=== PATIENT | female | born 1950 | race Caucasian/White ===

== ENCOUNTER → 2017-06-26 13:33 | Outpatient (CLI) | payer MEDICARE, OTHER, SELFPAY ==
--- NOTE | 2017-06-26 14:15 | RAD_ITS ---
STUDY: X-RAY - LEFT HAND REASON FOR EXAM: Female, 66 years old. Arthritis for few years TECHNIQUE: 3 view(s) of the hand. COMPARISON: None. FINDINGS: Normal radiocarpal articulation. Normal distal radioulnar joint. Normal visualized carpal bones. Normal carpal articulations There is degenerative arthrosis of the carpometacarpal (CMC) articulation of the thumb. Normal second through fifth carpometacarpal joints. Normal metacarpi. Normal metacarpophalangeal joint of the thumb. There is degenerative arthrosis of the interphalangeal joint of the thumb with articular joint space narrowing. Normal proximal and distal phalanges of the thumb. Normal metacarpophalangeal joints of the second through fifth fingers. There is erosive osteoarthritis involving the proximal and distal interphalangeal joints of the second through fifth digits Normal phalanges of the second through fifth fingers. The soft tissue structures are unremarkable. 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 Arthrosis of the basal joint Electronically Signed: Luis Manuel Woods MD, FACR at 15:10 EST , Service support ,
--- NOTE | 2017-06-26 14:15 | RAD_ITS ---
STUDY: X-RAY - RIGHT HAND REASON FOR EXAM: Female, 66 years old. Arthritis for a few years TECHNIQUE: 4 view(s) of the hand. COMPARISON: None. FINDINGS: Normal radiocarpal articulation. Normal distal radioulnar joint. Normal visualized carpal bones. Normal carpal articulations Normal carpometacarpal articulation of the thumb. Normal second through fifth carpometacarpal joints. Normal metacarpi. Normal metacarpophalangeal joint of the thumb. There is degenerative arthrosis of the interphalangeal joint of the thumb with articular joint space narrowing. Normal proximal and distal phalanges of the thumb. Normal metacarpophalangeal joints of the second through fifth fingers. There is erosive osteoarthritis involving the proximal and distal interphalangeal joints of the second through fifth digits Normal phalanges of the second through fifth fingers. The soft tissue structures are unremarkable. RAD/Hand Min 3 Views IMPRESSION: Erosive osteoarthritis involving the proximal and distal interphalangeal joints Electronically Signed: Luis Manuel Woods MD, FACR at 15:07 EST , Service support ,
[2017-06-26 16:08] LABS: Anion Gap 6 (5-15); BUN 15 mg/dL (7-18); Calcium,Total 8.9 mg/dL (8.5-10.1); Chloride 106 mmol/L (98-107); Creatinine, Serum 1.25 mg/dL (0.55-1.02); EST Glomerular Filtration Rate 46 mL/min (>60); Est Glom Filt Rate - Afr Amer 55 mL/min (>60); Glucose 93 mg/dL (74-106); Potassium 4.1 mmol/L (3.5-5.1); Rheumatoid Factor < 10.0 IU/mL (<15); Sodium Level 140 mmol/L (136-145); T4 Free Direct 1.51 ng/dL (0.76-1.46); Thyroid Stim Hormone (TSH) 1.77 uIU/mL (0.358-3.74)
[2017-06-26 16:09] LABS: Erythrocyte Sedimentation Rate 29 mm/hr (0-30)
[2017-06-27 09:06] LABS: Vitamin D,25 Hydroxy 19.8 ng/mL (19.95-100.01)
[2017-06-28 15:03] LABS: ANTINUCLEAR ANTIBODIES DIRECT Positive (Negative)
[2017-06-29 08:09] LABS: CCP IgG Antibodies 8 units (0-19)
== END ==
PROVIDERS: Family Provider Family Medicine; PCP Family Medicine; Visit Provider Family Medicine
DX: E03.9 Hypothyroidism, unspecified (principal); M19.041 Primary osteoarthritis, right hand; M19.042 Primary osteoarthritis, left hand
CPT/HCPCS: 36415; 73130; 80048; 82306; 84439; 84443; 85652; 86038; 86200; 86431

== ENCOUNTER → 2017-08-07 14:06 | Outpatient (CLI) | payer MEDICARE, OTHER, SELFPAY ==
--- NOTE | 2017-08-07 14:12 | RAD_ITS ---
STUDY: X-RAY - PELVIS REASON FOR EXAM: Female, 66 years old. Inflammatory polyarthropathy TECHNIQUE: One view of the pelvis was obtained. COMPARISON: None. FINDINGS: There is a non-specific bowel gas pattern. Normal visualized soft tissue structures. Normal bilateral iliac wings, sacroiliac joints and visualized sacrum. Normal visualized bilateral superior and inferior pubic rami. Normal pubic symphysis. Normal ischial tuberosities. The right hip joint appears within normal limits. There are mild osteoarthritic changes of the left hip joint. The soft tissues are unremarkable. RAD/Pelvis 1 or 2 Views IMPRESSION: Mild osteoarthritic changes of the left hip joint. Electronically Signed: Diaz Faust MD at 22:09 EDT , Service support ,
[2017-08-07 16:23] LABS: Absolute Lymphocyte Count 1.93 X10^3/ul (0.83-4.51); Absolute Neutrophil Count 4.4 X10^3/uL (2.0-7.7); Basophil# 0.04 X10^3/uL; Basophil% 0.6 % (0-1); Eosinophil# 0.15 X10^3/uL; Eosinophils% 2.1 % (0-5); Hematocrit 37.3 % (37-47); Hemoglobin 12.1 g/dl (12.0-15.0); Lymphocyte # 1.93 X10^3/ul (4.0); Lymphocyte % 27.3 % (19-41); Mean Corp Hgb Conc 32.4 g/gl (32-36); Mean Corpuscular Hgb 30.9 pg (27.0-32.0); Mean Corpuscular Volume 95.4 fL (81-99); Mean Platelet Vol. 10.8 fl (6.2-12.0); Monocyte# 0.51 X10^3/uL; Monocyte% 7.2 % (0-10); Neutrophil # 4.42 X10^3/uL (2.7-7.7); Neutrophil % 62.7 % (47-70); Platelet Count 345 K/mm3 (150-450); RBC Distribution Width CV 13.2 % (11.6-14.6); RBC Distribution Width SD 44.7 fl (35.1-43.9); Red Blood Count 3.91 M/mm3 (4.2-5.4); White Blood Count 7.1 K/mm3 (4.4-11.0)
[2017-08-07 16:32] LABS: POSITIVE COUNT NO; POSITIVE DIFFERENTIAL NO; POSITIVE MORPHOLOGY NO
[2017-08-07 16:48] LABS: ALB/GLOB Ratio 0.9 RATIO (0.9-2.4); AST(SGOT) 18 U/L (15-37); Alanine Aminotransfer ALT/SGPT 19 U/L (13-56); Albumin, Serum 3.8 g/dL (3.2-5.0); Alkaline Phosphatase 104 U/L (45-117); Anion Gap 9 (5-15); BUN 15 mg/dL (7-18); BUN/Creat Ratio 11.8 RATIO (10-20); CRP < 2.90 mg/L (0.0-3.0); Calcium,Total 9.2 mg/dL (8.5-10.1); Chloride 103 mmol/L (98-107); Creatinine, Serum 1.27 mg/dL (0.55-1.02); EST Glomerular Filtration Rate 45 mL/min (>60); Est Glom Filt Rate - Afr Amer 54 mL/min (>60); Globulin 4.3 g/dL (2.2-4.2); Glucose 71 mg/dL (74-106); Protein, Total 8.1 g/dL (6.4-8.2); Sodium Level 140 mmol/L (136-145)
[2017-08-07 16:52] LABS: Erythrocyte Sedimentation Rate 22 mm/hr (0-30)
[2017-08-09 15:31] LABS: ANTINUCLEAR ANTIBODIES DIRECT Positive (Negative)
[2017-08-14 16:30] LABS: HEPATITIS B SURFACE AG Negative (Negative); HLA B27 Negative (.); Hep B Surface Antibodies Non Reactive (.); Hep C Antibodies 0.1 s/co ratio (0.0-0.9)
== END ==
PROVIDERS: Family Provider Family Medicine; PCP Family Medicine; Visit Provider Internal Medicine Rheumatology
DX: M06.4 Inflammatory polyarthropathy (principal); M15.4 Erosive (osteo)arthritis; M21.40 Flat foot [pes planus] (acquired), unspecified foot; E03.9 Hypothyroidism, unspecified; K21.9 Gastro-esophageal reflux disease without esophagitis; F32.89 Other specified depressive episodes
CPT/HCPCS: 36415; 72170; 80053; 81374; 85025; 85652; 86038; 86140; 86706; 86803; 87340

== ENCOUNTER → 2017-10-26 14:45 | Outpatient (CLI) | payer MEDICARE, OTHER, SELFPAY ==
[2017-10-26 15:38] LABS: Absolute Neutrophil Count 4.5 X10^3/uL (2.0-7.7); Basophil# 0.04 X10^3/uL; Basophil% 0.6 % (0-1); Eosinophil# 0.14 X10^3/uL; Hematocrit 38.7 % (37-47); Hemoglobin 12.6 g/dl (12.0-15.0); Lymphocyte % 25.9 % (19-41); Mean Corp Hgb Conc 32.6 g/gl (32-36); Mean Corpuscular Hgb 30.4 pg (27.0-32.0); Mean Corpuscular Volume 93.5 fL (81-99); Mean Platelet Vol. 10.7 fl (6.2-12.0); Monocyte# 0.48 X10^3/uL; Monocyte% 6.9 % (0-10); Neutrophil # 4.49 X10^3/uL (2.7-7.7); Neutrophil % 64.5 % (47-70); Platelet Count 300 K/mm3 (150-450); RBC Distribution Width SD 43.5 fl (35.1-43.9); Red Blood Count 4.14 M/mm3 (4.2-5.4)
[2017-10-26 15:47] LABS: POSITIVE COUNT NO; POSITIVE DIFFERENTIAL NO; POSITIVE MORPHOLOGY NO
[2017-10-26 15:48] LABS: Color, Urine Yellow (Yellow); Glucose, Dipstick Normal (Normal); Ketone-Dipstick Negative (Negative); Leukocyte Esterase-Dipstick 100 /ul (Negative); Nitrite-Dipstick Negative (Negative); Occult Blood-Urine 10 /ul (Negative); Protein-Dipstick Negative (Negative); Specific Gravity, Urine 1.025 (1.002-1.030); Urine Bilirubin Dipstick Negative (Negative); Urine Clarity Clear (Clear); Urine Urobilinogen Normal (Normal)
[2017-10-26 16:13] LABS: Protein:Creat Ratio 175 mg/g CRE (0-200)
[2017-10-26 16:17] LABS: ALB/GLOB Ratio 0.8 RATIO (0.9-2.4); AST(SGOT) 18 U/L (15-37); Alanine Aminotransfer ALT/SGPT 20 U/L (13-56); Albumin, Serum 3.8 g/dL (3.2-5.0); Alkaline Phosphatase 91 U/L (45-117); Anion Gap 6 (5-15); BUN 20 mg/dL (7-18); BUN/Creat Ratio 13.7 RATIO (10-20); Calcium,Total 9.3 mg/dL (8.5-10.1); Chloride 109 mmol/L (98-107); Creatinine, Serum 1.46 mg/dL (0.55-1.02); EST Glomerular Filtration Rate 38 mL/min (>60); Est Glom Filt Rate - Afr Amer 46 mL/min (>60); Globulin 4.5 g/dL (2.2-4.2); Glucose 88 mg/dL (74-106); Potassium 3.9 mmol/L (3.5-5.1); Protein, Total 8.3 g/dL (6.4-8.2); Sodium Level 140 mmol/L (136-145)
[2017-10-28 10:40] LABS: Complement C3 119 mg/dL (82-167)
[2017-10-29 20:08] LABS: Anti-Jo <0.2 AI (0.0-0.9); Anti-Scleroderma-70 AB <0.2 AI (0.0-0.9); RNP Ab 1.2 AI (0.0-0.9); SJOGREN'S Anti-SS-A test < 0.2 AI (0.0-0.9); SJOGREN'S Anti-SS-B test < 0.2 AI (0.0-0.9); Smith Ab <0.2 AI (0.0-0.9)
[2017-10-30 15:07] LABS: Anti-Centromere B Ab <0.2 AI (0.0-0.9); Anti-dsDNA Ab 1 IU/mL (0-9)
== END ==
PROVIDERS: Family Provider Family Medicine; PCP Family Medicine; Visit Provider Internal Medicine Rheumatology
DX: M06.4 Inflammatory polyarthropathy (principal); M15.4 Erosive (osteo)arthritis; M21.40 Flat foot [pes planus] (acquired), unspecified foot; R76.8 Other specified abnormal immunological findings in serum
CPT/HCPCS: 36415; 80053; 81002; 82570; 84156; 85025; 86160; 86225; 86235

== ENCOUNTER → 2018-01-24 13:46 | Outpatient (CLI) | payer MEDICARE, OTHER, SELFPAY ==
[2018-01-24 15:35] LABS: Absolute Lymphocyte Count 1.79 X10^3/ul (0.83-4.51); Absolute Neutrophil Count 4.1 X10^3/uL (2.0-7.7); Basophil# 0.03 X10^3/uL; Basophil% 0.5 % (0-1); Eosinophil# 0.11 X10^3/uL; Eosinophils% 1.7 % (0-5); Hematocrit 36.2 % (37-47); Hemoglobin 11.7 g/dl (12.0-15.0); Lymphocyte # 1.79 X10^3/ul (4.0); Lymphocyte % 27.4 % (19-41); Mean Corp Hgb Conc 32.3 g/gl (32-36); Mean Corpuscular Hgb 30.3 pg (27.0-32.0); Mean Corpuscular Volume 93.8 fL (81-99); Mean Platelet Vol. 10.6 fl (6.2-12.0); Monocyte# 0.52 X10^3/uL; Neutrophil # 4.08 X10^3/uL (2.7-7.7); Neutrophil % 62.2 % (47-70); Platelet Count 318 K/mm3 (150-450); RBC Distribution Width CV 13.5 % (11.6-14.6); RBC Distribution Width SD 44.6 fl (35.1-43.9); Red Blood Count 3.86 M/mm3 (4.2-5.4); White Blood Count 6.5 K/mm3 (4.4-11.0)
[2018-01-24 15:43] LABS: POSITIVE COUNT NO; POSITIVE DIFFERENTIAL NO; POSITIVE MORPHOLOGY NO
[2018-01-24 15:48] LABS: ALB/GLOB Ratio 0.9 RATIO (0.9-2.4); AST(SGOT) 20 U/L (15-37); Alanine Aminotransfer ALT/SGPT 22 U/L (13-56); Albumin, Serum 3.4 g/dL (3.2-5.0); Alkaline Phosphatase 85 U/L (45-117); Anion Gap 7 (5-15); BUN 14 mg/dL (7-18); BUN/Creat Ratio 10.8 RATIO (10-20); Calcium,Total 8.7 mg/dL (8.5-10.1); Chloride 110 mmol/L (98-107); EST Glomerular Filtration Rate 44 mL/min (>60); Est Glom Filt Rate - Afr Amer 53 mL/min (>60); Globulin 3.8 g/dL (2.2-4.2); Glucose 95 mg/dL (74-106); Protein, Total 7.2 g/dL (6.4-8.2); Sodium Level 145 mmol/L (136-145)
== END ==
PROVIDERS: Family Provider Family Medicine; PCP Family Medicine; Visit Provider Internal Medicine Rheumatology
DX: M06.4 Inflammatory polyarthropathy (principal); M35.1 Other overlap syndromes; R76.8 Other specified abnormal immunological findings in serum; M15.4 Erosive (osteo)arthritis; M21.40 Flat foot [pes planus] (acquired), unspecified foot; K21.9 Gastro-esophageal reflux disease without esophagitis; E03.9 Hypothyroidism, unspecified; F32.89 Other specified depressive episodes
CPT/HCPCS: 36415; 80053; 85025

== ENCOUNTER → 2018-04-16 11:01 | Outpatient (CLI) | payer MEDICARE, OTHER, SELFPAY ==
--- NOTE | 2018-04-16 11:21 | MRI_ITS ---
STUDY: MRI TEMPOROMANDIBULAR JOINTS REASON FOR EXAM: Female, 67 years old. Left-sided pain and jaw locking TECHNIQUE: Standardized fat and water weighted pulse sequences were obtained in all 3 orthogonal planes. COMPARISON: None. FINDINGS: Left TMJ: In the closed-mouth position, the left mandibular condyle is normally positioned in the mandibular fossa. Normal left mandibular condyle. Normal meniscus. Normal relationship of the meniscus to the mandibular condyle. There is no demonstrated joint effusion. In the open mouth position, there is normal forward translation of the mandibular condyle which comes to rest under the articular eminence. The meniscus maintains its normal relationship with the mandibular condyle and articular eminence. Right TMJ: In the closed-mouth position, the right mandibular condyle is normally positioned in the mandibular fossa. Sharon right mandibular condyle. Normal meniscus. Normal relationship of the meniscus to the mandibular condyle. There is no demonstrated joint effusion. In the open mouth position, there is normal forward translation of the mandibular condyle which comes to rest under the articular eminence. The meniscus maintains its normal relationship with the mandibular condyle and articular eminence. A Chiari I malformation cannot be excluded. Consider additional imaging evaluation with standard brain MRI if clinically indicated. MRI/TMJ/Bilat IMPRESSION: No TMJ pathology is detected. Normal translation and relocation of the left TMJ disc between mouth opening and closing. Possible Chiari I malformation. Consider follow-up brain MRI if clinically indicated. Electronically Signed: Ramon Mata MD at 9:25 EST Tel , Service support ,
== END ==
PROVIDERS: Family Provider Family Medicine; PCP Family Medicine
DX: M26.619 Adhesions and ankylosis of temporomandibular joint, unspecified side (principal); M26.629 Arthralgia of temporomandibular joint, unspecified side; M26.639 Articular disc disorder of temporomandibular joint, unspecified side
CPT/HCPCS: 70336

== ENCOUNTER → 2018-06-10 10:43 | Outpatient (CLI) | payer MEDICARE, OTHER, SELFPAY ==
[2018-06-10 12:07] LABS: Absolute Lymphocyte Count 1.29 X10^3/ul (0.83-4.51); Absolute Neutrophil Count 3.5 X10^3/uL (2.0-7.7); Basophil# 0.04 X10^3/uL; Basophil% 0.7 % (0-1); Eosinophil# 0.08 X10^3/uL; Eosinophils% 1.5 % (0-5); Hematocrit 38.3 % (37-47); Hemoglobin 12.4 g/dl (12.0-15.0); Lymphocyte # 1.29 X10^3/ul (4.0); Lymphocyte % 24.1 % (19-41); Mean Corp Hgb Conc 32.4 g/gl (32-36); Mean Corpuscular Hgb 30.7 pg (27.0-32.0); Mean Corpuscular Volume 94.8 fL (81-99); Mean Platelet Vol. 10.2 fl (6.2-12.0); Monocyte# 0.43 X10^3/uL; Neutrophil # 3.51 X10^3/uL (2.7-7.7); Neutrophil % 65.7 % (47-70); Platelet Count 307 K/mm3 (150-450); RBC Distribution Width CV 13.1 % (11.6-14.6); RBC Distribution Width SD 44.1 fl (35.1-43.9); Red Blood Count 4.04 M/mm3 (4.2-5.4); White Blood Count 5.4 K/mm3 (4.4-11.0)
[2018-06-10 12:08] LABS: POSITIVE COUNT NO; POSITIVE DIFFERENTIAL NO; POSITIVE MORPHOLOGY NO
[2018-06-10 12:24] LABS: ALB/GLOB Ratio 0.9 RATIO (0.9-2.4); AST(SGOT) 22 U/L (15-37); Alanine Aminotransfer ALT/SGPT 21 U/L (13-56); Albumin, Serum 3.8 g/dL (3.2-5.0); Alkaline Phosphatase 90 U/L (45-117); Anion Gap 8 (5-15); BUN 18 mg/dL (7-18); BUN/Creat Ratio 12.7 RATIO (10-20); Calcium,Total 9.1 mg/dL (8.5-10.1); Chloride 104 mmol/L (98-107); Creatinine, Serum 1.42 mg/dL (0.55-1.02); EST Glomerular Filtration Rate 39 mL/min (>60); Est Glom Filt Rate - Afr Amer 48 mL/min (>60); Globulin 4.1 g/dL (2.2-4.2); Glucose 86 mg/dL (74-106); Potassium 4.1 mmol/L (3.5-5.1); Protein, Total 7.9 g/dL (6.4-8.2); Sodium Level 139 mmol/L (136-145)
== END ==
PROVIDERS: Family Provider Family Medicine; PCP Family Medicine; Referring Provider Internal Medicine Rheumatology; Visit Provider Internal Medicine Rheumatology
DX: M06.4 Inflammatory polyarthropathy (principal); M35.1 Other overlap syndromes; R76.8 Other specified abnormal immunological findings in serum; M15.4 Erosive (osteo)arthritis; M21.40 Flat foot [pes planus] (acquired), unspecified foot; K21.9 Gastro-esophageal reflux disease without esophagitis; E03.9 Hypothyroidism, unspecified; F32.89 Other specified depressive episodes
CPT/HCPCS: 36415; 80053; 85025

== ENCOUNTER → 2018-06-17 13:54 | Outpatient (CLI) | payer MEDICARE, OTHER, SELFPAY ==
[2018-06-17 14:09] LABS: Pathologist Comment May follow
[2018-06-17 15:06] LABS: RBC /Synovial Fluid 0.023 10^6/uL (0); Synovial Fld Mononuclear WBC % 55.3 %; Synovial Fld Polynuclear WBC # 0.093 10^3/ul; Synovial Fld Polynuclear WBC % 44.7 %
[2018-06-17 15:20] LABS: AUTO B FLUID DILUENT BKGD CT WBC <0.1 RBC <0.01 (W<.1,R<.01); Appearance /Synovial Fluid Sl Cl (CLEAR); Color / Synovial Fluid Red (Pale Yellow); Source / Synovial Fluid RIGHT KNEE; Source- Body Fluid SYNOVIAL
[2018-06-17 16:19] LABS: Lymph 13 %; Monocyte /Synovial Fluid 1 %; Neutrophil 86 % (0-25)
[2018-06-17 16:20] LABS: Body Fluid QC Type(s) BF2Q
[2018-06-18 14:48] LABS: Pathologist Review Reviewed
== END ==
PROVIDERS: Family Provider Family Medicine; PCP Family Medicine; Referring Provider Internal Medicine Rheumatology; Visit Provider Internal Medicine Rheumatology
DX: M06.4 Inflammatory polyarthropathy (principal); M35.1 Other overlap syndromes; M15.4 Erosive (osteo)arthritis; M21.40 Flat foot [pes planus] (acquired), unspecified foot; K21.9 Gastro-esophageal reflux disease without esophagitis; E03.9 Hypothyroidism, unspecified; F32.89 Other specified depressive episodes
CPT/HCPCS: 87070; 87075; 87205; 89050; 89051; 89060

== ENCOUNTER 2018-07-11 10:19 | Emergency (ER) | payer MEDICARE, OTHER, SELFPAY ==
[2018-07-11 10:20] VITALS: BP 154/79; PULSE 87; RESP 18; TEMP 36.6; O2SAT 100; BMI 25.5
--- NOTE | 2018-07-11 10:53 | ED.VISSUMM ---
- ER Visit Summary Date of Service: 07/11/18 Chief Complaint: Dog bite History of Present Illness: The patient is a 67 F who presents with a dog bite to her right hand that occurred today. Patient states it was her own dog who bit her. Patient states she was trying to break up a fight between her 2 dogs. Patient describes the pain as aching and stabbing. Patient admits to some tingling in her right thumb. Patient denies any weakness. Patient is unsure of her last tetanus. Physical Examination: Vital signs are stable. Patient is afebrile. Patient is in no acute distress. Musculoskeletal exam reveals a 1 cm laceration over the dorsal aspect of the right thumb over the distal first metacarpal. There is a 0.5 cm laceration over the ulnar aspect of the right wrist. There are no foreign bodies noted. There is no active bleeding noted. Sensation was intact to light touch in the radial, median, and ulnar areas. Capillary refill is less than 2 seconds in all digits. Radial pulses are equal bilateral. The remaining physical exam is within normal limits. Emergency Department Course and Treatment: The wounds were cleaned and Steri-Strips were applied. Patient was given a tetanus booster. Patient was instructed to keep the wounds clean and dry. Patient was instructed to follow-up with her primary care physician in 7-10 days. Patient understood and was agreeable with the plan. All questions were answered. Disposition: Discharge home Impression: Dog bite right hand This note was generated with [employer] dictation software. It may contain incorrect words, spelling, and punctuation that were not noted in review of the chart prior to signing ED Disposition - Plan for ED Patient: Disposition: Home or Assisted Living Diagnosis: Dog bite of multiple sites of right hand and fingers Instructions: ED Bite Dog Referrals: Krunal Gee MD [Primary Care Provider] -
[2018-07-11] MEDS: Diphth,Pertuss(Acell),Tet Vac 0.5 ML Vial IM (11:06)
--- NOTE | 2018-07-11 11:06 | ED.DCSUM_ITS ---
- ER Visit Summary Date of Service: 07/11/18 Chief Complaint: Dog bite History of Present Illness: The patient is a 67 F who presents with a dog bite to her right hand that occurred today. Patient states it was her own dog who bit her. Patient states she was trying to break up a fight between her 2 dogs. Patient describes the pain as aching and stabbing. Patient admits to some tingling in her right thumb. Patient denies any weakness. Patient is unsure of her last tetanus. Physical Examination: Vital signs are stable. Patient is afebrile. Patient is in no acute distress. Musculoskeletal exam reveals a 1 cm laceration over the dorsal aspect of the right thumb over the distal first metacarpal. There is a 0.5 cm laceration over the ulnar aspect of the right wrist. There are no foreign bodies noted. There is no active bleeding noted. Sensation was intact to light touch in the radial, median, and ulnar areas. Capillary refill is less than 2 seconds in all digits. Radial pulses are equal bilateral. The remaining physical exam is within normal limits. Emergency Department Course and Treatment: The wounds were cleaned and Steri- Strips were applied. Patient was given a tetanus booster. Patient was instructed to keep the wounds clean and dry. Patient was instructed to follow- up with her primary care physician in 7-10 days. Patient understood and was agreeable with the plan. All questions were answered. Disposition: Discharge home Impression: Dog bite right hand This note was generated with [employer] dictation software. It may contain incorrect words, spelling, and punctuation that were not noted in review of the chart prior to signing ED Disposition - Plan for ED Patient: Disposition: Home or Assisted Living Diagnosis: Dog bite of multiple sites of right hand and fingers Instructions: ED Bite Dog Referrals: Krunal Gee MD [Primary Care Provider] -
--- NOTE | 2018-07-11 11:50 | RAD_ITS ---
STUDY: X-RAY - RIGHT HAND REASON FOR EXAM: Dog bite, laceration at the base of the thumb. TECHNIQUE: 3 view(s) of the hand. COMPARISON: Radiographs 06/26/2017. FINDINGS: Normal radiocarpal articulation. Normal distal radioulnar joint. Normal visualized carpal bones. Normal carpal articulations Normal carpometacarpal articulation of the thumb. Normal second through fifth carpometacarpal joints. Normal metacarpi. Normal metacarpophalangeal joint of the thumb. There are marginal osteophytes and joint space narrowing of the interphalangeal joint of the thumb. Normal proximal and distal phalanges of the thumb. Normal metacarpophalangeal joints of the second through fifth fingers. There are marginal osteophytes, joint space narrowing and central erosive changes of the proximal and distal interphalangeal joints. Normal phalanges of the second through fifth fingers. The soft tissue structures are unremarkable. RAD/Hand Min 3 Views IMPRESSION: Erosive osteoarthritis as on the prior study. No demonstrated fracture. Electronically Signed: Korey Smith MD at 12:51 EST Tel , Service support ,
== END 2018-07-11 12:43 | disposition home or self-care (01) ==
PROVIDERS: Emergency Provider Emergency Medicine; Family Provider Family Medicine; PCP Family Medicine
DX: S61.051A Open bite of right thumb without damage to nail, initial encounter (principal); S61.551A Open bite of right wrist, initial encounter; W54.0XXA Bitten by dog, initial encounter; Y93.9 Activity, unspecified; Y92.9 Unspecified place or not applicable; Y99.9 Unspecified external cause status; Z23 Encounter for immunization; E03.9 Hypothyroidism, unspecified; M19.90 Unspecified osteoarthritis, unspecified site; F32.9 Major depressive disorder, single episode, unspecified; K21.9 Gastro-esophageal reflux disease without esophagitis; Z72.0 Tobacco use; Z79.899 Other long term (current) drug therapy
CPT/HCPCS: 73130; 90715; 99283

== ENCOUNTER → 2018-10-14 11:47 | Outpatient (CLI) | payer MEDICARE, OTHER, SELFPAY ==
[2018-10-14 13:53] LABS: Absolute Lymphocyte Count 1.23 X10^3/ul (0.83-4.51); Absolute Neutrophil Count 4.6 X10^3/uL (2.0-7.7); Basophil# 0.02 X10^3/uL; Basophil% 0.3 % (0-1); Eosinophils% 1.5 % (0-5); Hematocrit 38.1 % (37-47); Hemoglobin 12.3 g/dl (12.0-15.0); Lymphocyte # 1.23 X10^3/ul (4.0); Mean Corp Hgb Conc 32.3 g/gl (32-36); Mean Corpuscular Hgb 30.4 pg (27.0-32.0); Mean Corpuscular Volume 94.1 fL (81-99); Mean Platelet Vol. 10.3 fl (6.2-12.0); Monocyte# 0.56 X10^3/uL; Monocyte% 8.7 % (0-10); Neutrophil # 4.55 X10^3/uL (2.7-7.7); Neutrophil % 70.3 % (47-70); Platelet Count 312 K/mm3 (150-450); RBC Distribution Width CV 13.4 % (11.6-14.6); RBC Distribution Width SD 46.4 fl (35.1-43.9); Red Blood Count 4.05 M/mm3 (4.2-5.4); White Blood Count 6.5 K/mm3 (4.4-11.0)
[2018-10-14 13:57] LABS: POSITIVE COUNT NO; POSITIVE DIFFERENTIAL NO; POSITIVE MORPHOLOGY NO
[2018-10-14 14:10] LABS: ALB/GLOB Ratio 0.9 RATIO (0.9-2.4); AST(SGOT) 25 U/L (15-37); Alanine Aminotransfer ALT/SGPT 22 U/L (13-56); Albumin, Serum 3.6 g/dL (3.2-5.0); Alkaline Phosphatase 84 U/L (45-117); Anion Gap 5 (5-15); BUN 23 mg/dL (7-18); BUN/Creat Ratio 15.6 RATIO (10-20); Calcium,Total 9.3 mg/dL (8.5-10.1); Chloride 105 mmol/L (98-107); Creatinine, Serum 1.47 mg/dL (0.55-1.02); EST Glomerular Filtration Rate 38 mL/min (>60); Est Glom Filt Rate - Afr Amer 46 mL/min (>60); Glucose 99 mg/dL (74-106); Potassium 4.8 mmol/L (3.5-5.1); Protein, Total 7.6 g/dL (6.4-8.2); Sodium Level 137 mmol/L (136-145)
== END ==
PROVIDERS: Family Provider Family Medicine; PCP Family Medicine; Referring Provider Internal Medicine Rheumatology; Visit Provider Internal Medicine Rheumatology
DX: M06.4 Inflammatory polyarthropathy (principal); M35.1 Other overlap syndromes; M15.4 Erosive (osteo)arthritis; M21.40 Flat foot [pes planus] (acquired), unspecified foot; E03.9 Hypothyroidism, unspecified; F32.89 Other specified depressive episodes; K21.9 Gastro-esophageal reflux disease without esophagitis
CPT/HCPCS: 36415; 80053; 85025

== ENCOUNTER → 2018-12-12 13:45 | Outpatient (CLI) | payer MEDICARE, OTHER, SELFPAY ==
--- NOTE | 2018-12-12 13:48 | US_ITS ---
STUDY: ULTRASOUND BREAST - RIGHT REASON FOR EXAM: Female, 68 years old. Palpable lump in the right breast. TECHNIQUE: Axial and longitudinal images of the RIGHT breast were performed with a high resolution ultrasound transducer. COMPARISON: Comparison is made with prior mammogram done earlier in the day. FINDINGS: RIGHT Breast: The palpable abnormality corresponds to a 2.7 cm x 3.4 cm x 2.2 cm hypoechoic irregular mass at the 12:00 position of the breast at 1 cm from nipple. There is evidence of posterior acoustical shadowing. A biopsy is recommended. US/Breast Limited Unilateral IMPRESSION: The palpable abnormality corresponds to a 2.7 cm x 3.4 cm x 2.2 cm irregular hypoechoic solid mass with posterior shadowing at the 12:00 position of the breast at 1 cm from nipple. A biopsy is recommended. ASSESSMENT CATEGORY: BIRADS Category 5: Highly Suggestive of Malignancy - Appropriate Action Should Be Taken. A letter regarding these results will be sent to the patient by the facility within 30 days. Electronically Signed: Bya Newell, at 8:04 EDT , Service support ,
--- NOTE | 2018-12-12 13:48 | BI_ITS ---
MAMMOGRAPHY - BILATERAL DIAGNOSTIC REASON FOR EXAM: Female, 68 years old. Palpable mass in the right breast. PERTINENT HISTORY: Non-contributory. TECHNIQUE: Digital bilateral breast daron (3D mammographic acquisition) in the CC and MLO projections. 2-D mediolateral oblique (MLO) and craniocaudad (CC) views of both breasts were obtained. CAD: Full Field Digital Mammography with Computer Added Detection was performed. COMPARISON: Comparison is made with prior study dated May 10, 2016 and August 03, 2014. FINDINGS: Breast Composition: There are scattered areas of fibroglandular density. There now is evidence of a 3.4 cm x 2.4 cm irregular mass in the upper superior retroareolar region of the right breast. This corresponds to the mammographic abnormality. A biopsy is recommended for further evaluation. No other significant abnormalities are identified. BI/DIAG MAMM W/CAD, BILAT IMPRESSION: There is a new 3.4 cm x 2.4 cm irregular mass corresponding to the palpable abnormality in the right breast as described. A biopsy is recommended. ASSESSMENT CATEGORY: BIRADS Category 5: Highly Suggestive of Malignancy - Appropriate Action Should Be Taken. A letter regarding these results will be sent to the patient by the facility within 30 days. Approximately 10% of breast cancers are not detected by mammography. A normal mammogram should not delay biopsy of a clinically suspicious abnormality. Electronically Signed: Bay Newell, at 8:06 EDT , Service support ,
== END ==
PROVIDERS: Family Provider Family Medicine; PCP Family Medicine; Referring Provider Family Medicine; Visit Provider Family Medicine
DX: N63.10 Unspecified lump in the right breast, unspecified quadrant (principal); R92.8 Other abnormal and inconclusive findings on diagnostic imaging of breast
CPT/HCPCS: 76642; 77062; 77066; G0279

== ENCOUNTER → 2018-12-16 10:26 | Outpatient (CLI) | payer MEDICARE, OTHER, SELFPAY ==
--- NOTE | 2018-12-16 | BRBX_PTH ---
PATIENT: ANABEL LOCKE LOC: [facility] U#:[id number] AGE/SX: 74/F ROOM: RE12/16/[address]: Dr. Jaquan Siddiqui MD : 1950 BED: DIS: SPEC #: [id number] RECD: 12/16/18 12:12 STATUS: HALEY REENA #: [id number] GASTON: 12/16/18 00:[address]: Jaquan Siddiqui DEPT: SURGICAL PATHOLOGY RECD BY: Juan Antonio Mckeon ENTERED: 12/16/18 12:12 SP TYPE: BREAST BX OTHR DR: Dr. Krunal Gee MD Tissues: Right breast, NOS Procedures: Surgery Specimen Level IV HEADER OPERATION: Ultrasound-guided needle core biopsy, right breast PRE-OP DIAGNOSIS: Abnormal mammogram, right TISSUE SUBMITTED: Right breast tissue biopsy ISCHEMIC TIME: 10 seconds FIXATION TIME: 10 hours MICROSCOPIC DIAGNOSIS Right breast, ultrasound-guided core biopsy: Invasive ductal carcinoma, nuclear grade 3 (1.5 cm in greatest length). See comment. ALEXY:vinayak 12/17/18 COMMENT Immunohistochemistry ([id number]) supports the above diagnosis. ER/ME/Aow9nkb studies are being performed on sections of tumor and the results from this study will be reported separately ([id number]). Case has been reviewed in consultation with Dr. Saunders who concurs with the above diagnosis. IDC:AM MICROSCOPIC DESCRIPTION Slides are reviewed. GROSS DESCRIPTION Received in fixative is one container labeled with the patient's name and designated right breast. The specimen consists of multiple elongated fragments of yancey-yellow fibroadipose tissue that in aggregate measure 1.5 x 1 x 0.1 cm. The entire specimen is submitted in one cassette. / ALEXY:vinayak 12/16/18 TC:0 CPT: 42899
--- NOTE | 2018-12-16 | IMM_PTH ---
PATIENT: ANABEL LOCKE LOC: [facility] U#:[id number] AGE/SX: 74/F ROOM: RE12/16/[address]: Dr. Jaquan Siddiqui MD : 1950 BED: DIS: SPEC #: [id number] RECD: 12/17/18 11:19 STATUS: HALEY REQ #: [id number] GASTON: 12/16/18 00:[address]: Jaquan Siddiqui DEPT: IMMUNOHISTOCHEMISTRY RECD BY: Jodie Torres ENTERED: 12/17/18 11:20 SP TYPE: IMMUNO OTHR DR: Dr. Krunal Gee MD Tissues: Right breast, NOS Procedures: CALPONIN-1 (add) CK5-6 (add) CK8 (add) E-CAD (add) HER2 MISTY (add) KI-67 (add) P53 (add) WV (add) IN SITU HYBRIDIZATION P40 (add) ER (initial) PHYSICIAN & INSTITUTION [address] [address] SPECIMEN INFORMATION: Tissue Source: Right breast Clinical Info: Abnormal mammogram, right breast Specimen Number: [id number] CPT code: 19139, 66092 x6, 64754 x3 METHODOLOGY: Deparaffinized sections of prefer/formalin-fixed tissue or PAP/DQ stained slides are incubated with monoclonal/polyclonal antibodies/oligonucleotide probes. Localization is made via biotin free immunoperoxidase method. Appropriate controls are performed and reacted as expected. Results on target cell population are indicated in the following table: RESULTS: ANTIBODY / CLONE RESULT E-Cad (ECH-6) positive CK8 (16oeluJ86) positive CK5-6 (D5 & 1684) negative Ki-67 (30-9) positive, moderate P53 (DO-7) positive P40 (BC28) negative Calponin-1 (TG492S) negative MORPHOMETRIC ANALYSIS ER (clone 6F11) 88%, moderate intensity WV (clone 16/1E2) 68%, moderate intensity Her-2Neu (clone CB11) 2+ The prognostic test for HER2 is performed on formalin-fixed paraffin embedded tissue. A 3+ (positive) staining pattern is defined as intense, homogeneous, complete, circumferential membranous staining in >10% of contiguous tumor cells. A similar weak (2+) staining pattern is interpreted as equivocal. ANNIKA follow-up testing is recommended for all equivocal cases. Positivity/negativity for ER/WV is reported if > or < 1% of the tumor cells are immuno- reactive, respectively. The ASCO/CAP criteria is used for scoring. Reference: Journal of Clinical Oncology, 2013; 31:8984-9725 & 2010; 16:0183-9352. Duration of fixation: 10 Hrs; Sample Adequate: Yes. These assays have not been validated on decalcified tissues. Results should be interpreted with caution given the likelihood of false negativity on decalcified specimens. These tests were developed and their performance characteristics determined by [facility]. They may not have been cleared or approved by the U.S. Food and Drug Administration. The FDA has determined that such clearance or approval is not necessary. INTERPRETATION: Right breast, ultrasound-guided needle core biopsy: Invasive ductal carcinoma, nuclear grade 3. Positive for estrogen receptors (favorable prognostic indicator). Positive for progesterone receptors (favorable prognostic indicator). Equivocal for overexpression of BXU7uve. SJ:vinayak 12/18/18 ADDENDUM ADDENDUM ADDENDUM ADDENDUM ADDENDUM ADDENDUM ADDENDUM ADDENDUM ADDENDUM ADDENDUM ADDENDUM ADDENDUM ADDENDUM ADDENDUM ADDENDUM ADDENDUM ADDENDUM ADDENDUM ADDENDUM ADDENDUM ADDENDUM 12/19/2018 10:05 ADDENDUM 12/19/2018 10:05 ADDENDUM 12/19/2018 10:05 ADDENDUM 12/19/2018 10:05 ADDENDUM 12/19/2018 10:05 IN SITU HYBRIDIZATION (ANNIKA) FOR HER2 Interpretation: Not Amplified / Negative HER2 : CEP-17 Ratio: 1.2 Average HER2 Signal: 4.1 Average CEP-17 Signal: 3.45 Number of Tumor Cells Scanned: 50 Interpretative Information: The INFORM HER2 Dual ANNIKA DNA Probe Cocktail assay is performed on formalin-fixed paraffin embedded tissue and determines HER2 gene status by detecting HER2 copies via silver in situ hybridization (SISH) and Chromosome 17 copies via chromogenic red in situ hybridization on tumor cells. A minimum of 20 cells representing > 10% of contiguous and homogeneous invasive tumor cells were analyzed. HER2 gene status is classified as Non-amplified (HER2/Chr17 ratio < 2.0) or Amplified (HER2/Chr17 ratio greater than or equal to 2.0). If the resulting HER2/Chr17 ratio falls within 1.8 - 2.2 (Borderline), retesting by FISH is recommended. Reference: Jenny AC, Jeane BRYAN, Michelle DG, et al: Recommendations for Human Epidermal Growth Factor Receptor 2 Testing in Breast Cancer: [place] [employer] / [employer] [place] [employer] Clinical Practice Guideline Update. J Clin Oncol 31:5110-7367, 2013.
[2018-12-16 09:03] VITALS: BMI 25.5
== END ==
PROVIDERS: Family Provider Family Medicine; PCP Family Medicine; Referring Provider Surgery; Visit Provider Surgery
DX: R92.8 Other abnormal and inconclusive findings on diagnostic imaging of breast (principal)
CPT/HCPCS: 88305; 88341; 88342; 88368

== ENCOUNTER → 2018-12-20 08:53 | Outpatient (CLI) | payer MEDICARE, OTHER, SELFPAY ==
[2018-12-16 09:03] VITALS: BMI 25.5
--- NOTE | 2018-12-20 08:55 | US_ITS ---
STUDY: ULTRASOUND BREAST - RIGHT REASON FOR EXAM: Female, 68 years old. Right axillary screening. TECHNIQUE: Axial and longitudinal images of the RIGHT breast were performed with a high resolution ultrasound transducer. COMPARISON: Comparison is made with prior ultrasound of the right breast dated December 12, 2018. FINDINGS: RIGHT Breast: The right axillary region was examined by ultrasound. No sonographic abnormality is seen. US/Breast Limited Unilateral IMPRESSION: No sonographic abnormality of the right axilla is seen. ASSESSMENT CATEGORY: BIRADS Category 1: Negative. A letter regarding these results will be sent to the patient by the facility within 30 days. Electronically Signed: Bay Newell, at 10:27 EDT , Service support ,
--- NOTE | 2018-12-20 09:03 | BI_ITS ---
MAMMOGRAPHY - UNILATERAL DIAGNOSTIC: RIGHT BREAST REASON FOR EXAM: Female, 68 years old. Clip placement. PERTINENT HISTORY: Personal history of breast cancer. TECHNIQUE: Digital unilateral breast daron (3D mammographic acquisition) in the CC and MLO projections. 2-D mediolateral oblique (MLO) and craniocaudad (CC) views of both breasts were obtained. CAD: Full Field Digital Mammography with Computer Added Detection was performed. COMPARISON: Comparison is made with prior examination dated December 12, 2018. FINDINGS: Breast Composition: There are scattered areas of fibroglandular density. Stable appearance of the 3.4 cm x 2.4 cm mass in these upper superior retroareolar region of the right breast. A tissue clip marker from prior ultrasound is seen along its anterior aspect No other significant abnormalities are identified. BI/DIAG MAMM W/CAD, UNILAT IMPRESSION: Tissue clip marker is seen at the site of the biopsy. ASSESSMENT CATEGORY: BIRADS Category 4: Suspicious - Biopsy Should Be Considered. A letter regarding these results will be sent to the patient by the facility within 30 days. Approximately 10% of breast cancers are not detected by mammography. A normal mammogram should not delay biopsy of a clinically suspicious abnormality. Electronically Signed: Bay Newell, at 10:33 EDT , Service support ,
== END ==
PROVIDERS: Family Provider Family Medicine; PCP Family Medicine; Referring Provider Surgery; Visit Provider Surgery
DX: C50.911 Malignant neoplasm of unspecified site of right female breast (principal)
CPT/HCPCS: 76642; 77065

== ENCOUNTER 2018-12-30 11:26 | Day surgery (SDC) | payer MEDICARE, OTHER, SELFPAY ==
[2018-12-23 09:27] VITALS: BMI 25.5
--- NOTE | 2018-12-23 09:47 | HP_ITS ---
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 Is patient in pain?: No Allergies No Known Allergies Allergy (Verified 12/23/18 09:27) Medications Esomeprazole Mag Trihydrate [Nexium] 40 mg PO DAILY 03/11/13 [History Confirmed 12/23/18] buPROPion XL [Wellbutrin Xl] 300 mg PO DAILY 03/11/13 [History Confirmed 12/23/18] hydroxychloroquine 200 mg tablet 200 mg PO DAILY 12/16/18 [History Confirmed 12/23/18] levothyroxine 75 mcg tablet 88 mcg PO DAILY tab 12/16/18 [History Confirmed 12/23/18] tramadol 50 mg tablet 50 mg PO DAILY 12/16/18 [History Confirmed 12/23/18] PFS Medical History Depression (Acute) GERD (gastroesophageal reflux disease) (Acute) Hypothyroidism (Acute) Obesity (Acute) Osteoarthritis (Acute) Surgical History S/P appendectomy (Acute) s/p bilateral knee surgery (Acute) Family History Mother Breast cancer Social History (Updated 12/23/18 @ 09:47 by Jaquan Siddiqui MD) Smoking Status: Never smoker alcohol intake: current alcohol intake frequency: 0-2 drinks per day HPI HPI HPI: ANABEL LOCKE, is a 68 F who presents to the office today for HPI HPI Surgical H&P: Yes HPI: ANABEL LOCKE, is a 68 F who presents to the office today for port consult. Patient was diagnosed with right breast cancer on core biopsy. ROS General General: Yes weight change and fatigue HEENT HEENT: No difficulty swallowing, eye injury or eye surgery Endo Endocrine: Yes thyroid disease; no diabetes mellitus Skin Skin: No rash or changing moles Musc Musculoskeletal: Yes arthritis and rheumatoid arthritis Cardio Cardiovascular: No murmur, pacemaker, heart disease, atrial fibrillation, high blood pressure, heart attack, heart stent, palpitations, shortness of breat with exertion or chest pain Psych Psychiatric: Yes depression; no anxiety Resp Respiratory: No shortness of breath, No sleep apnea, No cough, No COPD, No asthma, No emphysema, No wheezing Gastro Gastrointestinal: No abdominal pain, No nausea or vomiting, No diarrhea, No constipation, No blood in stool, Yes acid reflux, No hemorrhoids, No ulcers, No gallbladder problem, No black,tarry stools Jose Hematologic: No blood thinners Neuro Neurologic: Yes system reviewed and no additional complaints, except as docu Exam Const General: cooperative Orientation: alert, oriented x3 Chest Chest palpation & inspection: mass (Right breast) Resp Effort & Inspection: normal respiratory effort Auscultation: clear to auscultation bilaterally Cardio Rate: regular rate Rhythm: regular rhythm Heart Sounds: no murmurs GI Inspection: non-distended Palpation: soft, nontender Assessment & Plan Problems 1. Malignant neoplasm of central portion of right breast in female, estrogen receptor positive C50.111; Z17.0 Plan Patient has a large breast cancer in the right central portion of the breast. After going over options for surgery the patient would like to pursue breast conservative therapy after neoadjuvant chemotherapy to shrink the mass. I obtain an ultrasound of the axilla which showed no suspicious lymph nodes. I also obtained a repeat mammogram which showed the clip adjacent to the mass. Patient is seeing oncology this week to discuss neoadjuvant chemotherapy. I will place port in the left chest next week. I discussed port placement the patient in detail including the risks of bleeding, infection, pneumothorax, DVT. Patient understands all the risks and is willing to proceed. Jaquan Siddiqui MD Pager: [facility] [address] [place] [address], [address] [place] [address] Office: Coding Level of Care Code Off vis,est,level 3 Diagnoses Malignant neoplasm of central portion of right breast in female, estrogen receptor positive C50.111; Z17.0 ??Breast location: central portion of breast ??Estrogen receptor status: positive ??Patient sex: female 12/23/18 [id number] <Electronically signed by Jaquan owens MD> Date _ Jaquan Siddiqui MD I have re-examined the patient. There are no clinical changes since date of exam.
[2018-12-26 09:07] VITALS: BMI 25.9
[2018-12-30] VITALS (7 sets, daily range): BP systolic 150–166; BP diastolic 77–94; PULSE 71–74; RESP 16; TEMP 36.2–36.5; O2SAT 96–99; BMI 26.1
[2018-12-30] MEDS: Cefazolin 2 GM in 0.9% Normal Saline 100 ML IV (12:46)
[2018-12-30] MEDS: Bupiv/Epi 0.5% Mpf 30 ML Vial (13:20)
--- NOTE | 2018-12-30 13:46 | RAD_ITS ---
STUDY: X-RAY CHEST REASON FOR EXAM: Female, 68 years old. Left Mediport insertion TECHNIQUE: Single AP portable view of the chest. COMPARISON: None. FINDINGS: New left Mediport in place. Distal tip of the catheter along the SVC. No evidence of mediastinal shift or pneumothorax. The lungs are clear and expanded. There is no demonstrated pleural abnormality. Normal size heart. Normal mediastinum and kevin. Normal visualized pulmonary arteries. Normal visualized aortic arch and descending thoracic aorta. There are diffuse degenerative changes of the visualized thoracic spine. Normal visualized ribs, clavicles, and shoulders. There is no demonstrated abnormality of the visualized soft tissue structures of the upper abdomen. RAD/CXR for Line Placement IMPRESSION: Good position of the left MediPort ready for use. No evidence of mediastinal shift or pneumothorax. Electronically Signed: Mitchell Black MD at 14:49 EDT Tel [phone], Service support ,
--- NOTE | 2018-12-30 13:49 | CT_ITS ---
STUDY: CT CHEST WITH T WITHOUT CONTRAST REASON FOR EXAM: Female, 68 years old. Right breast cancer, with MediPort in place RADIATION DOSAGE (If Supplied By Facility): CTDIvol = ( 12.46 ) mGy, DLP = ( 628.74 ) mGycm TECHNIQUE: Transaxial imaging was performed pre-and post contrast administration of 100ml IV Isovue 300. Individualized dose optimization techniques were used for this CT. COMPARISON: None. FINDINGS: Right breast mass measuring up to 3.1 x 2.4 cm in cross-section. Asymmetric thickening of the skin along the right breast. The bilateral lungs are within normal. There is no demonstrated pleural abnormality. No evidence of focal nodule or consolidation is identified. No evidence of pleural effusion. Normal heart and pericardium. Normal mediastinum. Normal hilar regions. Normal enhanced and unenhanced pulmonary arteries. Normal aorta arch and descending thoracic aorta. There are multi-level degenerative changes of the thoracic spine. There is no demonstrated abnormality of the visualized upper abdomen. CT/Chest W/WO Contrast IMPRESSION: Right breast mass measuring up to 3.1 x 2.4 cm in cross-section. Asymmetric thickening of the skin along the right breast. Left infusion port in place. No evidence of metastatic process to the lung parenchyma or presence of mediastinal or hilar adenopathy. Electronically Signed: Mitchell Black MD at 15:03 EDT Tel [phone], Service support ,
--- NOTE | 2018-12-30 14:29 | DCINST_ITS ---
Discharge Diet: No Restrictions - Pain medication may cause nausea. You should typically eat light foods as you take your pain medication. Discharge Activity: Return to Normal Activity, May Shower - with your bandage in place in 1-2 days after surgery. DO NOT SHOWER WHEN YOUR PORT IS ACCESSED. Call your doctor if your incision/area has: Continuous Slow Oozing, Sudden Increased Bleeding, Increased Pain/ Swelling, Increased Redness Call your doctor if you observe: Fever of 101 or Higher Remove Dressing in (days):: 3 - When you remove the bandage, leave the steri- strips intact until they fall off. Allergies/Adverse Reactions: Allergies No Known Allergies Allergy (Verified 12/30/18 12:12) Medications to take at Discharge Esomeprazole Mag Trihydrate [Nexium] 40 mg PO DAILY 03/11/13 buPROPion XL [Wellbutrin Xl] 300 mg PO DAILY 03/11/13 hydroxychloroquine 200 mg tablet 200 mg PO BID 12/16/18 levothyroxine 75 mcg tablet 88 mcg PO DAILY tab 12/16/18 tramadol 50 mg tablet 50 mg PO BID 12/16/18 Anastrozole [Arimidex] 1 mg PO DAILY 90 Days #90 tab NS 12/26/18 Primary Care Physician: Krunal Gee MD [Primary Care Provider] - Test Results: Test results from this visit will be discussed in further detail at your follow- up appointment, if applicable. Please Follow Up With: Jaquan Siddiqui MD When: Please call to schedule 1-2 week follow up appointment. [phone]
--- NOTE | 2018-12-30 14:30 | OP.PCM_ITS ---
Problem List (1) Encounter for insertion of venous access port Status: Acute (2) Primary cancer of right female breast Status: Acute Report of Operation Date of Procedure: 12/30/18 Pre-Operative Diagnosis: Right breast cancer need for vascular access Post-Operative Diagnosis: Same Surgery/Procedure Performed:: Fluoroscopy and ultrasound-guided chest port placement utilizing left IJ Description of Procedure: After obtaining informed consent patient was brought back to the operating room MAC anesthesia was induced and the left chest and neck were prepped in normal sterile fashion. Ultrasound was used to evaluate both IJs and the left IJ was selected. Next, using a needle, the left IJ was accessed and a guidewire was passed on into the superior vena cava under fluoroscopy guidance. The guide was unable to be placed due to the tortuosity of the SVC. A 4 Barbadian sheath was placed over this guidewire and it was removed. A Glidewire was placed into the left IJ and under direct visualization down into the SVC and into the right atrium. Next the sheath was removed and the peel-away sheath was placed over this and into position. It appeared to follow the guidewire without resistance. Next the guidewire was removed and the catheter was placed. I was unable to draw or flush the port. Ivup-ijg-laan to check placement of the port. It appeared to possibly extravasate. The catheter was pulled back until the catheter was in the left subclavian vein and there was good contrast clearance and flushing and drawing. It was readvanced to the superior vena cava and tested once more and it seemed to work well. 1% lidocaine with epinephrine was injected in the proposed port site. An incision was made with scalpel. Electrocautery was used to make a pocket under the skin and subcutaneous tissue. Hemostasis was obtained. Next, the catheter was tunneled down to the chest site. Next, the catheter was trimmed and attached to the port with the locking device. Interrupted 2-0 Vicryl sutures were used to anchor the port to the chest wall and then the port was placed inside the pocket. The pocket was then flushed with saline and the port irrigated with saline. There was good blood return and the port flushed easily. Next, heparin was injected into the port. The skin was closed with subcutaneous interrupted 3-0 Vicryl sutures. A single 3-0 Vicryl sutures placed under the skin at the neck incision site. Steri- Strips were placed as well as op sites. Patient tolerated procedure well, was taken to PACU in stable condition. Chest x-ray will be obtained. Grafts/Implants Used: 8 Barbadian PowerPort - Complications Possible extravasation of contrast. Patient will be sent for CT of the chest following the procedure to rule this out. - Admit VTE Documentation VTE Mechan Device Prophylaxis: SCD's
== END 2018-12-30 15:22 | disposition home or self-care (01) ==
LOC: SDC 11:27 → AC 11:32
PROVIDERS: Family Provider Family Medicine; PCP Family Medicine; Referring Provider Surgery; Visit Provider Surgery
PROC: (CPT 36561; principal; 2018-12-30 14:20)
DX: Z45.2 Encounter for adjustment and management of vascular access device (principal); C50.111 Malignant neoplasm of central portion of right female breast; Z17.0 Estrogen receptor positive status [ER+]; E03.9 Hypothyroidism, unspecified; M06.9 Rheumatoid arthritis, unspecified; K21.9 Gastro-esophageal reflux disease without esophagitis; F32.9 Major depressive disorder, single episode, unspecified; E66.9 Obesity, unspecified; Z79.899 Other long term (current) drug therapy
CPT/HCPCS: 36561; 76937; 71045; 71270; 77001; J7120; Q9967; C1769; C1788

== ENCOUNTER → 2019-01-09 13:07 | Outpatient (CLI) | payer MEDICARE, OTHER, SELFPAY ==
[2018-12-26 09:07] VITALS: BMI 25.9
[2019-01-01 09:03] VITALS: BMI 26.1
[2019-01-07 08:31] VITALS: BMI 26.4
--- NOTE | 2019-01-09 13:13 | BD_ITS ---
STUDY: DUAL ENERGY X-RAY ABSORPTIOMETRY / DXA REASON FOR EXAM: Female, 68 years old. The patient is postmenopausal. Loss of height. TECHNIQUE: Bone Mineral Density (BMD) measurements of lumbar spine and bilateral hips were obtained. COMPARISON: None. FINDINGS: Lumbar Spine (L1-L4): g/cm2 (1.378) / T-score (1.5) / Z-score (3.1) Findings are suggestive of normal bone density with a low fracture risk. Left Femur Total: g/cm2 (0.916) / T-score (-0.7) / Z-score (0.6) Left Femoral Neck: g/cm2 (0.885) / T-score (-1.1) / Z-score (0.5) Right Femur Total: g/cm2 (0.867) / T-score (-1.1) / Z-score (0.2) Right Femoral Neck: g/cm2 (0.877) / T-score (-1.2) / Z-score (0.4) BD/Dexa Bone Density Study IMPRESSION: The patient is considered osteopenic as outlined below according to World Rei Organization (WHO) criteria with a low fracture risk. Reference Information: The T-score is the number of standard deviations above or below the standard which is normal for young adults at their peak bone mineral density. The World Health Organization (WHO) interprets the T-scores as follows: Above -1 Normal bone density Between -1 and -2.5 Osteopenia Equal to / or below -2.5 Osteoporosis As a practical clinical guideline, osteopenia may be graded as follows: Mild -1 through -1.5 Moderate -1.6 through -2.0 Severe -2.1 through -2.4 The Z-score is the number of standard deviations above or below age-matched controls. A Z-score of less than -1.5 would be considered abnormal. References: 1. NIH Osteoporosis and Related Bone Diseases http://www.osteo.org 2. International Society for Clinical Densitometry http://www.iscd.org 3. National Osteoporosis Foundation http://www.nof.org Electronically Signed: Bay Newell, at 15:55 EDT , Service support ,
== END ==
PROVIDERS: Family Provider Family Medicine; PCP Family Medicine; Referring Provider Internal Medicine Hematology & Oncology; Visit Provider Internal Medicine Hematology & Oncology
DX: Z78.0 Asymptomatic menopausal state (principal); M85.80 Other specified disorders of bone density and structure, unspecified site; C50.911 Malignant neoplasm of unspecified site of right female breast
CPT/HCPCS: 77080

== ENCOUNTER → 2019-04-01 12:44 | Outpatient (CLI) | payer MEDICARE, OTHER, SELFPAY ==
[2019-03-11 10:00] VITALS: BMI 26.4
--- NOTE | 2019-04-01 12:48 | MRI_ITS ---
STUDY: BILATERAL BREAST MR WITHOUT AND WITH CONTRAST REASON FOR EXAM: Female, 68 years old. Right breast cancer status post chemotherapy. Biopsy December 16, 2018. TECHNIQUE: Multi-sequence multi-echo imaging of both breasts was performed with a dedicated breast coil. T1-weighted and T2-weighted images were performed before the administration of contrast. T1-weighted images were also performed after the administration of IV Dotarem 15 without complications. COMPARISON: Bilateral mammograms dated December 12, 2018, unilateral right mammogram dated December 20, 2018 and right breast ultrasound dated December 12 and December 20, 2018. FINDINGS: RIGHT BREAST: The breast tissue is fatty with minimal background enhancement. In the central portion of the breast at the 12:00 position there is an irregular enhancing mass measuring 17 mm x 11 mm x 23 mm. This mass corresponds to the mass seen on the mammogram and on the right breast ultrasound. There is minimal lucency in the central portion of this mass which may represent central necrosis (axial series 43662 image 150). LEFT BREAST: The breast tissue is fatty with minimal background enhancement. There are no abnormal enhancing masses or areas of non-mass enhancement in the left breast. There are no enlarged or abnormal lymph nodes. There is no abnormality in the visualized regions of the chest or liver. MRI/Breast Bilateral W/O and W IMPRESSION: Irregular enhancing right breast mass at 12:00 position measuring 17 mm x 11 mm x 23 mm with minimal central lucency which may represent central necrosis. No adenopathy. CATEGORY: BIRADS Category 6: Known Biopsy-Proven Malignancy - Appropriate Action Should Be Taken. A letter regarding these results will be sent to the patient by the facility within 30 days. Electronically Signed: Papa Russell MD at 17:39 EST , Service support ,
== END ==
PROVIDERS: Family Provider Family Medicine; PCP Family Medicine; Referring Provider Internal Medicine Hematology & Oncology; Visit Provider Internal Medicine Hematology & Oncology
DX: C50.911 Malignant neoplasm of unspecified site of right female breast (principal); E03.9 Hypothyroidism, unspecified; E55.9 Vitamin D deficiency, unspecified
CPT/HCPCS: 36591; 77049; 80048; 82306; 84439; 84443; A9575; J7030; A4216; C8908

== ENCOUNTER → 2019-04-14 15:48 | Outpatient (CLI) | payer MEDICARE, OTHER, SELFPAY ==
[2019-04-01 14:46] VITALS: BMI 26.5
[2019-04-14 16:23] LABS: Pathologist Comment May follow
[2019-04-14 17:51] LABS: RBC /Synovial Fluid 0.023 10^6/uL (0); Synovial Fld Mononuclear WBC % 85.3 %; Synovial Fld Polynuclear WBC # 0.046 10^3/uL; Synovial Fld Polynuclear WBC % 14.7 %
[2019-04-14 19:12] LABS: AUTO B FLUID DILUENT BKGD CT WBC <0.1 RBC <0.01 (W<.1,R<.01)
[2019-04-14 19:13] LABS: Appearance /Synovial Fluid Sl hazy (CLEAR); Color / Synovial Fluid Yellow (Pale Yellow); Source- Body Fluid SYNOVIAL
[2019-04-14 19:14] LABS: Lymph 24 %; Monocyte /Synovial Fluid 19 %; Neutrophil 40 % (0-25); Other Cell /Synovial Fluid 17 %
[2019-04-14 19:24] LABS: CRYSTALS, BODY FLUID See PATH REV
[2019-04-15 11:54] LABS: Pathologist Review Reviewed
== END ==
PROVIDERS: Family Provider Family Medicine; PCP Family Medicine; Referring Provider Internal Medicine Rheumatology; Visit Provider Internal Medicine Rheumatology
DX: M06.4 Inflammatory polyarthropathy (principal); M35.1 Other overlap syndromes; M15.4 Erosive (osteo)arthritis; M21.40 Flat foot [pes planus] (acquired), unspecified foot; K21.9 Gastro-esophageal reflux disease without esophagitis; E03.9 Hypothyroidism, unspecified; F32.89 Other specified depressive episodes
CPT/HCPCS: 87070; 87075; 87205; 89050; 89051; 89060

== ENCOUNTER 2019-04-21 14:23 | Inpatient (IN) | payer MEDICARE, OTHER, SELFPAY ==
--- NOTE | 2019-03-19 10:04 | HP_ITS ---
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 Is patient in pain?: No Allergies No Known Allergies Allergy (Verified 03/19/19 08:59) Medications Esomeprazole Mag Trihydrate [Nexium] 40 mg PO DAILY 03/11/13 [History Confirmed 03/19/19] buPROPion XL [Wellbutrin Xl] 300 mg PO DAILY 03/11/13 [History Confirmed 03/19/19] hydroxychloroquine 200 mg tablet 200 mg PO BID 12/16/18 [History Confirmed 03/19/19] levothyroxine 75 mcg tablet 88 mcg PO DAILY tab 12/16/18 [History Confirmed 03/19/19] tramadol 50 mg tablet 50 mg PO BID 12/16/18 [History Confirmed 03/19/19] Anastrozole [Arimidex] 1 mg PO DAILY 90 Days #90 tab NS 12/26/18 [Rx Confirmed 03/19/19] Dexamethasone [Decadron] 8 mg PO BID 21 Days #12 tab 01/01/19 [Rx Confirmed 03/19/19] Lidocaine/Prilocaine [Lidocaine-Prilocaine Cream] 1 applicatio TP DAILY PRN PRN 30 Days #1 tube 01/01/19 [Rx Confirmed 03/19/19] Ondansetron [Ondansetron Odt] 8 mg PO Q8H PRN PRN 10 Days #30 tab.rapdis 01/01/19 [Rx Confirmed 03/19/19] Prochlorperazine Maleate 10 mg PO Q6H PRN PRN 10 Days #30 tab 01/01/19 [Rx Confirmed 03/19/19] PFSH Medical History Depression (Acute) GERD (gastroesophageal reflux disease) (Acute) Hypothyroidism (Acute) Obesity (Acute) Osteoarthritis (Acute) Surgical History S/P appendectomy (Acute) s/p bilateral knee surgery (Acute) Family History Mother Breast cancer Social History (Updated 03/19/19 @ 10:04 by Jaquan Siddiqui MD) Smoking Status: Light Smoker (<10/day) alcohol intake: current alcohol intake frequency: 0-2 drinks per day HPI HPI HPI: ANABEL LOCKE, is a 68 F who presents to the office today for HPI HPI Surgical H&P: Yes HPI: ANABEL LOCKE, is a 68 F who presents to the office today for follow-up after neoadjuvant therapy. Patient is here to discuss surgical options for right breast cancer. ROS General General: Yes weight change and fatigue HEENT HEENT: No difficulty swallowing, eye injury or eye surgery Endo Endocrine: Yes thyroid disease; no diabetes mellitus Skin Skin: No rash or changing moles Breast Breast: Yes right breast lump Musc Musculoskeletal: Yes arthritis and rheumatoid arthritis Cardio Cardiovascular: No murmur, pacemaker, heart disease, atrial fibrillation, high blood pressure, heart attack, heart stent, palpitations, shortness of breat with exertion or chest pain Psych Psychiatric: Yes depression; no anxiety Resp Respiratory: No shortness of breath, No sleep apnea, No cough, No COPD, No asthma, No emphysema, No wheezing Gastro Gastrointestinal: No abdominal pain, No nausea or vomiting, No diarrhea, No constipation, No blood in stool, Yes acid reflux, No hemorrhoids, No ulcers, No gallbladder problem, No black,tarry stools Jose Hematologic: No blood thinners Neuro Neurologic: Yes system reviewed and no additional complaints, except as docu Exam Const General: cooperative Orientation: alert, oriented x3 HENMT Head: normal to inspection Ears: hearing grossly normal bilaterally Eyes General: appearance normal, both eyes and all related structures Visual Baer: normal visual baer by confrontation Neck Neck: normal visual inspection Chest Chest palpation & inspection: normal inspection of the chest Breast Palpation: Yes abnormal palpation of the breast (Right breast mass) Resp Effort & Inspection: normal respiratory effort Auscultation: clear to auscultation bilaterally Cardio Rate: regular rate Rhythm: regular rhythm Heart Sounds: no murmurs GI Inspection: non-distended Palpation: soft, nontender Musc Cervical Spine: normal cervical lordosis, cervical ROM normal Skin General: no rashes or lesions noted Neuro General: alert, oriented x3 Cranial Nerves: CN's II-XI intact bilaterally Cognition: normal cognition Extrem General: normal to inspection, full ROM Psych Appearance: grossly normal Affect: anxious affect Assessment & Plan Problems 1. Malignant neoplasm of central portion of right breast in female, estrogen receptor positive C50.111; Z17.0 Plan The patient has a right breast cancer which was fairly large upon presentation. She underwent port placement and neoadjuvant chemotherapy. She is now ready for surgical treatment. She did have genetic therapy which did show 2 positive genes. It is due to the genetic testing that she would like to pursue bilateral mastectomy. I discussed bilateral mastectomy with her. I discussed the risks including but not limited to bleeding, infection, flap necrosis, seromas hematomas, infection. I also discussed axillary biopsy. I discussed that due to the neoadjuvant therapy if she had any positive nodes on axillary biopsy she would require axillary dissection. I discussed the risks of axillary dissection such as bleeding, infection, nerve injury, lymphedema. I would like to refer the patient to Dr. Dillon for discussion of reconstruction therapy. The patient would like to discuss the differences between implants or tissue reconstruction decide if she would like reconstruction or not. Once she makes this decision she would call our office and I will schedule her for bilateral mastectomy with axillary biopsy. Jaquan Siddiqui MD Pager: [facility] [address] [place] [address], [address] [place] [address] Office: Orders Referrals: Plastic surgery C50.911 Coding Level of Care Code Off vis,est,level 4 Diagnoses Malignant neoplasm of central portion of right breast in female, estrogen receptor positive C50.111; Z17.0 ??Breast location: central portion of breast ??Estrogen receptor status: positive ??Patient sex: female 03/19/19 1004 <Electronically signed by Jaquan owens MD> Date _ Jaquan Siddiqui MD I have re-examined the patient. There are no clinical changes since date of exam.
[2019-04-01 14:46] VITALS: BMI 26.5
[2019-04-21] VITALS (10 sets, daily range): BP systolic 93–152; BP diastolic 54–115; PULSE 64–79; RESP 14–18; TEMP 36.4–37; O2SAT 96–100; BMI 26.7
--- NOTE | 2019-04-21 | IMM_PTH ---
PATIENT: ANABEL LOCKE LOC: MS3 U#:[id number] AGE/SX: 68/F ROOM: MS307 RE04/22/[address]: Dr. Isma Dillon MD : 1950 BED: 1 DIS: 04/23/2019 SPEC #: [id number] RECD: 04/25/19 12:14 STATUS: HALEY REQ #: [id number] GASTON: 04/21/19 00:[address]: Isma Dillon DEPT: IMMUNOHISTOCHEMISTRY RECD BY: Jodie Torres ENTERED: 04/25/19 12:15 SP TYPE: IMMUNO OTHR DR: MD Dr. Krunal Casillas MD Tissues: A - Axillary lymph node, NOS Procedures: CK7 (add) Pankeratin (initial) Pankeratin (add) PHYSICIAN & INSTITUTION [place] [address] SPECIMEN INFORMATION: Tissue Source: A - Right axillary sentinel lymph nodes, biopsy Clinical Info: Malignant neoplasm of central portion of right breast, ER positive Specimen Number: [id number] A1 & A2 CPT code: 14171, 43282 x3 METHODOLOGY: Deparaffinized sections of prefer/formalin-fixed tissue or PAP/DQ stained slides are incubated with monoclonal/polyclonal antibodies/oligonucleotide probes. Localization is made via biotin free immunoperoxidase method. Appropriate controls are performed and reacted as expected. Results on target cell population are indicated in the following table: RESULTS: ANTIBODY / CLONE RESULT Block A1 AE1-3 (AE1/AE3/PCK26) negative CK7 (OV-TL12/30) negative Block A2 AE1-3 (AE1/AE3/PCK26) negative CK7 (OV-TL12/30) negative These tests were developed and their performance characteristics determined by [facility]. They may not have been cleared or approved by the U.S. Food and Drug Administration. The FDA has determined that such clearance or approval is not necessary. The above immunohistochemical/dualISH markers are ordered and reviewed by the Pathologist. INTERPRETATION: A. Right axillary sentinel lymph nodes, biopsy: Two out of two lymph nodes, negative for metastatic carcinoma. SJ:vinayak 04/28/19
--- NOTE | 2019-04-21 01:03 | HP.PCM_ITS ---
History and Physical Date of Admission: 04/21/19 HISTORY OF PRESENT ILLNESS 68 year old woman presents with diagnosis of right breast cancer after a breast biopsy on 12/16/18. Pathology showed invasive ductal carcinoma, nuclear grade 3. Estrogen receptors were positive. Progesterone receptors were positive. HER/2Neu was equivocal for overexpression. Her initial mammogram and ultrasound from 12/12/18 were suspicious for carcinoma which prompted the biopsy. A port was placed on 12/30/18. She then underwent neoadjuvant chemotherapy which was completed on 03/11/19. She had a Breast MRI on 04/01/19 which showed in the right breast, the breast tissue is fatty with minimal background enhancement. In the central portion of the breast at the 12:00 position there is an irregular enhancing mass measuring 17 mm x 11 mm x 23 mm. This mass corresponds to the mass seen on the mammogram and on the right breast ultrasound. There is minimal lucency in the central portion of this mass which may represent central necrosis. In the left breast, the breast tissue is fatty with minimal background enhancement. There are no abnormal enhancing masses or areas of non- mass enhancement in the left breast. There are no enlarged or abnormal lymph nodes. There is no abnormality in the visualized regions of the chest or liver. She also underwent gene testing and was positive for two markers. She is concerned about developing carcinoma in the left breast and has cancer phobia. A bilateral mastectomy is being planned and she presents today for evaluation of her breast reconstruction options. PAST MEDICAL HISTORY Increased tearing Osteopenia Encounter for insertion of venous access port Primary cancer of right female breast Depression GERD (gastroesophageal reflux disease) Hypothyroidism Obesity Osteoarthritis PAST SURGICAL HISTORY appendectomy bilateral knee surgery ALLERGIES No Known Allergies MEDICATIONS Esomeprazole Mag Trihydrate [Nexium] buPROPion XL [Wellbutrin Xl] hydroxychloroquine levothyroxine tramadol Anastrozole [Arimidex] Dexamethasone [Decadron] Lidocaine/Prilocaine [Lidocaine-Prilocaine Cream] Ondansetron [Ondansetron Odt] Prochlorperazine Maleate diazepam FAMILY HISTORY Mother - Breast cancer Brother - Cancer Father - Cancer SOCIAL HISTORY Smoking Status: Light Smoker (<10/day) alcohol intake: current alcohol intake frequency: 0-2 drinks per day substance use type: does not use REVIEW OF SYSTEMS General - Denies fever and weight loss. Has fatigue. Eyes - Denies cataracts and glaucoma. ENT - Denies nasal congestion and sore throat. Endocrine - Denies excessive thirst and urination. Has recent diagnosis of right breast cancer. Had neoadjuvant chemotherapy. Skin - Denies suspicious lesions and skin cancer. Musculoskeletal - Has joint pain, joint stiffness, weakness of muscles and joints. Denies back pain, and arthritis. Neuro - Denies headaches. Cardiovascular - Denies chest pain, fatigue, and shortness of breath with exert ion. Psych - Denies anxiety. Has depression. Respiratory - Denies chronic cough and shortness of breath. Gastrointestinal - Denies nausea, vomiting, diarrhea, and constipation. Hematologic - Denies abnormal bruising and bleeding. Genitourinary - Denies hematuria and urinary frequency. Has some incontinence. PHYSICAL EXAMINATION General - Alert and Oriented. Her bra size is 38 DD. HEENT - PERRL. EOMI. Throat is clear. Neck - Supple and nontender. No cervical adenopathy. Breasts - There is a palpable mass right upper breast superior to the areola and measures 3 cm. No skin retraction or skin dimpling. Mass is not adherent to the underlying chest wall. No breast masses palpable in left breast. No axillary adenopathy. She has Stage II breast ptosis as the nipple is located beneath the inframammary fold. Lungs - Clear to auscultation. Heart - Regular rate and rhythm. Abdomen - Soft and nondistended. Has some redundant skin and subcutaneous tissu e from the umbilicus to the pubic area. She has a RLQ appendectomy scar. Extremities - FROM. No axillary adenopathy. Radial pulses are palpable. Neuro - CN II-XII grossly intact. Psych - Normal mood and affect. ASSESSMENT 1. Right breast cancer. 2. Cancer phobia left breast. 3. Positive test for genetic breast cancer susceptibility marker. 4. Planned acquired absence bilateral breasts. 5. Planned disproportion reconstructed breasts. 6. Estrogen receptor positive status. 7. Family history of breast cancer. 8. Neoadjuvant chemotherapy. 9. Smoker. PLAN Discussed the various breast reconstruction options with the patient. They range from expanders/implants to using autogenous tissue to a combination of the two. Placement of expanders/implants generally have a quicker recovery but may need maintenance therapy in the future with the need for revision reconstruction because of capsular contracture deformity and implant leakage. Using autogenous tissue is more complex initially with a longer operation and longer recovery period. Sometimes early additional surgery is needed because of wound healing issues or fat necrosis issues. Once healing has occurred, generally there is no need for maintenance therapy in the future. Patient is interested in proceeding with expanders/implants. Discussed the option of placement of implants in the prepectoral position followed by complete coverage with acellular dermal matrix graft. Because of the need for neoadjuvant chemotherapy, if she wants this option I would wait until the final pathology is available before proceeding in a delayed immediate fashion with the placement of the implants. This would necessitate two anesthetics. Because if the pathology dictates that radiation therapy is necessary then implant distortion would result which would necessitate removal in the future and placement of autogenous tissue for delayed reconstruction. The safer option is to place expanders which can be done at the time of the mastectomies. So only one general anesthetic would be needed. If the final pathology dictates that radiation therapy is needed then the expanders can remain. Would expand as much as possible before adjuvant therapy is done. No expansion would be done while getting radiation therapy. After radiation therapy is completed, the expanders would be removed and autogenous tissue would be needed for delayed reconstruction. The benefit is the breast tissue would be expanded and not adherent to the chest wall which makes delayed reconstruction a little easier. However, I would check with the Radiation Oncologist to make sure the presence of the expanders do not compromise the radiation. If so, the expanders would need to be removed then. Patient has decided on proceeding with placement of submuscular tissue expanders at this time. To save anesthesia time, the bilateral mastectomies can be done at the same time. I would perform the prophylactic mastectomy on the left. Separate teams and separate instruments would be used to prevent cross contamination from the cancer side to the non cancer side. After the axillary node biopsy is completed, would then proceed with the placement of the expanders and placement of acellular dermal matrix grafts. Because of the presence of breast ptosis, I recommend a skin sparing mastectomy with a mastopexy type incision. This would be an initial vertical incision. After healing has occurred and at the time of the removal of the expanders and replacement cohesive gel implants, can complete the mastopexy Tzone incision with a horizontal incision for exposure for the implants. So at the completion of her breast reconstruction, it would look like she had placement of implants with a mastopexy scar without the telltale sign of a mastectomy with a traditional horizontal scar in the midportion of the breast. After formation of the breast mounds, can then proceed in the future with nipple reconstruction. She had a Breast MRI on 04/01/19 which showed in the right breast, the breast tissue is fatty with minimal background enhancement. In the central portion of the breast at the 12:00 position there is an irregular enhancing mass measuring 17 mm x 11 mm x 23 mm. This mass corresponds to the mass seen on the mammogram and on the right breast ultrasound. There is minimal lucency in the central portion of this mass which may represent central necrosis. In the left breast, the breast tissue is fatty with minimal background enhancement. There are no abnormal enhancing masses or areas of non-mass enhancement in the left breast. There are no enlarged or abnormal lymph nodes. There is no abnormality in the visualized regions of the chest or liver. Her neoadjuvant chemotherapy was completed on 03/11/19. Would like to wait about 6 weeks before proceeding with further surgery to allow her immune system to strengthen. Postoperatively if she needs radiation therapy, would wait 6 months after the radiation is done before proceeding with any additional reconstruction surgery. Surgery will be done under general anesthesia with a surgical observation overnight stay in the hospital. She will have drains in for several days and be maintained on antibiotics until the drains are removed. Since she may need Valium after surgery because of irritation of the pectoralis muscle leading to spasm, I will write a script for Valium preop that she may start taking prior to surgery depending on her preop level of anxiety. Will coordinate the surgery date with Dr. Siddiqui. Patient was informed of the risks and complications of the procedure including alternatives to surgery. These were discussed with the patient personally. Patient voices understanding and wishes to proceed. Some of the risks and complications were included in a form from the [employer]. Encouraged patient to stop smoking as it may have deleterious effects on wound healing.
--- NOTE | 2019-04-21 07:44 | EKG12_ITS ---
Test Reason : PRE OP Blood Pressure : / mmHG Vent. Rate : 078 BPM Atrial Rate : 078 BPM P-R Int : 162 ms QRS Dur : 086 ms QT Int : 414 ms P-R-T Axes : 048 -04 024 degrees QTc Int : 471 ms Normal sinus rhythm Normal ECG When compared with ECG of 11-MAR-2013 11:39, Incomplete right bundle branch block is no longer Present QT has lengthened Confirmed by BRIAN DONOHUE, PAULA ([id number]), editor sound HIREN MAXWELL ([id number]) on 04/23/2019 12:02:21 PM Referred By: Isma Dillon Confirmed By:PAULA TORRES MD
--- NOTE | 2019-04-21 08:00 | NM_ITS ---
PROCEDURE: NUCLEAR MEDICINE Injection [place] Node - RIGHT breast(s). REASON FOR EXAM: Female, 68 years old. Right breast cancer. TECHNIQUE: [place] node localization using radionuclide methods of the RIGHT breast(s) was performed following subcutaneous administration of 1.1 mCi of of sulfur colloid Tc-99m. FINDINGS: 1.1 mCi of technetium labeled sulfur colloid was injected subcutaneously in 4 equal aliquots in the periareolar region. NM/Lymph Node Injection Only IMPRESSION: Subcutaneous injection of 1.1 mCi F-18 labeled sulfur colloid for sentinel node imaging. Electronically Signed: [place] Newell, at 12:46 EST , Service support ,
[2019-04-21] MEDS: Acetaminophen 500 MG Tablet 1000 MG PO ×2 (08:20→18:24)
[2019-04-21 08:21] LABS: Bedside Glucose 89 mg/dL (70-110)
[2019-04-21] MEDS: Gabapentin 600 MG Tablet PO (08:23)
[2019-04-21] MEDS: Scopolamine 1mg/72hr Patch 1 PATCH TRANSDERM. (08:23)
[2019-04-21] MEDS: Magnesium Sulfate 4gm/100mL 4 GM/100 ML IV.SOLN. IV (08:39)
[2019-04-21] MEDS: Lactated Ringers 1,000 ML 40 ML IV (08:41)
[2019-04-21] MEDS: Scopolamine 1mg/72hr Patch 1 PATCH TD (08:56)
[2019-04-21] MEDS: Lactated Ringers 1,000 ML 60 ML IV ×2 (10:00→12:00)
--- NOTE | 2019-04-21 10:00 | LYMN_PTH ---
PATIENT: ANABEL LOCKE LOC: MS3 U#:[id number] AGE/SX: 68/F ROOM: [facility] [place]04/22/[address]: Dr. Isma Dillon MD : [id number] BED: 1 DIS: 04/23/2019 SPEC #: [id number] RECD: 04/21/19 11:15 STATUS: HALEY RETello #: [id number] GASTON: 04/21/19 10:[address]: Isma Dillon DEPT: SURGICAL PATHOLOGY RECD BY: Bianca Dumont ENTERED: 04/21/19 11:36 SP TYPE: LYMPH NODE OTHR DR: Dr. Krunal Gee MD Tissues: A - LYMPH NODE BIOPSY B - Right breast, NOS C - Left breast, NOS Procedures: Frozen Section (charge) Frozen Section Add'l ([facility]) Surgery Specimen Level V HEADER OPERATION: Mastectomy, sentinel and axillary lymph node biopsy, prophylactic left breast mastectomy PRE-OP DIAGNOSIS: Malignant neoplasm of central portion of right breast, ER positive C50.111, Z17.0 TISSUE SUBMITTED: A. [place] lymph node, right breast, B. Right breast, C. Left breast FROZEN SECTION DIAGNOSIS A. Right axillary sentinel lymph nodes, biopsy: Two out of two lymph nodes negative for carcinoma. AM:raegan 04/21/19 MICROSCOPIC DIAGNOSIS A. Right axillary sentinel lymph nodes, biopsy: Two out of two lymph nodes, negative for metastatic carcinoma. See comment. B. Right breast, mastectomy: Invasive ductal carcinoma. See cancer summary below. C. Left breast, mastectomy: Benign breast tissue with dense fibrosis and focal duct ectasia. Hyalinized fibroadenoma (0.5 cm in greatest dimension). Nipple, no pathologic diagnosis. SJ:vinayak 04/25/19 INVASIVE BREAST CANCER SUMMARY: (Including specimens A & B) Procedure: Total mastectomy (including nipple and skin) Specimen laterality: Right Tumor site: Central portion of the breast Tumor Size: 2 x 1.5 x 1.5 cm Invasive Tumor: Histologic type: Invasive ductal carcinoma, not otherwise specified Histologic grade ([place] grade): Glandular/tubular differentiation score: 3 Nuclear pleomorphism score: 3 Mitotic count score: 1 Overall grade: 2 (score of 7) Tumor focality: Single focus of invasive carcinoma. Ductal Carcinoma In Situ: Not identified Lobular Carcinoma In Situ: Not identified Tumor extension: Skin: Skin is present and uninvolved. Nipple: Ductal carcinoma in situ does not involve the nipple epidermis. Skeletal muscle: No skeletal muscle is present. Margins: Uninvolved by invasive carcinoma. The tumor is 2 cm away from the closest (posterior) margin of excision. Regional Lymph Nodes: Number of sentinel lymph nodes examined: 2 Total number of lymph nodes examined: 2 Number of lymph nodes with macrometastases, micrometastases and isolated tumor cells: 0 Treatment effect in the breast: Partial response to presurgical therapy in the invasive carcinoma. Treatment effect in the lymph nodes: No lymph node metastasis and no prominent scarring in the lymph nodes. Lymphvascular invasion: Not identified Dermal lymphvascular invasion: Not identified Distant metastasis: Not applicable Additional Pathologic Findings: Fibrocystic changes. Ancillary Studies: Previously performed on tumor ([id number] / [id number]) ER: positive (88%, moderate intensity) CT: positive (68%, moderate intensity) Her-2Neu: Equivocal (2+) Her-2Neu by ANNIKA: Not amplified / negative (HER2:CEP-17 ratio 1.2) Microcalcifications: Present in invasive carcinoma and non-neoplastic tissue. Clinical History: Please make reference to previous specimen ([id number]) right breast, ultrasound-guided core biopsy with diagnosis of invasive ductal carcinoma. Abnormal mammogram, right and prior presurgical (neoadjuvant) therapy for this diagnosis of invasive carcinoma. Radiologic findings: Abnormal mammogram. Pathologic Stage: pT1c(y) pN0(sn) Mx The above summary is in compliance with [employer] (CAP) Cancer Protocols Checklist and [place] [employer] Committee on Cancer (AJCC), Staging Manual, 8th Ed. COMMENT A. The lymph nodes are negative for metastatic carcinoma on multiple H & E levels and immunohisto-chemical stains for cytokeratins ([id number]). Case has been reviewed in consultation with Dr. Morel who concurs with the above diagnosis. IDC:SJ MICROSCOPIC DESCRIPTION Slides are reviewed. GROSS DESCRIPTION A. Received fresh for frozen section consultation labeled with the patient's name is a specimen designated right axillary sentinel lymph noses. The specimen consists of an irregular fragment of yancey-yellow fibrofatty tissue measuring 3 x 2 x 1.5 cm. Dissection reveals two nodules ranging in size from 0.5 to 2 cm in greatest dimension. The nodules are submitted for frozen section consultation as follows: block 1 - one nodule, block 2 - one bisected nodule. B. Received in fixative is one container labeled with the patient's name and designated right breast. The specimen consists of an oriented mastectomy specimen measuring 22 x 16 x 5 cm and weighs 616 gm. The anteriorly located skin with nipple and areola is grossly unremarkable. The skin fragment measures 9 x 4 cm. The specimen is differentially inked as follows: superior - blue, inferior - green, posterior - black. Serial sections reveal a firm, pink-yancey, spiculated mass measuring 2 x 1.5 x 1.5 cm. This mass is located 2 cm from its closest (posterior) margin of excision. The remainder of the breast parenchyma is yancey-yellow with occasional white fibrous appearing streaks. No other mass lesions are identified. Industrial Hygiene Manager sections are submitted in 12 cassettes as follows: 1 - nipple and perpendicular posterior margin, 2 - perpendicular superior inferior margin, 3 - perpendicular medial margin, 4 - perpendicular lateral margin, 5 through 8 - tumor, 9-12 - apprenticeship training representative sections of uninvolved breast parenchyma adjacent to and away from tumor. Note - sections are submitted after additional fixation. C. Received in fixative is one container labeled with the patient's name and designated left breast. The specimen consists of a mastectomy measuring 19 x 17 x 5 cm and weighing 602 gm. The skin ellipse containing a nipple and areola is grossly unremarkable and measures 8 cm. The specimen is differentially inked as follows: superior - blue, inferior - green, posterior - black. Sections reveal yellow adipose cut surfaces mixed with fibrous areas and no mass lesion is identified. Industrial Hygiene Manager sections are submitted in 10 cassettes as follows: 1 - nipple and perpendicular posterior margin, 2 - perpendicular superior and inferior margins, 3 - perpendicular medial margin, 4 - perpendicular lateral margins, 5 through 10 - apprenticeship training representative sections of breast parenchyma. Note - sections are submitted after additional fixation. / AM:edita 04/21/19 TC:0 CPT: 10195 x3, 32879, 69047
[2019-04-21] MEDS: Cefazolin 2 GM in 0.9% Normal Saline 100 ML IV (10:14)
[2019-04-21] MEDS: Lactated Ringers 1,000 ML 100 ML IV (10:16)
[2019-04-21] MEDS: Isosulfan Blue 1% 5 ML Vial OPERA.SITE (10:30)
--- NOTE | 2019-04-21 12:46 | OP.PCM_ITS ---
Problem List (1) Primary cancer of right female breast Status: Acute Report of Operation Date of Procedure: 04/21/19 Pre-Operative Diagnosis: Right breast cancer Post-Operative Diagnosis: Same Surgery/Procedure Performed:: Right simple mastectomy. Right axillary sentinel lymph node biopsy Specimen's removed: Right axillary lymph node. Right breast Description of Procedure: Patient was brought back to the operating room and general anesthesia was induced. 5 cc of isosulfan blue were injected under the right nipple and massaged. Next the chest was prepped and draped in usual sterile fashion. A curvilinear incision was made in the right axilla and deepened to the axillary tissue. 2 lymph nodes were identified and removed and sent for pathology. The axilla was then packed and the right mastectomy was began. The incision was marked by Dr. Dillon. The incision was made in the right breast and deepened to the breast tissue using electrocautery. Flaps were made on all sides. Next the breast was taken off the pectoral muscle including the fascia. The breast was marked and sent for pathology. Hemostasis was obtained. Wet laps were placed into the breast cavity. Next after the pathology came back negative from the lymph nodes the deep axillary tissue was closed with interrupted 3-0 Vicryl sutures. A running 4-0 Monocryl suture and glue were then applied. For the remainder the case Dr. Dillon placed the tissue housekeeping/laundry supervisor on the right after placing a tissue housekeeping/laundry supervisor on the left and performing the contralateral prophylactic mastectomy. Please see his note for any further details. - Admit VTE Documentation VTE Mechan Device Prophylaxis: SCD's
--- NOTE | 2019-04-21 14:17 | OP.PCM_ITS ---
Report of Operation Date of Procedure: 04/21/19 Pre-Operative Diagnosis: 1. Right breast cancer. 2. Cancer phobia left breast. 3. Positive test for genetic breast cancer susceptibility marker. 4. Planned acquired absence bilateral breasts. 5. Planned disproportion reconstructed breasts. 6. Estrogen receptor positive status. 7. Family history of breast cancer. 8. Neoadjuvant chemotherapy. 9. Smoker. Post-Operative Diagnosis: Same. Surgery/Procedure Performed:: 1. Prophylactic mastectomy left breast. 2. First stage immediate bilateral breast reconstruction with placement of submuscular saline tissue expanders (650 ml for each side) and placement of Alloderm Select acellular dermal matrix grafts (132 cm2 for each side). Description of Surgical Findings:: 68 year old woman presents with diagnosis of right breast cancer after a breast biopsy on 12/16/18. Pathology showed invasive ductal carcinoma, nuclear grade 3. Estrogen receptors were positive. Progesterone receptors were positive. HER/2Neu was equivocal for overexpression. Her initial mammogram and ultrasound from 12/12/18 were suspicious for carcinoma which prompted the biopsy. A port was placed on 12/30/18. She then underwent neoadjuvant chemotherapy which was completed on 03/11/19. She is scheduled for a Breast MRI on 04/01/19. She also underwent gene testing and was positive for two markers. She is concerned about developing carcinoma in the left breast and has cancer phobia. A bilateral mastectomy is being planned and she opted for breast reconstruction with placement of submuscular saline tissue expanders. Patient was informed of the risks and complications of the procedure including alternatives to surgery. These were discussed with the patient personally. Patient voices understanding and wishes to proceed. Some of the risks and complications were included in a form from the [employer]. Encouraged patient to stop smoking as it may have deleterious effects on wound healing. IV Fluids - 2000 ml. Urine Output - 150 ml. I used Strathcona Artoura Ultra High Profile, Smooth, Breast Tissue Oracle Applications Analyst, Suture Tabs, Integral Injection Dome, (650 ml on the right). Reference Number - [id number]. Lot Number - [id number]. Serial Number - [id number]. Expiration - October 27, 2022. I used [employer]oura Ultra High Profile, Smooth, Breast Tissue Oracle Applications Analyst, Suture Tabs, Integral Injection Dome, (650 ml on the left). Reference Number - [id number]. Lot Number - [id number]. Serial Number - [id number]. Expiration - October 27, 2022. I used Alloderm Select Acellular Dermal Matrix Graft, Contour Medium Perforated, Thick, (2.4 mm, 132 cm2, on the right). Reference Number - [id number]. Lot Number - [id number]. Expiration - October,. I used Alloderm Select Acellular Dermal Matrix Graft, Contour Medium Perforated, Thick, (2.4 mm, 132 cm2, on the left). Reference Number - [id number]. Lot Number - [id number]. Expiration - October,. I used Trae absorbable hemostat, (I used 4 vials, 2 in each breast). Reference Number - [id number]. Lot Number - [id number]. Expiration - March 10, 2023, (2 vials on the right). Reference Number - [id number]. Lot Number - [id number]. Expiration - January 09, 2024, (2 vials on the left). linux system engineer: Shania Ortiz. Type of Anesthesia:: General Specimen's removed: Left breast tissue to Pathology. Drains: Jarret x4 (2 in each breast). Estimated Blood Loss (mL): 150 ml. Description of Procedure: Patient was seen in the preop area and was placed in the sitting position. Preop markings were made. I marked the sternal midline down towards the umbilicus. The inframammary folds were marked bilaterally. I jacy oval markings around the nipple areolar complex vertically toward the inframammary fold. She was taken to the OR, placed in supine position and placed under general anesthesia. Her breasts were prepped and draped in the usual fashion. Ioban was also used for draping. SCD's were placed for DVT prophylaxis. Perioperative antibiotics were given intravenously. A Michaels catheter was placed. Dr. Siddiqui worked on the right breast. Separate teams were used and separate instruments were used to avoid contaminating the noncancerous left side with possible cancer cells. I then proceeded with the prophylactic mastectomy on the left side. The vertical markings were infiltrated with Xylocaine and epinephrine. Incisions were made and I dissected the breast tissue off the breast skin flaps at the level of Poornima's fascia down to the chest wall muscular fascia. The breast tissue was then dissected off the chest wall muscular fascia. Dissection was carried superiorly to the clavicle and medially to the sternum and laterally to the anterior axillary line and inferiorly to the inframammary fold. The tissue was sent to Pathology for analysis to rule out carcinoma. Hemostasis was obtained with electrocautery. The wound was irrigated with Irrisept 0.05% Chlorhexidine and then followed with saline irrigation. I then proceeded with placement of the saline tissue insurance adjuster on the left while Dr. Siddiqui was working on the right breast. I was able to start the reconstruction on the left since the sentinel lymph node biopsy was already done on the right which was negative. Incision was made at the level of the inferior aspect of the pectoralis muscle. A submuscular pocket was created. Some of the inferior and medial muscular fibers were excised to allow a larger submuscular pocket and to allow ease in insetting the acellular dermal matrix graft over the inferior aspect of the insurance adjuster. The wound was irrigated with saline. Hemostasis was obtained with electrocautery. Two size 15 Jarret drains were placed through separate stab incisions laterally and secured to the skin with 3-0 Nylon interrupted sutures. One drain was used for the breast pocket and the other was for the mastectomy area and axillary area. Based on the size of the submuscular pocket, I determined a Strathcona Artoura tissue insurance adjuster, Ultra High Profile, 650 ml would be used. I removed the air from the insurance adjuster, then instilled 30 ml of saline and tested to see if there were any leaks in the insurance adjuster. When it was noted there were no leaks, the saline was removed. The insurance adjuster was placed in sterile Betadine and then placed in the submuscular position. The insurance adjuster was secured to the chest wall with 3- 0 Vicryl interrupted sutures through the suture tabs. I then covered the inferior aspect of the insurance adjuster with Alloderm acellular dermal matrix graft and secured the graft to the muscle with 3-0 Vicryl interrupted sutures and from the graft to the chest wall with 3-0 Vicryl interrupted sutures. I then sprayed Trae absorbable hemostat into the left breast wound pocket to minimize seroma formation postoperatively. The vertical breast incision was approximated in multiple layers with 3-0 Monocryl interrupted sutures for the deep subcutaneous tissue. 3-0 Monocryl interrupted sutures were then used for the dermis and subcutaneous tissue. The skin was approximated with 3-0 V-lock unidirectional barbed running subcuticular suture followed by Histoacryl skin tissue adhesive. Once the left side was closed, and Dr. Siddiqui had completed his right mastectomy, I then proceeded with the right breast reconstruction. Incision was made at the level of the inferior aspect of the pectoralis muscle. A submuscular pocket was created. Some of the inferior and medial muscular fibers were excised to allow a larger submuscular pocket and to allow ease in insetting the acellular dermal matrix graft over the inferior aspect of the insurance adjuster. The wound was irrigated with Irrisept 0.05% Chlorhexidine solution and then followed with saline irrigation. Hemostasis was obtained with electrocautery. Two size 15 Jarret drains were placed through separate stab incisions laterally and secured to the skin with 3-0 Nylon interrupted sutures. One drain was used for the breast pocket and the other was for the mastectomy area and axillary area. Based on the size of the submuscular pocket, I determined a Strathcona Artoura tissue insurance adjuster, Ultra High Profile, 650 ml would be used. I removed the air from the insurance adjuster, then instilled 30 ml of saline and tested to see if there were any leaks in the insurance adjuster. When it was noted there were no leaks, the saline was removed. The insurance adjuster was placed in sterile Betadine and then placed in the submuscular position. The insurance adjuster was secured to the chest wall with 3- 0 Vicryl interrupted sutures through the suture tabs. I then covered the inferior aspect of the insurance adjuster with Alloderm acellular dermal matrix graft and secured the graft to the muscle with 3-0 Vicryl interrupted sutures and from the graft to the chest wall with 3-0 Vicryl interrupted sutures. I then sprayed Trae absorbable hemostat into the left breast wound pocket to minimize seroma formation postoperatively. The vertical breast incision was approximated in multiple layers with 3-0 Monocryl interrupted sutures for the deep subcutaneous tissue. 3-0 Monocryl interrupted sutures were then used for the dermis and subcutaneous tissue. The skin was approximated with 3-0 V-lock unidirectional barbed running subcuticular suture followed by Histoacryl skin tissue adhesive. No vascular compromised was noted on both breast area skin flaps. There was no evidence of hematoma. Kerlix gauze was used for dressing followed by a compression EMA wrap. Patient tolerated the procedure well and was sent to PACU in satisfactory condition. She will be sent upstairs for postop care. She will be discharged when tolerated po analgesia and when she is more steady on her feet with ambulation. I anticipate 2-3 days. She will have her drains in for up to 14 days. She will be maintained on antibiotics until the drains are removed. She will keep her head elevated during the initial postop period and be on a lifting restriction. Grafts/Implants Used: Strathcona Artoura tissue expanders x2, Alloderm tissue matrix graft x2. - Complications None. - Admit VTE Documentation VTE Present on Admission: No VTE Mechan Device Prophylaxis: SCD's VTE Pharm Prophylaxis ordered?: Yes Code Visit Surgery Charges CPT - 48673 ICD-10 - C50.911, F40.298, Z15.01, Z90.13, N65.1, Z17.0, Z80.3, Z51.11, F17.200 33845 C50.911, F40.298, Z15.01, Z90.13, N65.1, Z17.0, Z80.3, Z51.11, F17.200 [id number] C50.911, F40.298, Z15.01, Z90.13, N65.1, Z17.0, Z80.3, Z51.11, F17.200 [id number] C50.911, F40.298, Z15.01, Z90.13, N65.1, Z17.0, Z80.3, Z51.11, F17.200
[2019-04-21] MEDS: Cefazolin 1 GM/50 ML BAG IV ×2 (15:23→21:38)
[2019-04-21] MEDS: Gabapentin 100 MG Capsule 200 MG PO (17:35)
[2019-04-21] MEDS: Calcium Carb/Vitamin D 1 TABLET Tablet PO (17:36)
[2019-04-21] MEDS: Hydroxychloroquine 200 MG Tablet PO (17:37)
[2019-04-21] MEDS: oxyCODONE 5 MG Tablet PO (18:20)
[2019-04-21] MEDS: Ensure Surgery 237 ML LIQUID PO (18:26)
--- NOTE | 2019-04-21 18:43 | PCM.PN.HOSP ---
Subjective: Consult for post-op medical management: 68y/o female with PMHx of right invasive ductal carcinoma, ER/VA positive, diagnosed on 12/16/18, status post neoadjuvant chemotherapy, recent genetic testing who comes in for right breast simple mastectomy with axillary sentinel lymph node biopsy. She also has history of rheumatoid arthritis, hypothyroidism and GERD. Patient subsequently underwent prophylactic left breast mastectomy with first stage immediate bilateral breast reconstruction with placement of submuscular saline tissue expanders and placement of grafts. Estimated blood loss was 150 mls We are consulted for postop medical management. Patient was seen and examined in the immediate post-op period. Her pain is controlled with the current pain regimen. Denied any dizziness or palpitations. EKG done today showed normal sinus rhythm Vitals/I&O's: Vital Signs Temp Pulse Resp BP Pulse Ox 98.3 F 68 16 110/64 99 04/21/19 18:08 04/21/19 18:08 04/21/19 18:08 04/21/19 18:08 04/21/19 18:08 Oxygen Flow Rate (L/min) 6 Oxygen Delivery Method Room Air Weight: 77.5 kg Body Mass Index (BMI) 26.7 Intake and Output for Last 24 Hours 04/19/19 04/20/19 04/21/19 23:59 23:59 23:59 Intake Total 2260 / 2260 Output Total 289 / 289 Balance 1970 / 1970 General: Alert, Oriented x3, Cooperative, No apparent distress HEENT: Atraumatic, PERRLA, EOMI, Normocephalic, - - alopecia from chemotherapy Oral: Moist Mucosa Neck: Supple Lungs: Clear to auscultation, Normal air movement, - - left sided medport, bilateral dressing and EMA-wraps around the midchest Cardiovascular: Regular rate, Regular Rhythm, Normal S1, Normal S2, Murmur - 3/6 holosystolic murmur Abdomen: Bowel Sounds Present, Soft, Non Tender, Non-Distended, No Hepato-splenomegaly Extremities: No edema, Capillary Refill Less than 3 Seconds Skin: No rashes, No breakdown Musculoskeletal: No Tenderness to Palpation of Joints or Extremities Lymphatic: No Cervical, Supraclavicular, or Inguinal Adenopathy Neurological: Cranial nerves II-XII grossly intact, Neuro grossly intact Psych/Mental Status: Normal Affect, Appropriate Laboratory Results 04/21/19 08:17: POC Glucose 89 Current Medications Acetaminophen (Tylenol) 1,000 mg PO Q6 [facility] Last Admin: 04/21/19 18:24 Dose: 1,000 mg Documented by: Anastrozole (Arimidex) 1 mg PO DAILY [facility] Bupropion HCl (Wellbutrin Xl) 300 mg PO DAILY [facility] Calcium/Vitamin D (Os-Jesús 500mg + D) [facility] Last Admin: 04/21/19 17:36 Dose: 1 tablet Documented by: Diazepam (Valium) 5 mg PO 4X/DAY PRN PRN Reason: spasm Docusate Sodium (Colace) 100 mg PO BID [facility] Enoxaparin Sodium (Lovenox) 40 mg SC DAILY [facility] Enteral Nutritional Formula (Ensure Surgery) 237 ml PO TIDCM [facility] Last Admin: 04/21/19 18:26 Dose: 237 ml Documented by: Gabapentin (Neurontin) 200 mg PO TIDCM [facility] Last Admin: 04/21/19 17:35 Dose: 200 mg Documented by: Heparin Sodium (Beef Lung) () 50 units IV UD PRN PRN Reason: Port-a-Cath (VAD)Heparin Flush Hydromorphone HCl (Dilaudid Inj) 0.5 - 1 mg IV Q3H PRN PRN PRN Reason: Pain Score 6-10/10 Hydromorphone HCl (Dilaudid Inj) 0.5 - 1 mg IV Q3H PRN PRN PRN Reason: Pain Score 6-10/10 Hydroxychloroquine Sulfate (Plaquenil) 200 mg PO BIDCM [facility] Last Admin: 04/21/19 17:37 Dose: 200 mg Documented by: Lactated Ringer's () 1,000 mls @ 40 mls/hr IV .Q25H [facility] Last Admin: 04/21/19 10:16 Dose: 100 mls/hr Documented by: Lactated Ringer's () 1,000 mls @ 60 mls/hr IV .[id number] [facility] Last Admin: 04/21/19 12:00 Dose: 60 mls/hr Documented by: Lactated Ringer's () 1,000 mls @ 60 mls/hr IV .[id number] [facility] Last Infusion: 04/21/19 12:17 Dose: Infused Documented by: Cefazolin Sodium () 1 gm in 50 mls @ 100 mls/hr IV Q8 [facility] Last Infusion: 04/21/19 16:23 Dose: Infused Documented by: Levothyroxine Sodium (Synthroid) 100 mcg PO DAILY@0600 [facility] Magnesium Oxide (Mag-Ox 400) 400 mg PO BID PRN PRN PRN Reason: Constipation Ondansetron HCl (Zofran Odt) 4 mg PO Q6H PRN PRN PRN Reason: NAUSEA Oxycodone HCl (Oxyir) 5 - 10 mg PO Q4H PRN PRN PRN Reason: Pain Score 4-10/10 Last Admin: 04/21/19 18:20 Dose: 10 mg Documented by: Pantoprazole Sodium (Protonix) 40 mg PO DAILY [facility] Scopolamine HBr (Transderm-Scop) 1 patch TD Q3D [facility] Stop: 04/22/19 14:57 Last Admin: 04/21/19 08:56 Dose: 1 patch Documented by: Sodium Chloride () 10 - 40 ml IV UD PRN PRN Reason: Port-a-Cath (VAD) Flush Sodium Chloride (0.9% Nacl (Sterile) Posiflush) 10 - 40 ml IV UD PRN PRN Reason: Port access or dressing change Tramadol HCl (Ultram) 50 mg PO BID [facility] STROKE Vital Signs/Narrative: Vital Signs Temp Pulse Resp BP Pulse Ox 04/21/19 18:08 98.3 F 68 16 110/64 99 04/21/19 17:00 96 04/21/19 16:12 97.5 F L 69 16 119/62 100 04/21/19 15:28 98.0 F 69 16 117/99 H 100 04/21/19 15:15 68 16 93/60 100 04/21/19 15:00 97.5 F L 66 14 112/57 L 100 04/21/19 14:45 64 14 150/115 H 100 Medical Necessity - Tobacco Use Smoking Status: Light Smoker (<10/day) Assessment/Plan All Active Problems (Last Reviewed 04/06/19 @ 12:08 by Isma Dillon MD) Disproportion of reconstructed breast (Acute) Acquired absence of bilateral breasts and nipples (Acute) Increased tearing (Acute) Encounter for education (Acute) Encounter for insertion of venous access port (Acute) Primary cancer of right female breast (Acute) 1. POD #1 s/p bilateral breast mastectomy for right invasive ductal carcinoma, ER/VA positive, diagnosed on 12/16/18, status post neoadjuvant chemotherapy, recent genetic testing who comes in for right breast simple mastectomy with axillary sentinel lymph node biopsy, reconstructive breast surgery Continue with current pain control, further wound management per general and plastic surgery 2. Rheumatoid arthritis, continue on Plaquenil 3. Hypothyroidism, continue on Synthroid 4. Depression, continue on Wellbutrin 5. DVT PPx- Lovenox Sc Code Visit Inpatient E&M: 97346 Subs Hosp L2
[2019-04-21] MEDS: traMADol 50 MG Tablet PO (21:43)
[2019-04-21] MEDS: Docusate Sodium 100 MG Capsule PO (21:44)
[2019-04-22] MEDS: oxyCODONE 5 MG Tablet PO ×2 (00:21→14:03)
[2019-04-22] MEDS: Acetaminophen 500 MG Tablet 1000 MG PO ×4 (00:22→19:04)
[2019-04-22 03:00] VITALS: BP 106/51; PULSE 71; RESP 16; TEMP 36.7; O2SAT 99
[2019-04-22 05:37] LABS: Hematocrit 25.4 % (37-47); Hemoglobin 7.9 g/dL (12.0-15.0); Mean Corp Hgb Conc 31.1 g/dL (32-36); Mean Corpuscular Hgb 32.9 pg (27.0-32.0); Mean Corpuscular Volume 105.8 fL (81-99); Platelet Count 243 K/mm3 (150-450); RBC Distribution Width CV 14.3 % (11.6-14.6); RBC Distribution Width SD 55.8 fl (35.1-43.9); White Blood Count 13.5 K/mm3 (4.4-11.0)
[2019-04-22 05:50] LABS: Anion Gap 2 (5-15); BUN 24 mg/dL (7-18); Calcium,Total 8.1 mg/dL (8.5-10.1); Chloride 107 mmol/L (98-107); Creatinine, Serum 1.41 mg/dL (0.55-1.02); EST Glomerular Filtration Rate 40 mL/min (>60); Est Glom Filt Rate - Afr Amer 48 mL/min (>60); Estimated Creatinine Clearance 37.65 ml/min; Glucose 110 mg/dL (74-106); Potassium 4.4 mmol/L (3.5-5.1); Prealbumin 28.2 mg/dL (20.0-40.0); Sodium Level 137 mmol/L (136-145)
[2019-04-22] MEDS: Cefazolin 1 GM/50 ML BAG IV ×3 (05:56→22:24)
[2019-04-22] MEDS: Levothyroxine 100 MCG Tablet PO (05:56)
[2019-04-22] MEDS: 0.9% Saline Lock 10 ML Syringe IV ×4 (05:56→22:22)
--- NOTE | 2019-04-22 07:25 | PN.SURG_ITS ---
Subjective: Patient reports she is doing well this morning. Her pain is well controlled. She is not having any issues. She does feel some pulling on the right side drain. - Physical Exam Vitals/I&O's: Vital Signs Temp Pulse Resp BP Pulse Ox 98.1 F 71 16 106/51 L 99 04/22/19 03:00 04/22/19 03:00 04/22/19 03:00 04/22/19 03:00 04/22/19 03:00 Oxygen Flow Rate (L/min) 6 Oxygen Delivery Method Room Air Weight: 170 lb 13.732 oz Body Mass Index (BMI) 26.7 Intake and Output for Last 24 Hours 04/20/19 04/21/19 04/22/19 23:59 23:59 23:59 Intake Total 3888.00 / 4388.00 1150 / 1150 Output Total 289 / 744 1140 / 1140 Balance 3599.00 / 3644.00 General: Alert, Oriented x3 Lungs: Normal air movement Cardiovascular: Regular rate, Regular Rhythm Abdomen: Soft, Non Tender, Non-Distended Laboratory Results 04/21/19 08:17: POC Glucose 89 04/22/19 05:18: WBC 13.5 H, RBC 2.40 L, Hgb 7.9 L, Hct 25.4 L, MCV 105.8 H, MCH 32.9 H, MCHC 31.1 L, RDW Std Deviation 55.8 H, RDW Coeff of Oumou 14.3, Plt Count 243, MPV 10.0 04/22/19 05:18: Sodium 137, Potassium 4.4, Chloride 107, Carbon Dioxide 28.0, Anion Gap 2 L, BUN 24 H, Creatinine 1.41 H, Estim Creat Clear Calc 37.65, Est GFR (MDRD) Af Amer 48 L, Est GFR (MDRD) Non-Af 40 L, BUN/Creatinine Ratio 17.0, Glucose 110 H, Calcium 8.1 L, Prealbumin 28.2 Current Medications Acetaminophen (Tylenol) 1,000 mg PO Q6 [facility] Last Admin: 04/22/19 05:56 Dose: 1,000 mg Documented by: Anastrozole (Arimidex) 1 mg PO DAILY [facility] Bupropion HCl (Wellbutrin Xl) 300 mg PO DAILY [facility] Calcium/Vitamin D (Os-Jesús 500mg + D) [facility] Last Admin: 04/21/19 17:36 Dose: 1 tablet Documented by: Diazepam (Valium) 5 mg PO 4X/DAY PRN PRN Reason: spasm Docusate Sodium (Colace) 100 mg PO BID [facility] Last Admin: 04/21/19 21:44 Dose: 100 mg Documented by: Enoxaparin Sodium (Lovenox) 40 mg SC DAILY [facility] Enteral Nutritional Formula (Ensure Surgery) 237 ml PO TIDCM [facility] Last Admin: 04/21/19 18:26 Dose: 237 ml Documented by: Gabapentin (Neurontin) 200 mg PO TIDCM [facility] Last Admin: 04/21/19 17:35 Dose: 200 mg Documented by: Heparin Sodium (Beef Lung) () 50 units IV UD PRN PRN Reason: Port-a-Cath (VAD)Heparin Flush Hydromorphone HCl (Dilaudid Inj) 0.5 - 1 mg IV Q3H PRN PRN PRN Reason: Pain Score 6-10/10 Hydromorphone HCl (Dilaudid Inj) 0.5 - 1 mg IV Q3H PRN PRN PRN Reason: Pain Score 6-10/10 Hydroxychloroquine [facility] ([facility]il) [facility] Last Admin: 04/21/19 17:37 Dose: 200 mg Documented by: Lactated Ringer's () 1,000 mls @ 60 mls/hr IV .[id number] [facility] Last Infusion: 04/21/19 22:21 Dose: Infused Documented by: Cefazolin Sodium () 1 gm in 50 mls @ 100 mls/hr IV Q8 [facility] Last Infusion: 04/22/19 06:26 Dose: Infused Documented by: Levothyroxine Sodium (Synthroid) 100 mcg PO DAILY@0600 [facility] Last Admin: 04/22/19 05:56 Dose: 100 mcg Documented by: Magnesium Oxide (Mag-Ox 400) 400 mg PO BID PRN PRN PRN Reason: Constipation Ondansetron HCl (Zofran Odt) 4 mg PO Q6H PRN PRN PRN Reason: NAUSEA Oxycodone HCl (Oxyir) 5 - 10 mg PO Q4H PRN PRN PRN Reason: Pain Score 4-10/10 Last Admin: 04/22/19 00:21 Dose: 10 mg Documented by: Pantoprazole Sodium (Protonix) 40 mg PO DAILY [facility] Scopolamine HBr (Transderm-Scop) 1 patch TD Q3D [facility] Stop: 04/22/19 14:57 Last Admin: 04/21/19 08:56 Dose: 1 patch Documented by: Sodium Chloride () 10 - 40 ml IV UD PRN PRN Reason: Port-a-Cath (VAD) Flush Last Admin: 04/22/19 05:56 Dose: 10 ml Documented by: Sodium Chloride (0.9% Nacl (Sterile) Posiflush) 10 - 40 ml IV UD PRN PRN Reason: Port access or dressing change Tramadol HCl (Ultram) 50 mg PO BID [facility] Last Admin: 04/21/19 21:43 Dose: 50 mg Documented by: Medical Necessity - Tobacco Use Smoking Status: Light Smoker (<10/day) Assessment/Plan All Active Problems (Last Reviewed 04/06/19 @ 12:08 by Isma Dillon MD) Disproportion of reconstructed breast (Acute) Acquired absence of bilateral breasts and nipples (Acute) Increased tearing (Acute) Encounter for education (Acute) Encounter for insertion of venous access port (Acute) Primary cancer of right female breast (Acute) 68-year-old female status post bilateral mastectomy and right axillary biopsy 1. Patient reports that she is doing well. Likely discharge today. I will call her later this week with pathology results. She will follow-up with me in 2 weeks. Jaquan Siddiqui MD Pager: [facility] [address] [place] [address], [address] [place] [address] Office:
[2019-04-22 09:00] VITALS: BP 116/43; PULSE 84; RESP 16; TEMP 36.9; O2SAT 98
[2019-04-22] MEDS: buPROPion (XL) 300 MG TABLET.XL PO (10:26)
[2019-04-22] MEDS: traMADol 50 MG Tablet PO ×2 (10:26→22:20)
[2019-04-22] MEDS: Docusate Sodium 100 MG Capsule PO ×2 (10:26→22:20)
[2019-04-22] MEDS: Gabapentin 100 MG Capsule 200 MG PO ×3 (10:26→17:35)
[2019-04-22] MEDS: Calcium Carb/Vitamin D 1 TABLET Tablet PO ×2 (10:26→17:34)
[2019-04-22] MEDS: Anastrozole 1 MG Tablet PO (10:27)
[2019-04-22] MEDS: Hydroxychloroquine 200 MG Tablet PO ×2 (10:27→17:34)
[2019-04-22] MEDS: Pantoprazole Sodium 40 MG Tablet PO (10:27)
[2019-04-22] MEDS: Enoxaparin 40 MG/0.4 ML Syringe SC (10:27)
[2019-04-22 11:00] VITALS: O2SAT 98
--- NOTE | 2019-04-22 12:06 | CASEMGMT ---
Social Work Note SW reviewed notes pt was diagnosed with right breast cancer in December 2018. SW completed Palliative care tool, pt scored 2. SW met with pt and introduced self and role at [facility]. Pt is alert and orientated x3, appears in good spirit. Pt confirms that she was diagnosed with Breast Cancer in December 2018 and has decided to fight the cancer. Pt states that she has good support at home and also states she attends cancer support groups at [facility]. SW offered support to pt. Pt denied additional needs or concerns at this time. Josselyn Clancy MACHINE OVERHAULER, OR DIRECTOR
--- NOTE | 2019-04-22 12:10 | PN_ITS ---
Subjective: Chief complaint: Follow-up after consultation for postoperative medical management status post surgery. Patient seen and examined. No acute events overnight. She complained of chest discomfort and soreness because of surgery. Denies any other complaints. Her vital signs are stable. - Physical Exam Vitals/I&O's: Vital Signs Temp Pulse Resp BP Pulse Ox 98.4 F 84 16 116/43 L 98 04/22/19 09:00 04/22/19 09:00 04/22/19 09:00 04/22/19 09:00 04/22/19 09:00 Oxygen Flow Rate (L/min) 6 Oxygen Delivery Method Room Air Weight: 170 lb 13.732 oz Body Mass Index (BMI) 26.7 Intake and Output for Last 24 Hours 04/20/19 04/21/19 04/22/19 23:59 23:59 23:59 Intake Total 3888.00 / 4388.00 1150 / 1150 Output Total 289 / 744 1260 / 1260 Balance 3599.00 / 3644.00 -110 / -110 General: Alert, Oriented x3, Cooperative, No apparent distress HEENT: Atraumatic, PERRLA, EOMI, Normocephalic Oral: Moist Mucosa, No Gingival or Mucosal Lesions/ Ulcerations Neck: Supple, No JVD, Negative Carotid Bruits, Trachea Midline, Thyroid Normal Size and Texture Lungs: Clear to auscultation, Normal air movement, No rhonchi, No wheeze, No rales Cardiovascular: Regular rate, Regular Rhythm, Normal S1, Normal S2, Murmur Abdomen: Bowel Sounds Present, Soft, Non Tender, Non-Distended, No Hepato-sple nomegaly Extremities: No clubbing, No cyanosis, No edema Skin: No rashes, No breakdown Neurological: Cranial nerves II-XII grossly intact, Neuro grossly intact Psych/Mental Status: Normal Affect, Appropriate, Alert and oriented to time, place, person, mood and affect Laboratory Results 04/22/19 05:18: WBC 13.5 H, RBC 2.40 L, Hgb 7.9 L, Hct 25.4 L, MCV 105.8 H, MCH 32.9 H, MCHC 31.1 L, RDW Std Deviation 55.8 H, RDW Coeff of Oumou 14.3, Plt Count 243, MPV 10.0 04/22/19 05:18: Sodium 137, Potassium 4.4, Chloride 107, Carbon Dioxide 28.0, Anion Gap 2 L, BUN 24 H, Creatinine 1.41 H, Estim Creat Clear Calc 37.65, Est GFR (MDRD) Af Amer 48 L, Est GFR (MDRD) Non-Af 40 L, BUN/Creatinine Ratio 17.0, Glucose 110 H, Calcium 8.1 L, Prealbumin 28.2 Current Medications Acetaminophen (Tylenol) 1,000 mg PO Q6 [facility] Last Admin: 04/22/19 05:56 Dose: 1,000 mg Documented by: Anastrozole (Arimidex) 1 mg PO DAILY [facility] Last Admin: 04/22/19 10:27 Dose: 1 mg Documented by: Bupropion HCl (Wellbutrin Xl) 300 mg PO DAILY [facility] Last Admin: 04/22/19 10:26 Dose: 300 mg Documented by: Calcium/Vitamin D (Os-Jesús 500mg + D) [facility] Last Admin: 04/22/19 10:26 Dose: 1 tablet Documented by: Diazepam (Valium) 5 mg PO 4X/DAY PRN PRN Reason: spasm Docusate Sodium (Colace) 100 mg PO BID [facility] Last Admin: 04/22/19 10:26 Dose: 100 mg Documented by: Enoxaparin Sodium (Lovenox) 40 mg SC DAILY [facility] Last Admin: 04/22/19 10:27 Dose: 40 mg Documented by: Enteral Nutritional Formula (Ensure Surgery) 237 ml PO TIDCM [facility] Last Admin: 04/22/19 10:33 Dose: Not Given Documented by: Gabapentin (Neurontin) 200 mg PO TIDCM [facility] Last Admin: 04/22/19 10:26 Dose: 200 mg Documented by: Heparin Sodium (Beef Lung) () 50 units IV UD PRN PRN Reason: Port-a-Cath (VAD)Heparin Flush Hydromorphone HCl (Dilaudid Inj) 0.5 - 1 mg IV Q3H PRN PRN PRN Reason: Pain Score 6-10/10 Hydromorphone HCl (Dilaudid Inj) 0.5 - 1 mg IV Q3H PRN PRN PRN Reason: Pain Score 6-10/10 Hydroxychloroquine Sulfate ([facility]aquenil) [facility] Last Admin: 04/22/19 10:27 Dose: 200 mg Documented by: Lactated Ringer's () 1,000 mls @ 60 mls/hr IV .[id number] [facility] Last Admin: 04/22/19 10:09 Dose: Not Given Documented by: Cefazolin Sodium () 1 gm in 50 mls @ 100 mls/hr IV Q8 [facility] Last Infusion: 04/22/19 06:26 Dose: Infused Documented by: Levothyroxine Sodium (Synthroid) 100 mcg PO DAILY@0600 [facility] Last Admin: 04/22/19 05:56 Dose: 100 mcg Documented by: Magnesium Oxide (Mag-Ox 400) 400 mg PO BID PRN PRN PRN Reason: Constipation Ondansetron HCl (Zofran Odt) 4 mg PO Q6H PRN PRN PRN Reason: NAUSEA Oxycodone HCl (Oxyir) 5 - 10 mg PO Q4H PRN PRN PRN Reason: Pain Score 4-10/10 Last Admin: 04/22/19 00:21 Dose: 10 mg Documented by: Pantoprazole Sodium (Protonix) 40 mg PO DAILY [facility] Last Admin: 04/22/19 10:27 Dose: 40 mg Documented by: Scopolamine HBr (Transderm-Scop) 1 patch TD Q3D [facility] Stop: 04/22/19 14:57 Last Admin: 04/21/19 08:56 Dose: 1 patch Documented by: Sodium Chloride () 10 - 40 ml IV UD PRN PRN Reason: Port-a-Cath (VAD) Flush Last Admin: 04/22/19 05:56 Dose: 10 ml Documented by: Sodium Chloride (0.9% Nacl (Sterile) Posiflush) 10 - 40 ml IV UD PRN PRN Reason: Port access or dressing change Tramadol HCl (Ultram) 50 mg PO BID [facility] Last Admin: 04/22/19 10:26 Dose: 50 mg Documented by: Medical Necessity - Tobacco Use Smoking Status: Light Smoker (<10/day) Assessment/Plan All Active Problems (Last Reviewed 04/06/19 @ 12:08 by Isma Dillon MD) Acquired absence of bilateral breasts and nipples (Acute) Disproportion of reconstructed breast (Acute) Primary cancer of right female breast (Acute) This is a 68 years old female patient underwent bilateral mastectomy and right axillary lymph node biopsy as well as first stage immediate bilateral breast reconstruction and I am seeing this patient in consultation for postoperative medical management. #1 status post bilateral mastectomy/right axillary lymph node biopsy/first stage immediate bilateral breast reconstruction: This was done for right breast invasive ductal carcinoma, status post prophylactic left mastectomy, postoperative day 1. Patient is on IV cefazolin for perioperative prophylaxis, on IV Dilaudid and OxyIR PRN for pain. Pain is manageable. Routine blood work from today revealed mild leukocytosis, hemoglobin of 7.9 g/dL. BUN was 24 and creatinine is 1.41. Plastic and general surgery on the case. Recommend to repeat CBC and BMP tomorrow morning. #2 postoperative anemia: Baseline hemoglobin around 10 to 12 g/dL, it came down to 7.9 g/dL today, likely because of blood loss during surgery. At this time, no indication for blood transfusion. Plan to repeat CBC tomorrow morning. #3 stage III chronic kidney disease: Baseline creatinine has been around 1.2 to 1.4 mg/dL, today's creatinine is 1.41, stable at baseline. #4 right breast invasive ductal carcinoma/ER/SC positive: Status post chemotherapy and surgery that was done yesterday. #5 rheumatoid arthritis: Stable, continue Plaquenil and tramadol. #6 hypothyroidism: Continue levothyroxine. #7 depression: Continue Wellbutrin. #8 DVT prophylaxis: Subcu heparin. This note was generated with [employer] dictation software. It may contain incorrect words, spelling, and punctuation that were not noted in checking the note before signing. Code Visit Inpatient E&M: 92411 Subs Hosp L2
--- NOTE | 2019-04-22 13:49 | PCM.PN.SRG ---
Subjective: Postop #1 Has incisional pain. Is a little unsteady on her feet with ambulation. - Physical Exam Vitals/I&O's: Vital Signs Temp Pulse Resp BP Pulse Ox 98.4 F 84 16 116/43 L 98 04/22/19 09:00 04/22/19 09:00 04/22/19 09:00 04/22/19 09:00 04/22/19 09:00 Oxygen Flow Rate (L/min) 6 Oxygen Delivery Method Room Air Weight: 170 lb 13.732 oz Body Mass Index (BMI) 26.7 Intake and Output for Last 24 Hours 04/20/19 04/21/19 04/22/19 23:59 23:59 23:59 Intake Total 3888.00 / 4388.00 1150 / 1150 Output Total 289 / 744 1260 / 1260 Balance 3599.00 / 3644.00 -110 / -110 Drainage 89 ml yesterday, 385 ml today. General: Alert, Oriented x3 HEENT: PERRLA, EOMI Oral: Moist Mucosa Neck: Supple Abdomen: Soft, Non-Distended Skin: Incision - bilateral mastectomy incisions are dry and intact. No clinical evidence of hematoma. No vascular compromise noted on the breast skin flaps. Neurological: Cranial nerves II-XII grossly intact Psych/Mental Status: Normal Affect, Appropriate Laboratory Results 04/22/19 05:18: WBC 13.5 H, RBC 2.40 L, Hgb 7.9 L, Hct 25.4 L, MCV 105.8 H, MCH 32.9 H, MCHC 31.1 L, RDW Std Deviation 55.8 H, RDW Coeff of Oumou 14.3, Plt Count 243, MPV 10.0 04/22/19 05:18: Sodium 137, Potassium 4.4, Chloride 107, Carbon Dioxide 28.0, Anion Gap 2 L, BUN 24 H, Creatinine 1.41 H, Estim Creat Clear Calc 37.65, Est GFR (MDRD) Af Amer 48 L, Est GFR (MDRD) Non-Af 40 L, BUN/Creatinine Ratio 17.0, Glucose 110 H, Calcium 8.1 L, Prealbumin 28.2 Current Medications Acetaminophen (Tylenol) 1,000 mg PO Q6 [facility] Last Admin: 04/22/19 05:56 Dose: 1,000 mg Documented by: Anastrozole (Arimidex) 1 mg PO DAILY [facility] Last Admin: 04/22/19 10:27 Dose: 1 mg Documented by: Bupropion HCl (Wellbutrin Xl) 300 mg PO DAILY [facility] Last Admin: 04/22/19 10:26 Dose: 300 mg Documented by: Calcium/Vitamin D (Os-Jesús 500mg + D) 1 tablet PO BIDCM [facility] Last Admin: 04/22/19 10:26 Dose: 1 tablet Documented by: Diazepam (Valium) 5 mg PO 4X/DAY PRN PRN Reason: spasm Docusate Sodium (Colace) 100 mg PO BID [facility] Last Admin: 04/22/19 10:26 Dose: 100 mg Documented by: Enoxaparin Sodium (Lovenox) 40 mg SC DAILY [facility] Last Admin: 04/22/19 10:27 Dose: 40 mg Documented by: Enteral Nutritional Formula (Ensure Surgery) 237 ml PO TIDCM [facility] Last Admin: 04/22/19 10:33 Dose: Not Given Documented by: Gabapentin (Neurontin) 200 mg PO TIDCM [facility] Last Admin: 04/22/19 10:26 Dose: 200 mg Documented by: Heparin Sodium (Beef Lung) () 50 units IV UD PRN PRN Reason: Port-a-Cath (VAD)Heparin Flush Hydromorphone HCl (Dilaudid Inj) 0.5 - 1 mg IV Q3H PRN PRN PRN Reason: Pain Score 6-10/10 Hydromorphone HCl (Dilaudid Inj) 0.5 - 1 mg IV Q3H PRN PRN PRN Reason: Pain Score 6-10/10 [facility]xych[facility]oquine [facility]ate ([facility]il) [address] [facility] Last Admin: 04/22/19 10:27 Dose: 200 mg Documented by: Cefazolin Sodium () 1 gm in 50 mls @ 100 mls/hr IV Q8 [facility] Last Infusion: 04/22/19 06:26 Dose: Infused Documented by: Levothyroxine Sodium (Synthroid) 100 mcg PO DAILY@0600 [facility] Last Admin: 04/22/19 05:56 Dose: 100 mcg Documented by: Magnesium Oxide (Mag-Ox 400) 400 mg PO BID PRN PRN PRN Reason: Constipation Ondansetron HCl (Zofran Odt) 4 mg PO Q6H PRN PRN PRN Reason: NAUSEA Oxycodone HCl (Oxyir) 5 - 10 mg PO Q4H PRN PRN PRN Reason: Pain Score 4-10/10 Last Admin: 04/22/19 00:21 Dose: 10 mg Documented by: Pantoprazole Sodium (Protonix) 40 mg PO DAILY [facility] Last Admin: 04/22/19 10:27 Dose: 40 mg Documented by: Scopolamine HBr (Transderm-Scop) 1 patch TD Q3D [facility] Stop: 04/22/19 14:57 Last Admin: 04/21/19 08:56 Dose: 1 patch Documented by: Sodium Chloride () 10 - 40 ml IV UD PRN PRN Reason: Port-a-Cath (VAD) Flush Last Admin: 04/22/19 05:56 Dose: 10 ml Documented by: Sodium Chloride (0.9% Nacl (Sterile) Posiflush) 10 - 40 ml IV UD PRN PRN Reason: Port access or dressing change Tramadol HCl (Ultram) 50 mg PO BID [facility] Last Admin: 04/22/19 10:26 Dose: 50 mg Documented by: Medical Necessity - Tobacco Use Smoking Status: Light Smoker (<10/day) Assessment/Plan All Active Problems (Last Reviewed 04/06/19 @ 12:08 by Isma Dillon MD) Acquired absence of bilateral breasts and nipples (Acute) Disproportion of reconstructed breast (Acute) Primary cancer of right female breast (Acute) 1. Right breast cancer. 2. Cancer phobia left breast. 3. Positive test for genetic breast cancer susceptibility marker. 4. Planned acquired absence bilateral breasts. 5. Planned disproportion reconstructed breasts. 6. Estrogen receptor positive status. 7. Family history of breast cancer. 8. Neoadjuvant chemotherapy. 9. Smoker. 10. s/p prophylactic mastectomy left breast and first stage immediate bilateral breast reconstruction with placement of submuscular saline tissue expanders (650 ml for each side) and placement of Alloderm Select acellular dermal matrix grafts (132 cm2 for each side) by Dr. Dillon and right simple mastectomy and right axillary sentinel lymph node biopsy by Dr. Siddiqui. 11. Anemia of chronic disease, acute on chronic. Incisions are dry and intact. No clinical evidence of hematoma. Complains of incisional pain. Needed occasional IV analgesia. She is a little unsteady on her feet with ambulation. Will keep one more day. Encourage ambulation with assist. Can discharge when she is more steady on her feet with ambulation. Will wean to po analgesia in anticipation for discharge. Hgb was 7.9. Preop it was 9.1. She has anemia of chronic disease, acute on chronic. She had operative blood loss of 150 ml. She also had IV dilution as her I's/O's are positive 3500 ml. Started her on Iron supplementation. Will recheck tomorrow. If it continues to drift downward, will give PRBC which will improve oxygenation of the tissues and improve healing Prealbumin was 28.2. Encourage nutritional supplementation with protein to help the healing process. Will remove the drains in the office. Continue zain wrap for chest wall compression. Continue head elevation and lifting restriction.
[2019-04-22 13:55] VITALS: BP 120/58; PULSE 77; RESP 16; TEMP 36.7; O2SAT 100
[2019-04-22] MEDS: Ensure Surgery 237 ML LIQUID PO (13:57)
[2019-04-22] MEDS: Iron Polysaccharide Complex 150 MG CAPSULE PO (15:29)
[2019-04-22 22:10] VITALS: BP 130/54; PULSE 75; RESP 16; TEMP 36.8; O2SAT 99
[2019-04-22] MEDS: Mag Hydrox/Al Hydrox/Simeth 30 ML UDC PO (22:36)
[2019-04-23] MEDS: Acetaminophen 500 MG Tablet 1000 MG PO ×3 (00:32→15:04)
[2019-04-23] MEDS: oxyCODONE 5 MG Tablet PO ×2 (00:34→13:19)
[2019-04-23 03:40] VITALS: BP 125/57; PULSE 79; RESP 16; TEMP 36.6; O2SAT 97
[2019-04-23] MEDS: diazePAM 5 MG Tablet PO (03:45)
[2019-04-23] MEDS: 0.9% Saline Lock 10 ML Syringe IV ×2 (06:15→13:35)
[2019-04-23 06:25] LABS: Absolute Neutrophil Count 7.6 X10^3/uL (2.0-7.7); Basophil# 0.01 X10^3/uL; Basophil% 0.1 % (0-1); Eosinophil# 0.19 X10^3/uL; Eosinophils% 1.9 % (0-5); Hematocrit 25.6 % (37-47); Hemoglobin 8.1 g/dL (12.0-15.0); Lymphocyte % 10.2 % (19-41); Mean Corp Hgb Conc 31.6 g/dL (32-36); Mean Corpuscular Hgb 33.3 pg (27.0-32.0); Mean Corpuscular Volume 105.3 fL (81-99); Mean Platelet Vol. 9.7 fl (6.2-12.0); Monocyte# 0.99 X10^3/uL; Monocyte% 10.1 % (0-10); NRBC Flagged by Analyzer 0 % (0-5); Neutrophil # 7.59 X10^3/uL (2.7-7.7); Neutrophil % 77.1 % (47-70); Platelet Count 232 K/mm3 (150-450); RBC Distribution Width CV 14.3 % (11.6-14.6); RBC Distribution Width SD 55.2 fl (35.1-43.9); Red Blood Count 2.43 M/mm3 (4.2-5.4); White Blood Count 9.8 K/mm3 (4.4-11.0)
[2019-04-23 06:43] LABS: Anion Gap 3 (5-15); BUN 19 mg/dL (7-18); BUN/Creat Ratio 16.2 RATIO (10-20); Calcium,Total 8.1 mg/dL (8.5-10.1); Chloride 107 mmol/L (98-107); Creatinine, Serum 1.17 mg/dL (0.55-1.02); EST Glomerular Filtration Rate 49 mL/min (>60); Est Glom Filt Rate - Afr Amer 59 mL/min (>60); Estimated Creatinine Clearance 45.37 ml/min; Glucose 101 mg/dL (74-106); Potassium 4.4 mmol/L (3.5-5.1); Sodium Level 141 mmol/L (136-145)
[2019-04-23] MEDS: Levothyroxine 100 MCG Tablet PO (06:48)
[2019-04-23] MEDS: Cefazolin 1 GM/50 ML BAG IV (06:50)
[2019-04-23 07:29] VITALS: BP 135/56; PULSE 70; RESP 16; TEMP 36.8; O2SAT 98
[2019-04-23 07:35] VITALS: O2SAT 97
--- NOTE | 2019-04-23 09:00 | PCM.PROGNOTE ---
Subjective: Chief complaint: Follow-up after consultation for postoperative medical management. Patient seen and examined. No acute events overnight. Pain at the surgical site on both breasts is manageable, but is only soreness. Denied any new complaints. Her vital signs are stable. - Physical Exam Vitals/I&O's: Vital Signs Temp Pulse Resp BP Pulse Ox 98.3 F 70 16 135/56 H 97 04/23/19 07:29 04/23/19 07:29 04/23/19 07:29 04/23/19 07:29 04/23/19 07:35 Oxygen Flow Rate (L/min) 6 Oxygen Delivery Method Room Air Weight: 170 lb 13.732 oz Body Mass Index (BMI) 26.7 Intake and Output for Last 24 Hours 04/21/19 04/22/19 04/23/19 23:59 23:59 23:59 Intake Total 3888.00 / 4388.00 2750 / 3050 470 / 470 Output Total 289 / 744 3305 / 3630 455 / 455 Balance 3599.00 / 3644.00 -555 / -580 General: Alert, Oriented x3, Cooperative, No apparent distress HEENT: Atraumatic, PERRLA, EOMI, Normocephalic Oral: Moist Mucosa, No Gingival or Mucosal Lesions/ Ulcerations Neck: Supple, No JVD, Negative Carotid Bruits, Trachea Midline, Thyroid Normal Size and Texture Lungs: Clear to auscultation, Normal air movement, No rhonchi, No wheeze, No rales Cardiovascular: Regular rate, Regular Rhythm, Normal S1, Normal S2, PMI Normal Abdomen: Bowel Sounds Present, Soft, Non Tender, Non-Distended, No Hepato-splenomegaly Extremities: No clubbing, No cyanosis, No edema Skin: No rashes, No breakdown Lymphatic: No Cervical, Supraclavicular, or Inguinal Adenopathy Neurological: Cranial nerves II-XII grossly intact, Neuro grossly intact Psych/Mental Status: Normal Affect, Appropriate, Alert and oriented to time, place, person, mood and affect Laboratory Results 04/23/19 06:10: WBC 9.8, RBC 2.43 L, Hgb 8.1 L, Hct 25.6 L, MCV 105.3 H, MCH 33.3 H, MCHC 31.6 L, RDW Std Deviation 55.2 H, RDW Coeff of Oumou 14.3, Plt Count 232, MPV 9.7, Immature Gran % (Auto) 0.600, Neut % (Auto) 77.1 H, Lymph % (Auto) 10.2 L, Towner % (Auto) 10.1 H, Eos % (Auto) 1.9, Baso % (Auto) 0.1, Absolute Neuts (auto) 7.6, Absolute Lymphs (auto) 1.00, Nucleated RBC % 0 04/23/19 06:10: Sodium 141, Potassium 4.4, Chloride 107, Carbon Dioxide 31.0, Anion Gap 3 L, BUN 19 H, Creatinine 1.17 H, Estim Creat Clear Calc 45.37, Est GFR (MDRD) Af Amer 59 L, Est GFR (MDRD) Non-Af 49 L, BUN/Creatinine Ratio 16.2, Glucose 101, Calcium 8.1 L Current Medications Acetaminophen (Tylenol) 1,000 mg PO Q6 [facility] Last Admin: 04/23/19 06:48 Dose: 1,000 mg Documented by: Al Hydroxide/Mg Hydroxide (Mylanta Ii) 30 ml PO Q6H PRN PRN PRN Reason: INDIGESTION Last Admin: 04/22/19 22:36 Dose: 30 ml Documented by: Anastrozole (Arimidex) 1 mg PO DAILY [facility] Last Admin: 04/22/19 10:27 Dose: 1 mg Documented by: Bupropion HCl (Wellbutrin Xl) 300 mg PO DAILY [facility] Last Admin: 04/22/19 10:26 Dose: 300 mg Documented by: Calcium/Vitamin D (Os-Jesús 500mg + D) [facility] Last Admin: 04/22/19 17:34 Dose: 1 tablet Documented by: Diazepam (Valium) 5 mg PO 4X/DAY PRN PRN Reason: spasm Last Admin: 04/23/19 03:45 Dose: 5 mg Documented by: Docusate Sodium (Colace) 100 mg PO BID [facility] Last Admin: 04/22/19 22:20 Dose: 100 mg Documented by: Enoxaparin Sodium (Lovenox) 40 mg SC DAILY [facility] Last Admin: 04/22/19 10:27 Dose: 40 mg Documented by: Enteral Nutritional Formula (Ensure Surgery) 237 ml PO TIDCM [facility] Last Admin: 04/22/19 17:40 Dose: Not Given Documented by: Gabapentin (Neurontin) 200 mg PO TIDCM [facility] Last Admin: 04/22/19 17:35 Dose: 200 mg Documented by: Heparin Sodium (Beef Lung) () 50 units IV UD PRN PRN Reason: Port-a-Cath (VAD)Heparin Flush Hydromorphone HCl (Dilaudid Inj) 0.5 - 1 mg IV Q3H PRN PRN PRN Reason: Pain Score 6-10/10 Hydromorphone HCl (Dilaudid Inj) 0.5 - 1 mg IV Q3H PRN PRN PRN Reason: Pain Score 6-10/10 Hydroxychloroquine S[facility]ate ([facility]il) [facility] Last Admin: 04/22/19 17:34 Dose: 200 mg Documented by: Cefazolin Sodium () 1 gm in 50 mls @ 100 mls/hr IV Q8 [facility] Last Infusion: 04/23/19 07:20 Dose: Infused Documented by: Levothyroxine Sodium (Synthroid) 100 mcg PO DAILY@0600 [facility] Last Admin: 04/23/19 06:48 Dose: 100 mcg Documented by: Magnesium Oxide (Mag-Ox 400) 400 mg PO BID PRN PRN PRN Reason: Constipation Ondansetron HCl (Zofran Odt) 4 mg PO Q6H PRN PRN PRN Reason: NAUSEA Oxycodone HCl (Oxyir) 5 - 10 mg PO Q4H PRN PRN PRN Reason: Pain Score 4-10/10 Last Admin: 04/23/19 00:34 Dose: 10 mg Documented by: Pantoprazole Sodium (Protonix) 40 mg PO DAILY [facility] Last Admin: 04/22/19 10:27 Dose: 40 mg Documented by: Polysaccharide Iron Complex (Ferrex 150) [facility] Last Admin: 04/22/19 15:29 Dose: 150 mg Documented by: Sodium Chloride () 10 - 40 ml IV UD PRN PRN Reason: Port-a-Cath (VAD) Flush Last Admin: 04/23/19 06:15 Dose: 30 ml Documented by: Sodium Chloride (0.9% Nacl (Sterile) Posiflush) 10 - 40 ml IV UD PRN PRN Reason: Port access or dressing change Tramadol HCl (Ultram) 50 mg PO BID [facility] Last Admin: 04/22/19 22:20 Dose: 50 mg Documented by: Medical Necessity - Tobacco Use Smoking Status: Light Smoker (<10/day) Assessment/Plan All Active Problems (Last Reviewed 04/06/19 @ 12:08 by Isma Dillon MD) Acquired absence of bilateral breasts and nipples (Acute) Disproportion of reconstructed breast (Acute) Primary cancer of right female breast (Acute) This is a 68 years old female patient underwent bilateral mastectomy and right axillary lymph node biopsy as well as first stage immediate bilateral breast reconstruction and I am seeing this patient in consultation for postoperative medical management. #1 status post bilateral mastectomy/right axillary lymph node biopsy/first stage immediate bilateral breast reconstruction: This was done for right breast invasive ductal carcinoma, status post prophylactic left mastectomy, postoperative day 2. Patient is on IV cefazolin for perioperative prophylaxis, on IV Dilaudid and OxyIR PRN for pain. Pain is manageable. Repeat routine blood work from today revealed hemoglobin of 8.1 g/dL, leukocytosis resolved and serum creatinine is down to 1.17. From medical standpoint, patient can be discharged, no changes to her home medications. #2 postoperative anemia: Baseline hemoglobin around 10 to 12 g/dL, it came down to 7.9 g/dL and today's hemoglobin is 8.1 g/dL. It is probably due to blood loss during surgery. At this time, no indication for blood transfusion. #3 stage III chronic kidney disease: Baseline creatinine has been around 1.2 to 1.4 mg/dL, today's creatinine is 1.17, improved. #4 right breast invasive ductal carcinoma/ER/IN positive: Status post chemotherapy and surgery that was done yesterday. #5 rheumatoid arthritis: Stable, continue Plaquenil and tramadol. #6 hypothyroidism: Continue levothyroxine. #7 depression: Continue Wellbutrin. #8 DVT prophylaxis: Subcu heparin. This note was generated with [employer] dictation software. It may contain incorrect words, spelling, and punctuation that were not noted in checking the note before signing. Code Visit Inpatient E&M: 32351 Subs Hosp L2
[2019-04-23] MEDS: Enoxaparin 40 MG/0.4 ML Syringe SC (09:47)
[2019-04-23] MEDS: buPROPion (XL) 300 MG TABLET.XL PO (09:47)
[2019-04-23] MEDS: Hydroxychloroquine 200 MG Tablet PO (09:48)
[2019-04-23] MEDS: Anastrozole 1 MG Tablet PO (09:48)
[2019-04-23] MEDS: Iron Polysaccharide Complex 150 MG CAPSULE PO (09:49)
[2019-04-23] MEDS: Gabapentin 100 MG Capsule 200 MG PO ×2 (09:49→13:21)
[2019-04-23] MEDS: Calcium Carb/Vitamin D 1 TABLET Tablet PO (09:49)
[2019-04-23] MEDS: Docusate Sodium 100 MG Capsule PO (09:50)
[2019-04-23] MEDS: Pantoprazole Sodium 40 MG Tablet PO (09:50)
[2019-04-23] MEDS: traMADol 50 MG Tablet PO (09:52)
[2019-04-23] MEDS: Ensure Surgery 237 ML LIQUID PO ×2 (09:52→13:23)
--- NOTE | 2019-04-23 10:20 | CASEMGMT ---
RN CM Assessment Introduced role of RN CM to patient.? Patient is alert, oriented and able?to participate in RN CM Assessment. ?Care providers, pharmacy, and demographics verified. Presentation: Dz with Breast CA after breast biopsy 12/16/18, neoadjuvant chemo completed 03/11/19, planned bilt mastectomy with reconstruction. Admit Dx: Rt breast CA w/breast reconstruction Re-Admit: No Barriers/Issues: None PCP: Krunal Gee Specialists: Onc- Dr Feldman, Surg- Dr Siddiqui, Plastic- Dr Dillon Preferred [facility]acy: [facility] Insurance: [employer], [employer] SR Supp Rx Benefit:?Yes ?LNOK: Jone Alvarado LW/HPOA: Yes both, states given to staff this admission to place copy on file. Hpoa- Jone Alvarado Living Arrangements:? Lives with her in a H, 1 step to enter through the garage ADL?s: Independent with ambulation and ADLs Transportation: Both patient and drive, denies any transportation issues. DME: None HHC: None SNF: None Goal: Home and does not think will have any needs. Denies any issues, concerns or questions with DC planning at this time. Aware CM remains available for any emerging needs. DC PLAN: Home with no anticipated needs identified at this time. MORENITA Pulido
[2019-04-23 13:18] VITALS: BP 122/58; PULSE 87; RESP 18; TEMP 36.8; O2SAT 99
--- NOTE | 2019-04-23 13:20 | PCM.PN.SRG ---
Subjective: Postop #2 Patient is resting comfortably. She is ambulating with more steadiness on her feet. - Physical Exam Vitals/I&O's: Vital Signs Temp Pulse Resp BP Pulse Ox 98.3 F 87 18 122/58 H 99 04/23/19 13:18 04/23/19 13:18 04/23/19 13:18 04/23/19 13:18 04/23/19 13:18 Oxygen Flow Rate (L/min) 6 Oxygen Delivery Method Room Air Weight: 170 lb 13.732 oz Body Mass Index (BMI) 26.7 Intake and Output for Last 24 Hours 04/21/19 04/22/19 04/23/19 23:59 23:59 23:59 Intake Total 3888.00 / 4388.00 2750 / 3050 470 / 470 Output Total 289 / 744 3305 / 3630 455 / 455 Balance 3599.00 / 3644.00 -555 / -580 15 / 15 Drainage 630 ml yesterday, 130 ml today. General: Alert, Oriented x3 HEENT: PERRLA, EOMI Oral: Moist Mucosa Neck: Supple Abdomen: Soft, Non-Distended Skin: Incision - bilateral mastectomy incisions are dry and intact. No clinical evidence of hematoma. Neurological: Cranial nerves II-XII grossly intact Psych/Mental Status: Normal Affect, Appropriate Laboratory Results 04/23/19 06:10: WBC 9.8, RBC 2.43 L, Hgb 8.1 L, Hct 25.6 L, MCV 105.3 H, MCH 33.3 H, MCHC 31.6 L, RDW Std Deviation 55.2 H, RDW Coeff of Oumou 14.3, Plt Count 232, MPV 9.7, Immature Gran % (Auto) 0.600, Neut % (Auto) 77.1 H, Lymph % (Auto) 10.2 L, Karnes % (Auto) 10.1 H, Eos % (Auto) 1.9, Baso % (Auto) 0.1, Absolute Neuts (auto) 7.6, Absolute Lymphs (auto) 1.00, Nucleated RBC % 0 04/23/19 06:10: Sodium 141, Potassium 4.4, Chloride 107, Carbon Dioxide 31.0, Anion Gap 3 L, BUN 19 H, Creatinine 1.17 H, Estim Creat Clear Calc 45.37, Est GFR (MDRD) Af Amer 59 L, Est GFR (MDRD) Non-Af 49 L, BUN/Creatinine Ratio 16.2, Glucose 101, Calcium 8.1 L Current Medications Acetaminophen (Tylenol) 1,000 mg PO Q6 [facility] Last Admin: 04/23/19 06:48 Dose: 1,000 mg Documented by: Al Hydroxide/Mg Hydroxide (Mylanta Ii) 30 ml PO Q6H PRN PRN PRN Reason: INDIGESTION Last Admin: 04/22/19 22:36 Dose: 30 ml Documented by: Anastrozole (Arimidex) 1 mg PO DAILY [facility] Last Admin: 04/23/19 09:48 Dose: 1 mg Documented by: Bupropion HCl (Wellbutrin Xl) 300 mg PO DAILY [facility] Last Admin: 04/23/19 09:47 Dose: 300 mg Documented by: Calcium/Vitamin D (Os-Jesús 500mg + D) [facility] Last Admin: 04/23/19 09:49 Dose: 1 tablet Documented by: Diazepam (Valium) 5 mg PO 4X/DAY PRN PRN Reason: spasm Last Admin: 04/23/19 03:45 Dose: 5 mg Documented by: Docusate Sodium (Colace) 100 mg PO BID [facility] Last Admin: 04/23/19 09:50 Dose: 100 mg Documented by: Enoxaparin Sodium (Lovenox) 40 mg SC DAILY [facility] Last Admin: 04/23/19 09:47 Dose: 40 mg Documented by: Enteral Nutritional Formula (Ensure Surgery) 237 ml PO TIDCM [facility] Last Admin: 04/23/19 09:52 Dose: 237 ml Documented by: Gabapentin (Neurontin) 200 mg PO TIDCM [facility] Last Admin: 04/23/19 09:49 Dose: 200 mg Documented by: Heparin Sodium (Beef Lung) () 50 units IV UD PRN PRN Reason: Port-a-Cath (VAD)Heparin Flush Hydromorphone HCl (Dilaudid Inj) 0.5 - 1 mg IV Q3H PRN PRN PRN Reason: Pain Score 6-10/10 Hydromorphone HCl (Dilaudid Inj) 0.5 - 1 mg IV Q3H PRN PRN PRN Reason: Pain Score 6-10/10 Hydroxychloroquine Sulf[facility] ([facility]aqu[facility]il) [facility] Last Admin: 04/23/19 09:48 Dose: 200 mg Documented by: Cefazolin Sodium () 1 gm in 50 mls @ 100 mls/hr IV Q8 [facility] Last Infusion: 04/23/19 07:20 Dose: Infused Documented by: Levothyroxine Sodium (Synthroid) 100 mcg PO DAILY@0600 [facility] Last Admin: 04/23/19 06:48 Dose: 100 mcg Documented by: Magnesium Oxide (Mag-Ox 400) 400 mg PO BID PRN PRN PRN Reason: Constipation Ondansetron HCl (Zofran Odt) 4 mg PO Q6H PRN PRN PRN Reason: NAUSEA Oxycodone HCl (Oxyir) 5 - 10 mg PO Q4H PRN PRN PRN Reason: Pain Score 4-10/10 Last Admin: 04/23/19 13:19 Dose: 10 mg Documented by: Pantoprazole Sodium (Protonix) 40 mg PO DAILY [facility] Last Admin: 04/23/19 09:50 Dose: 40 mg Documented by: Polysaccharide Iron Complex (Ferrex 150) [facility] Last Admin: 04/23/19 09:49 Dose: 150 mg Documented by: Sodium Chloride () 10 - 40 ml IV UD PRN PRN Reason: Port-a-Cath (VAD) Flush Last Admin: 04/23/19 06:15 Dose: 30 ml Documented by: Sodium Chloride (0.9% Nacl (Sterile) Posiflush) 10 - 40 ml IV UD PRN PRN Reason: Port access or dressing change Tramadol HCl (Ultram) 50 mg PO BID [facility] Last Admin: 04/23/19 09:52 Dose: 50 mg Documented by: Medical Necessity - Tobacco Use Smoking Status: Light Smoker (<10/day) Assessment/Plan All Active Problems (Last Reviewed 04/06/19 @ 12:08 by Isma Dillon MD) Acquired absence of bilateral breasts and nipples (Acute) Disproportion of reconstructed breast (Acute) Primary cancer of right female breast (Acute) 1. Right breast cancer. 2. Cancer phobia left breast. 3. Positive test for genetic breast cancer susceptibility marker. 4. Planned acquired absence bilateral breasts. 5. Planned disproportion reconstructed breasts. 6. Estrogen receptor positive status. 7. Family history of breast cancer. 8. Neoadjuvant chemotherapy. 9. Smoker. 10. s/p prophylactic mastectomy left breast and first stage immediate bilateral breast reconstruction with placement of submuscular saline tissue expanders (650 ml for each side) and placement of Alloderm Select acellular dermal matrix grafts (132 cm2 for each side) by Dr. Dillon and right simple mastectomy and right axillary sentinel lymph node biopsy by Dr. Siddiqui. 11. Anemia of chronic disease, acute on chronic, stable. Incisions are dry and intact. No clinical evidence of hematoma. Complains of incisional pain. Tolerating po analgesia. She is more steady on her feet with ambulation. Hgb is steady at 8.1 up from 7.9. Preop it was 9.1. She has anemia of chronic disease, acute on chronic. She had operative blood loss of 150 ml. She also had IV dilution as her I's/O's are positive 3000 ml. Started her on Iron supplementation. Prealbumin was 28.2. Encourage nutritional supplementation with protein to help the healing process. Will remove the drains in the office. Continue zain wrap for chest wall compression. Continue head elevation and lifting restriction. Discharge home today. Followup office one week. Wrote script for Cefadroxil until the drains are removed. Wrote scripts for Percocet for pain (40 tabs) and for Valium for spasm (30 tabs). Wrote script for Iron supplement (30 tabs) and 3 refills. Encouraged patient to stop smoking as it may have deleterious effects on wound healing.
--- NOTE | 2019-04-23 13:41 | DCINST_ITS ---
You will use the following diet at home:: No restrictions, Other - encourage nutritional supplementation with protein to help the healing process. Discharge Activity: May not drive while taking narcotic pain medications., May Not Shower - until the drains are removed., - - keep head elevated. no heavy lifting. May shower in (days): 14 - after the drains are removed. May resume sexual activity in: 10-14 days Weight Bearing Status: Weight bearing as tolerated Lifting Restrictions: 20 lbs. Keep extremity elevated above heart level: - - elevate head. Call your doctor if your incision/area has: Continuous Slow Oozing, Sudden Increased Bleeding, Increased Pain/ Swelling, Increased Redness, Foul Smelling Discharge, Swelling at the incision site Call your doctor if you observe: Fever of 101 or Higher, Coldness, Increased Pain, Shortness of breath, Chest pain, Calf discomfort, Uncontrolled pain Suture Line Care: - - dry dressings every other day as needed Change Dressing in (Days):: 2 - dry dressings every other day as needed. Cleanse incision/area with: - - may get incision wet in the shower after the drains are removed. Drain: Suction - levon drain x4 to bulb suction. empty and record output daily. Allergies/Adverse Reactions: Allergies No Known Allergies Allergy (Verified 04/21/19 07:55) Medications to take at Discharge Esomeprazole Mag Trihydrate [Nexium] 40 mg PO DAILY 03/11/13 buPROPion XL [Wellbutrin Xl] 300 mg PO DAILY 03/11/13 hydroxychloroquine 200 mg tablet 200 mg PO BID 12/16/18 levothyroxine 75 mcg tablet 100 mcg PO DAILY tab 12/16/18 tramadol 50 mg tablet 50 mg PO BID 12/16/18 Anastrozole [Arimidex] 1 mg PO DAILY 90 Days #90 tab NS 12/26/18 Lidocaine/Prilocaine [Lidocaine-Prilocaine Cream] 1 applicatio TP DAILY PRN PRN 30 Days #1 tube 01/01/19 Calcium Carbonate/Vitamin D3 [Calcium 600 + Vit D Tablet] 1 ea PO BID 04/14/19 Cholecalciferol (Vitamin D3) [Vitamin D3] 5,000 unit PO DAILY 04/14/19 Cefadroxil [Duricef] 500 mg PO BID #30 cap 12/11/19 Diazepam [Valium] 5 mg PO 4X/DAY PRN #30 tab 04/23/19 Iron Polysaccharide Complex [Ferrex 150] 150 mg PO DAILYCM #30 cap 04/23/19 Lactobacillus Acidophilus/Fos [Acidophilus Probiotic Tablet] 1 ea PO BID #30 tab 04/23/19 Oxycodone HCl/Acetaminophen [Percocet 5/325] 1 tablet PO Q4H PRN PRN 7 Days #40 tablet 04/23/19 The following prescriptions were given: Lactobacillus Acidophilus/Fos [Acidophilus Probiotic Tablet] 1 ea PO BID #30 tab Transmission Status: Pending to [id number] Cefadroxil [Duricef] 500 mg PO BID #30 cap Transmission Status: Pending to [facility][id number] Iron Polysaccharide Complex [Ferrex 150] 150 mg PO DAILYCM #30 cap Transmission Status: Pending to [id number] Oxycodone HCl/Acetaminophen [Percocet 5/325] 1 tablet PO Q4H PRN PRN 7 Days #40 tablet PRN Reason: Pain Transmission Status: Received by [id number] Diazepam [Valium] 5 mg PO 4X/DAY PRN #30 tab PRN Reason: spasm Transmission Status: Received by [id number] Primary Care Physician: Krunal Gee MD [Primary Care Provider] - Test Results: Test results from this visit will be discussed in further detail at your follow- up appointment, if applicable. Please Follow Up With: Isma Dillon MD - will try and coordinate both appts on the same day. When: one week. call [phone] for appt. Please Follow Up With: Jaquan Siddiqui MD When: one week. call [phone] for appt. Proposed Discharge Date: 04/23/19
== END 2019-04-23 15:10 | disposition home or self-care (01) | DRG 580 ==
LOC: SDC 14:47
PROVIDERS: Hospitalist; Surgery; Admitting Provider Surgery; Family Provider Family Medicine; PCP Family Medicine; Referring Provider Surgery; Visit Provider Surgery
PROC: (CPT 19303; principal; 2019-04-21 09:45)
PROC: (CPT 19307; 2019-04-21 09:45)
DX: C50.111 Malignant neoplasm of central portion of right female breast (principal); D62 Acute posthemorrhagic anemia; Z17.0 Estrogen receptor positive status [ER+]; Z40.01 Encounter for prophylactic removal of breast; Z80.3 Family history of malignant neoplasm of breast; Z15.01 Genetic susceptibility to malignant neoplasm of breast; M06.9 Rheumatoid arthritis, unspecified; E03.9 Hypothyroidism, unspecified; K21.9 Gastro-esophageal reflux disease without esophagitis; Z92.21 Personal history of antineoplastic chemotherapy; F32.9 Major depressive disorder, single episode, unspecified; N18.3 Chronic kidney disease, stage 3 (moderate); F17.210 Nicotine dependence, cigarettes, uncomplicated; D63.0 Anemia in neoplastic disease
CPT/HCPCS: 38792; 80048; 82962; 84134; 85025; 85027; 88305; 88307; 88309; 88331; 88332; 88341; 88342; 93005; 94762; 99251; A9541; J7120; A4216; G0463; J2405; Q9968

== ENCOUNTER → 2019-05-21 16:27 | Outpatient (CLI) | payer MEDICARE, OTHER, SELFPAY ==
[2019-05-21 15:09] VITALS: BMI 26.7
== END ==
PROVIDERS: Family Provider Family Medicine; PCP Family Medicine; Referring Provider Nurse Practitioner Family; Visit Provider Nurse Practitioner Family
DX: N65.1 Disproportion of reconstructed breast (principal); C50.911 Malignant neoplasm of unspecified site of right female breast; Z17.0 Estrogen receptor positive status [ER+]; Z90.13 Acquired absence of bilateral breasts and nipples; Z15.01 Genetic susceptibility to malignant neoplasm of breast
CPT/HCPCS: 87070; 87075; 87205

== ENCOUNTER 2019-06-13 11:53 | Day surgery (SDC) | payer MEDICARE, OTHER, SELFPAY ==
[2019-06-04 13:30] VITALS: BMI 26.0
--- NOTE | 2019-06-12 23:46 | HP.PCM_ITS ---
History and Physical Date of Admission: 06/13/19 History and Physical Date of Admission: 04/21/19 HISTORY OF PRESENT ILLNESS 68 year old woman presents with diagnosis of right breast cancer after a breast biopsy on 12/16/18. Pathology showed invasive ductal carcinoma, nuclear grade 3. Estrogen receptors were positive. Progesterone receptors were positive. HER/2Neu was equivocal for overexpression. Her initial mammogram and ultrasound from 12/12/18 were suspicious for carcinoma which prompted the biopsy. A port was placed on 12/30/18. She then underwent neoadjuvant chemotherapy which was completed on 03/11/19. She had a Breast MRI on 04/01/19 which showed in the right breast, the breast tissue is fatty with minimal background enhancement. In the central portion of the breast at the 12:00 position there is an irregular enhancing mass measuring 17 mm x 11 mm x 23 mm. This mass corresponds to the mass seen on the mammogram and on the right breast ultrasound. There is minimal lucency in the central portion of this mass which may represent central necros is. In the left breast, the breast tissue is fatty with minimal background enhancement. There are no abnormal enhancing masses or areas of non-mass enhancement in the left breast. There are no enlarged or abnormal lymph nodes. There is no abnormality in the visualized regions of the chest or liver. She also underwent gene testing and was positive for two markers. She is concerned about developing carcinoma in the left breast and has cancer phobia. She went to surgery on 04/21/19 where she underwent right simple mastectomy and right axillary sentinel lymph node biopsy by Dr. Siddiqui and prophylactic mastectomy left breast and first stage immediate bilateral breast reconstruction with placement of submuscular saline tissue expanders (650 ml for each side) and placement of Alloderm Select acellular dermal matrix grafts (132 cm2 for each side) by Dr. Dillon. Pathology on the right breast showed invasive ductal carcinoma with negative lymph nodes. Pathology on the left breast showed benign breast tissue with dense fibrosis and focal ductal ectasia and a hyalinized fibroadenoma. Estrogen receptors were positive. Progesterone receptors were positive. Her2/MISTY was negative for overexpression. There is no need for radiation therapy or IV chemotherapy at this time. She is getting adjuvant hormonal therapy with Arimidex. Postoperatively she developed some nonhealing and some scabbing on the left breast mastectomy incision. Wound culture was negative. She was started on Silver dressing changes. Healing was slow and there was no gross exposure of the restaurant cook. It was recommended to the patient to return to the OR for revision of her left breast reconstruction with excisional debridement nonhealing wound and complex secondary wound closure. Patient understands that the restaurant cook may be removed if I think the wound closure would be under too much tension or if infection is noted in the breast pocket. PAST MEDICAL HISTORY Increased tearing Osteopenia Encounter for insertion of venous access port Primary cancer of right female breast Depression GERD (gastroesophageal reflux disease) Hypothyroidism Obesity Osteoarthritis Nonhealing surgical wound left breast reconstruction Acquired absence bilateral breasts Disproportion reconstructed breasts Cancer phobia left breast PAST SURGICAL HISTORY appendectomy bilateral knee surgery right simple mastectomy and right axillary sentinel lymph node biopsy by Dr. Siddiqui - 04/21/19 prophylactic mastectomy left breast and first stage immediate bilateral breast reconstruction with placement of submuscular saline tissue expanders (650 ml for each side) and placement of Alloderm Select acellular dermal matrix grafts (132 cm2 for each side) by Dr. Dillon - 04/21/19 ALLERGIES No Known Allergies MEDICATIONS Esomeprazole Mag Trihydrate [Nexium] buPROPion XL [Wellbutrin Xl] hydroxychloroquine levothyroxine tramadol Anastrozole [Arimidex] Dexamethasone [Decadron] Lidocaine/Prilocaine [Lidocaine-Prilocaine Cream] Ondansetron [Ondansetron Odt] Prochlorperazine Maleate diazepam FAMILY HISTORY Mother - Breast cancer Brother - Cancer Father - Cancer SOCIAL HISTORY Smoking Status: Light Smoker (<10/day) alcohol intake: current alcohol intake frequency: 0-2 drinks per day substance use type: does not use REVIEW OF SYSTEMS General - Denies fever and weight loss. Has fatigue. Eyes - Denies cataracts and glaucoma. ENT - Denies nasal congestion and sore throat. Endocrine - Denies excessive thirst and urination. Has recent diagnosis of right breast cancer. Had neoadjuvant chemotherapy. Skin - Denies skin cancer. Has nonhealing surgical wound left breast reconstruction. Musculoskeletal - Has joint pain, joint stiffness, weakness of muscles and joints. Denies back pain, and arthritis. Neuro - Denies headaches. Cardiovascular - Denies chest pain, fatigue, and shortness of breath with exertion. Psych - Denies anxiety. Has depression. Respiratory - Denies chronic cough and shortness of breath. Gastrointestinal - Denies nausea, vomiting, diarrhea, and constipation. Hematologic - Denies abnormal bruising and bleeding. Genitourinary - Denies hematuria and urinary frequency. Has some incontinence. PHYSICAL EXAMINATION General - Alert and Oriented. Her bra size is 38 DD. HEENT - PERRL. EOMI. Throat is clear. Neck - Supple and nontender. No cervical adenopathy. Breasts - Right breast mastectomy incision is healed. Left breast mastectomy incision shows a nonhealing wound that measures 5 x 1 cm. Scabbing present. Nontender. No gross exposure of the tissue restaurant cook. No drainage seen. No fluctuance. No redness seen. Lungs - Clear to auscultation. Heart - Regular rate and rhythm. Abdomen - Soft and nondistended. Has some redundant skin and subcutaneous tissue from the umbilicus to the pubic area. She has a RLQ appendectomy scar. Extremities - FROM. No axillary adenopathy. Radial pulses are palpable. Neuro - CN II-XII grossly intact. Psych - Normal mood and affect. ASSESSMENT 1. Right breast cancer. 2. Cancer phobia left breast. 3. Positive test for genetic breast cancer susceptibility marker. 4. Acquired absence bilateral breasts. 5. Disproportion reconstructed breasts. 6. Estrogen receptor positive status. 7. Family history of breast cancer. 8. Neoadjuvant chemotherapy. 9. Smoker. 10. Nonhealing surgical wound left breast reconstruction. PLAN Discussed with the patient that it will be difficult and will take a long time (several months) for this wound to heal with Silver dressing changes and antibiotics if future wound cultures are positive. The initial wound culture was negative. The reason is the presence of the foreign body restaurant cook. My recommendation is to proceed with revision left breast reconstruction with excisional debridement nonhealing wound and complex secondary wound closure. I will salvage the restaurant cook if the wound closure is not under too much tension and there is no evidence of infection in the breast pocket. The restaurant cook would be replaced along with acellular dermal matrix graft. Otherwise, if there is too much tension on the wound closure or if infection is seen in the breast pocket, then the restaurant cook would be removed followed by wound closure. After healing has occurred, can then replace the tissue restaurant cook at that time (approximate time frame would be 2-3 months). Patient is aware of that possibility and wishes to proceed. Surgery would be done under general anesthetic with a surgical observation overnight stay in the hospital. Drains will be placed for several days and she will be maintained on antibiotics until the drains are removed. Tissue that is removed will be sent to Pathology for analysis to rule out carcinoma and to Microbiology for culture. A positive culture will necessitate antibiotic therapy. Patient was informed of the risks and complications of the procedure including alternatives to surgery. These were discussed with the patient personally. Patient voices understanding and wishes to proceed. Some of the risks and complications were included in a form from the [employer]. Encouraged patient to stop smoking as it may have deleterious effects on wound healing.
[2019-06-13] VITALS (10 sets, daily range): BP systolic 121–151; BP diastolic 62–73; PULSE 63–75; RESP 15–18; TEMP 36.2–36.9; O2SAT 95–100; BMI 27.3
[2019-06-13] MEDS: Scopolamine 1mg/72hr Patch 1 PATCH TRANSDERM. (12:00)
[2019-06-13] MEDS: Acetaminophen 500 MG Tablet 1000 MG PO ×2 (12:00→19:14)
[2019-06-13 12:36] LABS: Bedside Glucose 64 mg/dL (70-110)
[2019-06-13] MEDS: Gabapentin 600 MG Tablet PO (12:47)
[2019-06-13] MEDS: Lactated Ringers 1,000 ML 40 ML IV (12:50)
[2019-06-13] MEDS: Magnesium Sulfate 4gm/100mL 4 GM/100 ML IV.SOLN. IV (13:01)
[2019-06-13] MEDS: Cefazolin 2 GM in 0.9% Normal Saline 100 ML IV (13:32)
--- NOTE | 2019-06-13 13:35 | BRBX_PTH ---
PATIENT: ANABEL LOCKE LOC: [facility] U#:[id number] AGE/SX: 68/F ROOM: RE06/13/[address]: Dr. Isma Dillon MD : [id number] BED: DIS: 06/13/2019 SPEC #: [id number] RECD: 06/13/19 17:08 STATUS: HALEY REENA #: [id number] GASTON: 06/13/19 13:[address]: Isma Dillon DEPT: SURGICAL PATHOLOGY RECD BY: Abraham Mancuso ENTERED: 06/16/19 11:05 SP TYPE: BREAST BX OTHR DR: Dr. Krunal Gee MD Tissues: A - Left breast, NOS B - Breast, NOS Procedures: Surgery Specimen Level I Surgery Specimen Level III HEADER OPERATION: Revision breast reconstruction with excisional debridement PRE-OP DIAGNOSIS: Right breast cancer, cancer phobia left breast TISSUE SUBMITTED: A - Left breast tissue, B - Explanted social insurance analyst - gross only MICROSCOPIC DIAGNOSIS A. Left breast tissue: Fragments of fibroadipose and fibroconnective tissue with fat necrosis, chronic inflammation and foreign body giant cell reaction. A piece of skin with underlying tissue with ulceration and associated acute and chronic inflammation. B. Left breast social insurance analyst: A deflated breast social insurance analyst (gross only). SJ:rg 06/17/19 COMMENT Please make reference to previous specimen ([id number]) right breast, mastectomy with diagnosis of invasive ductal carcinoma and left breast, mastectomy with diagnosis of benign breast tissue with dense fibrosis and focal duct ectasia and hyalinized fibroadenoma. MICROSCOPIC DESCRIPTION Slides are reviewed. GROSS DESCRIPTION A - Received in fixative is one container labeled with the patient's name and designated left breast tissue. The specimen consists of multiple irregular and indurated fragments of yancey skin and soft tissue ranging in size from 2.5 to 8 cm and in aggregate measuring 12.5 x 10 x 2 cm. Serial sections do not reveal mass lesions. Retail Shift Leader sections are submitted in four cassettes. B - Received is one container labeled with the patient's name and designated left breast social insurance analyst. The specimen consists of a deflated breast social insurance analyst with a diameter of 13.5 cm and the following inscription MENTOR, [id number], [id number] cc. No tears or breaks are identified in the device. No soft tissue is attached. / AM:vinayak 06/16/19 TC:3 CPT: 23700, 68578
[2019-06-13] MEDS: Mupirocin Ointment 22gm Tube 1 APPLIC (15:04)
--- NOTE | 2019-06-13 15:07 | OP.PCM_ITS ---
Report of Operation Date of Procedure: 06/13/19 Pre-Operative Diagnosis: 1. Right breast cancer. 2. Cancer phobia left breast. 3. Positive test for genetic breast cancer susceptibility marker. 4. Acquired absence bilateral breasts. 5. Disproportion reconstructed breasts. 6. Estrogen receptor positive status. 7. Family history of breast cancer. 8. Neoadjuvant chemotherapy. 9. Smoker. 10. Nonhealing surgical wound left breast reconstruction. Post-Operative Diagnosis: 1. Right breast cancer. 2. Cancer phobia left breast. 3. Positive test for genetic breast cancer susceptibility marker. 4. Acquired absence bilateral breasts. 5. Disproportion reconstructed breasts. 6. Estrogen receptor positive status. 7. Family history of breast cancer. 8. Neoadjuvant chemotherapy. 9. Smoker. 10. Nonhealing surgical wound left breast reconstruction. 11. Exposed saline tissue tableau developer left breast reconstruction. Surgery/Procedure Performed:: Revision left breast reconstruction with excisional debridement nonhealing wound with removal of Alloderm acellular dermal matrix graft and removal exposed saline tissue tableau developer and complex secondary wound closure. Description of Surgical Findings:: 68 year old woman presents with diagnosis of right breast cancer after a breast biopsy on 12/16/18. Pathology showed invasive ductal carcinoma, nuclear grade 3. Estrogen receptors were positive. Progesterone receptors were positive. HER/2Neu was equivocal for overexpression. Her initial mammogram and ultrasound from 12/12/18 were suspicious for carcinoma which prompted the biopsy. A port was placed on 12/30/18. She then underwent neoadjuvant chemotherapy which was completed on 03/11/19. She had a Breast MRI on 04/01/19 which showed in the right breast, the breast tissue is fatty with minimal background enhancement. In the central portion of the breast at the 12:00 position there is an irregular enhancing mass measuring 17 mm x 11 mm x 23 mm. This mass corresponds to the mass seen on the mammogram and on the right breast ultrasound. There is minimal lucency in the central portion of this mass which may represent central necrosis. In the left breast, the breast tissue is fatty with minimal ba ckground enhancement. There are no abnormal enhancing masses or areas of non- mass enhancement in the left breast. There are no enlarged or abnormal lymph nodes. There is no abnormality in the visualized regions of the chest or liver. She also underwent gene testing and was positive for two markers. She is concerned about developing carcinoma in the left breast and has cancer phob ia. She went to surgery on 04/21/19 where she underwent right simple mastectomy and right axillary sentinel lymph node biopsy by Dr. Siddiqui and prophylactic mastectomy left breast and first stage immediate bilateral breast reconstruction with placement of submuscular saline tissue expanders (650 ml for each side) and placement of Alloderm Select acellular dermal matrix grafts (132 cm2 for each side) by Dr. Dillon. Pathology on the right breast showed invasive ductal carcinoma with negative lymph nodes. Pathology on the left breast showed benign breast tissue with dense fibrosis and focal ductal ectasia and a hyalinized fibroadenoma. Estrogen receptors were positive. Progesterone receptors were positive. Her2/MISTY was negative for overexpression. There is no need for radiation therapy or IV chemotherapy at this time. She is getting adjuvant hormonal therapy with Arimidex. Postoperatively she developed some nonhealing and some scabbing on the left breast mastectomy incision. Wound culture was negative. She was started on Silver dressing changes. Healing was slow and there was no gross exposure of the tableau developer. It was recommended to the patient to return to the OR for revision of her left breast reconstruction with excisional debridement nonhealing wound and complex secondary wound closure. Patient understands that the tableau developer may be removed if I think the wound closure would be under too much tension or if infection is noted in the breast pocket. Patient was informed of the risks and complications of the procedure including alternatives to surgery. These were discussed with the patient personally. Patient voices understanding and wishes to proceed. Some of the risks and complications were included in a form from the [employer]. Encouraged patient to stop smoking as it may have deleterious effects on wound healing. I used Trae absorbable hemostat, (I used 2 vials). Reference Number - [id number]. Lot Number - [id number]. Expiration - January 09, 2024. bulk folder: Rowdy Rosario. Type of Anesthesia:: General Specimen's removed: Left breast tissue and capsule to Pathology and Microbiology. Drains: Jarret. Estimated Blood Loss (mL): 150 ml. Fluids Replaced: 650 ml (IV Fluids 400 ml, Urine Output 250 ml). Description of Procedure: Patient was taken to OR in supine position and was placed under general anesthesia. The left breast was prepped and draped in the usual fashion. SCD's were placed for DVT prophylaxis. Perioperative antibiotics were given intravenously. Using xylocaine with epinephrine, the left breast wound was infiltrated. After waiting 5 minutes for the anesthetic to take effect, I excised the nonhealing wound including the previous mastectomy incision down into the subcutaneous tissue. I probed the wound and there was communication from the nonhealing wound down to the tissue tableau developer. The biologic graft was sharply excised and the saline tissue tableau developer was removed. Some exudate was present around the tableau developer that was concerning for an infection. A curette was used to further debride the breast wound. Minimal residual seroma was seen. Tissue that was excised and debrided was sent to Pathology for analysis to rule out carcinoma and to Microbiology for culture. The wound was irrigated with Irrisept 0.05% Chlorhexidine solution. After waiting a minute, the breast wound was further irrigated with saline. Hemostasis was obtained with electrocautery. I placed a size 15 Jarret drain through a separate stab incision laterally and secured to the skin using 3-0 Nylon suture. I then sprayed Trae absorbable hemostat into the breast wound to minimize seroma formation postoperatively. I used 2 vials. The skin flaps were slightly inflamed and I felt there would be too much tension on the incision if I replaced the saline tissue tableau developer. Patient has a history of smoking even though she hasn't smoked since the diagnosis of cancer, there is some residual chronic constriction of the skin perforators which increases risk of wound healing problems. She is also on Plaquenil medication for her arthritis which can decrease the immune system which can affect wound healing as well especially if there is some tension. Therefore I will replace the saline tissue tableau developer in a delayed fashion through a separate incision. I will complete the mastopexy type incision with a horizontal incision inferiorly at a later date which is a safer alternative than to try and replace the saline tissue tableau developer at this time. I then closed the breast wound in a complex secondary wound fashion using 3-0 Monocryl suture for the deep dermis and subcutaneous tissue. The skin was approximated with 3-0 Prolene vertical mattress interrupted sutures. Antibiotic ointment was applied to the suture line followed by Kerlix gauze and a compression zain wrap. Patient tolerated the procedure well and was sent to PACU in satisfactory condition. Patient will be sent home on antibiotics and pain medication. Will continue antibiotics with Cefadroxil until the drain is removed. A positive culture may necessitate antibiotic modification. Will remove drain in 10-14 days. I anticipate replacing the saline tissue tableau developer in a delayed fashion in approximately 2-3 months. Grafts/Implants Used: None. - Complications None. - Admit VTE Documentation VTE Present on Admission: No VTE Mechan Device Prophylaxis: SCD's VTE Pharm Prophylaxis ordered?: Yes Code Visit Surgery Charges CPT - 81462 ICD-10 - C50.911, F40.298, Z90.13, N65.1, T81.89xA, T85.49xA, Z15.01, Z17.0, Z51.11, Z80.3, F17.200 57013 C50.911, T81.89xA, T85.49xA, F40.298, Z90.13, N65.1 Z15.01, Z17.0, Z51.11, Z80.3, F17.200
--- NOTE | 2019-06-13 16:49 | DCINST_ITS ---
You will use the following diet at home:: No restrictions, Other - encourage nutritional supplementation with protein to help the healing process. Discharge Activity: May not drive while taking narcotic pain medications., May Not Shower - until the drain is removed., - - keep head elevated. continue zain wrap chest wall compression. no heavy lifting. May shower in (days): 14 - when the drain is removed. May resume sexual activity in: 10-14 days Weight Bearing Status: Weight bearing as tolerated Lifting Restrictions: 20 lbs. Keep extremity elevated above heart level: - - elevate head. Call your doctor if your incision/area has: Continuous Slow Oozing, Sudden Increased Bleeding, Increased Pain/ Swelling, Increased Redness, Foul Smelling Discharge, Swelling at the incision site Call your doctor if you observe: Fever of 101 or Higher, Coldness, Increased Pain, Shortness of breath, Chest pain, Calf discomfort, Uncontrolled pain Suture Line Care: - - after the operative dressing is removed, apply antibiotic ointment to suture line daily. Change Dressing in (Days):: 2 - dry dressings daily. Cleanse incision/area with: - - may get incision wet in the shower after the drain is removed. Drain: Suction - levon drain to bulb suction. empty and record output daily. Allergies/Adverse Reactions: Allergies No Known Allergies Allergy (Verified 06/11/19 09:06) Medications to take at Discharge Esomeprazole Mag Trihydrate [Nexium] 40 mg PO DAILY 03/11/13 buPROPion XL [Wellbutrin Xl] 300 mg PO DAILY 03/11/13 hydroxychloroquine 200 mg tablet 200 mg PO BID 12/16/18 levothyroxine 75 mcg tablet 100 mcg PO DAILY tab 12/16/18 tramadol 50 mg tablet 50 mg PO DAILY 12/16/18 Anastrozole [Arimidex] 1 mg PO DAILY 90 Days #90 tab NS 12/26/18 Lidocaine/Prilocaine [Lidocaine-Prilocaine Cream] 1 applicatio TP DAILY PRN PRN 30 Days #1 tube 01/01/19 Calcium Carbonate/Vitamin D3 [Calcium 600 + Vit D Tablet] 1 ea PO BID 04/14/19 Cholecalciferol (Vitamin D3) [Vitamin D3] 5,000 unit PO DAILY 04/14/19 Iron Polysaccharide Complex [Ferrex 150] 150 mg PO DAILYCM #30 cap 04/23/19 Cefadroxil [Duricef] 500 mg PO BID #30 cap 06/13/19 Diazepam [Valium] 5 mg PO 4X/DAY PRN #30 tab 06/13/19 Docusate Sodium [Colace] 100 mg PO BID #60 cap 06/13/19 Lactobacillus Acidophilus/Fos [Acidophilus Probiotic Tablet] 1 ea PO BID #30 tab 06/13/19 Ondansetron [Zofran Odt] 4 mg PO Q6H PRN PRN #30 tab 06/13/19 Oxycodone HCl/Acetaminophen [Endocet 5-325 Tablet] 1 ea PO .Q4 HOURS PRN PRN 7 Days #40 tab 06/13/19 Scopolamine Patch 1mg/72hr [Transderm-Scop] 1 patch TD Q3D patch 06/13/19 The following prescriptions were given: Lactobacillus Acidophilus/Fos [Acidophilus Probiotic Tablet] 1 ea PO BID #30 tab Transmission Status: Received by [facility] Docusate Sodium [Colace] 100 mg PO BID #60 cap Transmission Status: Received by [facility] Cefadroxil [Duricef] 500 mg PO BID #30 cap Transmission Status: Received by [facility] Oxycodone HCl/Acetaminophen [Endocet 5-325 Tablet] 1 ea PO .Q4 HOURS PRN PRN 7 Days #40 tab PRN Reason: Pain Score 4-5/10 Transmission Status: Received by [facility] Diazepam [Valium] 5 mg PO 4X/DAY PRN #30 tab PRN Reason: spasm Transmission Status: Received by [facility] Ondansetron [Zofran Odt] 4 mg PO Q6H PRN PRN #30 tab PRN Reason: Nausea Transmission Status: Received by [facility] Primary Care Physician: Krunal Gee MD [Primary Care Provider] - Test Results: Test results from this visit will be discussed in further detail at your follow- up appointment, if applicable. Please Follow Up With: Isma Dillon MD When: one week. call [phone] for appt. Proposed Discharge Date: 06/13/19 - tentative. May go home tomorrow.
[2019-06-13] MEDS: Gabapentin 100 MG Capsule 200 MG PO (19:14)
[2019-06-13] MEDS: Enoxaparin 40 MG/0.4 ML Syringe SC (19:14)
[2019-06-13] MEDS: Ensure Surgery 237 ML LIQUID PO (19:14)
[2019-06-13] MEDS: Hydroxychloroquine 200 MG Tablet PO (19:14)
[2019-06-13] MEDS: Calcium Carb/Vitamin D 1 TABLET Tablet PO (19:14)
[2019-06-13] MEDS: 0.9% Saline Lock 10 ML Syringe IV (19:15)
[2019-06-13] MEDS: oxyCODONE 5 MG Tablet PO (19:24)
[2019-06-13 20:16] LABS: Bedside Glucose 132 mg/dL (70-110)
== END 2019-06-13 19:40 | disposition home or self-care (01) ==
LOC: SDC 11:54 → MS3 14:53
PROVIDERS: PCP Family Medicine; Referring Provider Surgery; Visit Provider Surgery
PROC: (CPT 19357; principal; 2019-06-13 13:20)
DX: T85.49XA Other mechanical complication of breast prosthesis and implant, initial encounter (principal); T81.89XA Other complications of procedures, not elsewhere classified, initial encounter; N65.1 Disproportion of reconstructed breast; C50.111 Malignant neoplasm of central portion of right female breast; Z17.0 Estrogen receptor positive status [ER+]; F40.298 Other specified phobia; F32.9 Major depressive disorder, single episode, unspecified; K21.9 Gastro-esophageal reflux disease without esophagitis; E03.9 Hypothyroidism, unspecified; E66.9 Obesity, unspecified; M19.90 Unspecified osteoarthritis, unspecified site; M85.80 Other specified disorders of bone density and structure, unspecified site; F17.200 Nicotine dependence, unspecified, uncomplicated; Z68.27 Body mass index [BMI] 27.0-27.9, adult; Z90.13 Acquired absence of bilateral breasts and nipples; Z15.01 Genetic susceptibility to malignant neoplasm of breast; Z80.3 Family history of malignant neoplasm of breast; Z79.899 Other long term (current) drug therapy
CPT/HCPCS: 00402; 13160; 19380; 82962; 87015; 87070; 87075; 87077; 87102; 87116; 87186; 87205; 87206; 88300; 88304; 88305; 99251; J7120; A4216; G0463; J2405; Q9968

== ENCOUNTER → 2019-06-17 14:31 | Outpatient (CLI) | payer MEDICARE, OTHER, SELFPAY ==
[2019-06-17 14:19] VITALS: BMI 27.3
[2019-06-17 15:20] LABS: Hematocrit 17.6 % (37-47); Mean Corp Hgb Conc 31.8 g/dL (32-36); Mean Corpuscular Hgb 31.5 pg (27.0-32.0); Mean Corpuscular Volume 98.9 fL (81-99); Mean Platelet Vol. 10.5 fl (6.2-12.0); POSITIVE COUNT YES; Platelet Count 233 K/mm3 (150-450); RBC Distribution Width CV 12.6 % (11.6-14.6); RBC Distribution Width SD 45.1 fl (35.1-43.9); Red Blood Count 1.78 M/mm3 (4.2-5.4); White Blood Count 5.5 K/mm3 (4.4-11.0)
[2019-06-17 15:36] LABS: Hemoglobin 5.6 g/dL (12.0-15.0); Scan Indicated on CBC? Y/N YES- FLAGS NOTED
[2019-06-17 15:46] LABS: AST(SGOT) 20 U/L (15-37); Alanine Aminotransfer ALT/SGPT 18 U/L (13-56); Albumin, Serum 3.3 g/dL (3.2-5.0); Alkaline Phosphatase 59 U/L (45-117); Anion Gap 7 (5-15); BUN 33 mg/dL (7-18); BUN/Creat Ratio 18.9 RATIO (10-20); Calcium,Total 9.5 mg/dL (8.5-10.1); Chloride 104 mmol/L (98-107); Creatinine, Serum 1.75 mg/dL (0.55-1.02); EST Glomerular Filtration Rate 31 mL/min (>60); Est Glom Filt Rate - Afr Amer 37 mL/min (>60); Globulin 3.4 g/dL (2.2-4.2); Glucose 104 mg/dL (74-106); Protein, Total 6.7 g/dL (6.4-8.2); Sodium Level 138 mmol/L (136-145)
[2019-06-17 15:55] LABS: Differential Comment SCANNED
[2019-06-18 13:18] LABS: Pathologist Review Reviewed
== END ==
PROVIDERS: PCP Family Medicine; Referring Provider Nurse Practitioner Family; Visit Provider Nurse Practitioner Family
DX: T81.89XA Other complications of procedures, not elsewhere classified, initial encounter (principal); C50.911 Malignant neoplasm of unspecified site of right female breast; D64.9 Anemia, unspecified; R41.0 Disorientation, unspecified
CPT/HCPCS: 36415; 80053; 85027

== ENCOUNTER 2019-06-17 16:24 | Inpatient (IN) | payer MEDICARE, OTHER, SELFPAY ==
[2019-06-17 14:19] VITALS: BMI 27.3
[2019-06-17 16:30] VITALS: BP 131/49; PULSE 87; RESP 18; TEMP 36.9; O2SAT 99
--- NOTE | 2019-06-17 16:34 | PCM.HP.BLA ---
History and Physical Date of Admission: 06/17/19 History and Physical Date of Admission: 06/13/19 HISTORY OF PRESENT ILLNESS 68 year old woman presents with diagnosis of right breast cancer after a breast biopsy on 12/16/18. Pathology showed invasive ductal carcinoma, nuclear grade 3. Estrogen receptors were positive. Progesterone receptors were positive. HER/2Neu was equivocal for overexpression. Her initial mammogram and ultrasound from 12/12/18 were suspicious for carcinoma which prompted the biopsy. A port was placed on 12/30/18. She then underwent neoadjuvant chemotherapy which was completed on 03/11/19. She had a Breast MRI on 04/01/19 which showed in the right breast, the breast tissue is fatty with minimal background enhancement. In the central portion of the breast at the 12:00 position there is an irregular enhancing mass measuring 17 mm x 11 mm x 23 mm. This mass corresponds to the mass seen on the mammogram and on the right breast ultrasound. There is minimal lucency in the central portion of this mass which may represent central necrosis. In the left breast, the breast tissue is fatty with minimal background enhancement. There are no abnormal enhancing masses or areas of non-mass enhancement in the left breast. There are no enlarged or abnormal lymph nodes. There is no abnormality in the visualized regions of the chest or liver. She also underwent gene testing and was positive for two markers. She is concerned about developing carcinoma in the left breast and has cancer phobia. She went to surgery on 04/21/19 where she underwent right simple mastectomy and right axillary sentinel lymph node biopsy by Dr. Siddiqui and prophylactic mastectomy left breast and first stage immediate bilateral breast reconstruction with placement of submuscular saline tissue expanders (650 ml for each side) and placement of Alloderm Select acellular dermal matrix grafts (132 cm2 for each side) by Dr. Dillon. Pathology on the right breast showed invasive ductal carcinoma with negative lymph nodes. Pathology on the left breast showed benign breast tissue with dense fibrosis and focal ductal ectasia and a hyalinized fibroadenoma. Estrogen receptors were positive. Progesterone receptors were positive. Her2/MISTY was negative for overexpression. There is no need for radiation therapy or IV chemotherapy at this time. She is getting adjuvant hormonal therapy with Arimidex. Postoperatively she developed some nonhealing and some scabbing on the left breast mastectomy incision. Wound culture was negative. She was started on Silver dressing changes. Healing was slow and there was no gross exposure of the family and consumer education teacher. It was recommended to the patient to return to the OR for revision of her left breast reconstruction with excisional debridement nonhealing wound and complex secondary wound closure. Patient understands that the family and consumer education teacher may be removed if I think the wound closure would be under too much tension or if infection is noted in the breast pocket. PAST MEDICAL HISTORY Increased tearing Osteopenia Encounter for insertion of venous access port Primary cancer of right female breast Depression GERD (gastroesophageal reflux disease) Hypothyroidism Obesity Osteoarthritis Nonhealing surgical wound left breast reconstruction Acquired absence bilateral breasts Disproportion reconstructed breasts Cancer phobia left breast PAST SURGICAL HISTORY appendectomy bilateral knee surgery right simple mastectomy and right axillary sentinel lymph node biopsy by Dr. Siddiqui - 04/21/19 prophylactic mastectomy left breast and first stage immediate bilateral breast reconstruction with placement of submuscular saline tissue expanders (650 ml for each side) and placement of Alloderm Select acellular dermal matrix grafts (132 cm2 for each side) by Dr. Dillon - 04/21/19 ALLERGIES No Known Allergies MEDICATIONS Esomeprazole Mag Trihydrate [Nexium] buPROPion XL [Wellbutrin Xl] hydroxychloroquine levothyroxine tramadol Anastrozole [Arimidex] Dexamethasone [Decadron] Lidocaine/Prilocaine [Lidocaine-Prilocaine Cream] Ondansetron [Ondansetron Odt] Prochlorperazine Maleate diazepam FAMILY HISTORY Mother - Breast cancer Brother - Cancer Father - Cancer SOCIAL HISTORY Smoking Status: Light Smoker (<10/day) alcohol intake: current alcohol intake frequency: 0-2 drinks per day substance use type: does not use REVIEW OF SYSTEMS General - Denies fever and weight loss. Has fatigue. Eyes - Denies cataracts and glaucoma. ENT - Denies nasal congestion and sore throat. Endocrine - Denies excessive thirst and urination. Has recent diagnosis of right breast cancer. Had neoadjuvant chemotherapy. Skin - Denies skin cancer. Has nonhealing surgical wound left breast reconstruction. Musculoskeletal - Has joint pain, joint stiffness, weakness of muscles and joints. Denies back pain, and arthritis. Neuro - Denies headaches. Cardiovascular - Denies chest pain, fatigue, and shortness of breath with exertion. Psych - Denies anxiety. Has depression. Respiratory - Denies chronic cough and shortness of breath. Gastrointestinal - Denies nausea, vomiting, diarrhea, and constipation. Hematologic - Denies abnormal bruising and bleeding. Genitourinary - Denies hematuria and urinary frequency. Has some incontinence. PHYSICAL EXAMINATION General - Alert and Oriented. Her bra size is 38 DD. HEENT - PERRL. EOMI. Throat is clear. Neck - Supple and nontender. No cervical adenopathy. Breasts - Right breast mastectomy incision is healed. Left breast mastectomy incision shows a nonhealing wound that measures 5 x 1 cm. Scabbing present. Nontender. No gross exposure of the tissue family and consumer education teacher. No drainage seen. No fluctuance. No redness seen. Lungs - Clear to auscultation. Heart - Regular rate and rhythm. Abdomen - Soft and nondistended. Has some redundant skin and subcutaneous tissue from the umbilicus to the pubic area. She has a RLQ appendectomy scar. Extremities - FROM. No axillary adenopathy. Radial pulses are palpable. Neuro - CN II-XII grossly intact. Psych - Normal mood and affect. ASSESSMENT 1. Right breast cancer. 2. Cancer phobia left breast. 3. Positive test for genetic breast cancer susceptibility marker. 4. Acquired absence bilateral breasts. 5. Disproportion reconstructed breasts. 6. Estrogen receptor positive status. 7. Family history of breast cancer. 8. Neoadjuvant chemotherapy. 9. Smoker. 10. Nonhealing surgical wound left breast reconstruction. PLAN Discussed with the patient that it will be difficult and will take a long time (several months) for this wound to heal with Silver dressing changes and antibiotics if future wound cultures are positive. The initial wound culture was negative. The reason is the presence of the foreign body family and consumer education teacher. My recommendation is to proceed with revision left breast reconstruction with excisional debridement nonhealing wound and complex secondary wound closure. I will salvage the family and consumer education teacher if the wound closure is not under too much tension and there is no evidence of infection in the breast pocket. The family and consumer education teacher would be replaced along with acellular dermal matrix graft. Otherwise, if there is too much tension on the wound closure or if infection is seen in the breast pocket, then the family and consumer education teacher would be removed followed by wound closure. After healing has occurred, can then replace the tissue family and consumer education teacher at that time (approximate time frame would be 2-3 months). Patient is aware of that possibility and wishes to proceed. Surgery would be done under general anesthetic with a surgical observation overnight stay in the hospital. Drains will be placed for several days and she will be maintained on antibiotics until the drains are removed. Tissue that is removed will be sent to Pathology for analysis to rule out carcinoma and to Microbiology for culture. A positive culture will necessitate antibiotic therapy. Patient was informed of the risks and complications of the procedure including alternatives to surgery. These were discussed with the patient personally. Patient voices understanding and wishes to proceed. Some of the risks and complications were included in a form from the [employer]. Encouraged patient to stop smoking as it may have deleterious effects on wound healing.
[2019-06-17 16:43] VITALS: BMI 27.5
[2019-06-17 17:05] VITALS: BMI 27.5
[2019-06-17] MEDS: Lactated Ringers 1,000 ML 60 ML IV (18:34)
[2019-06-17] MEDS: Gabapentin 300 MG Capsule PO (18:38)
[2019-06-17] MEDS: Hydroxychloroquine 200 MG Tablet PO (18:38)
[2019-06-17] MEDS: Calcium Carb/Vitamin D 1 TABLET Tablet PO (18:38)
[2019-06-17] MEDS: oxyCODONE 5 MG Tablet 10 MG PO (20:27)
[2019-06-17 20:30] VITALS: BP 111/53; PULSE 89; RESP 18; TEMP 37.1; O2SAT 97
[2019-06-17 21:43] VITALS: BP 115/48; PULSE 63; RESP 18; TEMP 37.3; O2SAT 97
[2019-06-17] MEDS: Doxycycline 100 MG CAPSULE PO (21:48)
[2019-06-17] MEDS: Docusate Sodium 100 MG Capsule PO (21:48)
[2019-06-17 21:58] VITALS: BP 108/49; PULSE 85; RESP 18; TEMP 37.1; O2SAT 97
[2019-06-17 22:57] VITALS: BP 114/56; PULSE 83; RESP 16; TEMP 36.7; O2SAT 96
[2019-06-17 23:55] VITALS: BP 120/55; PULSE 80; RESP 16; TEMP 36.8; O2SAT 97
[2019-06-18] VITALS (14 sets, daily range): BP systolic 110–152; BP diastolic 54–91; PULSE 70–86; RESP 16–18; TEMP 36.4–37.1; O2SAT 96–99
[2019-06-18] MEDS: 0.9% Saline Lock 10 ML Syringe IV ×2 (05:10→17:44)
[2019-06-18] MEDS: Levothyroxine 100 MCG Tablet PO (05:10)
[2019-06-18 05:23] LABS: Hemoglobin 6.6 g/dL (12.0-15.0); Mean Corpuscular Hgb 30.8 pg (27.0-32.0); Mean Corpuscular Volume 93.5 fL (81-99); Mean Platelet Vol. 10.1 fl (6.2-12.0); Platelet Count 194 K/mm3 (150-450); RBC Distribution Width CV 14.3 % (11.6-14.6); RBC Distribution Width SD 47.9 fl (35.1-43.9); Red Blood Count 2.14 M/mm3 (4.2-5.4); White Blood Count 4.5 K/mm3 (4.4-11.0)
[2019-06-18 05:35] LABS: Scan Indicated on CBC? Y/N NO
[2019-06-18 05:42] LABS: ALB/GLOB Ratio 0.9 RATIO (0.9-2.4); AST(SGOT) 16 U/L (15-37); Alanine Aminotransfer ALT/SGPT 14 U/L (13-56); Albumin, Serum 2.8 g/dL (3.2-5.0); Alkaline Phosphatase 47 U/L (45-117); Anion Gap 2 (5-15); BUN 27 mg/dL (7-18); BUN/Creat Ratio 18.8 RATIO (10-20); Calcium,Total 9.2 mg/dL (8.5-10.1); Chloride 105 mmol/L (98-107); Creatinine, Serum 1.44 mg/dL (0.55-1.02); EST Glomerular Filtration Rate 39 mL/min (>60); Est Glom Filt Rate - Afr Amer 47 mL/min (>60); Estimated Creatinine Clearance 35.49 ml/min; Glucose 91 mg/dL (74-106); Potassium 3.8 mmol/L (3.5-5.1); Prealbumin 20.6 mg/dL (20.0-40.0); Protein, Total 5.8 g/dL (6.4-8.2); Sodium Level 138 mmol/L (136-145)
[2019-06-18] MEDS: buPROPion (XL) 300 MG TABLET.XL PO (08:53)
[2019-06-18] MEDS: Pantoprazole Sodium 40 MG Tablet PO (08:53)
[2019-06-18] MEDS: Calcium Carb/Vitamin D 1 TABLET Tablet PO ×2 (08:53→16:18)
[2019-06-18] MEDS: Iron Polysaccharide Complex 150 MG CAPSULE PO (08:53)
[2019-06-18] MEDS: Hydroxychloroquine 200 MG Tablet PO ×2 (08:53→16:18)
[2019-06-18] MEDS: Gabapentin 300 MG Capsule PO ×2 (08:53→16:17)
[2019-06-18] MEDS: Menthol/Lanolin/Calamine/Znox 113 GM Tube 1 APPLIC TOPICAL ×2 (08:54→21:28)
[2019-06-18] MEDS: Docusate Sodium 100 MG Capsule PO ×2 (08:54→21:28)
[2019-06-18] MEDS: Doxycycline 100 MG CAPSULE PO ×2 (08:55→21:28)
[2019-06-18] MEDS: Anastrozole 1 MG Tablet PO (08:55)
[2019-06-18] MEDS: traMADol 50 MG Tablet PO (09:09)
--- NOTE | 2019-06-18 12:51 | CASEMGMT ---
LW/POA forms both scanned into summary tab of [facility], Jone Alvarado is listed as pt's healthcare POA. MERRILL Kim
--- NOTE | 2019-06-18 13:13 | PCM.PN.SRG ---
Objective: Postop #5 Patient is resting comfortably. Has more energy and feels less tired. - Physical Exam Vitals/I&O's: Vital Signs Temp Pulse Resp BP Pulse Ox 98.1 F 83 18 128/68 H 98 06/18/19 12:54 06/18/19 12:54 06/18/19 12:54 06/18/19 12:54 06/18/19 12:54 Oxygen Delivery Method Room Air Weight: 170 lb 7.982 oz Body Mass Index (BMI) 27.5 Intake and Output for Last 24 Hours 06/16/19 06/17/19 06/18/19 23:59 23:59 23:59 Intake Total 186 / 186 2402 / 2402 Output Total Balance 176 / 176 2382 / 2382 Drainage 10 ml yesterday. General: Alert, Oriented x3 HEENT: PERRLA, EOMI Oral: Moist Mucosa Neck: Supple Abdomen: Soft, Non Tender Skin: Incision - left mastectomy incision dry and intact. Mild swelling present. Nontender. Skin is soft with no clinical evidence of active blood loss at this time. Bruising chest wall much improved and resolving. Still has residual bruising on the lower abdomen and flank that is soft and slowly resolving. Neurological: Cranial nerves II-XII grossly intact Psych/Mental Status: Normal Affect, Appropriate Laboratory Results 06/17/19 17:30: Blood Type O POSITIVE, Antibody Screen NEGATIVE, Crossmatch See Detail 06/17/19 17:30: Crossmatch See Detail 06/18/19 05:10: WBC 4.5, RBC 2.14 L, Hgb 6.6 L, Hct 20.0 L, MCV 93.5 D, MCH 30.8, MCHC 33.0, RDW Std Deviation 47.9 H, RDW Coeff of Oumou 14.3, Plt Count 194, MPV 10.1 06/18/19 05:10: Sodium 138, Potassium 3.8, Chloride 105, Carbon Dioxide 31.0, Anion Gap 2 L, BUN 27 H, Creatinine 1.44 H, Estim Creat Clear Calc 35.49, Est GFR (MDRD) Af Amer 47 L, Est GFR (MDRD) Non-Af 39 L, BUN/Creatinine Ratio 18.8, Glucose 91, Calcium 9.2, Total Bilirubin 0.80, AST 16, ALT 14, Alkaline Phosphatase 47, Total Protein 5.8 L, Albumin 2.8 L, Globulin 3.0, Albumin/Globulin Ratio 0.9, Prealbumin 20.6 Current Medications Anastrozole (Arimidex) 1 mg PO DAILY [facility] Last Admin: 06/18/19 08:55 Dose: 1 mg Documented by: Bupropion HCl (Wellbutrin Xl) 300 mg PO DAILY [facility] Last Admin: 06/18/19 08:53 Dose: 300 mg Documented by: Calamine/Phenol (Calmoseptine Ointment) 1 applic TOPICAL BID [facility]; Protocol Last Admin: 06/18/19 08:54 Dose: 1 applic Documented by: Calcium/Vitamin D (Os-Jesús 500mg + D) [facility] Last Admin: 06/18/19 08:53 Dose: 1 tablet Documented by: Diazepam (Valium) 5 mg PO 4X/DAY PRN PRN Reason: spasm Docusate Sodium (Colace) 100 mg PO BID [facility] Last Admin: 06/18/19 08:54 Dose: 100 mg Documented by: Doxycycline Monohydrate (Doxycycline) 100 mg PO BID [facility] Last Admin: 06/18/19 08:55 Dose: 100 mg Documented by: Gabap[facility]in) [facility] Last Admin: 06/18/19 08:53 Dose: 300 mg Documented by: Heparin Sodium (Beef Lung) () 50 units IV UD PRN PRN Reason: Port-a-Cath (VAD)Heparin Flush Heparin Sodium (Beef Lung) () 50 units IV UD PRN PRN Reason: Port-a-Cath (VAD)Heparin Flush Hydroxychloroquine Sulfate ([facility]enil) [facility] Last Admin: 06/18/19 08:53 Dose: 200 mg Documented by: Lactobacillus Acidophilus (Acidophilus) 1 tablet PO BID [facility] Last Admin: 06/18/19 08:53 Dose: 1 tablet Documented by: Levothyroxine Sodium (Synthroid) 100 mcg PO DAILY@0600 [facility] Last Admin: 06/18/19 05:10 Dose: 100 mcg Documented by: Nutritional Formula (Inder - [place] Flavor) [facility] Last Admin: 06/18/19 08:53 Dose: 1 packet Documented by: Nutritional Formula (Lactose Free) (Ensure Clear) 120 ml PO 4X/DAY [facility] Ondansetron HCl (Zofran Odt) 4 mg PO Q6H PRN PRN PRN Reason: NAUSEA Oxycodone HCl (Oxyir) 10 mg PO Q4H PRN PRN PRN Reason: Pain Score 6-10/10 Last Admin: 06/17/19 20:27 Dose: 10 mg Documented by: Pantoprazole Sodium (Protonix) 40 mg PO DAILY [facility] Last Admin: 06/18/19 08:53 Dose: 40 mg Documented by: Polysaccharide Iron Complex (Ferrex 150) [facility] Last Admin: 06/18/19 08:53 Dose: 150 mg Documented by: Scopolamine HBr (Transderm-Scop) 1 patch TD Q3D [facility] Last Admin: 06/17/19 20:24 Dose: Not Given Documented by: Sodium Chloride () 10 - 40 ml IV UD PRN PRN Reason: Port-a-Cath (VAD) Flush Last Admin: 06/18/19 05:10 Dose: 30 ml Documented by: Sodium Chloride (0.9% Nacl (Sterile) Posiflush) 10 - 40 ml IV UD PRN PRN Reason: Port access or dressing change Sodium Chloride () 10 - 40 ml IV UD PRN PRN Reason: Multilumen/[place] Flush Sodium Chloride (0.9% Nacl (Sterile) Posiflush) 10 - 40 ml IV UD PRN PRN Reason: Port access or dressing change Sodium Chloride () 10 - 40 ml IV UD PRN PRN Reason: Port-a-Cath (VAD) Flush Sodium Chloride (0.9% Nacl (Sterile) Posiflush) 10 - 40 ml IV UD PRN PRN Reason: Port access or dressing change Tramadol HCl (Ultram) 50 mg PO DAILY [facility] Last Admin: 06/18/19 09:09 Dose: 50 mg Documented by: Medical Necessity - Tobacco Use Smoking Status: Former smoker Tobacco Use: Cigarettes Assessment/Plan All Active Problems (Last Reviewed 06/19/19 @ 23:19 by Isma Dillon MD) Acute blood loss anemia (Acute) Nonhealing surgical wound (Acute) Exposed breast implant (Acute) Anemia (Acute) Disproportion of reconstructed breast (Acute) Chemotherapy management, encounter for (Resolved) Primary cancer of right female breast (Acute) 1. Right breast cancer. 2. Cancer phobia left breast. 3. Positive test for genetic breast cancer susceptibility marker. 4. Acquired absence bilateral breasts. 5. Disproportion reconstructed breasts. 6. Estrogen receptor positive status. 7. Family history of breast cancer. 8. Neoadjuvant chemotherapy. 9. Smoker. 10. Nonhealing surgical wound left breast reconstruction. 11. s/p revision left breast reconstruction with excisional debridement nonhealing wound with removal of Alloderm acellular dermal matrix graft and removal exposed saline tissue bow tacker and complex secondary wound closure. 12. Acute postop blood loss anemia, better after PRBC. Patient feels less tired. After PRBC her Hgb increased to 6.6. Will transfuse 2 more units today. Her left mastectomy incision is dry and intact. Mild swelling present. No clinical evidence of expanding hematoma. 10 ml output from the drain. The chest wall bruising is resolving. I anticipate Hgb over 9 after her repeat transfusion today. If it is high 7's to low 8's, she will need operative incision and drainage of any residual blood. Would place another drain and continue the chest wall compression. Her Hgb after her breast cancer surgery in April was 8.1. In mid May it was 10.4, as she was possibly dehydrated. My guess is it drifted downward prior to her revision surgery last Sunday probably toward the 8.1 range indicative of anemia of chronic disease. Clinically it looks like she may have lost a unit of blood slowly over 5 days postop. There may have been half a unit in the drains over that span and there was a half of unit intraoperatively. Anticipate improvement in her Hgb along with a stable chest wall incision with discharge home tomorrow. She would followup on Sunday then and check another Hgb. As long as it remains stable and no increased bulging occurs in the chest wall area, will continue to observe with chest wall compression. Otherwise, would need operative intervention to drain the mastectomy wound with probable closure and placement of another drain. If the incision can not be closed secondary to swelling and tension, would then pack the wound temporarily before proceeding with complex secondary wound closure. Patient voices understanding and wishes to proceed as she understands that additional surgery may be necessary. Upon admission, her Creatinine was 1.75. With hydration it improved to 1.44 today. Her level after her mastectomy surgery in April was 1.41 and her level in mid May was 1.41. Continue Doxycycline for the MRSE. Prealbumin was 20.6. Encourage nutritional supplementation with protein to help the healing process.
[2019-06-18] MEDS: oxyCODONE 5 MG Tablet 10 MG PO (14:16)
[2019-06-18 20:25] LABS: Hemoglobin 9.5 g/dL (12.0-15.0)
[2019-06-18] MEDS: Ensure Clear 120 ML Liquid PO (21:27)
[2019-06-19 03:12] VITALS: BP 145/75; PULSE 71; RESP 16; TEMP 36.5; O2SAT 98
[2019-06-19] MEDS: Levothyroxine 100 MCG Tablet PO (06:00)
[2019-06-19 06:02] LABS: Hematocrit 28.7 % (37-47); Hemoglobin 9.3 g/dL (12.0-15.0); Mean Corp Hgb Conc 32.4 g/dL (32-36); Mean Corpuscular Hgb 30.5 pg (27.0-32.0); Mean Corpuscular Volume 94.1 fL (81-99); Mean Platelet Vol. 9.7 fl (6.2-12.0); Platelet Count 233 K/mm3 (150-450); RBC Distribution Width CV 14.8 % (11.6-14.6); RBC Distribution Width SD 49.8 fl (35.1-43.9); Red Blood Count 3.05 M/mm3 (4.2-5.4); White Blood Count 5.9 K/mm3 (4.4-11.0)
[2019-06-19] MEDS: 0.9% Saline Lock 10 ML Syringe IV ×2 (06:02→10:26)
[2019-06-19 08:59] VITALS: BP 120/74; PULSE 76; RESP 18; TEMP 36.7; O2SAT 98
--- NOTE | 2019-06-19 09:09 | PN.SURG_ITS ---
Subjective: Postop #6 Patient is resting comfortably. States she is less tired and more steady on her feet. - Physical Exam Vitals/I&O's: Vital Signs Temp Pulse Resp BP Pulse Ox 98.1 F 76 18 120/74 98 06/19/19 08:59 06/19/19 08:59 06/19/19 08:59 06/19/19 08:59 06/19/19 08:59 Oxygen Delivery Method Room Air Weight: 170 lb 7.982 oz Body Mass Index (BMI) 27.5 Intake and Output for Last 24 Hours 06/17/19 06/18/19 06/19/19 23:59 23:59 23:59 Intake Total 186 / 186 4787 / 4787 300 / 300 Output Total 65 / 65 15 / 15 Balance 176 / 176 4722 / 4722 285 / 285 Drainage 65 ml yesterday, 15 ml today. General: Alert, Oriented x3 HEENT: PERRLA, EOMI Oral: Moist Mucosa Neck: Supple Abdomen: Soft, Non-Distended Skin: Incision - left mastectomy incision dry and intact. Mild swelling present. Nontender. Skin is soft with no clinical evidence of activef blood loss at this time. Bruising chest wall continues to resolve. The residual bruising on the lower abdomen and flank is soft and continues to slowly resolve. Neurological: Cranial nerves II-XII grossly intact Psych/Mental Status: Normal Affect, Appropriate Laboratory Results 06/17/19 17:30: Crossmatch See Detail 06/18/19 20:05: Hgb 9.5 L 06/19/19 05:47: WBC 5.9, RBC 3.05 L, Hgb 9.3 L, Hct 28.7 L, MCV 94.1, MCH 30.5, MCHC 32.4, RDW Std Deviation 49.8 H, RDW Coeff of Oumou 14.8 H, Plt Count 233, MPV 9.7 Current Medications Anastrozole (Arimidex) 1 mg PO DAILY [facility] Last Admin: 06/18/19 08:55 Dose: 1 mg Documented by: Bupropion HCl (Wellbutrin Xl) 300 mg PO DAILY [facility] Last Admin: 06/18/19 08:53 Dose: 300 mg Documented by: Calamine/Phenol (Calmoseptine Ointment) 1 applic TOPICAL BID [facility]; Protocol Last Admin: 06/18/19 21:28 Dose: 1 applic Documented by: Calcium/Vitamin D (Os-Jesús 500mg + D) [facility] Last Admin: 06/18/19 16:18 Dose: 1 tablet Documented by: Diazepam (Valium) 5 mg PO 4X/DAY PRN PRN Reason: spasm Docusate Sodium (Colace) 100 mg PO BID [facility] Last Admin: 06/18/19 21:28 Dose: 100 mg Documented by: Doxycycline Monohydrate (Doxycycline) 100 mg PO BID [facility] Last Admin: 06/18/19 21:28 Dose: 100 mg Documented by: Gab[facility] ([facility]ontin) [facility] Last Admin: 06/18/19 16:17 Dose: 300 mg Documented by: Heparin Sodium (Beef Lung) () 50 units IV UD PRN PRN Reason: Port-a-Cath (VAD)Heparin Flush Heparin Sodium (Beef Lung) () 50 units IV UD PRN PRN Reason: Port-a-Cath (VAD)Heparin Flush Hydroxychloroquine S[facility]ate ([facility]aqu[facility]il) [facility] Last Admin: 06/18/19 16:18 Dose: 200 mg Documented by: Lactobacillus Acidophilus (Acidophilus) 1 tablet PO BID [facility] Last Admin: 06/18/19 21:28 Dose: 1 tablet Documented by: Levothyroxine Sodium (Synthroid) 100 mcg PO DAILY@0600 [facility] Last Admin: 06/19/19 06:00 Dose: 100 mcg Documented by: Nutritional Formula (Inder - [place] Flavor) [facility] Last Admin: 06/18/19 16:17 Dose: 1 packet Documented by: Nutritional Formula (Lactose Free) (Ensure Clear) 120 ml PO 4X/DAY [facility] Last Admin: 06/18/19 21:27 Dose: 120 ml Documented by: Ondansetron HCl (Zofran Odt) 4 mg PO Q6H PRN PRN PRN Reason: NAUSEA Oxycodone HCl (Oxyir) 10 mg PO Q4H PRN PRN PRN Reason: Pain Score 6-10/10 Last Admin: 06/18/19 14:16 Dose: 5 mg Documented by: Pantoprazole Sodium (Protonix) 40 mg PO DAILY [facility] Last Admin: 06/18/19 08:53 Dose: 40 mg Documented by: Polysaccharide Iron Complex (Ferrex 150) [facility] Last Admin: 06/18/19 08:53 Dose: 150 mg Documented by: Scopolamine HBr (Transderm-Scop) 1 patch TD Q3D [facility] Last Admin: 06/17/19 20:24 Dose: Not Given Documented by: Sodium Chloride () 10 - 40 ml IV UD PRN PRN Reason: Port-a-Cath (VAD) Flush Last Admin: 06/19/19 06:02 Dose: 30 ml Documented by: Sodium Chloride (0.9% Nacl (Sterile) Posiflush) 10 - 40 ml IV UD PRN PRN Reason: Port access or dressing change Sodium Chloride () 10 - 40 ml IV UD PRN PRN Reason: Multilumen/[place] Flush Sodium Chloride (0.9% Nacl (Sterile) Posiflush) 10 - 40 ml IV UD PRN PRN Reason: Port access or dressing change Sodium Chloride () 10 - 40 ml IV UD PRN PRN Reason: Port-a-Cath (VAD) Flush Sodium Chloride (0.9% Nacl (Sterile) Posiflush) 10 - 40 ml IV UD PRN PRN Reason: Port access or dressing change Tramadol HCl (Ultram) 50 mg PO DAILY [facility] Last Admin: 06/18/19 09:09 Dose: 50 mg Documented by: Medical Necessity - Tobacco Use Smoking Status: Former smoker Tobacco Use: Cigarettes Assessment/Plan All Active Problems (Last Reviewed 06/19/19 @ 23:19 by Isma Dillon MD) Acute blood loss anemia (Resolved) Nonhealing surgical wound (Resolved) Exposed breast implant (Resolved) Anemia (Resolved) Disproportion of reconstructed breast (Acute) Chemotherapy management, encounter for (Resolved) Primary cancer of right female breast (Acute) 1. Right breast cancer. 2. Cancer phobia left breast. 3. Positive test for genetic breast cancer susceptibility marker. 4. Acquired absence bilateral breasts. 5. Disproportion reconstructed breasts. 6. Estrogen receptor positive status. 7. Family history of breast cancer. 8. Neoadjuvant chemotherapy. 9. Smoker, she has not smoked since her breast cancer diagnosis. 10. Nonhealing surgical wound left breast reconstruction. 11. s/p revision left breast reconstruction with excisional debridement nonhealing wound with removal of Alloderm acellular dermal matrix graft and removal exposed saline tissue medical insurance biller and complex secondary wound closure. 12. Acute postop blood loss anemia, resolved after PRBC. Patient feels less tired. After PRBC her Hgb increased to 9.3. She is stable and ready for discharge. Her left mastectomy incision is dry and intact. Mild swelling present. No clinical evidence of expanding hematoma. 65 ml output from the drain yesterday and 15 ml today. The chest wall bruising continues to resolve. Her Hgb after her breast cancer surgery in April was 8.1. In mid May it was 10.4, as she was possibly dehydrated. My guess is it drifted downward prior to her revision surgery last Sunday probably toward the 8.1 range indicative of anemia of chronic disease. Clinically it looks like she may have lost a unit of blood slowly over 5 days postop. There may have been half a unit in the drains over that span and there was a half of unit intraoperatively. Upon admission, her Creatinine was 1.75. With hydration it improved to 1.44 today. Her level after her mastectomy surgery in April was 1.41 and her level in may was 1.41. Prealbumin was 20.6. Encourage nutritional supplementation with protein to help the healing process. Discharge home today. Continue chest wall zain wrap compression. She will followup office on 06/23/19. Will check another Hgb. As long as it remains stable and no increased bulging occurs in the chest wall area, will continue to observe with chest wall compression. Otherwise, would need operative intervention to drain the mastectomy wound with probable closure and placement of another drain. If the incision can not be closed secondary to swelling and tension, would then pack the wound temporarily with a VAC before proceeding with complex secondary wound closure. Patient voices understanding and wishes to proceed as she understands that additional surgery may be necessary in the future. Continue Doxycycline for the JUANPABLO.
--- NOTE | 2019-06-19 09:28 | PCM.DC ---
You will use the following diet at home:: No restrictions Discharge Activity: May not drive while taking narcotic pain medications., May Not Shower - until the drain is removed., - - keep head elevated. no heavy lifting. continue chest wall zain wrap compression. May shower in (days): 10 - when the drain is removed. May resume sexual activity in: No Restrictions Weight Bearing Status: Weight bearing as tolerated Lifting Restrictions: 20 lbs. Keep extremity elevated above heart level: - - elevate head. Call your doctor if your incision/area has: Continuous Slow Oozing, Sudden Increased Bleeding, Increased Pain/ Swelling, Increased Redness, Foul Smelling Discharge, Swelling at the incision site Call your doctor if you observe: Fever of 101 or Higher, Coldness, Increased Pain, Shortness of breath, Chest pain, Calf discomfort, Uncontrolled pain Suture Line Care: - - dry dressings daily. Change Dressing in (Days):: 1 - dry dressings daily. Cleanse incision/area with: - - may get incision wet in the shower after the drain is removed. Drain: Suction - levon drain to bulb suction. empty and record output daily. Additional Instructions: Patient has Doxycycline at home for the MRSE culture and will continue them. Allergies/Adverse Reactions: Allergies No Known Allergies Allergy (Verified 06/17/19 14:18) Medications to take at Discharge Esomeprazole Mag Trihydrate [Nexium] 40 mg PO DAILY 03/11/13 buPROPion XL [Wellbutrin Xl] 300 mg PO DAILY 03/11/13 hydroxychloroquine 200 mg tablet 200 mg PO BID 12/16/18 tramadol 50 mg tablet 50 mg PO DAILY 12/16/18 Anastrozole [Arimidex] 1 mg PO DAILY 90 Days #90 tab NS 12/26/18 Lidocaine/Prilocaine [Lidocaine-Prilocaine Cream] 1 applicatio TP DAILY PRN PRN 30 Days #1 tube 01/01/19 Calcium Carbonate/Vitamin D3 [Calcium 600 + Vit D Tablet] 1 ea PO BID 04/14/19 Cholecalciferol (Vitamin D3) [Vitamin D3] 5,000 unit PO DAILY 04/14/19 Iron Polysaccharide Complex [Ferrex 150] 150 mg PO DAILYCM #30 cap 04/23/19 Diazepam [Valium] 5 mg PO 4X/DAY PRN #30 tab 06/13/19 Lactobacillus Acidophilus/Fos [Acidophilus Probiotic Tablet] 1 ea PO BID #30 tab 06/13/19 Ondansetron [Zofran Odt] 4 mg PO Q6H PRN PRN #30 tab 06/13/19 doxycycline hyclate 100 mg capsule 100 mg PO BID #42 cap 06/16/19 Docusate Sodium [Colace] 100 mg PO DAILY 06/17/19 Levothyroxine Sodium 100 mg PO DAILY 06/17/19 gabapentin 300 mg capsule 300 mg PO BID 30 Days #60 cap 06/17/19 Docusate Sodium [Colace] 100 mg PO BID cap 06/19/19 Levothyroxine [Synthroid] 100 mcg PO DAILY@0600 tab 06/19/19 Menthol/Lanolin/Calamine/Znox [Calmoseptine Ointment] 1 applic TOPICAL BID tube 06/19/19 Scopolamine Patch 1mg/72hr [Transderm-Scop] 1 patch TD Q3D patch 06/19/19 Orders to be completed after discharge: CBC-Complete Blood Cnt No Diff Time Frame: 4 Days, Facility: [facility], Location: [facility] Primary Care Physician: Krunal Gee MD [Primary Care Provider] - Test Results: Test results from this visit will be discussed in further detail at your follow-up appointment, if applicable. Please Follow Up With: Isma Dillon MD When: sunday06/23/19. call [phone] for appt. Proposed Discharge Date: 06/19/19
[2019-06-19] MEDS: traMADol 50 MG Tablet PO (09:42)
[2019-06-19] MEDS: Docusate Sodium 100 MG Capsule PO (09:42)
[2019-06-19] MEDS: Anastrozole 1 MG Tablet PO (09:42)
[2019-06-19] MEDS: Hydroxychloroquine 200 MG Tablet PO (09:42)
[2019-06-19] MEDS: Pantoprazole Sodium 40 MG Tablet PO (09:43)
[2019-06-19] MEDS: Iron Polysaccharide Complex 150 MG CAPSULE PO (09:43)
[2019-06-19] MEDS: Calcium Carb/Vitamin D 1 TABLET Tablet PO (09:43)
[2019-06-19] MEDS: buPROPion (XL) 300 MG TABLET.XL PO (09:43)
[2019-06-19] MEDS: Doxycycline 100 MG CAPSULE PO (09:43)
[2019-06-19] MEDS: Gabapentin 300 MG Capsule PO (09:43)
--- NOTE | 2019-06-19 10:37 | PCM.DC.SUM ---
Discharge Date and Diagnosis Date of Admission: 06/17/19 Date of Discharge: 06/19/19 - Primary Discharge Diagnosis Right breast cancer Acute postop blood loss anemia - Secondary Discharge Diagnosis Cancer phobia left breast. Positive test for genetic breast cancer susceptibility marker. Acquired absence bilateral breasts. Disproportion reconstructed breasts. Estrogen receptor positive status. Family history of breast cancer. Neoadjuvant chemotherapy. Smoker, she has not smoked since her breast cancer diagnosis. Nonhealing surgical wound left breast reconstruction. Osteopenia Hospital Course and Treatment Imaging Results: None. CONSULTATIONS None. Operations: None Procedures: Blood transfusion - 4 units PRBC. Summary of Care Provided: Patient had surgery 06/13/19 where she underwent revision left breast reconstruction with excisional debridement nonhealing wound with removal of Alloderm acellular dermal matrix graft and removal exposed saline tissue touring production manager and complex secondary wound closure. She tolerated the procedure well. Operative blood loss was 150 ml. She was initially set up for a surgical observation overnight stay. However she felt fine after surgery and wanted to go home so she was discharged. When she arrived home, she stated she was lightheaded and fell and almost hit her head. Her family member caught her while she was falling. She also stated she had episodes of nausea and vomiting when she was at home as well. She came to the office today for a postop visit. She felt tired. She did say that prior to her surgery, she had been taking Ibuprofen daily. Her BP was 133/78. Her pulse was 93. On exam, her left breast incision was dry and intact. There was bruising around the left breast with some extension onto the abdominal wall. The skin was soft with no palpable firmness to suggest a clinical expanding hematoma. Drainage has been 50-100 ml per day. Because she felt tired and because of the bruising, labs were drawn. Her Hgb was 5.6. She was then admitted to the hospital for PRBC for her acute postop blood loss anemia. Her operative culture was positive for MRSE. She will continue her Doxycycline. She received 2 units PRBC the first day. The next morning, 06/18/19, her Hgb increased to 6.6. So 2 additional units PRBC was given. During her hospital stay, her BP was stable and her Pulse was stable. Her left mastectomy incision was dry and intact. Mild swelling was present. There was no clinical evidence of expanding hematoma. The chest wall bruising started to improve and resolve during her hospital stay. The next morning, 06/19/19, her Hgb increased to 9.3. She felt less tired and was steady on her feet with ambulation and was stable for discharge. Her Hgb after her breast cancer surgery in April was 8.1. In mid May it was 10.4, as she was possibly dehydrated. My guess is it drifted downward prior to her revision surgery last Sunday probably toward the 8.1 range indicative of anemia of chronic disease. Clinically it looks like she may have lost a unit of blood slowly over 5 days postop. There may have been half a unit in the drains over that span and there was a half of unit intraoperatively. Upon admission, her Creatinine was 1.75. With hydration it improved to 1.44. Her level after her mastectomy surgery in April was 1.41 and her level in may was 1.41. Prealbumin was 20.6. Encourage nutritional supplementation with protein to help the healing process. On 06/19/19, she was discharged home in stable condition. Continue chest wall zain wrap compression. She will followup office on 06/23/19. Will check another Hgb. As long as it remains stable and no increased bulging occurs in the chest wall area, will continue to observe with chest wall compression. Otherwise, would need operative intervention to drain the mastectomy wound with probable closure and placement of another drain. If the incision can not be closed secondary to swelling and tension, would then pack the wound temporarily with a VAC before proceeding with complex secondary wound closure. Patient voices understanding and wishes to proceed as she understands that additional surgery may be necessary in the future. Continue Doxycycline for the JUANPABLO. Condition upon discharge was stable. - Physical Exam Vitals/I&O's: Vital Signs Temp Pulse Resp BP Pulse Ox 98.1 F 76 18 120/74 98 06/19/19 08:59 06/19/19 08:59 06/19/19 08:59 06/19/19 08:59 06/19/19 08:59 Oxygen Delivery Method Room Air Weight: 170 lb 7.982 oz Body Mass Index (BMI) 27.5 Intake and Output for Last 24 Hours 06/17/19 06/18/19 06/19/19 23:59 23:59 23:59 Intake Total 186 / 186 4787 / 4787 300 / 300 Output Total 65 / 65 15 / 15 Balance 176 / 176 4722 / 4722 285 / 285 Laboratory Results 06/17/19 17:30: Crossmatch See Detail 06/18/19 20:05: Hgb 9.5 L 06/19/19 05:47: WBC 5.9, RBC 3.05 L, Hgb 9.3 L, Hct 28.7 L, MCV 94.1, MCH 30.5, MCHC 32.4, RDW Std Deviation 49.8 H, RDW Coeff of Oumou 14.8 H, Plt Count 233, MPV 9.7 Current Medications Anastrozole (Arimidex) 1 mg PO DAILY [facility] Last Admin: 06/19/19 09:42 Dose: 1 mg Documented by: Bupropion HCl (Wellbutrin Xl) 300 mg PO DAILY [facility] Last Admin: 06/19/19 09:43 Dose: 300 mg Documented by: Calamine/Phenol (Calmoseptine Ointment) 1 applic TOPICAL BID [facility]; Protocol Last Admin: 06/19/19 09:43 Dose: Not Given Documented by: Calcium/Vitamin D (Os-Jesús 500mg + D) [facility] Last Admin: 06/19/19 09:43 Dose: 1 tablet Documented by: Diazepam (Valium) 5 mg PO 4X/DAY PRN PRN Reason: spasm Docusate Sodium (Colace) 100 mg PO BID [facility] Last Admin: 06/19/19 09:42 Dose: 100 mg Documented by: Doxycycline Monohydrate (Doxycycline) 100 mg PO BID [facility] Last Admin: 06/19/19 09:43 Dose: 100 mg Documented by: Gabapentin ([facility]ontin) [facility] Last Admin: 06/19/19 09:43 Dose: 300 mg Documented by: Heparin Sodium (Beef Lung) () 50 units IV UD PRN PRN Reason: Port-a-Cath (VAD)Heparin Flush Last Admin: 06/19/19 10:26 Dose: 50 units Documented by: Heparin Sodium (Beef Lung) () 50 units IV UD PRN PRN Reason: Port-a-Cath (VAD)Heparin Flush Hydroxychloroquine Sulfate (Plaquenil) [facility] Last Admin: 06/19/19 09:42 Dose: 200 mg Documented by: Lactobacillus Acidophilus (Acidophilus) 1 tablet PO BID [facility] Last Admin: 06/19/19 09:42 Dose: 1 tablet Documented by: Levothyroxine Sodium (Synthroid) 100 mcg PO DAILY@0600 [facility] Last Admin: 06/19/19 06:00 Dose: 100 mcg Documented by: Nutritional Formula (Inder - [place] Flavor) [facility] Last Admin: 06/19/19 09:42 Dose: 1 packet Documented by: Nutritional Formula (Lactose Free) (Ensure Clear) 120 ml PO 4X/DAY [facility] Last Admin: 06/19/19 09:43 Dose: Not Given Documented by: Ondansetron HCl (Zofran Odt) 4 mg PO Q6H PRN PRN PRN Reason: NAUSEA Oxycodone HCl (Oxyir) 10 mg PO Q4H PRN PRN PRN Reason: Pain Score 6-10/10 Last Admin: 06/18/19 14:16 Dose: 5 mg Documented by: Pantoprazole Sodium (Protonix) 40 mg PO DAILY [facility] Last Admin: 06/19/19 09:43 Dose: 40 mg Documented by: Polysaccharide Iron Complex (Ferrex 150) [facility] Last Admin: 06/19/19 09:43 Dose: 150 mg Documented by: Scopolamine HBr (Transderm-Scop) 1 patch TD Q3D [facility] Last Admin: 06/17/19 20:24 Dose: Not Given Documented by: Sodium Chloride () 10 - 40 ml IV UD PRN PRN Reason: Port-a-Cath (VAD) Flush Last Admin: 06/19/19 10:26 Dose: 10 ml Documented by: Sodium Chloride (0.9% Nacl (Sterile) Posiflush) 10 - 40 ml IV UD PRN PRN Reason: Port access or dressing change Sodium Chloride () 10 - 40 ml IV UD PRN PRN Reason: Multilumen/Monroy Flush Sodium Chloride (0.9% Nacl (Sterile) Posiflush) 10 - 40 ml IV UD PRN PRN Reason: Port access or dressing change Sodium Chloride () 10 - 40 ml IV UD PRN PRN Reason: Port-a-Cath (VAD) Flush Sodium Chloride (0.9% Nacl (Sterile) Posiflush) 10 - 40 ml IV UD PRN PRN Reason: Port access or dressing change Tramadol HCl (Ultram) 50 mg PO DAILY [facility] Last Admin: 06/19/19 09:42 Dose: 50 mg Documented by: Discharge Diet: No Restrictions Discharge Activity: May not drive while taking narcotic pain medications., May Not Shower - until the drain is removed., - - keep head elevated. no heavy lifting. continue chest wall zain wrap compression. May shower in (days): 10 - when the drain is removed. May resume sexual activity in: No Restrictions Weight Bearing Status: Weight bearing as tolerated Lifting Restrict to (lbs):: 20 Keep extremity elevated above heart level: - - elevate head. Call your doctor if your incision/area has: Continuous Slow Oozing, Sudden Increased Bleeding, Increased Pain/ Swelling, Increased Redness, Foul Smelling Discharge, Swelling at the incision site Call your doctor if you observe: Fever of 101 or Higher, Coldness, Increased Pain, Shortness of breath, Chest pain, Calf discomfort, Uncontrolled pain Suture Line Care: - - dry dressings daily. Change Dressing in (Days):: 1 - dry dressings daily. Cleanse incision/area with: - - may get incision wet in the shower after the drain is removed. Drain: Suction - levon drain to bulb suction. empty and record output daily. Home Medications: Medications to take at Discharge Esomeprazole Mag Trihydrate [Nexium] 40 mg PO DAILY 03/11/13 buPROPion XL [Wellbutrin Xl] 300 mg PO DAILY 03/11/13 hydroxychloroquine 200 mg tablet 200 mg PO BID 12/16/18 tramadol 50 mg tablet 50 mg PO DAILY 12/16/18 Anastrozole [Arimidex] 1 mg PO DAILY 90 Days #90 tab NS 12/26/18 Lidocaine/Prilocaine [Lidocaine-Prilocaine Cream] 1 applicatio TP DAILY PRN PRN 30 Days #1 tube 01/01/19 Calcium Carbonate/Vitamin D3 [Calcium 600 + Vit D Tablet] 1 ea PO BID 04/14/19 Cholecalciferol (Vitamin D3) [Vitamin D3] 5,000 unit PO DAILY 04/14/19 Iron Polysaccharide Complex [Ferrex 150] 150 mg PO DAILYCM #30 cap 04/23/19 Diazepam [Valium] 5 mg PO 4X/DAY PRN #30 tab 06/13/19 Lactobacillus Acidophilus/Fos [Acidophilus Probiotic Tablet] 1 ea PO BID #30 tab 06/13/19 Ondansetron [Zofran Odt] 4 mg PO Q6H PRN PRN #30 tab 06/13/19 doxycycline hyclate 100 mg capsule 100 mg PO BID #42 cap 06/16/19 Docusate Sodium [Colace] 100 mg PO DAILY 06/17/19 Levothyroxine Sodium 100 mg PO DAILY 06/17/19 gabapentin 300 mg capsule 300 mg PO BID 30 Days #60 cap 06/17/19 Docusate Sodium [Colace] 100 mg PO BID cap 06/19/19 Levothyroxine [Synthroid] 100 mcg PO DAILY@0600 tab 06/19/19 Menthol/Lanolin/Calamine/Znox [Calmoseptine Ointment] 1 applic TOPICAL BID tube 06/19/19 Scopolamine Patch 1mg/72hr [Transderm-Scop] 1 patch TD Q3D patch 06/19/19 Other Amb Orders: CBC-Complete Blood Cnt No Diff Time Frame: 4 Days, Facility: [facility], Location: [facility] Primary Care Physician: Krunal Gee MD [Primary Care Provider] - Please Follow Up With: Isma Dillon MD When: sunday06/23/19. call [phone] for appt. Disposition: Home Minutes spent on discharge:: 30 Patient Condition:: Stable Medical Necessity - Tobacco Use Smoking Status: Former smoker Tobacco Use: Cigarettes Meaningful Use Info Meaningful Use Diagnoses (Choose all that apply): None applicable
[2019-06-19 12:02] VITALS: BP 139/68; PULSE 77; RESP 18; TEMP 36.7; O2SAT 98
[2019-06-19 12:03] VITALS: BP 139/68; PULSE 77; RESP 18; TEMP 36.7; O2SAT 100
== END 2019-06-19 12:28 | disposition home or self-care (01) | DRG 812 ==
PROVIDERS: Admitting Provider Surgery; PCP Family Medicine; Referring Provider Surgery; Visit Provider Surgery
DX: D62 Acute posthemorrhagic anemia (principal); C50.911 Malignant neoplasm of unspecified site of right female breast; Z17.0 Estrogen receptor positive status [ER+]; N65.1 Disproportion of reconstructed breast; E03.9 Hypothyroidism, unspecified; M85.80 Other specified disorders of bone density and structure, unspecified site; T81.89XA Other complications of procedures, not elsewhere classified, initial encounter; K21.9 Gastro-esophageal reflux disease without esophagitis; F45.29 Other hypochondriacal disorders; F32.9 Major depressive disorder, single episode, unspecified; E66.9 Obesity, unspecified; Z68.27 Body mass index [BMI] 27.0-27.9, adult; Z90.13 Acquired absence of bilateral breasts and nipples; Z85.3 Personal history of malignant neoplasm of breast; Z80.3 Family history of malignant neoplasm of breast; Z87.891 Personal history of nicotine dependence
CPT/HCPCS: 36415; 80053; 84134; 85018; 85027; 86644; 86850; 86900; 86901; 86920; 86922; 97802; J7040; J7120; P9016; A4216

== ENCOUNTER → 2019-06-23 08:33 | Outpatient (CLI) | payer MEDICARE, OTHER, SELFPAY ==
[2019-06-17 16:43] VITALS: BMI 27.5
[2019-06-23 09:15] LABS: Hematocrit 33.1 % (37-47); Hemoglobin 10.4 g/dL (12.0-15.0); Mean Corp Hgb Conc 31.4 g/dL (32-36); Mean Corpuscular Hgb 30.3 pg (27.0-32.0); Mean Corpuscular Volume 96.5 fL (81-99); Mean Platelet Vol. 9.2 fl (6.2-12.0); Platelet Count 349 K/mm3 (150-450); RBC Distribution Width CV 15.1 % (11.6-14.6); RBC Distribution Width SD 51.8 fl (35.1-43.9); Red Blood Count 3.43 M/mm3 (4.2-5.4); White Blood Count 5.9 K/mm3 (4.4-11.0)
== END ==
PROVIDERS: PCP Family Medicine; Referring Provider Surgery; Visit Provider Surgery
DX: D62 Acute posthemorrhagic anemia (principal)
CPT/HCPCS: 36415; 85027

== ENCOUNTER → 2019-07-01 13:57 | Outpatient (CLI) | payer MEDICARE, OTHER, SELFPAY ==
[2019-06-23 10:06] VITALS: BMI 27.5
[2019-07-01 15:11] LABS: Hematocrit 34.1 % (37-47); Hemoglobin 10.8 g/dL (12.0-15.0); Mean Corp Hgb Conc 31.7 g/dL (32-36); Mean Corpuscular Hgb 30.5 pg (27.0-32.0); Mean Corpuscular Volume 96.3 fL (81-99); Mean Platelet Vol. 9.8 fl (6.2-12.0); Platelet Count 318 K/mm3 (150-450); RBC Distribution Width CV 13.9 % (11.6-14.6); RBC Distribution Width SD 49.1 fl (35.1-43.9); Red Blood Count 3.54 M/mm3 (4.2-5.4); White Blood Count 5.3 K/mm3 (4.4-11.0)
== END ==
PROVIDERS: PCP Family Medicine; Referring Provider Nurse Practitioner Family; Visit Provider Nurse Practitioner Family
DX: T81.89XA Other complications of procedures, not elsewhere classified, initial encounter (principal); D62 Acute posthemorrhagic anemia
CPT/HCPCS: 36415; 85027

== ENCOUNTER → 2019-07-14 | Outpatient (CLI) | payer MEDICARE, OTHER, SELFPAY ==
[2019-07-14 08:15] VITALS: BMI 27.5
== END | disposition home or self-care (01) ==
LOC: LABSPEC 13:21
PROVIDERS: PCP Family Medicine; Referring Provider Surgery; Visit Provider Surgery
DX: T81.89XA Other complications of procedures, not elsewhere classified, initial encounter (principal); C50.911 Malignant neoplasm of unspecified site of right female breast; F17.200 Nicotine dependence, unspecified, uncomplicated
CPT/HCPCS: 87070; 87075; 87077; 87186; 87205

== ENCOUNTER 2019-07-16 16:35 | Inpatient (IN) | payer MEDICARE, OTHER, SELFPAY ==
[2019-07-14 08:15] VITALS: BMI 27.5
[2019-07-16] VITALS (13 sets, daily range): BP systolic 118–138; BP diastolic 64–83; PULSE 73–90; RESP 16–20; TEMP 36.2–37.2; O2SAT 98–100; BMI 27.4
--- NOTE | 2019-07-16 10:14 | HP.PCM_ITS ---
History and Physical Date of Admission: 07/16/19 HISTORY OF PRESENT ILLNESS 68 year old woman presents with diagnosis of right breast cancer after a breast biopsy on 12/16/18. Pathology showed invasive ductal carcinoma, nuclear grade 3. Estrogen receptors were positive. Progesterone receptors were positive. HER/2Neu was equivocal for overexpression. Her initial mammogram and ultrasound from 12/12/18 were suspicious for carcinoma which prompted the biopsy. A port was placed on 12/30/18. She then underwent neoadjuvant chemotherapy which was completed on 03/11/19. She had a Breast MRI on 04/01/19 which showed in the right breast, the breast tissue is fatty with minimal background enhancement. In the central portion of the breast at the 12:00 position there is an irregular enhancing mass measuring 17 mm x 11 mm x 23 mm. This mass corresponds to the mass seen on the mammogram and on the right breast ultrasound. There is minimal lucency in the central portion of this mass which may represent central necrosis. In the left breast, the breast tissue is fatty with minimal background enhancement. There are no abnormal enhancing masses or areas of non- mass enhancement in the left breast. There are no enlarged or abnormal lymph nodes. There is no abnormality in the visualized regions of the chest or liver. She also underwent gene testing and was positive for two markers. She is concerned about developing carcinoma in the left breast and has cancer phobia. She went to surgery on 04/21/19 where she underwent right simple mastectomy and right axillary sentinel lymph node biopsy by Dr. Siddiqui and prophylactic mastectomy left breast and first stage immediate bilateral breast reconstruction with placement of submuscular saline tissue expanders (650 ml for each side) and placement of Alloderm Select acellular dermal matrix grafts (132 cm2 for each side) by Dr. Dillon. Pathology on the right breast showed invasive ductal carcinoma with negative lymph nodes. Pathology on the left breast showed benign breast tissue with dense fibrosis and focal ductal ectasia and a hyalinized fibroadenoma. Estrogen receptors were positive. Progesterone receptors were positive. Her2/MISTY was negative for overexpression. There is no need for radiation therapy or IV chemotherapy at this time. She is getting adjuvant hormonal therapy with Arimidex. Postoperatively she developed some nonhealing and some scabbing on the left breast mastectomy incision. Wound culture was negative. She was started on Silver dressing changes. Healing was slow and there was no gross exposure of the shear grinder operator. She was taken back to surgery on 06/13/19 where she underwent revision left breast reconstruction with excisional debridement nonhealing wound with removal of Alloderm acellular dermal matrix graft and removal exposed saline tissue shear grinder operator and complex secon sherrill wound closure. A week after surgery she had bruising on her left chest wall and flank. She had some acute blood loss anemia that necessitated PRBC. Her Hgb stabilized at 10.8. Chest wall compression was continued. The bruising on her skin resolved and the residual hematoma slowly resolved as well through drainage from the drain tube. She was maintained on Doxycycline during this time. The initial goal was to wait 6 weeks to allow healing of the incision and allow inflammation to subside before proceeding with irrigating out any residual blood and placing another saline tissue shear grinder operator at the same time which was tentatively going to be scheduled for next week. However a few days ago, she developed a small opening on the inferior aspect of the incision with small amount of drainage. It was cultured on 07/14/19 and is negative thus far. Levaquin was added to her antibiotics. So the surgery was moved up to this week. PAST MEDICAL HISTORY Increased tearing Osteopenia Encounter for insertion of venous access port Primary cancer of right female breast Depression GERD (gastroesophageal reflux disease) Hypothyroidism Obesity Osteoarthritis Nonhealing surgical wound left breast reconstruction Acquired absence bilateral breasts Disproportion reconstructed breasts Cancer phobia left breast Acute blood loss anemia Postop hematoma left breast reconstruction PAST SURGICAL HISTORY appendectomy bilateral knee surgery right simple mastectomy and right axillary sentinel lymph node biopsy by Dr. Siddiqui - 04/21/19 prophylactic mastectomy left breast and first stage immediate bilateral breast reconstruction with placement of submuscular saline tissue expanders (650 ml for each side) and placement of Alloderm Select acellular dermal matrix grafts (132 cm2 for each side) by Dr. Dillon - 04/21/19 Revision left breast reconstruction with excisional debridement nonhealing wound with removal of Alloderm acellular dermal matrix graft and removal exposed saline tissue shear grinder operator and complex secondary wound closure - 06/13/19 ALLERGIES No Known Allergies MEDICATIONS Esomeprazole Mag Trihydrate [Nexium] buPROPion XL [Wellbutrin Xl] hydroxychloroquine levothyroxine tramadol Anastrozole [Arimidex] Dexamethasone [Decadron] Lidocaine/Prilocaine [Lidocaine-Prilocaine Cream] Ondansetron [Ondansetron Odt] Prochlorperazine Maleate Neurontin Levaquin Doxycycline FAMILY HISTORY Mother - Breast cancer Brother - Cancer Father - Cancer SOCIAL HISTORY Smoking Status: Light Smoker (<10/day) alcohol intake: current alcohol intake frequency: 0-2 drinks per day substance use type: does not use REVIEW OF SYSTEMS General - Denies fever and weight loss. Has fatigue. Eyes - Denies cataracts and glaucoma. ENT - Denies nasal congestion and sore throat. Endocrine - Denies excessive thirst and urination. Has recent diagnosis of right breast cancer. Had neoadjuvant chemotherapy. Skin - Denies skin cancer. Has nonhealing surgical wound left breast reconstruction with postop hematoma. Musculoskeletal - Has joint pain, joint stiffness, weakness of muscles and joints. Denies back pain, and arthritis. Neuro - Denies headaches. Cardiovascular - Denies chest pain, fatigue, and shortness of breath with exertion. Psych - Denies anxiety. Has depression. Respiratory - Denies chronic cough and shortness of breath. Gastrointestinal - Denies nausea, vomiting, diarrhea, and constipation. Hematologic - Denies abnormal bruising and bleeding. Genitourinary - Denies hematuria and urinary frequency. Has some incontinence. PHYSICAL EXAMINATION General - Alert and Oriented. Her bra size is 38 DD. HEENT - PERRL. EOMI. Throat is clear. Neck - Supple and nontender. No cervical adenopathy. Breasts - Right breast mastectomy incision is healed. Left breast mastectomy incision shows a nonhealing wound at inferior aspect that measures 2 x 0.7 cm. Scabbing present. Nontender. A small amount resolving hematoma present. No active bleeding seen. No odor. No fluctuance. No redness seen. Lungs - Clear to auscultation. Heart - Regular rate and rhythm. Abdomen - Soft and nondistended. Has some redundant skin and subcutaneous tissue from the umbilicus to the pubic area. She has a RLQ appendectomy scar. Extremities - FROM. No axillary adenopathy. Radial pulses are palpable. Neuro - CN II-XII grossly intact. Psych - Normal mood and affect. ASSESSMENT 1. Right breast cancer. 2. Cancer phobia left breast. 3. Positive test for genetic breast cancer susceptibility marker. 4. Acquired absence bilateral breasts. 5. Disproportion reconstructed breasts. 6. Estrogen receptor positive status. 7. Family history of breast cancer. 8. Neoadjuvant chemotherapy. 9. Smoker, quit after her breast cancer diagnosis. 10. Postop hematoma left breast reconstruction with nonhealing surgical wound. PLAN Continue to wear EMA wrap for chest wall compression. She states the Neurontin has been helpful. Her Hgb has stabilized. It was 10.8 on 07/01/19 and 10.4 on 06/23/19. Now that the wound has opened up, will proceed with surgical revision this week. The inflammation in the skin has improved, and it appears likely that the wound can be closed after removing any residual resolving hematoma. Will place additional drains. Ideally, the goal is to combine both drainage of any residual hematoma and placement of a saline tissue shear grinder operator at the same time. Patient is interested in that scenario. However she understands that when I get in there, if there is obvious infection then I would hold off placing the saline tissue shear grinder operator at the same time. Also I would hold off on placing the shear grinder operator if I have trouble closing the wound due to residual swelling in the skin even though clinically at this point, I should be able to close the skin. Patient voices understanding. With surgery being planned later this week, will keep the drain in as long as it is draining. Will continue the Doxycycline as long as the drain is in place. With the recent opening of a small portion of the incision inferiorly, Levaquin was added. The wound was cultured on 07/14/19 and is negative thus far. Continue Silver dressing changes daily until the surgery later this week. Surgery will be done under general anesthesia with a surgical observation overnight stay in the hospital. Drains will be placed for several days and she will be maintained on antibiotics until the drains are removed. Tissue that is removed will be sent to Pathology for analysis to rule out carcinoma and to Microbiology for culture. A positive culture will necessitate antibiotic therapy. Patient was informed of the risks and complications of the procedure including alternatives to surgery. These were discussed with the patient personally. Patient voices understanding and wishes to proceed. Some of the risks and complications were included in a form from the [employer]. Encouraged patient to stop smoking as it may have deleterious effects on wound healing. She has stopped smoking since her breast cancer diagnosis.
[2019-07-16 11:25] LABS: Bedside Glucose 107 mg/dL (70-110)
[2019-07-16] MEDS: Lactated Ringers 1,000 ML 40 ML IV ×2 (11:40→14:15)
[2019-07-16] MEDS: Gabapentin 600 MG Tablet PO (11:43)
[2019-07-16] MEDS: Acetaminophen 500 MG Tablet 1000 MG PO ×3 (11:43→23:52)
[2019-07-16] MEDS: Scopolamine 1mg/72hr Patch 1 PATCH TRANSDERM. (11:44)
[2019-07-16 11:47] LABS: Magnesium 1.4 mg/dL (1.6-2.6)
[2019-07-16] MEDS: Magnesium Sulfate 4gm/100mL 4 GM/100 ML IV.SOLN. IV (12:03)
[2019-07-16 12:33] LABS: International Normalized Ratio 1.1; Prothrombin Time (Protime)PT. 14.4 SECONDS (11.7-14.9)
[2019-07-16 12:34] LABS: Partial Thromboplast Time 32.9 Seconds (24.1-36.2)
--- NOTE | 2019-07-16 13:00 | BRBX_PTH ---
PATIENT: ANABEL LOCKE LOC: MS3 U#:[id number] AGE/SX: 68/F ROOM: RI311 RE07/17/[address]: Dr. Isma Dillon MD : 1950 BED: 1 DIS: 07/18/2019 SPEC #: [id number] RECD: 07/16/19 17:13 STATUS: HALEY REQ #: [id number] GASTON: 07/16/19 13:[address]: Isma Dillon DEPT: SURGICAL PATHOLOGY RECD BY: Abraham Mancuso ENTERED: 07/17/19 08:49 SP TYPE: BREAST BX OTHR DR: Dr. Krunal Gee MD Tissues: Left breast, NOS Procedures: Special Stain Group I Surgery Specimen Level III AFB Stain (control) GMS Stain (control) HEADER OPERATION: ERAS, revision left breast reconstruction wound with drainage PRE-OP DIAGNOSIS: Postop hematoma left breast reconstruction with nonhealing surgical wound TISSUE SUBMITTED: Soft tissue left breast MICROSCOPIC DIAGNOSIS Soft tissue left breast: Fragments of fibroadipose and fibroconnective tissue with acute and chronic inflammation, granulation tissue reaction, fat necrosis, foreign body giant cell reaction and abscess formation. Special stains for acid fast bacilli and fungi are negative for organisms; matched controls are appropriate. ALEXY:[email or web address] 07/18/19 MICROSCOPIC DESCRIPTION Slides are reviewed. GROSS DESCRIPTION Received in fixative is one container labeled with the patient's name and designated soft tissue left breast. The specimen consists of multiple pieces of skin and fibroadipose tissue that in aggregate measure 14 x 9 x 3 cm. The skin surface do not show any lesion. A few fragments of blood clots are also noted. Sections do not reveal any mass lesion. Resin Maker sections are submitted in five cassettes. Cassette 1 also contains the skin with underlying tissue. / ALEXY:[email or web address] 07/17/19 TC:2 CPT: 07073, 38980 x2
--- NOTE | 2019-07-16 16:26 | PCM.OPRPT ---
Report of Operation Date of Procedure: 07/16/19 Pre-Operative Diagnosis: 1. Right breast cancer. 2. Cancer phobia left breast. 3. Positive test for genetic breast cancer susceptibility marker. 4. Acquired absence bilateral breasts. 5. Disproportion reconstructed breasts. 6. Estrogen receptor positive status. 7. Family history of breast cancer. 8. Neoadjuvant chemotherapy. 9. Smoker, quit after her breast cancer diagnosis. 10. Postop hematoma left breast reconstruction with nonhealing surgical wound. Post-Operative Diagnosis: Same. Surgery/Procedure Performed:: 1. Revision left breast reconstruction with drainage and evacuation and excisional debridement residual hematoma. 2. Delayed left breast reconstruction with placement of saline tissue audit clerks supervisor (535 ml) and placement Alloderm Select Restore acellular dermal matrix graft (327 cm2). 3. Excisional debridement nonhealing wound left breast reconstruction and complex secondary wound closure with lateral breast advancement skin flap (20 cm2). Description of Surgical Findings:: 68 year old woman presents with diagnosis of right breast cancer after a breast biopsy on 12/16/18. Pathology showed invasive ductal carcinoma, nuclear grade 3. Estrogen receptors were positive. Progesterone receptors were positive. HER/2Neu was equivocal for overexpression. Her initial mammogram and ultrasound from 12/12/18 were suspicious for carcinoma which prompted the biopsy. A port was placed on 12/30/18. She then underwent neoadjuvant chemotherapy which was completed on 03/11/19. She had a Breast MRI on 04/01/19 which showed in the right breast, the breast tissue is fatty with minimal background enhancement. In the central portion of the breast at the 12:00 position there is an irregular enhancing mass measuring 17 mm x 11 mm x 23 mm. This mass corresponds to the mass seen on the mammogram and on the right breast ultrasound. There is minimal lucency in the central portion of this mass which may represent central necrosis. In the left breast, the breast tissue is fatty with minimal background enhancement. There are no abnormal enhancing masses or areas of non-mass enhancement in the left breast. There are no enlarged or abnormal lymph nodes. There is no abnormality in the visualized regions of the chest or liver. She also underwent gene testing and was positive for two markers. She is concerned about developing carcinoma in the left breast and has cancer phobia. She went to surgery on 04/21/19 where she underwent right simple mastectomy and right axillary sentinel lymph node biopsy by Dr. Siddiqui and prophylactic mastectomy left breast and first stage immediate bilateral breast reconstruction with placement of submuscular saline tissue expanders (650 ml for each side) and placement of Alloderm Select acellular dermal matrix grafts (132 cm2 for each side) by Dr. Dlilon. Pathology on the right breast showed invasive ductal carcinoma with negative lymph nodes. Pathology on the left breast showed benign breast tissue with dense fibrosis and focal ductal ectasia and a hyalinized fibroadenoma. Estrogen receptors were positive. Progesterone receptors were positive. Her2/MISTY was negative for overexpression. There is no need for radiation therapy or IV chemotherapy at this time. She is getting adjuvant hormonal therapy with Arimidex. Postoperatively she developed some nonhealing and some scabbing on the left breast mastectomy incision. Wound culture was negative. She was started on Silver dressing changes. Healing was slow and there was no gross exposure of the audit clerks supervisor. She was taken back to surgery on 06/13/19 where she underwent revision left breast reconstruction with excisional debridement nonhealing wound with removal of Alloderm acellular dermal matrix graft and removal exposed saline tissue audit clerks supervisor and complex secondary wound closure. A week after surgery she had bruising on her left chest wall and flank. She had some acute blood loss anemia that necessitated PRBC. Her Hgb stabilized at 10.8. Chest wall compression was continued. The bruising on her skin resolved and the residual hematoma slowly resolved as well through drainage from the drain tube. She was maintained on Doxycycline during this time. The initial goal was to wait 6 weeks to allow healing of the incision and allow inflammation to subside before proceeding with irrigating out any residual blood and placing another saline tissue audit clerks supervisor at the same time which was tentatively going to be scheduled for next week. However a few days ago, she developed a small opening on the inferior aspect of the incision with small amount of drainage. It was cultured on 07/14/19 and is negative thus far. Levaquin was added to her antibiotics. So the surgery was moved up to this week. Patient was informed of the risks and complications of the procedure including alternatives to surgery. These were discussed with the patient personally. Patient voices understanding and wishes to proceed. Some of the risks and complications were included in a form from the [place] [employer]. IV Fluids - 1850 ml. Urine Output - 150 ml. I used [employer]ford Sermoa Ultra High Profile, Smooth Breast Tissue Tobacco Roller, Suture Tabs, Integral Injection Dome, (535 ml) Reference Number - [id number]. Lot Number - [id number]. Serial Number - [id number]. Expiration - June 24, 2023. I used Alloderm Select Restore Acellular Dermal Matrix Graft, Contour Perforated Large, X-Thick, (327 cm2). Reference Number - [id number]. Lot Number - [id number]. Expiration - February,. I used AmnioFill Placental Connective Tissue Powder, 500 mg. Catalog Number - [id number]. Lot Number - [id number]. Expiration - May 14, 2024. I used Trae absorbable hemostat., (I used two vials). Reference Number - [id number]. Lot Number - [id number]. Expiration - April 10, 2023. Reference Number - [id number]. Lot Number - [id number]. Expiration - January 09, 2024. junior systems engineer: Joellen Chaves. Type of Anesthesia:: General Specimen's removed: Left breast tissue and residual hematoma to Pathology and Microbiology. Drains: Jarret. Estimated Blood Loss (mL): 50 ml. Fluids Replaced: 2000 ml (IV Fluids 1850 ml, Urine Output 150 ml). Description of Procedure: Patient was taken to OR in supine position and was placed under general anesthesia. The left breast was prepped and draped in the usual fashion. SCD's were placed for DVT prophylaxis. Perioperative antibiotics were given intravenously. A curiel catheter was placed. Using xylocaine with epinephrine, the left breast wound was infiltrated. After waiting 5 minutes for the anesthetic to take effect, I excised the nonhealing wound including the previous mastectomy incision. A small amount of residual hematoma was seen and was evacuated. A curette was used to further debride the breast wound. There was capsular formation from the residual hematoma which was excised. There was residual inflammation in the skin flaps making wound closure a little difficult. I dissected the breast pocket in all directions thus making the skin flaps a little easier to advance toward each other. Still I wanted less tension. So I made a horizontal incision laterally with an elliptical excision down into the subcutaneous tissue. I was able then to further elevate the lateral breast skin flap. It was easily advance into the breast wound with minimal tension. The size of the wound defect and the size of the flap needed to close the defect was 20 cm2. I placed a size 15 Jarret drain through a separate stab incision laterally and secured to the skin with 3-0 Nylon suture. Tissue that was excised and debrided was sent to Pathology for analysis to rule out carcinoma and to Microbiology for culture. The wound was irrigated with Irrisept 0.05% Chlorhexidine solution. After waiting a minute, the breast wound was further irrigated with saline. Hemostasis was obtained with electrocautery. I then sprayed Trae absorbable hemostat into the breast wound to minimize seroma formation postoperatively. I used 2 vials. Good bleeding was noted at the skin flap edges. With the creation of the lateral breast skin flap and the breast wound not looking clinically grossly infected as there was no pus seen, I felt we could place a saline tissue audit clerks supervisor. The preliminary culture from a couple of days ago was negative at the time of the surgery. Will maintain on antibiotics postoperatively for 6 weeks especially if the operative culture is positive. Depending on the culture result, IV antibiotics may be needed as well. Even though I felt confident in placing a saline tissue audit clerks supervisor at this time, I went with a smaller size to minimize too much tension on the skin closure. There is a 650 ml audit clerks supervisor on the right. I will place a 535 ml audit clerks supervisor on the left, both Ultra High Profile expanders. Patient has a history of smoking even though she hasn't smoked since the diagnosis of cancer, there is some residual chronic constriction of the skin perforators which increases risk of wound healing problems. She is also on Plaquenil medication for her arthritis which can decrease the immune system which can affect wound healing as well especially if there is some tension. After deciding on the Stratford TrialBeeoura tissue audit clerks supervisor, Ultra High Profile, 535 ml, I placed it in Betadine. I removed the air from the audit clerks supervisor, then instilled 30 ml of saline and tested to see if there were any leaks in the audit clerks supervisor. When it was noted there were no leaks, the saline was removed. I then placed a piece of Alloderm Select Restore acellular dermal matrix graft to cover the entire audit clerks supervisor for extra protection since the breast skin flaps are thin. I secured the graft with 3-0 Vicryl suture superiorly and laterally and medially. The inferior edge of the audit clerks supervisor was free initially because the suture tabs are there. The audit clerks supervisor was placed into the breast wound and secured to the chest wall with 3-0 Vicryl interrupted sutures through the suture tabs. I placed sutures in all 5 suture tabs. I then covered the inferior aspect of the audit clerks supervisor with the Alloderm by securing it to the chest wall with 3-0 Vicryl interrupted sutures. The vertical breast incision was approximated with 3-0 Monocryl interrupted sutures for the dermis and subcutaneous tissue. The skin was approximated with 4-0 Prolene vertical mattress interrupted sutures and simple interrupted sutures. This was followed by Histoacry skin tissue adhesive. During the wound closure, I sprayed AmnioFill placental connective tissue powder in the area of the breast wound that had broken down previously. This was done to help stimulate and improve the healing process. I was able to advance the lateral breast skin flap into the breast wound for closure with minimal tension. No vascular compromise was noted on the breast skin flaps at the end of the procedure. There was no clinical evidence of hematoma. Kerlix gauze was used for dressing followed by a compression EMA wrap. The size of the wound defect and the size of the flap needed to close the defect was 20 cm2. Patient tolerated the procedure well and was sent to PACU in satisfactory condition. She will be sent upstairs for postop care. She will be discharged when tolerated po analgesia and when she is more steady on her feet with ambulation. I anticipate 1-2 days. She will have her drain in for up to 14 days. She will be maintained on antibiotics at least until the drain is removed. She will keep her head elevated during the initial postop period and be on a lifting restriction. Based on the operative cultures, long-term antibiotics may be needed including the possibility of IV antibiotics. Grafts/Implants Used: Stratford Artoura tissue audit clerks supervisor, Alloderm Regenerative graft, AmnioFill. - Complications None. - Admit VTE Documentation VTE Present on Admission: No VTE Mechan Device Prophylaxis: SCD's VTE Pharm Prophylaxis ordered?: Yes Surgery Charges CPT - 86343 ICD-10 - C50.911, F40.298, Z90.13, N65.1, T81.89xA, L76.32, Z17.0, Z15.01, Z80.3, Z87.891 [id number] C50.911, F40.298, Z90.13, N65.1, T81.89xA, L76.32, Z17.0, Z15.01, Z80.3, Z87.891 [id number] C50.911, T81.89xA, F40.298, Z90.13, N65.1, L76.32, Z17.0, Z15.01, Z80.3, Z87.891 [id number] C50.911, F40.298, Z90.13, N65.1, T81.89xA, L76.32, Z17.0, Z15.01, Z80.3, Z87.891
[2019-07-16] MEDS: Lactated Ringers 1,000 ML 60 ML IV (18:04)
[2019-07-16] MEDS: Ensure Surgery 237 ML LIQUID PO (19:59)
[2019-07-16 20:15] LABS: Anion Gap 4 (5-15); BUN 18 mg/dL (7-18); BUN/Creat Ratio 15.1 RATIO (10-20); Chloride 110 mmol/L (98-107); Creatinine, Serum 1.19 mg/dL (0.55-1.02); EST Glomerular Filtration Rate 48 mL/min (>60); Est Glom Filt Rate - Afr Amer 58 mL/min (>60); Estimated Creatinine Clearance 42.95 ml/min; Glucose 107 mg/dL (74-106); Potassium 3.6 mmol/L (3.5-5.1); Sodium Level 143 mmol/L (136-145)
--- NOTE | 2019-07-16 20:31 | PCM.RX.CS ---
Consult Pharmacy has been consulted to manage selected antiobiotic: Vancomycin Type of Consult: New start Suspected Infection: Skin/Soft tissue Prior Doses of Antibiotics Received/Current Regimen: VANCOMYCIN 1000MG IV PREOP X1 07/16/19 @1143 Labs: Sodium 143 mmol/L (136-145) 07/16/19 11:15 Potassium 3.6 mmol/L (3.5-5.1) 07/16/19 11:15 Chloride 110 mmol/L (98-107) H 07/16/19 11:15 Carbon Dioxide 29.0 mmol/L (21.0-32.0) 07/16/19 11:15 Anion Gap 4 (5-15) L 07/16/19 11:15 BUN 18 mg/dL (7-18) 07/16/19 11:15 Creatinine 1.19 mg/dL (0.55-1.02) H 07/16/19 11:15 Est GFR (MDRD) Af Amer 58 mL/min (>60) L 07/16/19 11:15 Est GFR (MDRD) Non-Af 48 mL/min (>60) L 07/16/19 11:15 BUN/Creatinine Ratio 15.1 RATIO (10-20) 07/16/19 11:15 Glucose 107 mg/dL (74-106) H 07/16/19 11:15 Weight used for dosin.3 kg Estimated Creatinine Clearance: 43 Goal Trough: 10-15 mcg/mL Pharmacy Plan for Drug Dosing: PLAN/RECOMMENDATIONS 1. Vancomycin 1000mg IV Q24hr to start 07/17/19 @1200 2. Trough prior to 3rd total dose per policy 07/18/19 @1130 3. Pharmacy Service will continue to monitor and adjust dosing as required.
[2019-07-16] MEDS: Gabapentin 300 MG Capsule PO (22:30)
[2019-07-16] MEDS: Hydroxychloroquine 200 MG Tablet PO (22:30)
[2019-07-16] MEDS: oxyCODONE 5 MG Tablet PO (22:33)
[2019-07-17 04:16] VITALS: BP 106/63; PULSE 80; RESP 16; TEMP 36.6; O2SAT 99
[2019-07-17] MEDS: oxyCODONE 5 MG Tablet PO ×2 (04:41→22:05)
[2019-07-17] MEDS: Levothyroxine 100 MCG Tablet PO (04:44)
[2019-07-17] MEDS: Acetaminophen 500 MG Tablet 1000 MG PO ×3 (04:44→23:42)
[2019-07-17] MEDS: 0.9% Saline Lock 10 ML Syringe IV ×2 (06:39→14:52)
[2019-07-17 07:06] LABS: Hemoglobin 9.1 g/dL (12.0-15.0); Mean Corp Hgb Conc 31.4 g/dL (32-36); Mean Corpuscular Hgb 30.4 pg (27.0-32.0); Mean Platelet Vol. 9.3 fl (6.2-12.0); Platelet Count 237 K/mm3 (150-450); RBC Distribution Width CV 13.8 % (11.6-14.6); RBC Distribution Width SD 48.9 fl (35.1-43.9); Red Blood Count 2.99 M/mm3 (4.2-5.4); White Blood Count 8.7 K/mm3 (4.4-11.0)
[2019-07-17 07:17] LABS: Erythrocyte Sedimentation Rate 15 mm/hr (0-30)
[2019-07-17 07:36] LABS: ALB/GLOB Ratio 0.8 RATIO (0.9-2.4); AST(SGOT) 16 U/L (15-37); Alanine Aminotransfer ALT/SGPT 11 U/L (13-56); Albumin, Serum 2.8 g/dL (3.2-5.0); Alkaline Phosphatase 70 U/L (45-117); Anion Gap 4 (5-15); BUN 19 mg/dL (7-18); BUN/Creat Ratio 16.2 RATIO (10-20); CRP 5.68 mg/L (0.0-3.0); Calcium,Total 8.4 mg/dL (8.5-10.1); Chloride 107 mmol/L (98-107); Creatinine, Serum 1.17 mg/dL (0.55-1.02); EST Glomerular Filtration Rate 49 mL/min (>60); Est Glom Filt Rate - Afr Amer 59 mL/min (>60); Estimated Creatinine Clearance 43.68 ml/min; Globulin 3.4 g/dL (2.2-4.2); Glucose 138 mg/dL (74-106); Potassium 3.9 mmol/L (3.5-5.1); Prealbumin 18.9 mg/dL (20.0-40.0); Protein, Total 6.2 g/dL (6.4-8.2); Sodium Level 140 mmol/L (136-145)
[2019-07-17 07:40] VITALS: O2SAT 99
[2019-07-17 07:45] LABS: T4 Free Direct 0.79 ng/dL (0.76-1.46); Thyroid Stim Hormone (TSH) 2.72 uIU/mL (0.358-3.74)
[2019-07-17 08:22] LABS: Absolute Lymphocyte Count 1.24 X10^3/uL (0.83-4.51); Basophil# 0.03 X10^3/uL; Basophil% 0.3 % (0-1); Eosinophil# 0.04 X10^3/uL; Eosinophils% 0.4 % (0-5); Lymphocyte # 1.24 X10^3/ul (4.0); Lymphocyte % 13.9 % (19-41); Monocyte# 0.54 X10^3/uL; Monocyte% 6.1 % (0-10); NRBC Flagged by Analyzer 0 % (0-5); Neutrophil # 7.02 X10^3/uL (2.7-7.7)
[2019-07-17 08:24] LABS: Vitamin D,25 Hydroxy 55.9 ng/mL
[2019-07-17] MEDS: Calcium Carb/Vitamin D 1 TABLET Tablet PO ×2 (08:50→17:47)
[2019-07-17] MEDS: Iron Polysaccharide Complex 150 MG CAPSULE PO (08:50)
[2019-07-17] MEDS: Docusate Sodium 100 MG Capsule PO (09:05)
[2019-07-17] MEDS: Enoxaparin 40 MG/0.4 ML Syringe SC (09:05)
[2019-07-17] MEDS: Gabapentin 300 MG Capsule PO ×2 (09:06→22:05)
[2019-07-17] MEDS: Pantoprazole Sodium 40 MG Tablet PO (09:06)
[2019-07-17] MEDS: Hydroxychloroquine 200 MG Tablet PO ×2 (09:06→22:05)
[2019-07-17] MEDS: levoFLOXacin 500 MG Tablet PO (09:07)
[2019-07-17] MEDS: buPROPion (XL) 300 MG TABLET.XL PO (09:08)
[2019-07-17] MEDS: Ensure Surgery 237 ML LIQUID PO ×2 (09:11→13:11)
[2019-07-17 10:00] VITALS: BP 134/64; PULSE 77; RESP 16; TEMP 36.7; O2SAT 99
--- NOTE | 2019-07-17 12:00 | PN.SURG_ITS ---
Subjective: Postop #1 She complains of incisional pain. - Physical Exam Vitals/I&O's: Vital Signs Temp Pulse Resp BP Pulse Ox 98.0 F 77 16 134/64 H 99 07/17/19 10:00 07/17/19 10:00 07/17/19 10:00 07/17/19 10:00 07/17/19 10:00 Oxygen Flow Rate (L/min) 2 Oxygen Delivery Method Room Air Weight: 172 lb 9.951 oz Body Mass Index (BMI) 27.4 Intake and Output for Last 24 Hours 07/15/19 07/16/19 07/17/19 23:59 23:59 23:59 Intake Total 2375 / 3149 1678 / 1678 Output Total 275 / 1195 1240 / 1240 Balance 2099 / 1953 438 / 438 Drainage 235 ml. General: Alert, Oriented x3 HEENT: PERRLA, EOMI Oral: Moist Mucosa Neck: Supple Abdomen: Soft, Non-Distended Skin: Incision - left mastectomy incision is dry and intact. No vascular compromise noted on the breast skin flap. No clinical evidence of hematoma. Mild tenderness to palpation. Neurological: Cranial nerves II-XII grossly intact Psych/Mental Status: Normal Affect, Appropriate Microbiology Past 72 Hours 07/16/19 15:05 Other - Other Gram Stain - Final Laboratory Results 07/16/19 11:15: PT 14.4, INR 1.1, APTT 32.9 07/16/19 11:15: Sodium 143, Potassium 3.6, Chloride 110 H, Carbon Dioxide 29.0, Anion Gap 4 L, BUN 18, Creatinine 1.19 H, Estim Creat Clear Calc 42.95, Est GFR (MDRD) Af Amer 58 L, Est GFR (MDRD) Non-Af 48 L, BUN/Creatinine Ratio 15.1, Glucose 107 H, Calcium 9.0 07/17/19 07:00: WBC 8.7, RBC 2.99 L, Hgb 9.1 L, Hct 29.0 L, MCV 97.0, MCH 30.4, MCHC 31.4 L, RDW Std Deviation 48.9 H, RDW Coeff of Oumou 13.8, Plt Count 237, MPV 9.3, Immature Gran % (Auto) 0.300, Neut % (Auto) 79.0 H, Lymph % (Auto) 13.9 L, [place] % (Auto) 6.1, Eos % (Auto) 0.4, Baso % (Auto) 0.3, Absolute Neuts (auto) 7.0, Absolute Lymphs (auto) 1.24, Nucleated RBC % 0, ESR 15 07/17/19 07:00: Sodium 140, Potassium 3.9, Chloride 107, Carbon Dioxide 29.0, An ion Gap 4 L, BUN 19 H, Creatinine 1.17 H, Estim Creat Clear Calc 43.68, Est GFR (MDRD) Af Amer 59 L, Est GFR (MDRD) Non-Af 49 L, BUN/Creatinine Ratio 16.2, Glucose 138 H, Calcium 8.4 L, Total Bilirubin 0.20, AST 16, ALT 11 L, Alkaline Phosphatase 70, C-React Prot Ext Range 5.68 H, Total Protein 6.2 L, Albumin 2.8 L, Globulin 3.4, Albumin/Globulin Ratio 0.8 L, Prealbumin 18.9 L 07/17/19 07:00: TSH 2.72, Free T4 0.79 07/17/19 07:00: Vitamin D 25-Hydroxy 55.9 07/17/19 07:00: WBC Cancelled, Corrected WBC Cancelled, RBC Cancelled, Hgb Cancelled, Hct Cancelled, MCV Cancelled, MCH Cancelled, MCHC Cancelled, RDW Std Deviation Cancelled, RDW Coeff of Oumou Cancelled, Plt Count Cancelled, MPV Cancelled, Immature Gran % (Auto) Cancelled, Neut % (Auto) Cancelled, Lymph % (Auto) Cancelled, [place] % (Auto) Cancelled, Eos % (Auto) Cancelled, Baso % (Auto) Cancelled, Absolute Neuts (auto) Cancelled, Absolute Lymphs (auto) Cancelled, Total Counted Cancelled, Neutrophils % (Manual) Cancelled, Band Neutrophils % Cancelled, Lymphocytes % (Manual) Cancelled, Monocytes % (Manual) Cancelled, Eosinophils % (Manual) Cancelled, Basophils % (Manual) Cancelled, Metamyelocytes % Cancelled, Myelocytes % Cancelled, Promyelocytes % Cancelled, Blast Cells % Cancelled, Plasma Cell % (Manual) Cancelled, Other Cells % Cancelled, Nucleated RBC % Cancelled, Nucleated RBCs/100 WBC Cancelled, Differential Comment Cancelled, Diff Path Review Cancelled, Hypersegmented Neuts Cancelled, Atypical Lymphocytes Cancelled, Reactive Lymphocytes Cancelled, Smudge Cells Cancelled, Toxic Granulation Cancelled, Toxic Vacuolation Cancelled, Dohle Bodies Cancelled, Jayla Rods Cancelled, Platelet Estimate Cancelled, Plt Morphology Comment Cancelled, RBC Morphology Cancelled, Polychromasia Cancelled, Hypochromasia Cancelled, Poikilocytosis Cancelled, Basophilic Stippling Cancelled, Anisocytosis Cancelled, Microcytosis Cancelled, Macrocytosis Cancelled, Spherocytes Cancelled, Sickle Cells Cancelled, Target Cells Cancelled, Tear Drop Cells Cancelled, Ovalocytes Cancelled, Stomatocytes Cancelled, Mendez-[place] Bodies Cancelled, Luan Cells Cancelled, Bite Cells Cancelled, Crenated Cell Cancelled, Acanthocytes (Spur) Cancelled, Rouleaux Cancelled, Schistocytes Cancelled Current Medications Acetaminophen (Tylenol) 1,000 mg PO Q6 [facility] Last Admin: 07/17/19 04:44 Dose: 1,000 mg Documented by: Anastrozole (Arimidex) 1 mg PO DAILY [facility] Bupropion HCl (Wellbutrin Xl) 300 mg PO DAILY [facility] Last Admin: 07/17/19 09:08 Dose: 300 mg Documented by: Calcium/Vitamin D (Os-Jesús 500mg + D) [facility] Admin: 07/17/19 08:50 Dose: 1 tablet Documented by: Cholecalciferol (Vitamin D (25mcg)) 5,000 unit PO DAILY [facility] Last Admin: 07/17/19 09:07 Dose: 5,000 unit Documented by: Docusate Sodium (Colace) 100 mg PO DAILY [facility] Last Admin: 07/17/19 09:05 Dose: 100 mg Documented by: Enoxaparin Sodium (Lovenox) 40 mg SC DAILY [facility] Last Admin: 07/17/19 09:05 Dose: 40 mg Documented by: Enteral Nutritional Formula (Ensure Surgery) 237 ml PO TIDCM [facility] Last Admin: 07/17/19 09:11 Dose: 237 ml Documented by: Gabapentin (Neurontin) 300 mg PO BID [facility] Last Admin: 07/17/19 09:06 Dose: 300 mg Documented by: Heparin Sodium (Beef Lung) () 50 units IV UD PRN PRN Reason: PICC Line Heparin Flush Heparin Sodium (Beef Lung) () 50 units IV UD PRN PRN Reason: Port-a-Cath (VAD)Heparin Flush Hydromorphone HCl (Dilaudid Inj) 0.5 - 1 mg IV Q3H PRN PRN PRN Reason: Pain Score 6-10/10 Hydroxychloroquine Sulfate (Plaquenil) 200 mg PO BID [facility] Last Admin: 07/17/19 09:06 Dose: 200 mg Documented by: Lactated Ringer's () 1,000 mls @ 40 mls/hr IV .Q25H [facility] Last Infusion: 07/16/19 18:04 Dose: Infused Documented by: Vancomycin IV Pharmacy to Dose (1 ea/ Sodium Chloride) 500 mls @ 250 mls/hr IV PRN PRN; Protocol PRN Reason: Rx to Dose Vancomycin HCl (Vancomycin) 1,000 mg in 200 mls @ 200 mls/hr IV Q24H [facility] Insulin Human Lispro (Humalog Kwikpen (Bkc)) 1 - 6 unit SC Q4H PRN PRN; Protocol PRN Reason: BG>/= 180, SEE PROTOCOL Lactobacillus Acidophilus (Acidophilus) 1 tablet PO BID [facility] Last Admin: 07/17/19 09:05 Dose: 1 tablet Documented by: Levofloxacin (Levaquin Tablet) 500 mg PO DAILY [facility] Last Admin: 07/17/19 09:07 Dose: 500 mg Documented by: Levothyroxine Sodium (Synthroid) 100 mcg PO DAILY@0600 [facility] Last Admin: 07/17/19 04:44 Dose: 100 mcg Documented by: Magnesium Oxide (Mag-Ox 400) 400 mg PO BID PRN PRN PRN Reason: Constipation Ondansetron HCl (Zofran Odt) 4 mg PO Q6H PRN PRN PRN Reason: NAUSEA Oxycodone HCl (Oxyir) 5 - 10 mg PO Q4H PRN PRN PRN Reason: Pain Score 4-10/10 Last Admin: 07/17/19 04:41 Dose: 5 mg Documented by: Pantoprazole Sodium (Protonix) 40 mg PO DAILY [facility] Last Admin: 07/17/19 09:06 Dose: 40 mg Documented by: Polysaccharide Iron Complex (Ferrex 150) [facility] Last Admin: 07/17/19 08:50 Dose: 150 mg Documented by: Scopolamine HBr (Transderm-Scop) 1 patch TD Q3D [facility] Stop: 07/17/19 18:44 Last Admin: 07/16/19 19:49 Dose: Not Given Documented by: Sodium Chloride () 10 - 40 ml IV UD PRN PRN Reason: Port-a-Cath (VAD) Flush Last Admin: 07/17/19 06:39 Dose: 40 ml Documented by: Sodium Chloride (0.9% Nacl (Sterile) Posiflush) 10 - 40 ml IV UD PRN PRN Reason: Port access or dressing change Medical Necessity - Tobacco Use Smoking Status: Former smoker Assessment/Plan All Active Problems (Last Reviewed 07/15/19 @ 20:[address] Isma Dillon MD) Methicillin resistant Staphylococcus epidermidis infection (Acute) Acute blood loss anemia (Resolved) Nonhealing surgical wound (Resolved) Exposed breast implant (Resolved) Anemia (Resolved) Disproportion of reconstructed breast (Acute) Chemotherapy management, encounter for (Resolved) Primary cancer of right female breast (Acute) 1. Right breast cancer. 2. Cancer phobia left breast. 3. Positive test for genetic breast cancer susceptibility marker. 4. Acquired absence bilateral breasts. 5. Disproportion reconstructed breasts. 6. Estrogen receptor positive status. 7. Family history of breast cancer. 8. Neoadjuvant chemotherapy. 9. Smoker, quit after her breast cancer diagnosis. 10. Postop hematoma left breast reconstruction with nonhealing surgical wound. 11. s/p revision left breast reconstruction with drainage and evacuation and excisional debridement residual hematoma. 2. Delayed left breast reconstruction with placement of saline tissue dough molder hand (535 ml) and placement Alloderm Select Restore acellular dermal matrix graft (327 cm2). 3. Excisional debridement nonhealing wound left breast reconstruction and complex secondary wound closure with lateral breast advancement skin flap (20 cm2). Patient has incisional pain. Incision is dry and intact. No clinical evidence of hematoma. No vascular compromise noted on the breast skin flap. Continue Vancomycin. Operative cultures are pending thus far. However, the preop culture shows MRSE which she had before, but it is resistant to tetracycline and intermediate to doxycycline. Because of the presence of the saline tissue dough molder hand, I will proceed with IV antibiotics to treat this resistant MRSE despite being on antibiotics for the past month since her last surgery in 06/02. Anticipate 6 weeks of treatment. So will arrange Home Health and the [facility]. She does not need a PICC line as she already has a port that she can access for the antibiotics. Hgb is stable at 9.1. She has Iron supplementation. Prealbumin was 18.9. Encourage nutritional supplementation with protein to help the healing process. Anticipate discharge tomorrow. Continue zain wrap chest wall compression and a lifting restriction.
[2019-07-17] MEDS: Anastrozole 1 MG Tablet PO (13:24)
--- NOTE | 2019-07-17 14:33 | CASEMGMT ---
CLARA ZACARIAS updated that patient will need IV ATB at discharge. CLARA ZACARIAS in to discuss discharge planning and provided list of HHC and Infusion companies. [facility] and [facility]. CLARA ZACARIAS called patient's pharmacy for prescription coverage Medicare part D BIN: [id number] ID: [id number] Group: [id number] CLARA ZACARIAS sent referrals to [facility] and [facility]. CLARA ZACARIAS will continue to follow this patient and plan for a safe discharge.
[2019-07-17] MEDS: Vancomycin IV 1,000 MG/200 ML BAG 200 MG IV (14:48)
[2019-07-17 16:00] VITALS: BP 136/50; PULSE 89; RESP 16; TEMP 36.9; O2SAT 97
[2019-07-17 19:49] VITALS: BP 141/44; PULSE 89; RESP 18; TEMP 36.9; O2SAT 99
[2019-07-17] MEDS: Lactated Ringers 1,000 ML 40 ML IV (22:05)
[2019-07-18 01:56] VITALS: BP 137/67; PULSE 84; RESP 16; TEMP 36.7; O2SAT 97
[2019-07-18] MEDS: Acetaminophen 500 MG Tablet 1000 MG PO ×2 (05:21→11:58)
[2019-07-18] MEDS: Levothyroxine 100 MCG Tablet PO (05:21)
[2019-07-18 05:49] LABS: Hemoglobin 9.1 g/dL (12.0-15.0); Mean Corp Hgb Conc 31.4 g/dL (32-36); Mean Corpuscular Hgb 30.6 pg (27.0-32.0); Mean Corpuscular Volume 97.6 fL (81-99); Mean Platelet Vol. 9.3 fl (6.2-12.0); Platelet Count 244 K/mm3 (150-450); RBC Distribution Width SD 49.6 fl (35.1-43.9); Red Blood Count 2.97 M/mm3 (4.2-5.4); White Blood Count 7.2 K/mm3 (4.4-11.0)
[2019-07-18 06:19] LABS: Anion Gap 3 (5-15); BUN 21 mg/dL (7-18); BUN/Creat Ratio 17.8 RATIO (10-20); Calcium,Total 8.7 mg/dL (8.5-10.1); Chloride 108 mmol/L (98-107); Creatinine, Serum 1.18 mg/dL (0.55-1.02); EST Glomerular Filtration Rate 48 mL/min (>60); Est Glom Filt Rate - Afr Amer 59 mL/min (>60); Estimated Creatinine Clearance 43.31 ml/min; Glucose 92 mg/dL (74-106); Sodium Level 142 mmol/L (136-145)
[2019-07-18 07:42] VITALS: O2SAT 96
[2019-07-18] MEDS: Calcium Carb/Vitamin D 1 TABLET Tablet PO (08:26)
[2019-07-18] MEDS: Iron Polysaccharide Complex 150 MG CAPSULE PO (08:26)
[2019-07-18] MEDS: Ensure Surgery 237 ML LIQUID PO ×2 (08:26→11:58)
[2019-07-18 08:31] VITALS: BP 146/79; PULSE 84; RESP 18; TEMP 36.7; O2SAT 96
[2019-07-18] MEDS: Hydroxychloroquine 200 MG Tablet PO (09:45)
[2019-07-18] MEDS: Anastrozole 1 MG Tablet PO (09:45)
[2019-07-18] MEDS: Pantoprazole Sodium 40 MG Tablet PO (09:45)
[2019-07-18] MEDS: buPROPion (XL) 300 MG TABLET.XL PO (09:45)
[2019-07-18] MEDS: levoFLOXacin 500 MG Tablet PO (09:45)
[2019-07-18] MEDS: Enoxaparin 40 MG/0.4 ML Syringe SC (09:45)
[2019-07-18] MEDS: Gabapentin 300 MG Capsule PO (09:45)
[2019-07-18] MEDS: Docusate Sodium 100 MG Capsule PO (09:45)
[2019-07-18 09:50] VITALS: PULSE 80
--- NOTE | 2019-07-18 11:16 | CASEMGMT ---
CLARA ZACARIAS received message from [facility] on cost of ATB. $299 per week, CLARA ZACARIAS updated patient regarding cost. Patient agreeable and CLARA ZACARIAS updated Cherise at [facility] and [facility] regarding discharge plan with potential start of care for 07/19/19 1200. CLARA ZACARIAS will continue to follow this patient and plan for a safe discharge.
[2019-07-18] MEDS: Vancomycin IV 1,000 MG/200 ML BAG 200 MG IV (11:58)
--- NOTE | 2019-07-18 13:05 | PCM.DC.BS ---
Discharge Activity: May not drive while taking narcotic pain medications., May Not Shower - -until the drain is removed. Keep head elevated. No heavy lifting. Continue chest wall zain wrap compression. May shower in (days): 10 - After drain is removed May resume sexual activity in: No Restrictions Weight Bearing Status: Weight bearing as tolerated Lifting Restrictions: 20 lbs Keep extremity elevated above heart level: - - elevate head Call your doctor if your incision/area has: Continuous Slow Oozing, Sudden Increased Bleeding, Increased Pain/ Swelling, Increased Redness, Foul Smelling Discharge, Swelling at the incision site Call your doctor if you observe: Fever of 101 or Higher, Coldness, Increased Pain, Shortness of breath, Chest pain, Calf discomfort, Uncontrolled pain Suture Line Care: - - dry dressings daily Change Dressing in (Days):: 1 - dry dressing daily Cleanse incision/area with: - - May get incision wet in the shower after the drain is removed. Drain: Suction - levon drain to bulb suction. Empty and record output daily. Allergies/Adverse Reactions: Allergies No Known Allergies Allergy (Verified 07/16/19 11:26) Medications to take at Discharge Esomeprazole Mag Trihydrate [Nexium] 40 mg PO DAILY 03/11/13 buPROPion XL [Wellbutrin Xl] 300 mg PO DAILY 03/11/13 hydroxychloroquine 200 mg tablet 200 mg PO BID 12/16/18 tramadol 50 mg tablet 50 mg PO DAILY PRN 12/16/18 Anastrozole [Arimidex] 1 mg PO DAILY 90 Days #90 tab NS 12/26/18 Lidocaine/Prilocaine [Lidocaine-Prilocaine Cream] 1 applicatio TP DAILY PRN PRN 30 Days #1 tube 01/01/19 Calcium Carbonate/Vitamin D3 [Calcium 600 + Vit D Tablet] 1 ea PO BID 04/14/19 Cholecalciferol (Vitamin D3) [Vitamin D3] 5,000 unit PO DAILY 04/14/19 Iron Polysaccharide Complex [Ferrex 150] 150 mg PO DAILYCM #30 cap 04/23/19 Lactobacillus Acidophilus/Fos [Acidophilus Probiotic Tablet] 1 ea PO BID #30 tab 06/13/19 Ondansetron [Zofran Odt] 4 mg PO Q6H PRN PRN #30 tab 06/13/19 Docusate Sodium [Colace] 100 mg PO DAILY 02/04/20 Levothyroxine Sodium 100 mcg PO DAILY 06/17/19 Doxycycline Hyclate 100 mg PO BID 07/15/19 Gabapentin [Neurontin] 300 mg PO BID 07/15/19 Menthol/Lanolin/Calamine/Znox [Calmoseptine Ointment] 1 applic TOPICAL BID PRN 07/15/19 levoFLOXacin tablet [Levaquin tablet] 500 mg PO DAILY 07/15/19 Vancomycin IV [Vancomycin] 1,000 mg IV Q24H 42 Days #42 bag 07/17/19 The following prescriptions were given: Vancomycin IV [Vancomycin] 1,000 mg IV Q24H 42 Days #42 bag Prescription Printed Primary Care Physician: Krunal Gee MD [Primary Care Provider] - Please Follow Up With: Dr. Dillon When: Next week
--- NOTE | 2019-07-18 13:47 | CASEMGMT ---
Patient discharging today and confirmed IV ATB with [facility]. Planned start of care for tomorrow at 1200. CLARA ZACARIAS updated [facility] with planned discharge today.
[2019-07-18] MEDS: 0.9% Saline Lock 10 ML Syringe IV (14:09)
[2019-07-18 14:12] VITALS: BP 154/76; PULSE 89; RESP 18; TEMP 37; O2SAT 97
--- NOTE | 2019-07-18 18:27 | PCM.PN.SRG ---
Subjective: Postop #2 Patient is resting comfortably. - Physical Exam Vitals/I&O's: Vital Signs Temp Pulse Resp BP Pulse Ox 98.6 F 89 18 154/76 H 97 07/18/19 14:12 07/18/19 14:12 07/18/19 14:12 07/18/19 14:12 07/18/19 14:12 Oxygen Flow Rate (L/min) 2 Oxygen Delivery Method Room Air Weight: 172 lb 9.951 oz Body Mass Index (BMI) 27.4 Intake and Output for Last 24 Hours 07/16/19 07/17/19 07/18/19 23:59 23:59 23:59 Intake Total 2375 / 3149 1878 / 1878 804.00 / 804.00 Output Total 275 / 1195 1285 / 1285 130 / 130 Balance 2099 / 1953 593 / 593 674.00 / 674.00 Drainage 235 ml yesterday, 130 ml today. General: Alert, Oriented x3 HEENT: PERRLA, EOMI Oral: Moist Mucosa Neck: Supple Abdomen: Soft, Non-Distended Skin: Incision - left mastectomy incision is dry and intact. No vascular compromise noted on the breast skin flap. No clinical evidence of hematoma. Mild tenderness to palpation. Neurological: Cranial nerves II-XII grossly intact Psych/Mental Status: Normal Affect, Appropriate Microbiology Past 72 Hours 07/16/19 15:05 Other - Other Gram Stain - Final 07/16/19 15:05 Other - Other Wound Culture - Preliminary Gram positive organism 07/14/19 - Wound culture - MRSE. Laboratory Results 07/18/19 05:40: WBC 7.2, RBC 2.97 L, Hgb 9.1 L, Hct 29.0 L, MCV 97.6, MCH 30.6, MCHC 31.4 L, RDW Std Deviation 49.6 H, RDW Coeff of Oumou 14.0, Plt Count 244, MPV 9.3 07/18/19 05:40: Sodium 142, Potassium 4.0, Chloride 108 H, Carbon Dioxide 31.0, Anion Gap 3 L, BUN 21 H, Creatinine 1.18 H, Estim Creat Clear Calc 43.31, Est GFR (MDRD) Af Amer 59 L, Est GFR (MDRD) Non-Af 48 L, BUN/Creatinine Ratio 17.8, Glucose 92, Calcium 8.7 Medical Necessity - Tobacco Use Smoking Status: Former smoker Assessment/Plan All Active Problems (Last Reviewed 07/15/19 @ 20:[address] Isma Dillon MD) Methicillin resistant Staphylococcus epidermidis infection (Acute) Acute blood loss anemia (Resolved) Nonhealing surgical wound (Resolved) Exposed breast implant (Resolved) Anemia (Resolved) Disproportion of reconstructed breast (Acute) Chemotherapy management, encounter for (Resolved) Primary cancer of right female breast (Acute) 1. Right breast cancer. 2. Cancer phobia left breast. 3. Positive test for genetic breast cancer susceptibility marker. 4. Acquired absence bilateral breasts. 5. Disproportion reconstructed breasts. 6. Estrogen receptor positive status. 7. Family history of breast cancer. 8. Neoadjuvant chemotherapy. 9. Smoker, quit after her breast cancer diagnosis. 10. Postop hematoma left breast reconstruction with nonhealing surgical wound. 11. s/p revision left breast reconstruction with drainage and evacuation and excisional debridement residual hematoma. 2. Delayed left breast reconstruction with placement of saline tissue automobile service advisor (535 ml) and placement Alloderm Select Restore acellular dermal matrix graft (327 cm2). 3. Excisional debridement nonhealing wound left breast reconstruction and complex secondary wound closure with lateral breast advancement skin flap (20 cm2). Patient has incisional pain. Incision is dry and intact. No clinical evidence of hematoma. No vascular compromise noted on the breast skin flap. She is tolerating po analgesia. Continue Vancomycin. Operative culture shows Gram positive organism. However, the preop culture shows MRSE which she had before, but it is resistant to tetracycline and intermediate to doxycycline. Because of the presence of the saline tissue automobile service advisor, I will proceed with IV antibiotics to treat this resistant MRSE despite being on antibiotics for the past month since her last surgery in 06/02. Anticipate 6 weeks of treatment. [facility] been [facility] for the IV antibiotics. She does not need a PICC line as she already has a port that she can access for the antibiotics. Will check CBC, CMP, ESR, CRP, and Vancomycin Trough qMonday. Hgb is stable at 9.1. She has Iron supplementation. Prealbumin was 18.9. Encourage nutritional supplementation with protein to help the healing process. Continue zain wrap chest wall compression and a lifting restriction. Discharge home today. Followup office one week. Wrote script for Percocet for pain (40 tabs). She states she has some Valium at home.
== END 2019-07-18 14:35 | disposition home or self-care (01) | DRG 908 ==
LOC: SDC 17:29 → MS3 18:53
PROVIDERS: Anesthesiology; Admitting Provider Surgery; PCP Family Medicine; Referring Provider Surgery; Visit Provider Surgery
PROC: (CPT 19357; principal; 2019-07-16 12:45)
DX: L76.32 Postprocedural hematoma of skin and subcutaneous tissue following other procedure (principal); T85.79XA Infection and inflammatory reaction due to other internal prosthetic devices, implants and grafts, initial encounter; Z16.24 Resistance to multiple antibiotics; T81.89XA Other complications of procedures, not elsewhere classified, initial encounter; N65.1 Disproportion of reconstructed breast; C50.911 Malignant neoplasm of unspecified site of right female breast; F45.29 Other hypochondriacal disorders; B95.7 Other staphylococcus as the cause of diseases classified elsewhere; E03.9 Hypothyroidism, unspecified; F32.9 Major depressive disorder, single episode, unspecified; K21.9 Gastro-esophageal reflux disease without esophagitis; M19.90 Unspecified osteoarthritis, unspecified site; E78.00 Pure hypercholesterolemia, unspecified; F41.9 Anxiety disorder, unspecified; R23.3 Spontaneous ecchymoses; Z17.0 Estrogen receptor positive status [ER+]; Z15.01 Genetic susceptibility to malignant neoplasm of breast; Z90.13 Acquired absence of bilateral breasts and nipples; Z80.3 Family history of malignant neoplasm of breast; Z79.899 Other long term (current) drug therapy; Z87.891 Personal history of nicotine dependence
CPT/HCPCS: 36415; 80048; 80053; 82306; 82962; 83735; 84134; 84439; 84443; 85025; 85027; 85610; 85652; 85730; 86140; 87070; 87075; 87077; 87102; 87186; 87205; 87206; 88304; 88305; 88312; 99251; J7050; J7120; A4216; G0463; J2405; Q9968

== ENCOUNTER 2019-08-11 12:30 | Outpatient (RCR) | payer MEDICARE, OTHER, SELFPAY ==
[2019-07-16 18:28] VITALS: BMI 27.4
[2019-07-19 13:38] LABS: Vancomycin, Trough Level 10.4 ug/mL (5.0-15.0)
[2019-07-28 14:00] LABS: Erythrocyte Sedimentation Rate 20 mm/hr (0-30); Hematocrit 30.8 % (37-47); Hemoglobin 9.9 g/dL (12.0-15.0); Mean Corp Hgb Conc 32.1 g/dL (32-36); Mean Corpuscular Hgb 30.7 pg (27.0-32.0); Mean Corpuscular Volume 95.7 fL (81-99); Mean Platelet Vol. 9.9 fl (6.2-12.0); Platelet Count 330 K/mm3 (150-450); RBC Distribution Width CV 13.9 % (11.6-14.6); RBC Distribution Width SD 48.1 fl (35.1-43.9); Red Blood Count 3.22 M/mm3 (4.2-5.4); White Blood Count 6.4 K/mm3 (4.4-11.0)
[2019-07-28 14:02] LABS: Vancomycin, Trough Level 11.9 ug/mL (5.0-15.0)
[2019-07-28 16:37] LABS: ALB/GLOB Ratio 0.9 RATIO (0.9-2.4); AST(SGOT) 19 U/L (15-37); Alanine Aminotransfer ALT/SGPT 15 U/L (13-56); Albumin, Serum 3.3 g/dL (3.2-5.0); Alkaline Phosphatase 69 U/L (45-117); Anion Gap 8 (5-15); BUN 23 mg/dL (7-18); BUN/Creat Ratio 17.6 RATIO (10-20); CRP < 2.90 mg/L (0.0-3.0); Calcium,Total 9.5 mg/dL (8.5-10.1); Chloride 102 mmol/L (98-107); Creatinine, Serum 1.31 mg/dL (0.55-1.02); EST Glomerular Filtration Rate 43 mL/min (>60); Est Glom Filt Rate - Afr Amer 52 mL/min (>60); Globulin 3.5 g/dL (2.2-4.2); Glucose 71 mg/dL (74-106); Potassium 4.3 mmol/L (3.5-5.1); Protein, Total 6.8 g/dL (6.4-8.2); Sodium Level 137 mmol/L (136-145)
[2019-08-04 14:33] LABS: Hematocrit 30.2 % (37-47); Hemoglobin 9.7 g/dL (12.0-15.0); Mean Corp Hgb Conc 32.1 g/dL (32-36); Mean Corpuscular Hgb 30.5 pg (27.0-32.0); Platelet Count 267 K/mm3 (150-450); RBC Distribution Width CV 14.2 % (11.6-14.6); RBC Distribution Width SD 49.8 fl (35.1-43.9); Red Blood Count 3.18 M/mm3 (4.2-5.4); White Blood Count 11.1 K/mm3 (4.4-11.0)
[2019-08-04 15:00] LABS: Vancomycin, Trough Level 13.4 ug/mL (5.0-15.0)
[2019-08-04 15:03] LABS: ALB/GLOB Ratio 0.9 RATIO (0.9-2.4); AST(SGOT) 18 U/L (15-37); Alanine Aminotransfer ALT/SGPT 13 U/L (13-56); Albumin, Serum 3.3 g/dL (3.2-5.0); Alkaline Phosphatase 76 U/L (45-117); Anion Gap 7 (5-15); BUN 17 mg/dL (7-18); BUN/Creat Ratio 13.9 RATIO (10-20); Chloride 104 mmol/L (98-107); Creatinine, Serum 1.22 mg/dL (0.55-1.02); EST Glomerular Filtration Rate 47 mL/min (>60); Est Glom Filt Rate - Afr Amer 56 mL/min (>60); Globulin 3.6 g/dL (2.2-4.2); Glucose 73 mg/dL (74-106); Potassium 4.2 mmol/L (3.5-5.1); Protein, Total 6.9 g/dL (6.4-8.2); Sodium Level 139 mmol/L (136-145)
[2019-08-04 15:22] LABS: Erythrocyte Sedimentation Rate 23 mm/hr (0-30)
[2019-08-11 13:33] LABS: Hematocrit 29.3 % (37-47); Hemoglobin 9.4 g/dL (12.0-15.0); Mean Corp Hgb Conc 32.1 g/dL (32-36); Mean Corpuscular Hgb 30.6 pg (27.0-32.0); Mean Corpuscular Volume 95.4 fL (81-99); Mean Platelet Vol. 9.9 fl (6.2-12.0); Platelet Count 261 K/mm3 (150-450); RBC Distribution Width CV 14.6 % (11.6-14.6); RBC Distribution Width SD 50.7 fl (35.1-43.9); Red Blood Count 3.07 M/mm3 (4.2-5.4); White Blood Count 5.6 K/mm3 (4.4-11.0)
[2019-08-11 13:36] LABS: Vancomycin, Trough Level 13.4 ug/mL (5.0-15.0)
[2019-08-11 13:38] LABS: ALB/GLOB Ratio 0.9 RATIO (0.9-2.4); AST(SGOT) 17 U/L (15-37); Alanine Aminotransfer ALT/SGPT 15 U/L (13-56); Albumin, Serum 3.2 g/dL (3.2-5.0); Alkaline Phosphatase 72 U/L (45-117); Anion Gap 2 (5-15); BUN 20 mg/dL (7-18); BUN/Creat Ratio 16.3 RATIO (10-20); Calcium,Total 9.2 mg/dL (8.5-10.1); Chloride 107 mmol/L (98-107); Creatinine, Serum 1.23 mg/dL (0.55-1.02); EST Glomerular Filtration Rate 46 mL/min (>60); Est Glom Filt Rate - Afr Amer 56 mL/min (>60); Globulin 3.6 g/dL (2.2-4.2); Glucose 94 mg/dL (74-106); Potassium 4.5 mmol/L (3.5-5.1); Protein, Total 6.8 g/dL (6.4-8.2); Sodium Level 140 mmol/L (136-145)
[2019-08-11 13:41] LABS: Erythrocyte Sedimentation Rate 21 mm/hr (0-30)
== END 2019-08-11 18:00 | disposition home or self-care (01) ==
LOC: HHLAB 12:30
PROVIDERS: PCP Family Medicine; Referring Provider Surgery; Visit Provider Surgery
DX: C50.911 Malignant neoplasm of unspecified site of right female breast (principal); A49.8 Other bacterial infections of unspecified site; N65.1 Disproportion of reconstructed breast; Z90.13 Acquired absence of bilateral breasts and nipples
CPT/HCPCS: 80053; 80202; 85027; 85652; 86140

== ENCOUNTER 2019-08-26 12:45 | Outpatient (RCR) | payer MEDICARE, OTHER, SELFPAY ==
[2019-08-08 13:26] VITALS: BMI 27.4
[2019-08-18 13:52] LABS: Hematocrit 29.7 % (37-47); Hemoglobin 9.4 g/dL (12.0-15.0); Mean Corp Hgb Conc 31.6 g/dL (32-36); Mean Corpuscular Volume 94.9 fL (81-99); Mean Platelet Vol. 9.6 fl (6.2-12.0); Platelet Count 276 K/mm3 (150-450); RBC Distribution Width CV 14.2 % (11.6-14.6); RBC Distribution Width SD 49.1 fl (35.1-43.9); Red Blood Count 3.13 M/mm3 (4.2-5.4); White Blood Count 5.4 K/mm3 (4.4-11.0)
[2019-08-18 14:19] LABS: Vancomycin, Trough Level 12.5 ug/mL (5.0-15.0)
[2019-08-18 14:20] LABS: ALB/GLOB Ratio 0.9 RATIO (0.9-2.4); AST(SGOT) 16 U/L (15-37); Alanine Aminotransfer ALT/SGPT 14 U/L (13-56); Albumin, Serum 3.3 g/dL (3.2-5.0); Alkaline Phosphatase 71 U/L (45-117); Anion Gap 6 (5-15); BUN 18 mg/dL (7-18); BUN/Creat Ratio 12.9 RATIO (10-20); Chloride 106 mmol/L (98-107); EST Glomerular Filtration Rate 40 mL/min (>60); Est Glom Filt Rate - Afr Amer 48 mL/min (>60); Globulin 3.8 g/dL (2.2-4.2); Glucose 91 mg/dL (74-106); Potassium 4.1 mmol/L (3.5-5.1); Protein, Total 7.1 g/dL (6.4-8.2); Sodium Level 140 mmol/L (136-145)
[2019-08-18 17:27] LABS: Erythrocyte Sedimentation Rate 33 mm/hr (0-30)
[2019-08-26 13:22] LABS: Hemoglobin 10.2 g/dL (12.0-15.0); Mean Corp Hgb Conc 31.9 g/dL (32-36); Mean Corpuscular Hgb 30.6 pg (27.0-32.0); Mean Corpuscular Volume 96.1 fL (81-99); Mean Platelet Vol. 9.6 fl (6.2-12.0); Platelet Count 341 K/mm3 (150-450); RBC Distribution Width CV 14.6 % (11.6-14.6); RBC Distribution Width SD 51.2 fl (35.1-43.9); Red Blood Count 3.33 M/mm3 (4.2-5.4); White Blood Count 5.8 K/mm3 (4.4-11.0)
[2019-08-26 13:35] LABS: Erythrocyte Sedimentation Rate 30 mm/hr (0-30)
[2019-08-26 13:42] LABS: Vancomycin, Random Level 14.7 ug/mL (0.0-15.0)
[2019-08-26 13:43] LABS: ALB/GLOB Ratio 0.9 RATIO (0.9-2.4); AST(SGOT) 23 U/L (15-37); Alanine Aminotransfer ALT/SGPT 21 U/L (13-56); Albumin, Serum 3.6 g/dL (3.2-5.0); Alkaline Phosphatase 77 U/L (45-117); Anion Gap 3 (5-15); BUN 22 mg/dL (7-18); BUN/Creat Ratio 16.9 RATIO (10-20); CRP < 2.90 mg/L (0.0-3.0); Calcium,Total 9.6 mg/dL (8.5-10.1); Chloride 104 mmol/L (98-107); EST Glomerular Filtration Rate 43 mL/min (>60); Est Glom Filt Rate - Afr Amer 52 mL/min (>60); Globulin 3.9 g/dL (2.2-4.2); Glucose 87 mg/dL (74-106); Potassium 4.5 mmol/L (3.5-5.1); Protein, Total 7.5 g/dL (6.4-8.2); Sodium Level 138 mmol/L (136-145)
== END 2019-09-11 18:00 | disposition home or self-care (01) ==
LOC: HHLAB 12:45
PROVIDERS: PCP Family Medicine; Referring Provider Surgery; Visit Provider Surgery
DX: T81.49XA Infection following a procedure, other surgical site, initial encounter (principal); Z45.2 Encounter for adjustment and management of vascular access device; C50.911 Malignant neoplasm of unspecified site of right female breast; A49.8 Other bacterial infections of unspecified site; N65.1 Disproportion of reconstructed breast; Z90.13 Acquired absence of bilateral breasts and nipples
CPT/HCPCS: 80053; 80202; 85027; 85652; 86140

== ENCOUNTER → 2019-10-09 10:18 | Outpatient (CLI) | payer MEDICARE, OTHER, SELFPAY ==
[2019-10-08 14:26] VITALS: BMI 26.9
[2019-10-09 12:41] LABS: Absolute Lymphocyte Count 1.07 X10^3/uL (0.83-4.51); Absolute Neutrophil Count 2.8 X10^3/uL (2.0-7.7); Basophil# 0.04 X10^3/uL; Basophil% 0.9 % (0-1); Eosinophils% 2.2 % (0-5); Hematocrit 35.6 % (37-47); Hemoglobin 11.2 g/dL (12.0-15.0); Lymphocyte # 1.07 X10^3/ul (4.0); Lymphocyte % 23.8 % (19-41); Mean Corp Hgb Conc 31.5 g/dL (32-36); Mean Corpuscular Hgb 31.3 pg (27.0-32.0); Mean Corpuscular Volume 99.4 fL (81-99); Monocyte# 0.47 X10^3/uL; Monocyte% 10.5 % (0-10); NRBC Flagged by Analyzer 0 % (0-5); Neutrophil # 2.79 X10^3/uL (2.7-7.7); Neutrophil % 62.2 % (47-70); Platelet Count 309 K/mm3 (150-450); RBC Distribution Width CV 14.1 % (11.6-14.6); RBC Distribution Width SD 52.5 fl (35.1-43.9); Red Blood Count 3.58 M/mm3 (4.2-5.4); White Blood Count 4.5 K/mm3 (4.4-11.0)
[2019-10-09 12:50] LABS: AST(SGOT) 23 U/L (15-37); Alanine Aminotransfer ALT/SGPT 19 U/L (13-56); Albumin, Serum 3.9 g/dL (3.2-5.0); Alkaline Phosphatase 81 U/L (45-117); Anion Gap 6 (5-15); BUN 28 mg/dL (7-18); BUN/Creat Ratio 19.2 RATIO (10-20); Chloride 102 mmol/L (98-107); Creatinine, Serum 1.46 mg/dL (0.55-1.02); EST Glomerular Filtration Rate 38 mL/min (>60); Est Glom Filt Rate - Afr Amer 46 mL/min (>60); Globulin 4.1 g/dL (2.2-4.2); Glucose 91 mg/dL (74-106); Potassium 4.3 mmol/L (3.5-5.1); Sodium Level 137 mmol/L (136-145)
== END ==
PROVIDERS: PCP Family Medicine; Referring Provider Internal Medicine Rheumatology; Visit Provider Internal Medicine Rheumatology
DX: M06.4 Inflammatory polyarthropathy (principal); M35.1 Other overlap syndromes; M15.4 Erosive (osteo)arthritis; M21.40 Flat foot [pes planus] (acquired), unspecified foot; K21.9 Gastro-esophageal reflux disease without esophagitis; E03.9 Hypothyroidism, unspecified; F32.89 Other specified depressive episodes
CPT/HCPCS: 36415; 80053; 85025

== ENCOUNTER → 2019-11-03 11:39 | Outpatient (CLI) | payer MEDICARE, OTHER, SELFPAY ==
[2019-10-16 15:46] VITALS: BMI 26.9
[2019-10-30 15:07] VITALS: BMI 26.9
--- NOTE | 2019-11-03 11:55 | CT_ITS ---
STUDY: RIGHT LOWER EXTREMITY CT SCAN REASON FOR EXAM: Female, 69 years old. RT KNEE, CHACORTA PROTOCOL, valgus deformity RADIATION DOSAGE (If Supplied By Facility): CTDIvol = ( 18.76 ) mGy, DLP = ( 1460.99 ) mGycm. Individualized dose optimization techniques were used for this CT.? TECHNIQUE: Axial multidetector CT scan of the right lower extremity. Coronal and sagittal reformatted images. COMPARISON: X-rays dated 2013 of multiple joints. FINDINGS: Right hip: Moderate right hip osteoarthritis. No acute fracture. No dislocation. No bone destruction. Mild pubic symphysis arthrosis. Mild sacroiliac joint arthrosis. Right knee: Severe medial compartment joint space narrowing. Severe lateral compartment joint space narrowing. Severe patellofemoral joint space narrowing. Multiple osteophytes. Vacuum phenomenon. Moderate volume joint effusion. Small popliteal cyst. Mild soft tissue swelling. No acute fracture. No dislocation. No bone destruction. Right ankle: Mild tibiotalar joint arthrosis. Mild subtalar joint arthrosis. Achilles tendon enthesophyte. Plantar spur. Normal calcaneocuboid articulation. Normal talonavicular articulation. Normal navicular cuneiform articulations. Moderate second tarsometatarsal joint arthrosis. No acute fracture. No dislocation. No bone destruction. Hindfoot valgus. CT/Extremity Lower without Contra IMPRESSION: Severe right knee tricompartmental osteoarthritis Right knee joint effusion, popliteal cyst and swelling Additional degenerative changes, as above Electronically Signed: Ian Salazar DO at 14:08 EDT Tel , Service support ,
== END ==
PROVIDERS: PCP Family Medicine; Referring Provider Specialist; Visit Provider Specialist
DX: M21.061 Valgus deformity, not elsewhere classified, right knee (principal)
CPT/HCPCS: 73700

== ENCOUNTER 2019-11-19 09:25 | Observation (INO) | payer MEDICARE, OTHER, SELFPAY ==
[2019-10-16 15:46] VITALS: BMI 26.9
--- NOTE | 2019-11-03 11:43 | EKG12_ITS ---
Test Reason : PRE-OP Blood Pressure : / mmHG Vent. Rate : 074 BPM Atrial Rate : 074 BPM P-R Int : 176 ms QRS Dur : 102 ms QT Int : 418 ms P-R-T Axes : 060 017 037 degrees QTc Int : 463 ms Normal sinus rhythm Normal ECG Confirmed by BRIAN DONOHUE, PAULA ([id number]), editor in chief newspaper MAEGAN LÓPEZ ([id number]) on 11/04/2019 10:58:39 AM Referred By: Flako Linares Confirmed By:PAULA TORRES MD
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
[2019-11-03 13:38] LABS: Absolute Lymphocyte Count 1.09 X10^3/uL (0.83-4.51); Absolute Neutrophil Count 3.4 X10^3/uL (2.0-7.7); Basophil# 0.04 X10^3/uL; Basophil% 0.8 % (0-1); Eosinophil# 0.28 X10^3/uL; Eosinophils% 5.3 % (0-5); Hemoglobin 10.5 g/dL (12.0-15.0); Lymphocyte # 1.09 X10^3/ul (4.0); Lymphocyte % 20.5 % (19-41); Mean Corp Hgb Conc 31.8 g/dL (32-36); Mean Corpuscular Hgb 32.1 pg (27.0-32.0); Mean Corpuscular Volume 100.9 fL (81-99); Mean Platelet Vol. 10.1 fl (6.2-12.0); Monocyte# 0.45 X10^3/uL; Monocyte% 8.5 % (0-10); NRBC Flagged by Analyzer 0 % (0-5); Neutrophil # 3.44 X10^3/uL (2.7-7.7); Neutrophil % 64.5 % (47-70); Platelet Count 241 K/mm3 (150-450); RBC Distribution Width CV 13.8 % (11.6-14.6); RBC Distribution Width SD 51.3 fl (35.1-43.9); Red Blood Count 3.27 M/mm3 (4.2-5.4); White Blood Count 5.3 K/mm3 (4.4-11.0)
[2019-11-03 13:54] LABS: Anion Gap 7 (5-15); BUN 24 mg/dL (7-18); BUN/Creat Ratio 18.8 RATIO (10-20); Calcium,Total 8.9 mg/dL (8.5-10.1); Chloride 107 mmol/L (98-107); Creatinine, Serum 1.28 mg/dL (0.55-1.02); EST Glomerular Filtration Rate 44 mL/min (>60); Est Glom Filt Rate - Afr Amer 53 mL/min (>60); Glucose 95 mg/dL (74-106); Potassium 3.9 mmol/L (3.5-5.1); Sodium Level 140 mmol/L (136-145)
[2019-11-18 11:06] VITALS: BMI 28.6
[2019-11-19] VITALS (12 sets, daily range): BP systolic 113–158; BP diastolic 61–87; PULSE 76–90; RESP 12–20; TEMP 36.3–37.2; O2SAT 96–100; BMI 29.5; BMI 29.3
[2019-11-19] MEDS: Scopolamine 1mg/72hr Patch 1 PATCH TRANSDERM. (07:00)
--- NOTE | 2019-11-19 07:42 | RAD_ITS ---
STUDY: X-RAY - RIGHT KNEE REASON FOR EXAM: Female, 69 years old. Post op, right total knee replacement. TECHNIQUE: AP and lateral view(s) of the knee. COMPARISON: None. FINDINGS: Normal visualized distal femur. Normal visualized proximal tibia and fibula. Normal proximal tibiofibular articulation. The patient is status post right total knee replacement. There is good alignment. Postoperative soft tissue changes. RAD/Knee 1 or 2 Views IMPRESSION: Status post right total knee replacement. There is good alignment. Postoperative soft tissue changes. Electronically Signed: [place] Newell, at 14:05 EDT , Service support ,
[2019-11-19] MEDS: Lactated Ringers 1,000 ML 999 ML IV (09:45)
[2019-11-19] MEDS: Lactated Ringers 1,000 ML 125 ML IV (09:46)
[2019-11-19] MEDS: Gabapentin 600 MG Tablet PO (09:46)
[2019-11-19] MEDS: Acetaminophen 500 MG Tablet 1000 MG PO ×3 (09:47→21:46)
[2019-11-19] MEDS: Celecoxib 200 MG Capsule 400 MG PO (09:47)
[2019-11-19 11:06] LABS: Bedside Glucose 74 mg/dL (70-110)
[2019-11-19] MEDS: Cefazolin 2 GM in 0.9% Normal Saline 100 ML IV (11:20)
[2019-11-19] MEDS: dexAMETHasone 10 MG/ML Vial IV (11:28)
--- NOTE | 2019-11-19 12:23 | OP.PCM_ITS ---
Report of Operation Date of Procedure: 11/19/19 Pre-Operative Diagnosis: Right knee primary osteoarthritis Post-Operative Diagnosis: Right knee primary osteoarthritis Surgery/Procedure Performed:: Right knee minimally invasive robotic assisted total knee replacement Description of Surgical Findings:: Stable knee with good patella tracking server systems administrator: Joellen Chaves Type of Anesthesia:: Spinal Anesthesiologist: El Figueroa Special Medications: 2 g Ancef, 1 g TXA at incision, 1 g TXA closure, 10 mg Decadron, joint cocktail (5 mg Duramorph, 30 mL of 0.5% Ropivicaine, 1000 units of epinephrine, 30 mg of Toradol) Specimen's removed: Bony cuts Estimated Blood Loss (mL): 75 Fluids Replaced: 1200 mL crystalloid Description of Procedure: Implants used: 1. [place]sa size 3 triathlon cruciate retaining distal femoral press-fit component 2. [place] size 4 press-fit tritanium tibial baseplate 3. [place]sa X3 10 mm CS polyethylene 4. [place] X3 29 mm asymmetric patella Brief history operative indications: 69-year-old f with history of right knee osteoarthritis with radiographic findings with loss of joint space, osteophyte formation and subchondral sclerosis. Failed conservative measures as mentioned in the H&P. Discussion of total knee arthroplasty as well as risk and benefits were discussed the patient including but not limited to blood loss, DVTs, PEs, neurovascular damage, general risk of anesthesia including loss of life, and stiffness or instability were discussed with patient. Patient demonstrated understanding and was able to sign informed consent. Procedure: On the date of procedure patient's right lower extremity was marked in the preoperative area. The patient was then taken back to the operating room where the patient was placed on the table in the supine position. All bony prominences were identified a well-padded. Anesthesia assumed control of the C-spine and airway and remained controlled throughout the remainder of the procedure. A tourniquet was placed on the right upper thigh and the leg was prepped in a sterile fashion. The surgeon then scrubbed at this time .Upon reentering the room right lower extremity was draped in a standard orthopedic fashion. A timeout was then called and everyone agreed upon the side, the site, the procedure to be performed, patient's identity and antibiotics given. Esmarch bandage was used to exsanguinate the extremity and the tourniquet was placed up to 250 mmHg with the knee in flexion. A midline skin incision was made and sharp dissection was taken down through skin subcutaneous tissue and fat. The standard medial parapatellar incision was made and the patella was subluxed laterally. An Appropriate deep MCL release was done and the fat pad was resected. Our attention was then directed to the patella. The patella was everted and a flat resection was made. The knee was then flexed up in 2 femoral pins were placed inside the incision and 2 tibial pins were placed outside the incision in the medial tibia bicortically. Once this was completed the 2 checkpoints in the femur and tibia were placed. Knee was then flexed up and the bony landmarks were registered. Once this was completed knee was taken through range of motion and manually stressed allowing us to a plan for an appropriate tibial cut. The robotic arm was brought into the field sterilely and checkpoint and saw were registered. Based on the patient's deformity the tibial cut was made in 1 degree varus. At this time the tensioner was then placed in the joint and ligament tension was checked at 90 degrees and full extension. Based on the patient's ligamentous tension appropriate adjustments were made to the operative plan and ligament releases were done. Once we were happy with our operative plan with balanced flexion and extension gaps our attention was directed to the femur. The robot was brought into the field sterilely and registered. Posterior condylar cuts, anterior chamfer cuts and anterior cuts were appropriately made for a size 3 femur. When these were completed the saws were switched out in the distal femoral and posterior chamfer cuts were made. Protecting the soft tissue throughout this time. A size 4 tibial base plate was selected. the knee was flexed to 90 degrees and the soft tissues and posterior osteophytes were removed from the joint. 40 cc of the periarticular injection was injected into the posterior medial corner of the joint. The appropriate trials were then placed on the femur and tibia. A trial polyethylene was trialed to ensure proper balancing and stability of the knee. The appropriate tibial internal rotation was then marked with a bovie. Our attention was then directed to the patella. The lug holes were drilled and the patella trial was placed. Patellar tracking was checked and deemed appropriate. Once we were happy lug holes were drilled for the femur and trial components were removed. the tibia was subluxed and pinned into place and the keel was punched and drilled appropriately. Final components were verified and opened, and cement was mixed in a vacuum. Omnistream Simplex cement was used. The wound was copiously irrigated with normal saline. When the cement was ready the components were impacted into place starting with the tibia, femur and finally cementing the patella. The trial poly component was placed and the knee was placed in full extension. All excess cement was removed in the process. Once the cement had cured the tracking, alignment and balance were verified and a size 10 mm CS polyethylene component was placed. Once the final components were placed an Irrisept lavage was performed and the wound was copiously irrigated with normal saline solution and the periarticular injection was given. The wound was closed in a layer cobb fashion using #1 vicryl interrupted sutures for the arthrotomy, 2-0 interrupted Vicryl suture for the subcuticular layer and brandon for final skin closure. A sterile compressive dressing was then placed. The patient was then awakened from anesthesia, tr ansferred to the [facility] and transferred to the PACU for recovery. Post op plan DVT ppx: ASA 81mg BID, thigh high compression stockings Follow up: in office in 2 weeks for wound check PT: to start POD #0 at hospital, outpatient PT should be arranged. Due to the complexity of this case robotic arm was used to assist in the surgery to improve accuracy and clinical outcomes. - Complications No intraoperative complications - Admit VTE Documentation VTE Present on Admission: No VTE Mechan Device Prophylaxis: SCD's, Thigh High SAMARIA Hose VTE Pharm Prophylaxis ordered?: Yes
[2019-11-19] MEDS: Lactated Ringers 1,000 ML 90 ML IV ×2 (13:45→21:51)
--- NOTE | 2019-11-19 16:44 | PN_ITS ---
Subjective: Feels well. Has been up and ambulating with therapy already. Pain controlled. Vitals/I&O's: Vital Signs Temp Pulse Resp BP Pulse Ox 36.8 C 90 18 158/87 H 96 11/19/19 15:22 11/19/19 15:22 11/19/19 15:22 11/19/19 15:22 11/19/19 15:22 Oxygen Flow Rate (L/min) 6 Oxygen Delivery Method Room Air Weight: 82.8 kg Body Mass Index (BMI) 29.3 Intake and Output for Last 24 Hours 11/17/19 11/18/19 11/19/19 23:59 23:59 23:59 Intake Total 2329 / 2330 Balance 2329 233 General: Alert, No apparent distress HEENT: Atraumatic, Normocephalic Oral: Moist Mucosa, No Gingival or Mucosal Lesions/ Ulcerations Neck: No Nodes, Thyroid Normal Size and Texture Lungs: Clear to auscultation, Normal air movement, No rhonchi, No wheeze, No rales Cardiovascular: Regular rate, Regular Rhythm, Normal S1, Normal S2 Extremities: Peripheral Pulses Normal Skin: No rashes, No breakdown Psych/Mental Status: Normal Affect, Appropriate Laboratory Results 11/19/19 09:41: POC Glucose 74 Current Medications Acetaminophen (Tylenol) 1,000 mg PO Q8 [facility] Anastrozole (Arimidex) 1 mg PO DAILY [facility] Bupropion HCl (Wellbutrin Xl) 300 mg PO DAILY [facility] Calcium/Vitamin D (Os-Jesús 500mg + D) 1 tablet PO BIDCM [facility] Doxycycline Monohydrate (Doxycycline) 100 mg PO BID [facility] Last Admin: 11/19/19 16:02 Dose: Not Given Documented by: Duloxetine HCl (Cymbalta) 30 mg PO DAILY [facility] Last Admin: 11/19/19 16:02 Dose: Not Given Documented by: Enteral Nutritional Formula (Ensure Surgery) 237 ml PO TIDCM [facility] Last Admin: 11/19/19 15:59 Dose: Not Given Documented by: Famotidine (Pepcid) 20 mg PO DAILY [facility] Last Admin: 11/19/19 16:03 Dose: Not Given Documented by: Gabapentin (Neurontin) 300 mg PO TIDCM [facility] Heparin Sodium (Beef Lung) () 50 units IV UD PRN PRN Reason: Port-a-Cath (VAD)Heparin Flush Hydroxychloroquine [facility]) [facility] Lactated Ringer's () 1,000 mls @ 125 mls/hr IV .Q8H [facility] Last Infusion: 11/19/19 13:45 Dose: Infused Documented by: Lactated Ringer's () 1,000 mls @ 90 mls/hr IV .Q11H7M [facility] Last Admin: 11/19/19 13:45 Dose: 90 mls/hr Documented by: Cefazolin Sodium () 1 gm in 50 mls @ 150 mls/hr IV Q8H [facility] Stop: 11/20/19 03:19 Insulin Human Lispro (Humalog Kwikpen ([facility])) 1 - 6 unit SC Q4H PRN PRN; Protocol PRN Reason: BG>/= 180, SEE PROTOCOL Ketorolac Tromethamine (Toradol ([facility])) 15 mg IV Q6H PRN PRN PRN Reason: Pain Score 1-5/10 Stop: 11/21/19 07:43 Lactobacillus Acidophilus (Acidophilus) 1 tablet PO BID [facility] Levothyroxine Sodium (Synthroid) 100 mcg PO DAILY@0600 [facility] Lidocaine/Prilocaine (Emla Cream W/Tegaderm) gm TOPICAL DAILY PRN PRN; Pr otocol PRN Reason: NOT SPECIFIED Morphine Sulfate () 2 - 4 mg IV Q2H PRN PRN PRN Reason: Pain Score 6-10/10 Morphine Sulfate () 2 - 4 mg IV Q2H PRN PRN PRN Reason: Pain Score 6-10/10 Ondansetron HCl (Zofran) 4 mg IV Q8H PRN PRN PRN Reason: NAUSEA Oxycodone HCl (Oxyir) 5 - 10 mg PO Q4H PRN PRN PRN Reason: Pain Score 4-10/10 Pantoprazole Sodium (Protonix) 40 mg PO DAILY [facility] Polysaccharide Iron Complex (Ferrex 150) [facility] Last Admin: 11/19/19 16:01 Dose: Not Given Documented by: Promethazine HCl (Phenergan) 12.5 mg IM Q6H PRN PRN; Protocol PRN Reason: NAUSEA/VOMITING Rivaroxaban (Xarelto) 10 mg PO DAILY@0600 [facility] Senna/Docusate Sodium (Senokot-S, Tiffanie-Colace) 2 tablet PO BID [facility] Last Admin: 11/19/19 16:03 Dose: Not Given Documented by: Sodium Chloride () 5 - 15 ml IV UD PRN PRN Reason: SALINE FLUSH Sodium Chloride () 10 - 40 ml IV UD PRN PRN Reason: Port-a-Cath (VAD) Flush Sodium Chloride (0.9% Nacl (Sterile) Posiflush) 10 - 40 ml IV UD PRN PRN Reason: Port access or dressing change STROKE Vital Signs/Narrative: Vital Signs Temp Pulse Resp BP Pulse Ox 11/19/19 15:22 36.8 C 90 18 158/87 H 96 11/19/19 14:28 37.1 C 81 17 149/68 H 98 11/19/19 14:15 81 16 156/71 H 100 11/19/19 14:00 37.2 C 78 16 148/69 H 100 11/19/19 13:45 77 17 148/77 H 100 11/19/19 13:30 36.6 C 79 16 152/74 H 100 11/19/19 13:15 76 16 158/67 H 100 11/19/19 13:01 36.8 C 81 12 143/61 H 98 Medical Necessity - Tobacco Use Smoking Status: Former smoker Assessment/Plan All Active Problems (Last Reviewed 11/18/19 @ 19:[address] Isma Dillon MD) Methicillin resistant Staphylococcus epidermidis infection (Acute) Acute blood loss anemia (Resolved) Nonhealing surgical wound (Resolved) Exposed breast implant (Resolved) Disproportion of reconstructed breast (Acute) Chemotherapy management, encounter for (Resolved) 1. s/p right knee replacement: mgmt per orthopaedics 2. RA: stable. on hydroxychloroquine 3. Breast Cancer: s/p bilateral mastectomy. on arimadex 4. VTE prophylaxis: on rivaroxaban Thank you for the consult. The hospital service will continue to follow along during the course of this patient's hospitalization. Inpatient E&M: 12291 Subs Hosp L2
[2019-11-19] MEDS: Ensure Surgery 237 ML LIQUID PO (18:02)
[2019-11-19] MEDS: Gabapentin 300 MG Capsule PO (18:03)
[2019-11-19] MEDS: Anastrozole 1 MG Tablet PO (18:03)
[2019-11-19] MEDS: buPROPion (XL) 300 MG TABLET.XL PO (18:03)
[2019-11-19] MEDS: Hydroxychloroquine 200 MG Tablet PO (18:04)
[2019-11-19] MEDS: Calcium Carb/Vitamin D 1 TABLET Tablet PO (18:05)
[2019-11-19] MEDS: Cefazolin 1 GM/50 ML BAG IV (18:13)
[2019-11-19] MEDS: Doxycycline 100 MG CAPSULE PO (21:46)
[2019-11-19] MEDS: Senna/Docusate Sodium 1 Tablet 2 TABLET PO (21:47)
[2019-11-20] MEDS: oxyCODONE 5 MG Tablet PO ×3 (00:06→14:09)
[2019-11-20] MEDS: Cefazolin 1 GM/50 ML BAG IV (03:31)
[2019-11-20 03:33] VITALS: BP 123/56; PULSE 71; RESP 16; TEMP 36.8; O2SAT 100
[2019-11-20] MEDS: Levothyroxine 100 MCG Tablet PO (05:55)
[2019-11-20] MEDS: Acetaminophen 500 MG Tablet 1000 MG PO (05:55)
[2019-11-20] MEDS: Rivaroxaban 10 MG Tablet PO (05:56)
[2019-11-20] MEDS: 0.9% NaCl Peripheral Flush Adult/Peds IV ×3 (05:59→14:05)
[2019-11-20 06:06] LABS: Hematocrit 26.4 % (37-47); Hemoglobin 8.3 g/dL (12.0-15.0); Mean Corp Hgb Conc 31.4 g/dL (32-36); Mean Corpuscular Hgb 32.2 pg (27.0-32.0); Mean Corpuscular Volume 102.3 fL (81-99); Mean Platelet Vol. 9.9 fl (6.2-12.0); Platelet Count 184 K/mm3 (150-450); RBC Distribution Width CV 13.9 % (11.6-14.6); RBC Distribution Width SD 52.3 fl (35.1-43.9); Red Blood Count 2.58 M/mm3 (4.2-5.4); White Blood Count 9.2 K/mm3 (4.4-11.0)
[2019-11-20 06:32] LABS: Anion Gap 5 (5-15); BUN 21 mg/dL (7-18); BUN/Creat Ratio 16.7 RATIO (10-20); Calcium,Total 8.5 mg/dL (8.5-10.1); Chloride 107 mmol/L (98-107); Creatinine, Serum 1.26 mg/dL (0.55-1.02); EST Glomerular Filtration Rate 45 mL/min (>60); Est Glom Filt Rate - Afr Amer 54 mL/min (>60); Glucose 91 mg/dL (74-106); Potassium 4.2 mmol/L (3.5-5.1); Sodium Level 141 mmol/L (136-145)
--- NOTE | 2019-11-20 08:32 | PN.ORTHO_ITS ---
Subjective: The patient was sitting in bedside chair upon examination. Patient denies any chest pain, shortness of breath, dizziness, lightheadedness, nausea or vomiting, or calf pain. Pain is controlled on medications. No adverse overnight events. Overall patient is doing very well. She has been up walking doing well. She has working with physical therapy. Patient does wish to try to go home today. Objective: Vital signs stable and afebrile. Patient is able to plantarflex and dorsiflex actively. Sensation is intact to light touch to saphenous, sural, superficial and deep peroneal, and tibial distribution. Dressing is with minimal discharge over the middle one third with quarter size, otherwise remaining dressing and other dressings are clean dry and intact Negative Homans bilaterally, negative signs and symptoms of DVT. - Physical Exam Vitals/I&O's: Vital Signs Temp Pulse Resp BP Pulse Ox 98.2 F 71 16 123/56 H 100 11/20/19 03:33 11/20/19 03:33 11/20/19 03:33 11/20/19 03:33 11/20/19 03:33 Oxygen Flow Rate (L/min) 6 Oxygen Delivery Method Room Air Weight: 82.8 kg Body Mass Index (BMI) 29.3 Intake and Output for Last 24 Hours 11/18/19 11/19/19 11/20/19 23:59 23:59 23:59 Intake Total 3709 / 4009 1290.75 / 1290.75 Balance 3709 / 4009 1290.75 / 1290.75 General: Alert, Oriented x3, Cooperative, No apparent distress Laboratory Results 11/19/19 09:41: POC Glucose 74 11/20/19 05:35: WBC 9.2, RBC 2.58 L, Hgb 8.3 L, Hct 26.4 L, MCV 102.3 H, MCH 32.2 H, MCHC 31.4 L, RDW Std Deviation 52.3 H, RDW Coeff of Oumou 13.9, Plt Count 184, MPV 9.9 11/20/19 05:35: Sodium 141, Potassium 4.2, Chloride 107, Carbon Dioxide 29.0, Anion Gap 5, BUN 21 H, Creatinine 1.26 H, Estim Creat Clear Calc 40.00, Est GFR (MDRD) Af Amer 54 L, Est GFR (MDRD) Non-Af 45 L, BUN/Creatinine Ratio 16.7, Glucose 91, Calcium 8.5 Current Medications Acetaminophen (Tylenol) 1,000 mg PO Q8 [facility] Last Admin: 11/20/19 05:55 Dose: 1,000 mg Documented by: Anastrozole (Arimidex) 1 mg PO DAILY [facility] Last Admin: 11/19/19 18:03 Dose: 1 mg Documented by: Bupropion HCl (Wellbutrin Xl) 300 mg PO DAILY [facility] Last Admin: 11/19/19 18:03 Dose: 300 mg Documented by: Calcium/Vitamin D (Os-Jesús 500mg + D) [facility] Last Admin: 11/19/19 18:05 Dose: 1 tablet Documented by: Doxycycline Monohydrate (Doxycycline) 100 mg PO BID [facility] Last Admin: 11/19/19 21:46 Dose: 100 mg Documented by: Duloxetine HCl (Cymbalta) 30 mg PO DAILY [facility] Last Admin: 11/19/19 16:02 Dose: Not Given Documented by: Enteral Nutritional Formula (Ensure Surgery) 237 ml PO TIDCM [facility] Last Admin: 11/19/19 18:02 Dose: 237 ml Documented by: Famotidine (Pepcid) 20 mg PO DAILY [facility] Last Admin: 11/19/19 16:03 Dose: Not Given Documented by: Gabapentin (Neurontin) 300 mg PO TIDCM [facility] Last Admin: 11/19/19 18:03 Dose: 300 mg Documented by: Heparin Sodium (Beef Lung) () 50 units IV UD PRN PRN Reason: Port-a-Cath (VAD)Heparin Flush Hydroxychloroquine Sulfate ([facility]aquenil) [facility] Last Admin: 11/19/19 18:04 Dose: 200 mg Documented by: Insulin Human Lispro (Humalog Kwikpen ([facility])) 1 - 6 unit SC Q4H PRN PRN; Protocol PRN Reason: BG>/= 180, SEE PROTOCOL Ketorolac Tromethamine (Toradol ([facility])) 15 mg IV Q6H PRN PRN PRN Reason: Pain Score 1-5/10 Stop: 11/21/19 07:43 Lactobacillus Acidophilus (Acidophilus) 1 tablet PO BID [facility] Last Admin: 11/19/19 21:46 Dose: 1 tablet Documented by: Levothyroxine Sodium (Synthroid) 100 mcg PO DAILY@0600 [facility] Last Admin: 11/20/19 05:55 Dose: 100 mcg Documented by: Lidocaine/Prilocaine (Emla Cream W/Tegaderm) 0 gm TOPICAL DAILY PRN PRN; Protocol PRN Reason: PORT ACCESS Morphine Sulfate () 2 - 4 mg IV Q2H PRN PRN PRN Reason: Pain Score 6-10/10 Morphine Sulfate () 2 - 4 mg IV Q2H PRN PRN PRN Reason: Pain Score 6-10/10 Ondansetron HCl (Zofran) 4 mg IV Q8H PRN PRN PRN Reason: NAUSEA Oxycodone HCl (Oxyir) 5 - 10 mg PO Q4H PRN PRN PRN Reason: Pain Score 4-10/10 Last Admin: 11/20/19 00:06 Dose: 5 mg Documented by: Pantoprazole Sodium (Protonix) 40 mg PO DAILY [facility] Polysaccharide Iron Complex (Ferrex 150) [facility] Last Admin: 11/19/19 16:01 Dose: Not Given Documented by: Promethazine HCl (Phenergan) 12.5 mg IM Q6H PRN PRN; Protocol PRN Reason: NAUSEA/VOMITING Rivaroxaban (Xarelto) 10 mg PO DAILY@0600 [facility] Last Admin: 11/20/19 05:56 Dose: 10 mg Documented by: Senna/Docusate Sodium (Senokot-S, Tiffanie-Colace) 2 tablet PO BID [facility] Last Admin: 11/19/19 21:47 Dose: 2 tablet Documented by: Sodium Chloride () 5 - 15 ml IV UD PRN PRN Reason: SALINE FLUSH Last Admin: 11/20/19 05:59 Dose: 10 ml Documented by: Sodium Chloride () 10 - 40 ml IV UD PRN PRN Reason: Port-a-Cath (VAD) Flush Sodium Chloride (0.9% Nacl (Sterile) Posiflush) 10 - 40 ml IV UD PRN PRN Reason: Port access or dressing change Medical Necessity - Tobacco Use Smoking Status: Former smoker Assessment/Plan All Active Problems (Last Reviewed 11/18/19 @ 19:[address] Isma Dillon MD) Methicillin resistant Staphylococcus epidermidis infection (Acute) Acute blood loss anemia (Resolved) Nonhealing surgical wound (Resolved) Exposed breast implant (Resolved) Disproportion of reconstructed breast (Acute) Chemotherapy management, encounter for (Resolved) 1. S/P right total knee arthroplasty POD #1 2. Continue Pain Medications: Tylenol and OxyIR 3. DVT Prophylaxis: Xarelto for 2 weeks postoperatively followed by aspirin 81 mg twice daily for an additional 2 weeks 4. PT/OT: Weightbearing as tolerated 5. H & H: 8.3/26.4, asymptomatic. Secondary to acute blood loss from surgery 6. Encouraged Incentive Spirometry 7. Continue postoperative medical management per medicine 7. Disposition: Patient is doing very well orthopedically. Plan will be for discharge home today if patient tolerates physical therapy and pain is well controlled. Prescriptions will be E scribed to [facility] in [place]. Patient will follow-up per postop instructions. She has outpatient physical therapy established. I discussed with the patient pain medication involving the oxycodone. She was given Percocet by Dr. Dillon and uses it occasionally due to the breast cancer. I have reviewed the [place] Automated Rx Reporting System (OARRS) report for this patient for refill pattern and other prescriber involvement as part of the appropriate surveillance for the provision of acute and chronic controlled medications. The report was requested and reviewed on the date of this entry and was considered in the prescribing process.
--- NOTE | 2019-11-20 08:49 | DCINST_ITS ---
Discharge Diet: No Restrictions Discharge Activity: May Not Drive May shower in (days): 1 - Dressing must be intact to skin. Turn dressing away from water Ice area for (Minutes): 20 - Every 1-2 hours while awake Weight Bearing Status: Weight bearing as tolerated Elevate: Operative Extremity Additional Activity Instructions:: Wear elastic stockings for 2 weeks after your surgery. Call your doctor if your incision/area has: Continuous Slow Oozing, Sudden Increased Bleeding, Increased Pain/ Swelling, Increased Redness, Foul Smelling Discharge Call your doctor if you observe: Fever of 101 or Higher, Coldness, Increased Pain, Numbness or Tingling, Change in Color, Calf discomfort, Uncontrolled pain Remove Dressing in (days):: 4 - Okay to remove dressing on November 24, 2019 Additional Instructions: Follow orthopedic postop instructions Allergies/Adverse Reactions: Allergies No Known Allergies Allergy (Verified 11/19/19 09:21) Medications to take at Discharge Esomeprazole Mag Trihydrate [Nexium] 40 mg PO DAILY 03/11/13 buPROPion XL [Wellbutrin Xl] 300 mg PO DAILY 03/11/13 hydroxychloroquine 200 mg tablet 200 mg PO BID 12/16/18 Anastrozole [Arimidex] 1 mg PO DAILY 90 Days #90 tab NS 12/26/18 Lidocaine/Prilocaine [Lidocaine-Prilocaine Cream] 1 applicatio TP DAILY PRN PRN 30 Days #1 tube 01/01/19 Calcium Carbonate/Vitamin D3 [Calcium 600 + Vit D Tablet] 1 ea PO BID 04/14/19 Cholecalciferol (Vitamin D3) [Vitamin D3] 5,000 unit PO DAILY 04/14/19 Ondansetron [Zofran Odt] 4 mg PO Q6H PRN PRN #30 tab 06/13/19 Docusate Sodium [Colace] 100 mg PO DAILY 06/17/19 Levothyroxine Sodium 100 mcg PO DAILY 06/17/19 polysaccharide iron complex 150 mg iron capsule 150 mg PO DAILYCM #30 cap 10/03/19 Gabapentin [Neurontin] 300 mg PO TID 11/12/19 Lactobacillus Acidophilus/Fos [Acidophilus Probiotic Tablet] 1 ea PO BID 11/12/19 doxycycline monohydrate 100 mg capsule 100 mg PO BID 10 Days #20 cap 11/18/19 Acetaminophen [Tylenol] 1,000 mg PO Q8 #100 tab 11/20/19 Oxycodone [Oxyir] 5 - 10 mg PO Q4H PRN PRN 4 Days #48 tablet 11/20/19 Rivaroxaban [Xarelto] 10 mg PO DAILY@0600 #13 tab 11/20/19 The following prescriptions were given: Oxycodone [Oxyir] 5 - 10 mg PO Q4H PRN PRN 4 Days #48 tablet PRN Reason: Pain Score 4-10/10 Transmission Status: Received by [facility]/pharmacy #[id number] Acetaminophen [Tylenol] 1,000 mg PO Q8 #100 tab Transmission Status: Pending to [facility]/pharmacy #[id number] Rivaroxaban [Xarelto] 10 mg PO DAILY@0600 #13 tab Transmission Status: Pending to [facility]/pharmacy #[id number] Primary Care Physician: Krunal Gee MD [Primary Care Provider] - Test Results: Test results from this visit will be discussed in further detail at your follow- up appointment, if applicable. Please Follow Up With: Carlos Poe Physical therapy When: 11/24/19 @ 3:00 pm Please Follow Up With: Reji Acosta PA-C When: 12/03/19 @ 10:00 am
[2019-11-20] MEDS: Ensure Surgery 237 ML LIQUID PO (09:22)
[2019-11-20] MEDS: Iron Polysaccharide Complex 150 MG CAPSULE PO (09:23)
[2019-11-20] MEDS: Senna/Docusate Sodium 1 Tablet 2 TABLET PO (09:24)
[2019-11-20] MEDS: Gabapentin 300 MG Capsule PO ×2 (09:24→12:26)
[2019-11-20] MEDS: Calcium Carb/Vitamin D 1 TABLET Tablet PO (09:24)
[2019-11-20] MEDS: Anastrozole 1 MG Tablet PO (09:24)
[2019-11-20] MEDS: Hydroxychloroquine 200 MG Tablet PO (09:24)
[2019-11-20] MEDS: Pantoprazole Sodium 40 MG Tablet PO (09:25)
[2019-11-20] MEDS: Doxycycline 100 MG CAPSULE PO (09:25)
[2019-11-20] MEDS: buPROPion (XL) 300 MG TABLET.XL PO (09:26)
[2019-11-20] MEDS: Famotidine 20 MG Tablet PO (09:27)
[2019-11-20 09:30] VITALS: BP 121/45; PULSE 88; RESP 16; TEMP 36.9; O2SAT 100
--- NOTE | 2019-11-20 10:30 | CASEMGMT ---
RN CM LATIN DANCE INSTRUCTOR CM to room to meet with patient for initial transition planning/care coordination assessment. CLARA ZACARIAS introduced self and role at [facility]. Pt voices understanding and consents to assessment at this time. Pt sitting up in recliner chair. in no distress at this time. Pt is A/O at this time and answers all questions appropriately. Care providers, pharmacy, and demographics verified/updated at this time. PCP: Dr Krunal Gee Specialists: Dr Linares-ortho, Dr Dillon, Dr Feldman-oncology Preferred Pharmacy: [facility] Insurance: MCR, Aenta Prescription Benefit: Yes. Pt will be going home on Xarelto. Call placed to [facility] in [place] for anguiano check of Xarelto. Cost will be $13. Pt made aware. Living Will/HPOA: Has both LW and Healthcare POA, who is her , Jone. Both are on e-file @ [facility] LNOK: , Jone. Daughter, Nano Living Arrangements: Lives w/her in one-story home w/one step to enter through the garage. Independent prior to surgery. able to assist Transportation: DME: States has the following DME: raised toilet seat, walker, hospice fellow Pt states no need for further DME at this time. HHC/SNF: No history of SNF. Hx [facility] HHC in the past. Pt wishes to return home and states has no concerns with going home at time of discharge. Has OP therapy arranged @ [facility]. 1st appt is scheduled for 11/23. CM to follow for any discharge planning/needs. Pt voices no concerns/needs at this time. Advised pt to ask for CM if any questions/concerns/needs arise. Voices understanding. PLAN: Home w/OP therapy @ [facility] and discharge plans in place. Kelsea CALVO RN, CM
[2019-11-20] MEDS: Cyanocobalamin 500 MCG Tablet PO (10:40)
[2019-11-20] MEDS: Ketorolac 15 MG/ML Vial IV (12:36)
--- NOTE | 2019-11-20 13:01 | PCM.PN.HOSP ---
<Ernst Marinelli - Last Filed: 11/20/19 13:01> Reason for Visit: No complaints. Pt plans to go home with ongoing PTOT with outpatient therapy at the ortho office. No fever/chills. No Nausea or vomiting now, did have some nausea earlier that resolved. No diarrhea. No cough/SOB. No numbness/tingling of the distal extremity. Pain controlled. Vitals/I&O's: Vital Signs Temp Pulse Resp BP Pulse Ox 98.5 F 88 16 121/45 H 100 11/20/19 09:30 11/20/19 09:30 11/20/19 09:30 11/20/19 09:30 11/20/19 09:30 Oxygen Flow Rate (L/min) 6 Oxygen Delivery Method Room Air Weight: 182 lb 8.684 oz Body Mass Index (BMI) 29.3 Intake and Output for Last 24 Hours 11/18/19 11/19/19 11/20/19 23:59 23:59 23:59 Intake Total 3709 / 4009 1690.75 / 1690.75 Balance 3709 / 4009 1690.75 / 1690.75 General: Alert, Oriented x3, Cooperative HEENT: Atraumatic, PERRLA, EOMI, Normocephalic Neck: Supple, No JVD, Negative Carotid Bruits Lungs: Clear to auscultation, Normal air movement Cardiovascular: Regular rate, No murmurs Abdomen: Bowel Sounds Present, Soft, Non Tender Extremities: No edema, Capillary Refill Less than 3 Seconds Skin: No rashes, No breakdown Musculoskeletal: No Tenderness to Palpation of Joints or Extremities, - - distal PMS intact. Neurological: Cranial nerves II-XII grossly intact Psych/Mental Status: Normal Affect, Appropriate, Alert and oriented to time, place, person, mood and affect Laboratory Results 11/20/19 05:35: WBC 9.2, RBC 2.58 L, Hgb 8.3 L, Hct 26.4 L, MCV 102.3 H, MCH 32.2 H, MCHC 31.4 L, RDW Std Deviation 52.3 H, RDW Coeff of Oumou 13.9, Plt Count 184, MPV 9.9 11/20/19 05:35: Sodium 141, Potassium 4.2, Chloride 107, Carbon Dioxide 29.0, Anion Gap 5, BUN 21 H, Creatinine 1.26 H, Estim Creat Clear Calc 40.00, Est GFR (MDRD) Af Amer 54 L, Est GFR (MDRD) Non-Af 45 L, BUN/Creatinine Ratio 16.7, Glucose 91, Calcium 8.5 Current Medications Acetaminophen (Tylenol) 1,000 mg PO Q8 [facility] Last Admin: 11/20/19 05:55 Dose: 1,000 mg Documented by: Anastrozole (Arimidex) 1 mg PO DAILY [facility] Last Admin: 11/20/19 09:24 Dose: 1 mg Documented by: Bupropion HCl (Wellbutrin Xl) 300 mg PO DAILY [facility] Last Admin: 11/20/19 09:26 Dose: 300 mg Documented by: Calcium/Vitamin D (Os-Jesús 500mg + D) [facility] Last Admin: 11/20/19 09:24 Dose: 1 tablet Documented by: Cyanocobalamin (Vitamin B12) 500 mcg PO DAILY@0800 [facility] Last Admin: 11/20/19 10:40 Dose: 500 mcg Documented by: Doxycycline Monohydrate (Doxycycline) 100 mg PO BID [facility] Last Admin: 11/20/19 09:25 Dose: 100 mg Documented by: Duloxetine HCl (Cymbalta) 30 mg PO DAILY [facility] Last Admin: 11/20/19 09:26 Dose: Not Given Documented by: Enteral Nutritional Formula (Ensure Surgery) 237 ml PO TIDCM [facility] Last Admin: 11/20/19 12:27 Dose: Not Given Documented by: Famotidine (Pepcid) 20 mg PO DAILY [facility] Last Admin: 11/20/19 09:27 Dose: 20 mg Documented by: Gabapentin (Neurontin) 300 mg PO TIDCM [facility] Last Admin: 11/20/19 12:26 Dose: 300 mg Documented by: Heparin Sodium (Beef Lung) () 50 units IV UD PRN PRN Reason: Port-a-Cath (VAD)Heparin Flush Hydroxychloroquine Sulfate ([facility]aquenil) [facility] Last Admin: 11/20/19 09:24 Dose: 200 mg Documented by: Insulin Human Lispro (Humalog Kwikpen (Bkc)) 1 - 6 unit SC Q4H PRN PRN; Protocol PRN Reason: BG>/= 180, SEE PROTOCOL Ketorolac Tromethamine (Toradol (Bkc)) 15 mg IV Q6H PRN PRN PRN Reason: Pain Score 1-5/10 Stop: 11/21/19 07:43 Last Admin: 11/20/19 12:36 Dose: 15 mg Documented by: Lactobacillus Acidophilus (Acidophilus) 1 tablet PO BID [facility] Last Admin: 11/20/19 09:26 Dose: 1 tablet Documented by: Levothyroxine Sodium (Synthroid) 100 mcg PO DAILY@0600 [facility] Last Admin: 11/20/19 05:55 Dose: 100 mcg Documented by: Lidocaine/Prilocaine (Emla Cream W/Tegaderm) 0 gm TOPICAL DAILY PRN PRN; Protocol PRN Reason: PORT ACCESS Morphine Sulfate () 2 - 4 mg IV Q2H PRN PRN PRN Reason: Pain Score 6-10/10 Morphine Sulfate () 2 - 4 mg IV Q2H PRN PRN PRN Reason: Pain Score 6-10/10 Ondansetron HCl (Zofran) 4 mg IV Q8H PRN PRN PRN Reason: NAUSEA Oxycodone HCl (Oxyir) 5 - 10 mg PO Q4H PRN PRN PRN Reason: Pain Score 4-10/10 Last Admin: 11/20/19 09:23 Dose: 5 mg Documented by: Pantoprazole Sodium (Protonix) 40 mg PO DAILY [facility] Last Admin: 11/20/19 09:25 Dose: 40 mg Documented by: Polysaccharide Iron Complex (Ferrex 150) [facility] Last Admin: 11/20/19 09:23 Dose: 150 mg Documented by: Promethazine HCl (Phenergan) 12.5 mg IM Q6H PRN PRN; Protocol PRN Reason: NAUSEA/VOMITING Rivaroxaban (Xarelto) 10 mg PO DAILY@0600 [facility] Last Admin: 11/20/19 05:56 Dose: 10 mg Documented by: Senna/Docusate Sodium (Senokot-S, Tiffanie-Colace) 2 tablet PO BID [facility] Last Admin: 11/20/19 09:24 Dose: 2 tablet Documented by: Sodium Chloride () 5 - 15 ml IV UD PRN PRN Reason: SALINE FLUSH Last Admin: 11/20/19 12:37 Dose: 15 ml Documented by: Sodium Chloride () 10 - 40 ml IV UD PRN PRN Reason: Port-a-Cath (VAD) Flush Sodium Chloride (0.9% Nacl (Sterile) Posiflush) 10 - 40 ml IV UD PRN PRN Reason: Port access or dressing change STROKE Vital Signs/Narrative: Vital Signs Temp Pulse Resp BP Pulse Ox 11/20/19 09:30 98.5 F 88 16 121/45 H 100 Medical Necessity - Tobacco Use Smoking Status: Former smoker Assessment/Plan All Active Problems (Last Reviewed 11/18/19 @ 19:[address] Isma Dillon MD) Methicillin resistant Staphylococcus epidermidis infection (Acute) Acute blood loss anemia (Resolved) Nonhealing surgical wound (Resolved) Exposed breast implant (Resolved) Disproportion of reconstructed breast (Acute) Chemotherapy management, encounter for (Resolved) 1. right total knee POD#1 -2 g decline in hemoglobin overnight, recheck CBC as outpatient this week. Follow-up with orthopedics as needed. Pain well controlled. 2. RA - plaquenil 3. Hx BrCa - s/p BL mastectomy, continue arimadex DVT ppx: per ortho Thank you for the opportunity to participate in the care of this patient. This patient was seen by Ernst Marinelli PA-C under the supervision of Dr. Merritt. <Lokesh Merritt F - Last Filed: 11/20/19 15:23> Vitals/I&O's: Vital Signs Temp Pulse Resp BP Pulse Ox 98.0 F 78 18 133/55 H 100 11/20/19 14:25 11/20/19 14:25 11/20/19 14:25 11/20/19 14:25 11/20/19 14:25 Oxygen Flow Rate (L/min) 6 Oxygen Delivery Method Room Air Weight: 182 lb 8.684 oz Body Mass Index (BMI) 29.3 Intake and Output for Last 24 Hours 11/18/19 11/19/19 11/20/19 23:59 23:59 23:59 Intake Total 3709 / 4009 1690.75 / 1690.75 Balance 3709 / 4009 1690.75 / 1690.75 Laboratory Results 11/20/19 05:35: WBC 9.2, RBC 2.58 L, Hgb 8.3 L, Hct 26.4 L, MCV 102.3 H, MCH 32.2 H, MCHC 31.4 L, RDW Std Deviation 52.3 H, RDW Coeff of Oumou 13.9, Plt Count 184, MPV 9.9 11/20/19 05:35: Sodium 141, Potassium 4.2, Chloride 107, Carbon Dioxide 29.0, Anion Gap 5, BUN 21 H, Creatinine 1.26 H, Estim Creat Clear Calc 40.00, Est GFR (MDRD) Af Amer 54 L, Est GFR (MDRD) Non-Af 45 L, BUN/Creatinine Ratio 16.7, Glucose 91, Calcium 8.5 STROKE Vital Signs/Narrative: Vital Signs Temp Pulse Resp BP Pulse Ox 11/20/19 14:25 98.0 F 78 18 133/55 H 100 Addendum: Dr. Merritt I personally examined the patient and reviewed the chart. I agree with the above. 69-year-old female with a history of breast cancer status post bilateral mastectomy on Arimidex seen after right total knee replacement. She is doing well today and ambulating well and she would like to go home. I did discuss with her that she she had about a 2 g drop in her hemoglobin and this was likely dilutional and secondary to surgery. She states that she has had previous blood transfusions in the past and she sees hematology for this issue as well. She did receive an iron transfusion on Sunday prior to surgery. I discussed with the plan for discharge today and she expressed understanding the risk benefits of going home. OBSV E&M: 11116 Subsequent observation care L2
[2019-11-20 14:25] VITALS: BP 133/55; PULSE 78; RESP 18; TEMP 36.7; O2SAT 100
== END 2019-11-20 14:27 | disposition home or self-care (01) ==
LOC: SDC 09:27 → MS3 09:27
PROVIDERS: Anesthesiology; Registered Nurse; Admitting Provider Specialist; PCP Family Medicine; Referring Provider Specialist; Visit Provider Family Medicine
PROC: 0SRC0JZ Replacement of Right Knee Joint with Synthetic Substitute, Open Approach (ICD-10-PCS; CPT 27447; principal; 2019-11-19 11:00)
DX: M17.31 Unilateral post-traumatic osteoarthritis, right knee (principal); Z11.59 Encounter for screening for other viral diseases; Z85.3 Personal history of malignant neoplasm of breast; K21.9 Gastro-esophageal reflux disease without esophagitis; E03.9 Hypothyroidism, unspecified; N18.3 Chronic kidney disease, stage 3 (moderate); E78.00 Pure hypercholesterolemia, unspecified; Z87.891 Personal history of nicotine dependence; Z79.899 Other long term (current) drug therapy; F41.9 Anxiety disorder, unspecified; F32.9 Major depressive disorder, single episode, unspecified; M06.9 Rheumatoid arthritis, unspecified
CPT/HCPCS: 01400; 27447; 64447; S2900; 36415; 73560; 80048; 82962; 85025; 85027; 87081; 87635; 93005; 96361; 96365; 96366; 96375; 97110; 97116; 97162; 97166; 97530; 97535; 99218; 99251; C1776; G2023; J7120; A4216; G0378; G0379; G0463; J2405; U0003

== ENCOUNTER → 2019-12-03 11:42 | Outpatient (CLI) | payer MEDICARE, OTHER, SELFPAY ==
[2019-11-19 15:22] VITALS: BMI 29.3
[2019-12-03 15:02] LABS: Absolute Lymphocyte Count 0.89 X10^3/uL (0.83-4.51); Absolute Neutrophil Count 6.9 X10^3/uL (2.0-7.7); Basophil# 0.04 X10^3/uL; Basophil% 0.5 % (0-1); Eosinophil# 0.14 X10^3/uL; Eosinophils% 1.6 % (0-5); Hematocrit 29.4 % (37-47); Hemoglobin 9.1 g/dL (12.0-15.0); Lymphocyte # 0.89 X10^3/ul (4.0); Lymphocyte % 10.4 % (19-41); Mean Corpuscular Hgb 31.9 pg (27.0-32.0); Mean Corpuscular Volume 103.2 fL (81-99); Mean Platelet Vol. 9.7 fl (6.2-12.0); Monocyte# 0.54 X10^3/uL; Monocyte% 6.3 % (0-10); NRBC Flagged by Analyzer 0 % (0-5); Neutrophil # 6.88 X10^3/uL (2.7-7.7); Neutrophil % 80.8 % (47-70); Platelet Count 556 K/mm3 (150-450); RBC Distribution Width CV 13.1 % (11.6-14.6); RBC Distribution Width SD 49.2 fl (35.1-43.9); Red Blood Count 2.85 M/mm3 (4.2-5.4); White Blood Count 8.5 K/mm3 (4.4-11.0)
== END ==
PROVIDERS: PCP Family Medicine; Referring Provider Family Medicine; Visit Provider Family Medicine
DX: D50.0 Iron deficiency anemia secondary to blood loss (chronic) (principal)
CPT/HCPCS: 36415; 85025

== ENCOUNTER → 2020-01-09 09:18 | Outpatient (CLI) | payer MEDICARE, OTHER, SELFPAY ==
[2019-12-17 13:14] VITALS: BMI 27.5
[2020-01-06 13:10] VITALS: BMI 27.5
--- NOTE | 2020-01-09 09:20 | US_ITS ---
STUDY: RENAL ULTRASOUND - COMPLETE REASON FOR EXAM: Female, 69 years old. ckd stage 3 TECHNIQUE: Ultrasound evaluation of the kidneys was performed with real-time and static [place]-scale imaging. COMPARISON: None. FINDINGS: RIGHT KIDNEY: Normal location of the right kidney, which is normal in size. The right kidney measures 10 cm x 5.6 cm x 3.9 cm. There is a normal cortex of the right kidney. The renal cortex measures 1.3 cm. There is no right renal mass or cyst. There are no right renal calculi. There is no right hydronephrosis. DISTAL RIGHT URETER: There is non-visualization of the distal right ureter. There is no demonstrated right ureterovesical junction calculus. There is a visualized right ureteral jet. LEFT KIDNEY: Normal location of the left kidney, which is normal in size. The left kidney measures 9.7 cm x 5 cm x 5.2 cm. There is a normal cortex of the left kidney. The renal cortex measures 1.1 cm. 2 renal cysts are seen. The larger measures 1.7 cm x 1.6 cm by 1.4 cm. There are no left renal calculi. There is no left hydronephrosis. DISTAL LEFT URETER: There is non-visualization of the distal left ureter. There is no demonstrated left ureterovesical junction calculus. There is a visualized left ureteral jet. BLADDER: The distended urinary bladder has a volume of 283.6 ml. There is a normal wall thickness of the distended urinary bladder. There is no demonstrated mass within the urinary bladder. There are no demonstrated bladder calculi. US/Kidney and Bladder IMPRESSION: 2 small left renal cysts. Electronically Signed: Bay Newell, at 14:12 EDT , Service support ,
== END ==
PROVIDERS: PCP Family Medicine; Referring Provider Internal Medicine Nephrology; Visit Provider Internal Medicine Nephrology
DX: N18.3 Chronic kidney disease, stage 3 (moderate) (principal)
CPT/HCPCS: 76770

== ENCOUNTER → 2020-02-10 12:56 | Outpatient (CLI) | payer MEDICARE, OTHER, SELFPAY ==
[2020-01-20 13:40] VITALS: BMI 28.4
--- NOTE | 2020-02-10 12:57 | CT_ITS ---
STUDY: LOW DOSE CT LUNG CANCER SCREENING REASON FOR EXAM: Female, 69 years old. FORMER SMOKER X 50 YEARS. 1/2 PACK A DAY. HX BREAST CA RADIATION DOSAGE (If Supplied By Facility): CTDIvol = ( 3.02 ) mGy, DLP = ( 98.55 ) mGycm TECHNIQUE: No contrast was administered. Low dose technique was utilized (average mAS-38 and kVp 120). 1.25 mm axial source images with a slice interval of 1.25-mm were reconstructed in lung windows. 2.5 mm axial source images with a slice interval of 2.5-mm were reconstructed in lung windows. 5.0 mm axial source images with a slice interval of 5.0-mm were reconstructed in soft tissue windows. Nodule measured using lung windows on PACS and/or independent workstation with automated measurement of minimum and maximum diameter. Nodule measurement reported as average diameter rounded to the nearest whole number. Growth is defined as an increase ins size of greater than 1.5 mm. COMPARISON: Comparison is made with prior study dated 12/30/2018. A left-sided portacatheter is seen with the tip in the superior vena cava. Bilateral mastectomies and breast reconstruction. Linear densities are seen within the breast prostheses bilaterally more prominent on the right side. Ruptured should be ruled out. NODULES: No suspicious nodular densities are seen. Emphysema: Hyperinflation. Endobronchial lesion: None Aorta: Atherosclerotic calcification of the aortic arch. Coronary arteries: Coronary artery calcification. Mediastinal nodes: No significant nodes are seen. Other chest and abdominal findings: CT/Low Dose CT Lung Screening IMPRESSION: Lung-RADS category 2 - Continue annual screening with LDCT in 12 months. IMPORTANT NOTES FOR USE: ACR Lung-RADS Version 1.0 Assessment Categories Release Date: September 08, 2013 Category: Coded 0-4 bases on nodule(s) with highest degree of suspicion. Negative screen is defined as categories 1 and 2; a positive screen is defined as categories 3 and 4. Category 3 and 4A nodules that are unchanged on interval CT should be coded as category 2, and individuals returned to screening in 12 months. Category 4X: Category 3 or 4 nodules with additional imaging findings that increase the suspicion of lung cancer, such as spiculation, GGN that doubles in size in 1 year, enlarged lymph notes, etc. Category Modifiers: S (significant finding unrelated to lung cancer) and C (prior history of treated lung cancer) may be added to the 0-4 Lung-RADS Electronically Signed: Bay Newell, at 13:35 EDT , Service support ,
== END ==
PROVIDERS: PCP Family Medicine; Referring Provider Nurse Practitioner Family; Visit Provider Nurse Practitioner Family
DX: Z12.2 Encounter for screening for malignant neoplasm of respiratory organs (principal); Z87.891 Personal history of nicotine dependence
CPT/HCPCS: G0297

== ENCOUNTER → 2020-04-22 10:37 | Outpatient (CLI) | payer MEDICARE, OTHER, SELFPAY ==
[2020-01-06 13:10] VITALS: BMI 27.5
[2020-04-20 12:59] VITALS: BMI 29.9
[2020-04-22 12:41] LABS: Vitamin D,25 Hydroxy 91.5 ng/mL
[2020-04-22 12:46] LABS: Albumin, Serum 3.8 g/dL (3.2-5.0); BUN 25 mg/dL (7-18); BUN/Creat Ratio 16.2 RATIO (10-20); Calcium,Total 9.5 mg/dL (8.5-10.1); Chloride 104 mmol/L (98-107); Creatinine, Serum 1.54 mg/dL (0.55-1.02); EST Glomerular Filtration Rate 36 mL/min (>60); Est Glom Filt Rate - Afr Amer 43 mL/min (>60); Glucose 95 mg/dL (74-106); Phosphorus 2.9 mg/dL (2.5-4.9); Potassium 4.4 mmol/L (3.5-5.1); Sodium Level 137 mmol/L (136-145)
[2020-04-22 13:03] LABS: PTHIN 43.9 pg/mL (18.4-80.1)
== END ==
PROVIDERS: PCP Family Medicine; Visit Provider Internal Medicine Nephrology
DX: M06.4 Inflammatory polyarthropathy (principal); M35.1 Other overlap syndromes; M15.4 Erosive (osteo)arthritis; M25.561 Pain in right knee; M21.40 Flat foot [pes planus] (acquired), unspecified foot; K21.9 Gastro-esophageal reflux disease without esophagitis; E03.9 Hypothyroidism, unspecified; F32.89 Other specified depressive episodes; C50.911 Malignant neoplasm of unspecified site of right female breast; N18.30 Chronic kidney disease, stage 3 unspecified
CPT/HCPCS: 36415; 80069; 82306; 83970

== ENCOUNTER → 2020-05-11 13:52 | Outpatient (CLI) | payer MEDICARE, OTHER, SELFPAY ==
[2020-05-06 10:09] VITALS: BMI 29.3
== END ==
PROVIDERS: PCP Family Medicine; Referring Provider Surgery; Visit Provider Surgery
DX: Z45.2 Encounter for adjustment and management of vascular access device (principal)
CPT/HCPCS: 36591; A4216

== ENCOUNTER → 2020-05-11 14:05 | Outpatient (CLI) | payer MEDICARE, OTHER, SELFPAY ==
[2020-04-20 12:59] VITALS: BMI 29.9
[2020-05-06 10:09] VITALS: BMI 29.3
[2020-05-11 14:20] LABS: Hematocrit 33.1 % (37-47); Hemoglobin 10.5 g/dL (12.0-15.0); Mean Corp Hgb Conc 31.7 g/dL (32-36); Mean Corpuscular Hgb 31.3 pg (27.0-32.0); Mean Corpuscular Volume 98.5 fL (81-99); Platelet Count 262 K/mm3 (150-450); RBC Distribution Width CV 13.5 % (11.6-14.6); RBC Distribution Width SD 48.2 fl (35.1-43.9); Red Blood Count 3.36 M/mm3 (4.2-5.4); White Blood Count 5.5 K/mm3 (4.4-11.0)
[2020-05-11 14:31] LABS: Partial Thromboplast Time 53.4 Seconds (24.1-36.2)
[2020-05-11 14:45] LABS: AST(SGOT) 17 U/L (15-37); Alanine Aminotransfer ALT/SGPT 18 U/L (13-56); Albumin, Serum 3.6 g/dL (3.2-5.0); Alkaline Phosphatase 88 U/L (45-117); Bilirubin, Direct 0.12 mg/dL (0.00-0.30); Globulin 3.6 g/dL (2.2-4.2); Magnesium 1.7 mg/dL (1.6-2.6); Protein, Total 7.2 g/dL (6.4-8.2); Thyroid Stim Hormone (TSH) 2.56 uIU/mL (0.358-3.74)
== END ==
LOC: LAB.FUTURE 05-12 14:20 → LAB 05-25 06:32
PROVIDERS: Anesthesiology; PCP Family Medicine; Visit Provider Internal Medicine Nephrology
DX: Z01.812 Encounter for preprocedural laboratory examination (principal); N18.32 Chronic kidney disease, stage 3b
CPT/HCPCS: 80076; 83735; 84443; 85027; 85610; 85730

== ENCOUNTER 2020-05-13 14:06 | Inpatient (IN) | payer MEDICARE, OTHER, SELFPAY ==
[2020-05-06 10:09] VITALS: BMI 29.3
--- NOTE | 2020-05-12 22:41 | PCM.HP.BLA ---
History and Physical Date of Admission: 05/13/20 HISTORY OF PRESENT ILLNESS 69 year old woman presents with diagnosis of right breast cancer after a breast biopsy on 12/16/18. Pathology showed invasive ductal carcinoma, nuclear grade 3. Estrogen receptors were positive. Progesterone receptors were positive. HER/2Neu was equivocal for overexpression. Her initial mammogram and ultrasound from 12/12/18 were suspicious for carcinoma which prompted the biopsy. A port was placed on 12/30/18. She then underwent neoadjuvant chemotherapy which was completed on 03/11/19. She had a Breast MRI on 04/01/19 which showed in the right breast, the breast tissue is fatty with minimal background enhancement. In the central portion of the breast at the 12:00 position there is an irregular enhancing mass measuring 17 mm x 11 mm x 23 mm. This mass corresponds to the mass seen on the mammogram and on the right breast ultrasound. There is minimal lucency in the central portion of this mass which may represent central necrosis. In the left breast, the breast tissue is fatty with minimal background enhancement. There are no abnormal enhancing masses or areas of non-mass enhancement in the left breast. There are no enlarged or abnormal lymph nodes. There is no abnormality in the visualized regions of the chest or liver. She also underwent gene testing and was positive for two markers. She is concerned about developing carcinoma in the left breast and has cancer phobia. She went to surgery on 04/21/19 where she underwent right simple mastectomy and right axillary sentinel lymph node biopsy by Dr. Siddiqui and prophylactic mastectomy left breast and first stage immediate bilateral breast reconstruction with placement of submuscular saline tissue expanders (650 ml for each side) and placement of Alloderm Select acellular dermal matrix grafts (132 cm2 for each side) by Dr. Dillon. Pathology on the right breast showed invasive ductal carcinoma with negative lymph nodes. Pathology on the left breast showed benign breast tissue with dense fibrosis and focal ductal ectasia and a hyalinized fibroadenoma. Estrogen receptors were positive. Progesterone receptors were positive. Her2/MISTY was negative for overexpression. There is no need for radiation therapy or IV chemotherapy at this time. She is getting adjuvant hormonal therapy with Arimidex. Postoperatively she developed some nonhealing and some scabbing on the left breast mastectomy incision. Wound culture was negative. She was started on Silver dressing changes. Healing was slow and there was no gross exposure of the health care marketing manager. She was taken back to surgery on 06/13/19 where she underwent revision left breast reconstruction with excisional debridement nonhealing wound with removal of Alloderm acellular dermal matrix graft and removal exposed saline tissue health care marketing manager and complex secondary wound closure. A week after surgery she had bruising on her left chest wall and flank. She had some acute blood loss anemia that necessitated PRBC. Her Hgb stabilized at 10.8. Chest wall compression was continued. The bruising on her skin resolved and the residual hematoma slowly resolved as well through drainage from the drain tube. She was maintained on Doxycycline during this time. The initial goal was to wait 6 weeks to allow healing of the incision and allow inflammation to subside before proceeding with irrigating out any residual blood and placing another saline tissue health care marketing manager at the same time which was tentatively going to be scheduled for next week. However a few days ago, she developed a small opening on the inferior aspect of the incision with small amount of drainage. It was cultured on 07/14/19 and is negative thus far. Levaquin was added to her antibiotics. So the surgery was moved up to 07/16/19 where she underwent revision left breast reconstruction with drainage and evacuation and excisional debridement residual hematoma and delayed left breast reconstruction with placement of saline tissue health care marketing manager (535 ml) and placement Alloderm Select Restore acellular dermal matrix graft (327 cm2) and excisional debridement nonhealing wound left breast reconstruction and complex secondary wound closure with lateral breast advancement skin flap (20 cm2). She healed uneventfully and her saline tissue expansion was completed. She presents today for the next stage in the breast reconstruction process with removal of the saline tissue expanders and capsulectomies and replacement cohesive gel implants and placement of acellular dermal matrix graft. After placement of the implants, if there is residual redundant or excess mastectomy skin scar contour deformity than excision of this excess tissue will be done to help shape the contour of her breast reconstruction. PAST MEDICAL HISTORY Increased tearing Osteopenia Encounter for insertion of venous access port Primary cancer of right female breast Depression GERD (gastroesophageal reflux disease) Hypothyroidism Obesity Osteoarthritis Nonhealing surgical wound left breast reconstruction Acquired absence bilateral breasts Disproportion reconstructed breasts Cancer phobia left breast Acute blood loss anemia Postop hematoma left breast reconstruction PAST SURGICAL HISTORY appendectomy bilateral knee surgery right simple mastectomy and right axillary sentinel lymph node biopsy by Dr. Siddiqui - 04/21/19 prophylactic mastectomy left breast and first stage immediate bilateral breast reconstruction with placement of submuscular saline tissue expanders (650 ml for each side) and placement of Alloderm Select acellular dermal matrix grafts (132 cm2 for each side) by Dr. Dillon - 04/21/19 Revision left breast reconstruction with excisional debridement nonhealing wound with removal of Alloderm acellular dermal matrix graft and removal exposed saline tissue health care marketing manager and complex secondary wound closure - 06/13/19 Revision left breast reconstruction with drainage and evacuation and excisional debridement residual hematoma and delayed left breast reconstruction with placement of saline tissue health care marketing manager (535 ml) and placement Alloderm Select Restore acellular dermal matrix graft (327 cm2) and excisional debridement nonhealing wound left breast reconstruction and complex secondary wound closure with lateral breast advancement skin flap (20 cm2) - 07/16/19 ALLERGIES No Known Allergies MEDICATIONS Esomeprazole Mag Trihydrate [Nexium] buPROPion XL [Wellbutrin Xl] hydroxychloroquine levothyroxine tramadol Anastrozole [Arimidex] Dexamethasone [Decadron] Lidocaine/Prilocaine [Lidocaine-Prilocaine Cream] Ondansetron [Ondansetron Odt] Prochlorperazine Maleate Neurontin FAMILY HISTORY Mother - Breast cancer Brother - Cancer Father - Cancer SOCIAL HISTORY Smoking Status: Light Smoker (<10/day) alcohol intake: current alcohol intake frequency: 0-2 drinks per day substance use type: does not use REVIEW OF SYSTEMS General - Denies fever and weight loss. Has fatigue. Eyes - Denies cataracts and glaucoma. ENT - Denies nasal congestion and sore throat. Endocrine - Denies excessive thirst and urination. Has recent diagnosis of right breast cancer. Had neoadjuvant chemotherapy. Skin - Denies skin cancer. Has nonhealing surgical wound left breast reconstruction with postop hematoma. Musculoskeletal - Has joint pain, joint stiffness, weakness of muscles and joints. Denies back pain, and arthritis. Neuro - Denies headaches. Cardiovascular - Denies chest pain, fatigue, and shortness of breath with exertion. Psych - Denies anxiety. Has depression. Respiratory - Denies chronic cough and shortness of breath. Gastrointestinal - Denies nausea, vomiting, diarrhea, and constipation. Hematologic - Denies abnormal bruising and bleeding. Genitourinary - Denies hematuria and urinary frequency. Has some incontinence. PHYSICAL EXAMINATION General - Alert and Oriented. Her bra size is 38 DD. HEENT - PERRL. EOMI. Throat is clear. Neck - Supple and nontender. No cervical adenopathy. Breasts - Bilateral breast incisions are healed. There is evidence of some contracture on the left medial breast and the right breast. There is also some lateral migration of the left breast pocket. Breast width is 15 cm bilaterally. Lungs - Clear to auscultation. Heart - Regular rate and rhythm. Abdomen - Soft and nondistended. Has some redundant skin and subcutaneous tissue from the umbilicus to the pubic area. She has a RLQ appendectomy scar. Extremities - FROM. No axillary adenopathy. Radial pulses are palpable. Neuro - CN II-XII grossly intact. Psych - Normal mood and affect. ASSESSMENT 1. Right breast cancer. 2. Cancer phobia left breast. 3. Positive test for genetic breast cancer susceptibility marker. 4. Acquired absence bilateral breasts. 5. Disproportion reconstructed breasts. 6. Estrogen receptor positive status. 7. Family history of breast cancer. 8. Neoadjuvant chemotherapy. 9. Smoker, quit after her breast cancer diagnosis. 10. Deformity reconstructed breasts. 11. Painful capsular contracture bilateral breast reconstruction expanders. PLAN Patient is ready to proceed with the next stage in the breast reconstruction process which is removal of the saline tissue expanders and capsulectomies and replacement cohesive gel implants and placement of acellular dermal matrix graft. After placement of the implants, if there is residual redundant or excess mastectomy skin scar contour deformity than excision of this excess tissue will be done to help shape the contour of her breast reconstruction. Tissue that is excised will be sent to Pathology for analysis to rule out carcinoma. Because of the previous infection in the left breast, will also send tissue to Microbiology for culture. A positive culture will necessitate antibiotic therapy. Surgery will be done under general anesthesia with a surgical observation overnight stay in the hospital. Drains will be placed for several days and she will be maintained on antibiotics until the drains are removed. Patient was informed of the risks and complications of the procedure including alternatives to surgery. These were discussed with the patient personally. Patient voices understanding and wishes to proceed. Some of the risks and complications were included in a form from the [employer]. Encouraged patient to stop smoking as it may have deleterious effects on wound healing. She has stopped smoking since her breast cancer diagnosis. We discussed the current risks associated with COVID-19. While it is understood that there is a community spread of COVID-19, the risk of heike COVID-19 while at [facility] ([facility]) is very low; however, the risk cannot be completely mitigated because of the community spread of the disease. We discussed in detail the risk of exposure to and/or potential harm posed by the COVID-19 virus with having a surgery/procedure at this time versus the risk of delaying the surgery/procedure. It is not possible to know either the risk of delaying the surgery or procedure or chance of getting an infection with perfect accuracy, but a joint decision was made to proceed at this time with the scheduled surgery/procedure as indicated on the consent form. Patient was notified that we will need to comply with any screening or testing [facility] wishes to perform or that surgery may be delayed for any positive results. Discussed with the patient that I was tested for COVID-19 on 11/13/19 which was negative and on 11/27/19 which was negative and on 12/11/19 which was negative and on 12/25/19 which was negative and on 01/08/20 which was negative and on 01/29/20 which was negative and on 02/19/20 which was negative and on 03/25/20 which was negative and on 04/15/20 which was negative and on 05/04/20 which was negative. My testing regimen at this time is to be COVID-19 tested every 2 weeks or so. I recently received the COVID-19 vaccine (Moderna) on 05/12/20. Procedure Criteria Procedure Type: Elective COVID Risk Discussion: The surgeon/proceduralist and patient have discussed in detail the risk of exposure to and/or potential harm posed by the COVID-19 virus with having a surgery/procedure at this time versus the risk of delaying the surgery/procedure. It is not possible to know either the risk of delaying the surgery or procedure or chance of getting an infection with perfect accuracy, but a joint decision was made between the patient and the surgeon/proceduralist to proceed at this time with the scheduled surgery/procedure as indicated on the consent form.
[2020-05-13] VITALS (12 sets, daily range): BP systolic 138–159; BP diastolic 65–88; PULSE 77–93; RESP 16–20; TEMP 36.6–37.7; O2SAT 95–98; BMI 30.7
[2020-05-13 06:06] LABS: Bedside Glucose 88 mg/dL (70-110)
[2020-05-13] MEDS: Lactated Ringers 1,000 ML 40 ML IV ×2 (06:28→08:00)
[2020-05-13] MEDS: Acetaminophen 500 MG Tablet 1000 MG PO ×2 (06:29→17:53)
[2020-05-13] MEDS: Scopolamine 1mg/72hr Patch 1 PATCH TD (06:30)
--- NOTE | 2020-05-13 07:30 | BREAST_PTH ---
PATIENT: ANABEL LOCKE LOC: [facility] U#:[id number] AGE/SX: 69/F [place] [facility] [place]14[place]: Dr. Isma Dillon MD : [id number] BED: 1 DIS: 05/15/2020 SPEC #: [id number] RECD: 05/13/20 11:00 STATUS: HALEY REENA #: [id number] GASTON: 05/13/20 07:[address]: Isma Dillon DEPT: SURGICAL PATHOLOGY RECD BY: Bianca Dumont ENTERED: 05/13/20 11:23 SP TYPE: BREAST OTHR DR: Dr. Krunal Gee MD Tissues: A - Right breast, NOS B - Left breast, NOS C - Left breast, NOS Procedures: Surgery Specimen Level IV HEADER OPERATION: ERAS, revision breast reconstruction with removal of saline PRE-OP DIAGNOSIS: Right breast cancer, ER positive, neoadjuvant chemotherapy, deformity reconstructed breasts TISSUE SUBMITTED: A - Right breast tissue, B - Left breast tissue, C - Additional left breast tissue MICROSCOPIC DIAGNOSIS A. Right breast tissue, revision reconstruction: Fragments of dense fibroconnective tissue consistent with capsule and fragments of skin and underlying fibroadipose tissue with chronic inflammation and reactive changes. B. Left breast tissue, revision reconstruction: Fragments of skin and dense fibroconnective tissue with focal ulceration and associated acute and chronic inflammation. C. Additional left breast tissue: Pieces of skin and underlying adipose tissue with chronic inflammation and foreign body giant cell reaction. SJ:vinayak 05/18/2020 MICROSCOPIC DESCRIPTION Slides are reviewed. GROSS DESCRIPTION A - Received in fixative is one container labeled with the patient's name and designated right breast tissue and capsule. The specimen consists of multiple irregular fragments of glistening pink-yancey soft tissue resembling capsule that in aggregate measure 12 x 8 x 2 cm. Serial sections do not reveal mass lesions. Also present in the specimen container are multiple irregular fragments of yancey-yellow fatty tissue with adherent fragments of skin that in aggregate measure 8 x 7 x 2 cm. Serial sections do not reveal mass lesions. Commercial Engineer sections are submitted in four cassettes. / AM:vinayak 05/13/20 B - Received in fixative is one container labeled with the patient's name and designated left breast tissue and capsule. The specimen consists of multiple irregular fragments of glistening pink-yancey soft tissue that in aggregate measure 11 x 7 x 3 cm. Serial sections do not reveal mass lesions. An irregular fragment of pink-yancey skin measuring 2 x 1 x 0.2 cm is also identified. No cutaneous lesions are seen. Commercial Engineer sections are submitted in three cassettes. / AM:vinayak 05/13/20 C - Received in fixative is one container labeled with the patient's name and designated additional left breast tissue. The specimen consists of two irregular fragments of yancey-white skin with attached fibrofatty tissue. The smaller fragment measures 1.4 x 0.5 x 0.2 cm. No lesions are identified. The specimen is submitted in its entirety in cassette 1. The second fragment measures 8.5 x 2.6 cm and excised to a depth of 1.3 cm. No cutaneous lesions are identified. The specimen is inked and serially sectioned. No mass lesions are identified. Commercial Engineer sections are submitted in three cassettes, 2-4. / AM:vinayak 05/17/20 TC:5 CPT: 66506 x3
[2020-05-13] MEDS: Lidocaine 1%/Epi 1:200 (30ml) 30 ML AMPUL (08:50)
[2020-05-13] MEDS: Lactated Ringers 1,000 ML 60 ML IV ×2 (11:30→22:30)
--- NOTE | 2020-05-13 13:45 | OP.PCM_ITS ---
Report of Operation Date of Procedure: 05/13/20 Pre-Operative Diagnosis: 1. Right breast cancer. 2. Cancer phobia left breast. 3. Positive test for genetic breast cancer susceptibility marker. 4. Acquired absence bilateral breasts. 5. Disproportion reconstructed breasts. 6. Estrogen receptor positive status. 7. Family history of breast cancer. 8. Neoadjuvant chemotherapy. 9. Smoker, quit after her breast cancer diagnosis. 10. Deformity reconstructed breasts. 11. Painful capsular contracture bilat eral breast reconstruction expanders. Post-Operative Diagnosis: Same. Surgery/Procedure Performed:: 1. Left breast reconstruction with removal of krista ine tissue gum rolling machine tender and capsulectomy with replacement cohesive gel implant (800 ml) and placement of MTF FlexHD acellular dermal matrix graft (21 x 24 cm). 2. Revision left breast reconstruction with excision excess mastectomy scar contour deformity. 3. Right breast reconstruction with removal of saline tissue gum rolling machine tender and capsulectomy with replacement cohesive gel implant (800 ml) and placement of MTF FlexHD acellular dermal matrix graft (21 x 24 cm). 4. Revision right breast reconstruction with excision excess mastectomy scar contour deformity. Description of Surgical Findings:: 69 year old woman presents with diagnosis of right breast cancer after a breast biopsy on 12/16/18. Pathology showed invasive ductal carcinoma, nuclear grade 3. Estrogen receptors were positive. Progesterone receptors were positive. HER/2Neu was equivocal for overexpression. Her initial mammogram and ultrasound from 12/12/18 were suspicious for carcinoma which prompted the biopsy. A port was placed on 12/30/18. She then underwent neoadjuvant chemotherapy which was completed on 03/11/19. She had a Breast MRI on 04/01/19 which showed in the right breast, the breast tissue is fatty with minimal background enhancement. In the central portion of the breast at the 12:00 position there is an irregular enhancing mass measuring 17 mm x 11 mm x 23 mm. This mass corresponds to the mass seen on the mammogram and on the right breast ultrasound. There is minimal lucency in the central portion of this mass which may represent central necrosis. In the left breast, the breast tissue is fatty with minimal background enhancement. There are no abnormal enhancing masses or areas of non- mass enhancement in the left breast. There are no enlarged or abnormal lymph no tin. There is no abnormality in the visualized regions of the chest or liver. She also underwent gene testing and was positive for two markers. She is concerned about developing carcinoma in the left breast and has cancer phobia. She went to surgery on 04/21/19 where she underwent right simple mastectomy and right axillary sentinel lymph node biopsy by Dr. Siddiqui and prophylactic mastectomy left breast and first stage immediate bilateral breast reconstruction with placement of submuscular saline tissue expanders (650 ml for each side) and placement of Alloderm Select acellular dermal matrix grafts (132 cm2 for each side) by Dr. Dillon. Pathology on the right breast showed invasive ductal carcinoma with negative lymph nodes. Pathology on the left breast showed benign breast tissue with dense fibrosis and focal ductal ectasia and a hyalinized fibroadenoma. Estrogen receptors were positive. Progesterone receptors were positive. Her2/MISTY was negative for overexpression. There is no need for radiation therapy or IV chemotherapy at this time. She is getting adjuvant hormonal therapy with Arimidex. Postoperatively she developed some nonhealing and some scabbing on the left breast mastectomy incision. Wound culture was negative. She was started on Silver dressing changes. Healing was slow and there was no gross exposure of the gum rolling machine tender. She was taken back to surgery on 06/13/19 where she underwent revision left breast reconstruction with excisional debridement nonhealing wound with removal of Alloderm acellular dermal matrix gr aft and removal exposed saline tissue gum rolling machine tender and complex secondary wound closure. A week after surgery she had bruising on her left chest wall and flank. She had some acute blood loss anemia that necessitated PRBC. Her Hgb stabilized at 10.8. Chest wall compression was continued. The bruising on her skin resolved and the residual hematoma slowly resolved as well through drainage from the drain tube. She was maintained on Doxycycline during this time. The initial goal was to wait 6 weeks to allow healing of the incision and allow inflammation to subside before proceeding with irrigating out any residual blood and placing another saline tissue gum rolling machine tender at the same time which was tentatively going to be scheduled for next week. However a few days ago, she developed a small opening on the inferior aspect of the incision with small amount of drainage. It was cultured on 07/14/19 and is negative thus far. Levaquin was added to her antibiotics. So the surgery was moved up to 07/16/19 where she underwent revision left breast reconstruction with drainage and evacuation and excisional debridement residual hematoma and delayed left breast reconstruction with placement of saline tissue gum rolling machine tender (535 ml) and placement Alloderm Select Restore acellular dermal matrix graft (327 cm2) and excisional debridement nonhealing wound left breast reconstruction and complex secondary wound closure with lateral breast advancement skin flap (20 cm2). She healed uneventfully and her saline tissue expansion was completed. She presents today for the next stage in the breast reconstruction process with removal of the saline tissue expanders and capsulectomies and replacement cohesive gel implants and placement of acellular dermal matrix graft. After placement of the implants, if there is residual redundant or excess mastectomy skin scar contour deformity than excision of this excess tissue will be done to help shape the contour of her breast reconstruction. Patient was informed of the risks and complications of the procedure including alternatives to surgery. These were discussed with the patient personally. Patient voices understanding and wishes to proceed. Some of the risks and complications were included in a form from the [employer]. IV Fluids - 2250 ml. Urine Output - 950 ml. I used Laurens MemoryGel Breast Implant, Smooth, Round, Ultra High Profile, (800 ml left breast). Reference Number - [id number]. Lot Number - [id number]. Serial Number - [id number]. Expiration - July 21, 2023. I used Laurens MemoryGel Breast Implant, Smooth, Round, Ultra High Profile, (800 ml right breast). Reference Number - [id number]. Lot Number - [id number]. Serial Number - [id number]. Expiration - July 21, 2023. I used MTF FlexHD Pliable PRE acellular dermal matrix graft, Pliable PRE, Perforated, Large, X-Thick, (21 x 24 cm). Catalog Number - [id number]. Serial Number - [id number]. Expiration - March 24, 2023, (left breast). Catalog Number - [id number]. Serial Number- [id number]. Expiration - January 27, 2023, (right breast). I used AmnioFill Placental Connective Tissue Powder, 250 mg, (left breast). Catalog Number - [id number]. Lot Number - [id number]. Expiration - November 11, 2024. I used Trae absorbable hemostat, (I used 4 vials, 2 in each breast). Reference Number - [id number]. Lot Number - [id number]. Expiration - January 08, 2025. cosmetic maker: Joellen Chaves. Type of Anesthesia:: General Specimen's removed: 1. Left breast tissue and capsule to Pathology and Microbi ology. 2. Right breast tissue and capsule to Pathology. Drains: Jarret x4 (2 in each breast). Estimated Blood Loss (mL): 150 ml. Fluids Replaced: 3200 ml (IV Fluids 2250 ml, Urine Output 950 ml). Description of Procedure: While the patient was in the preop area, markings were made from the sternal midline to the umbilicus. The inframammary folds were marked bilaterally. She was then taken to the OR in supine position and placed under general anethesia. SCD's were placed for DVT prophylaxis. Perioperative antibiotics were given intravenously. For the procedure, I wore an N95 mask and wore proper eyewear protection. Her breasts were prepped and draped in the usual fashion. Ioban draping was also used. A curiel catheter was placed. Using xylocaine with epinephrine, the bilateral mastectomy scars were infiltrated. After waiting 5 minutes for the anesthetic to take effect, I first worked on the right breast and then the left breast. A horizontal incision was made at the inferior aspect of the right mastectomy scar down through the subcutaneous tissue until the capsule was seen. A capsulotomy was performed and the saline tissue gum rolling machine tender was removed. No abnormal fluid collection was seen in the breast pocket. The capsule was thickened with a contracture. I then proceeded with capsulectomy. I then placed a 600 ml ultra high profile sizer into the breast pocket and closed the wound temporarily with surgical pockets. A horizontal incision was then made through the previous left mastectomy scar in the inframammary crease down through the subcutaneous tissue until the capsule was seen. A capsulotomy was performed and the saline implant was removed. No abnormal fluid collection was seen in the breast pocket. The capsule was thickened with a contracture. The capsule was much thicker medially on the left breast as compared to the right breast. She had a previous infection in the left breast. I then proceeded with capsulectomy. I then placed a 600 ml ultra high profile sizer into the breast pocket and closed the wound temporarily with surgical clips. The patient was placed in the sitting position. Good shape and contour was noted in the breasts, but the sizers did not fill out the breast pocket. I then repeated the process with a 650 ml sizer and a 700 ml sizer and settled on the 700 ml ultra high profile sizer. Patient was then placed back in the supine position and sizers were removed. I placed two size 15 Jarret drains through separate stab incisions inferiorly and laterally and secured to the skin with 3- 0 Nylon suture. I irrigated both breast wounds with Irrisept 0.05% Chlorhexidine solution followed by saline irrigation. I sprayed Trae absorbable hemostat into both breast pockets to minimize seroma formation. I used two vials in each breast. Prior to handling the cohesive gel implants, our gloves were changed. I then took both cohesive gel implants (Laurens ultra high profile, 700 ml) and placed them in sterile Betadine and soaked the MTF FlexHD acellular dermal matrix graft, pliable PRE, perforated, large, X-thick. I then secured the MTF FlexHD into both breast pockets with 3-0 Vicryl suture to the lateral and superior and medial aspect of the breast pockets. For the left breast, I extended the incision to include the vertical aspect of the mastectomy scar to get better exposure to secure the MTF FlexHD to the medial aspect of the left breast pocket. I placed the Laurens 800 ml implants into both breast pockets. I secured the inferior aspect of the MTF FlexHD to the inferior aspect of the breast pocket with 3-0 Vicryl suture. Care was taken to place a malleable over the implant during the suturing of the graft to protect the implant from injury. Prior to placement of the implants into the breast pockets, the wounds were irrigated with saline and hemostasis was obtained with electrocautery. The patient was placed in the superior position. Good shape and contour was noted in the breasts except for some excess mastectomy scar tissue inferiorly. The excess mastectomy skin scar tissue contour deformity was marked out. She was placed back in the supine position and the excess tissue was excised. She was placed back in the sitting position and the breasts showed good shape and contour. The breast tissue and capsule of the left breast was sent to Pathology for analysis to rule out carcinoma and to Microbiology for culture. The breast tissue and capsule of the right breast was sent to Pathology for analysis to rule out carcinoma. The patient was placed back in the supine position, and both breast wounds were then closed with 3-0 Monocryl interrupted sutures for the deep dermis and subcutaneous tissue. A malleable was used to protect the implant during this portion of the wound closure. The skin was approximated with 3-0 V lock unidirectional barbed running subcuticular sutures. The vertical aspect of the left breast mastectomy wound was approximated with 4-0 V lock unidirectional barbed running subcuticular suture. This was followed by Histoacryl skin tissue adhesive. During the closure of the left breast, I placed AmnioFill placental connective tissue powder at the intersection of the vertical and horizontal components of the mastectomy wound to help with the healing process because of previous healing issues in the past. I used 250 mg. A Kerlix gauze dressing was applied followed by a surgical bra. Patient tolerated the procedure well and was sent to PACU in satisfactory condition. She will be sent upstairs for postop care. She will keep her head elevated during the initial postoperative period. The drains will be removed in 10-14 days. She will be discharged on antibiotics and pain medication and Valium for spasm when she is tolerating po analgesia. Grafts/Implants Used: Laurens MemoryGel Breast Implants x2, MTF FlexHD x2, AmnioFill, Trae. - Complications None. - Admit VTE Documentation VTE Present on Admission: No VTE Mechan Device Prophylaxis: SCD's VTE Pharm Prophylaxis ordered?: Yes Surgery Charges CPT - 82455 ICD-10 - C50.911, T85.44xA, Z15.01, F40.298, Z90.13, N65.0, N65.1, Z17.0, Z80.3, Z15.11, Z87.891 [id number] C50.911, T85.44xA, Z15.01, F40.298, Z90.13, N65.0, N65.1, Z17.0, Z80.3, Z15.11, Z87.891 77304 C50.911, Z15.01, F40.298, Z90.13, N65.0, N65.1, T85.44xA, Z17.0, Z80.3, Z15.11, Z87.891 03148-57 C50.911, Z15.01, F40.298, Z90.13, N65.0, N65.1, T85.44xA, Z17.0, Z80.3, Z15.11, Z87.891 12776 C50.911, N65.0, N65.1, Z15.01, F40.298, Z90.13, T85.44xA, Z17.0, Z80.3, Z15.11, Z87.891 60227-76 C50.911, N65.0, N65.1, Z15.01, F40.298, Z90.13, T85.44xA, Z17.0, Z80.3, Z15.11, Z87.891 28747-97 C50.911, T85.44xA, Z15.01, F40.298, Z90.13, N65.0, N65.1, Z17.0, Z80.3, Z15.11, Z87.891
--- NOTE | 2020-05-13 15:46 | PCM.RX.CS ---
Consult Pharmacy has been consulted to manage selected antiobiotic: Vancomycin Type of Consult: New start Suspected Infection: Skin/Soft tissue Prior Doses of Antibiotics Received/Current Regimen: Received 1250mg iv x1 preop. Microbiology: Microbiology 05/13/20 10:30 Tissue - Breast Gram Stain - Final 05/12/20 14:00 Interface Orders SARS-CoV-2 Antigen (Rapid) - Final Weight used for dosin kg Estimated Creatinine Clearance: ~39ml/min Goal Trough: 10-15 mcg/mL Pharmacy Plan for Drug Dosing: Calculated CrCl is ~39ml/min for adjusted body weight of 70kg. Will begin 1gm iv q24h starting 24hrs post preop dose. Trough level has been ordered for 1.2.21 before 3rd cumulative dose. Pharmacy Service will continue to monitor and adjust dosing as required. Follow-Up Labs: Trough Vancomycin - 1.2.21@0630 before 0700 dose
[2020-05-13 17:15] LABS: Bedside Glucose 155 mg/dL (70-110)
[2020-05-13 17:53] LABS: Prealbumin 26.7 mg/dL (20.0-40.0)
[2020-05-13] MEDS: Gabapentin 100 MG Capsule 200 MG PO (17:53)
[2020-05-13] MEDS: Hydroxychloroquine 200 MG Tablet PO (17:56)
[2020-05-13] MEDS: oxyCODONE 5 MG Tablet PO (20:16)
[2020-05-13] MEDS: Docusate Sodium 100 MG Capsule PO (22:31)
[2020-05-13] MEDS: buPROPion (XL) 300 MG TABLET.XL PO (22:31)
--- NOTE | 2020-05-13 22:56 | NURSING ---
Paged Dr. Dillon per concrete tile machine operator at [phone] to report that pt is experiencing n/t to thumb & first 2 fingers on bilat hands. Text also sent at [phone] and another page per concrete tile machine operator at [phone].
[2020-05-14 00:20] VITALS: BP 140/62; PULSE 84; RESP 15; TEMP 36.5; O2SAT 97
[2020-05-14] MEDS: Acetaminophen 500 MG Tablet 1000 MG PO ×4 (00:43→18:18)
[2020-05-14 03:46] VITALS: BP 139/56; PULSE 76; RESP 16; TEMP 36.8; O2SAT 100
[2020-05-14 03:53] LABS: Hematocrit 29.9 % (37-47); Hemoglobin 9.5 g/dL (12.0-15.0); Mean Corp Hgb Conc 31.8 g/dL (32-36); Mean Corpuscular Hgb 31.4 pg (27.0-32.0); Mean Corpuscular Volume 98.7 fL (81-99); Mean Platelet Vol. 9.9 fl (6.2-12.0); Platelet Count 227 K/mm3 (150-450); RBC Distribution Width CV 13.9 % (11.6-14.6); RBC Distribution Width SD 50.6 fl (35.1-43.9); Red Blood Count 3.03 M/mm3 (4.2-5.4); White Blood Count 9.8 K/mm3 (4.4-11.0)
[2020-05-14 04:22] LABS: Anion Gap 5 (5-15); BUN 20 mg/dL (7-18); BUN/Creat Ratio 15.4 RATIO (10-20); Calcium,Total 8.6 mg/dL (8.5-10.1); Chloride 106 mmol/L (98-107); EST Glomerular Filtration Rate 43 mL/min (>60); Est Glom Filt Rate - Afr Amer 52 mL/min (>60); Estimated Creatinine Clearance 38.77 ml/min; Glucose 103 mg/dL (74-106); Potassium 4.1 mmol/L (3.5-5.1); Prealbumin 26.1 mg/dL (20.0-40.0); Sodium Level 138 mmol/L (136-145)
[2020-05-14] MEDS: Vancomycin IV 1,000 MG/200 ML BAG 200 MG IV (06:23)
[2020-05-14] MEDS: Levothyroxine 100 MCG Tablet PO (06:23)
[2020-05-14 07:55] VITALS: BP 146/56; PULSE 74; RESP 18; TEMP 36.7; O2SAT 96
[2020-05-14] MEDS: Gabapentin 100 MG Capsule 200 MG PO ×3 (07:57→17:02)
[2020-05-14] MEDS: Ensure Surgery 237 ML LIQUID PO ×2 (07:57→17:02)
[2020-05-14] MEDS: Hydroxychloroquine 200 MG Tablet PO ×2 (07:57→17:02)
[2020-05-14] MEDS: Docusate Sodium 100 MG Capsule PO ×2 (09:45→22:17)
[2020-05-14] MEDS: Enoxaparin 40 MG/0.4 ML Syringe SC (09:45)
[2020-05-14] MEDS: Anastrozole 1 MG TABLET PO (09:45)
[2020-05-14] MEDS: Pantoprazole Sodium 40 MG Tablet PO (09:46)
[2020-05-14 13:50] VITALS: BP 129/50; PULSE 78; RESP 16; TEMP 36.8; O2SAT 100
[2020-05-14] MEDS: Lactated Ringers 1,000 ML 60 ML IV (15:38)
[2020-05-14] MEDS: oxyCODONE 5 MG Tablet PO (16:58)
--- NOTE | 2020-05-14 19:23 | PCM.PN.SRG ---
Subjective: Postop #1 Patient has incisional pain. She is a little unsteady on her feet with ambulation. - Physical Exam Vitals/I&O's: Vital Signs Temp Pulse Resp BP Pulse Ox 98.2 F 78 16 129/50 H 100 05/14/20 13:50 05/14/20 13:50 05/14/20 13:50 05/14/20 13:50 05/14/20 13:50 Oxygen Delivery Method Room Air Weight: 190 lb 7.67 oz Body Mass Index (BMI) 30.7 Intake and Output for Last 24 Hours 05/12/20 05/13/20 05/14/20 23:59 23:59 23:59 Intake Total 3040.00 / 4040.00 3234 / 3234 Output Total 1037 / 2387 3840 / 3840 Balance 2002. / 1652.00 -606 / -606 Drainage 67 ml yesterday. General: Alert, Oriented x3 HEENT: PERRLA, EOMI Oral: Moist Mucosa Neck: Supple Abdomen: Soft, Non-Distended Skin: Incision - Bilateral breast incisions are dry and intact. Breasts are soft and symmetrical. No clinical evidence of hematoma. No vascular compromise on the breast skin flaps. Neurological: Cranial nerves II-XII grossly intact Psych/Mental Status: Normal Affect, Appropriate Microbiology Past 72 Hours 05/13/20 10:30 Tissue - Breast Gram Stain - Final 05/13/20 10:30 Tissue - Breast Wound Culture - Preliminary No growth-Final to follow 05/12/20 14:00 Interface Orders SARS-CoV-2 Antigen (Rapid) - Final Laboratory Results 05/14/20 03:35: Sodium 138, Potassium 4.1, Chloride 106, Carbon Dioxide 27.0, Anion Gap 5, BUN 20 H, Creatinine 1.30 H, Estim Creat Clear Calc 38.77, Est GFR (MDRD) Af Amer 52 L, Est GFR (MDRD) Non-Af 43 L, BUN/Creatinine Ratio 15.4, Glucose 103, Calcium 8.6, Prealbumin 26.1 05/14/20 03:35: WBC 9.8, RBC 3.03 L, Hgb 9.5 L, Hct 29.9 L, MCV 98.7, MCH 31.4, MCHC 31.8 L, RDW Std Deviation 50.6 H, RDW Coeff of Oumou 13.9, Plt Count 227, MPV 9.9 Current Medications Acetaminophen (Acetaminophen 500 Mg Tablet) 1,000 mg PO Q6 [facility] Last Admin: 05/14/20 18:18 Dose: 1,000 mg Documented by: Anastrozole (Anastrozole 1 Mg Tablet) 1 mg PO DAILY [facility] Last Admin: 05/14/20 09:45 Dose: 1 mg Documented by: Bupropion HCl (Bupropion (Xl) 300 Mg Tablet.Xl) 300 mg PO HS [facility] Last Admin: 05/13/20 22:31 Dose: 300 mg Documented by: Docusate Sodium (Docusate Sodium 100 Mg Capsule) 100 mg PO BID [facility] Last Admin: 05/14/20 09:45 Dose: 100 mg Documented by: Enoxaparin Sodium (Enoxaparin 40 Mg/0.4 Ml Syringe) 40 mg SC DAILY [facility] Last Admin: 05/14/20 09:45 Dose: 40 mg Documented by: Enteral Nutritional Formula (Ensure Surgery 237 Ml Liquid) 237 ml PO TIDCM [facility] Last Admin: 05/14/20 17:02 Dose: 237 ml Documented by: Gabapentin (Gabapentin 100 Mg Capsule) 200 mg PO TIDCM [facility] Last Admin: 05/14/20 17:02 Dose: 200 mg Documented by: Hydromorphone HCl (Hydromorphone 1 Mg/Ml Syringe) 0.5 - 1 mg IV Q3H PRN PRN PRN Reason: Pain Score 6-10 Hydroxychloroquine Sulfate (Hydroxychloroquine 200 Mg Tablet) 200 mg PO BIDCM [facility] Last Admin: 05/14/20 17:02 Dose: 200 mg Documented by: Vancomycin IV Pharmacy to Dose (1 ea/ Sodium Chloride) 500 mls @ 250 mls/hr IV PRN PRN; Protocol PRN Reason: Rx to Dose Vancomycin HCl (Vancomycin) 1,000 mg in 200 mls @ 200 mls/hr IV Q24H [facility] Last Infusion: 05/14/20 07:23 Dose: Infused Documented by: Sodium Chloride () 250 mls @ 15 mls/hr IV .[id number] PRN PRN Reason: Saline Flush Sodium Chloride () 250 mls @ 15 mls/hr IV .[id number] PRN PRN Reason: Additional IVPB Infusion Lactated Ringer's () 1,000 mls @ 60 mls/hr IV .[id number] [facility] Last Admin: 05/14/20 15:38 Dose: 60 mls/hr Documented by: Levothyroxine Sodium (Levothyroxine 100 Mcg Tablet) 100 mcg PO DAILY@0600 [facility] Last Admin: 05/14/20 06:23 Dose: 100 mcg Documented by: Magnesium Chloride (Magnesium Chloride 64 Mg Delay Rel.Tablet) 128 mg PO DAILY PRN PRN PRN Reason: Constipation Ondansetron HCl (Ondansetron Odt 4 Mg Tablet) 4 mg PO Q6H PRN PRN PRN Reason: NAUSEA Oxycodone HCl (Oxycodone 5 Mg Tablet) 5 - 10 mg PO Q4H PRN PRN PRN Reason: Pain Score 4-10 Last Admin: 05/14/20 16:58 Dose: 10 mg Documented by: Pantoprazole Sodium (Pantoprazole Sodium 40 Mg Tablet) 40 mg PO DAILY [facility] Last Admin: 05/14/20 09:46 Dose: 40 mg Documented by: Sodium Chloride (0.9% Saline Lock 10 Ml Syringe) 10 - 40 ml IV UD PRN PRN Reason: SALINE FLUSH Medical Necessity - Tobacco Use Smoking Status: Former smoker Tobacco Use: Non-smoker Assessment/Plan All Active Problems (Last Reviewed 04/24/20 @ 14:[address] Isma Dillon MD) Methicillin resistant Staphylococcus epidermidis infection (Resolved) Postoperative hematoma of subcutaneous tissue following non-dermatologic procedure (Resolved) Acute blood loss anemia (Resolved) Nonhealing surgical wound (Resolved) Exposed breast implant (Resolved) Disproportion of reconstructed breast (Acute) Chemotherapy management, encounter for (Resolved) 1. Right breast cancer. 2. Cancer phobia left breast. 3. Positive test for genetic breast cancer susceptibility marker. 4. Acquired absence bilateral breasts. 5. Disproportion reconstructed breasts. 6. Estrogen receptor positive status. 7. Family history of breast cancer. 8. Neoadjuvant chemotherapy. 9. Smoker, quit after her breast cancer diagnosis. 10. Deformity reconstructed breasts. 11. Painful capsular contracture bilateral breast reconstruction expanders. 12. s/p left breast reconstruction with removal of saline tissue ergonomic specialist and capsulectomy with replacement cohesive gel implant (800 ml) and placement of MTF FlexHD acellular dermal matrix graft (21 x 24 cm) and revision left breast reconstruction with excision excess mastectomy scar contour deformity and right breast reconstruction with removal of saline tissue ergonomic specialist and capsulectomy with replacement cohesive gel implant (800 ml) and placement of MTF FlexHD acellular dermal matrix graft (21 x 24 cm) and revision right breast reconstruction with excision excess mastectomy scar contour deformity. Breast incisions are dry and intact. Breasts are soft and symmetrical. No clinical evidence of hematoma. No vascular compromise noted on the breast skin flaps. Prealbumin was 26.1. Encourage nutritional supplementation with protein to help the healing process. She has incisional pain. Needs occasional IV analgesia. She is also a little unsteady on her feet with ambulation. Operative culture left breast negative thus far. Continue head elevation and breast compression and lifting restriction. May be discharged when tolerating po analgesia and is more steady on her feet with ambulation. Anticipate discharge tomorrow.
[2020-05-14 19:28] VITALS: BP 138/68; PULSE 87; RESP 16; TEMP 36.9; O2SAT 98
[2020-05-14] MEDS: buPROPion (XL) 300 MG TABLET.XL PO (22:15)
[2020-05-14] MEDS: Mag Hydrox/Al Hydrox/Simeth 30 ML UDC PO (22:15)
[2020-05-15 00:07] VITALS: BP 138/65; PULSE 80; RESP 16; TEMP 36.8; O2SAT 97
[2020-05-15] MEDS: Calcium Carbonate 500 MG Tablet 1000 MG PO (00:19)
[2020-05-15] MEDS: Acetaminophen 500 MG Tablet 1000 MG PO ×3 (00:48→12:08)
[2020-05-15 06:27] VITALS: BP 149/68; PULSE 76; RESP 16; TEMP 36.6; O2SAT 98
[2020-05-15] MEDS: Levothyroxine 100 MCG Tablet PO (06:39)
[2020-05-15] MEDS: oxyCODONE 5 MG Tablet PO (06:39)
[2020-05-15] MEDS: Vancomycin IV 1,000 MG/200 ML BAG 200 MG IV (06:52)
[2020-05-15 07:00] LABS: Hematocrit 30.4 % (37-47); Hemoglobin 9.5 g/dL (12.0-15.0); Mean Corp Hgb Conc 31.3 g/dL (32-36); Mean Corpuscular Hgb 31.6 pg (27.0-32.0); Platelet Count 208 K/mm3 (150-450); RBC Distribution Width CV 14.1 % (11.6-14.6); RBC Distribution Width SD 52.1 fl (35.1-43.9); Red Blood Count 3.01 M/mm3 (4.2-5.4); White Blood Count 7.3 K/mm3 (4.4-11.0)
[2020-05-15 07:14] VITALS: O2SAT 98
[2020-05-15 07:29] LABS: Anion Gap 4 (5-15); BUN 21 mg/dL (7-18); Calcium,Total 8.7 mg/dL (8.5-10.1); Chloride 105 mmol/L (98-107); EST Glomerular Filtration Rate 40 mL/min (>60); Est Glom Filt Rate - Afr Amer 48 mL/min (>60); Glucose 95 mg/dL (74-106); Sodium Level 138 mmol/L (136-145)
[2020-05-15 07:34] LABS: Vancomycin, Trough Level 8.5 ug/mL (5.0-15.0)
[2020-05-15] MEDS: Hydroxychloroquine 200 MG Tablet PO (08:27)
[2020-05-15] MEDS: Gabapentin 100 MG Capsule 200 MG PO ×2 (08:28→12:08)
[2020-05-15] MEDS: Lactated Ringers 1,000 ML 60 ML IV (08:29)
--- NOTE | 2020-05-15 08:46 | PCM.RX.CS ---
Consult Pharmacy has been consulted to manage selected antiobiotic: Vancomycin Type of Consult: Follow-up Suspected Infection: Skin/Soft tissue Prior Doses of Antibiotics Received/Current Regimen: current regimen is 1000mg IV q24h. The patient received x1 dose of 1250mg before that. Labs: Sodium 138 mmol/L (136-145) 05/15/20 06:40 Potassium 4.0 mmol/L (3.5-5.1) 05/15/20 06:40 Chloride 105 mmol/L (98-107) 05/15/20 06:40 Carbon Dioxide 29.0 mmol/L (21.0-32.0) 05/15/20 06:40 Anion Gap 4 (5-15) L 05/15/20 06:40 BUN 21 mg/dL (7-18) H 05/15/20 06:40 Creatinine 1.40 mg/dL (0.55-1.02) H 05/15/20 06:40 Est GFR (MDRD) Af Amer 48 mL/min (>60) L 05/15/20 06:40 Est GFR (MDRD) Non-Af 40 mL/min (>60) L 05/15/20 06:40 BUN/Creatinine Ratio 15.0 RATIO (10-20) 05/15/20 06:40 Glucose 95 mg/dL (74-106) 05/15/20 06:40 Vancomycin Trough 8.5 ug/mL (5.0-15.0) 05/15/20 06:40 Microbiology: Microbiology 05/13/20 10:30 Tissue - Breast Gram Stain - Final 05/13/20 10:30 Tissue - Breast Wound Culture - Preliminary No growth-Final to follow 05/13/20 10:30 Tissue - Breast Anaerobic Culture - Preliminary No growth in 48 hours. 05/12/20 14:00 Interface Orders SARS-CoV-2 Antigen (Rapid) - Final Weight used for dosin.4 kg Estimated Creatinine Clearance: 42.6ml/min Goal Trough: 10-15 mcg/mL Pharmacy Plan for Drug Dosing: Trough drawn today came back as 8.5. This is below goal range but the patient has only received 2 doses of vanc so far. Will continue on same regimen and recheck a trough in 2 days to make sure it is moving up into the goal range. Pharmacy Service will continue to monitor and adjust dosing as required. Follow-Up Labs: Trough Vancomycin Labs to be done on [date and time ordered]: 05/17/20 06:30
[2020-05-15] MEDS: Pantoprazole Sodium 40 MG Tablet PO (10:50)
[2020-05-15] MEDS: Anastrozole 1 MG TABLET PO (10:50)
[2020-05-15] MEDS: Enoxaparin 40 MG/0.4 ML Syringe SC (10:50)
[2020-05-15] MEDS: Docusate Sodium 100 MG Capsule PO (10:50)
[2020-05-15 10:52] VITALS: BP 139/78; PULSE 78; RESP 18; TEMP 36.7; O2SAT 98
[2020-05-15 11:00] VITALS: PULSE 72
--- NOTE | 2020-05-15 12:15 | CASEMGMT ---
CLARA ZACARIAS assessment: Face to Face with patient for initial transition planning/care coordination assessment. CLARA ZACARIAS introduced self and role at [facility], pt voices understanding and consents to assessment at this time. Pt is sitting up in bed in no distress at this time. Pt is A/Ox4 at this time and answers all questions appropriately at this time. Pt's daughter is at bedside during assessment. Care providers, pharmacy, and demographics verified at this time. Admitting dx: Bilateral Breast reconstruction PCP: Gerard Specialists: Madelyn, onc; Glen, nephro; Juan M, arthritis Preferred Pharmacy: [facility] Insurance: MCR A/B, [employer] Prescription Benefit: Yes Living Will/HPOA: Pt has LW/HPOA and is aware that they are on file at [facility] at this time. Pt states her , Jone Alvarado, is HPOA. LNOK: Jone Alvarado, ; Nano Zhao, daughter Living Arrangements: Pt states lives with in 1 story home with no steps and states no concerns at home at this time. Pt states is independent with ADL's. Transportation: Pt states drives self and states no transportation concerns at this time. DME/HHC: Pt states has a lift chair and polar pack at home and states no need for any further DME at this time. Pt states has had [facility] in past and states no hx of SNF. Pt states no concerns with going home at time of discharge. Pt states is retired. Pt states does not smoke cigarettes but does drink ETOH occasionally. Pt states no further concerns/needs at this time. CM to follow for any further discharge planning/needs. Advised pt to ask for CM if any further questions/concerns/needs arise, voices understanding. Pt Goal: Home Plan[place] CLARA ZACARIAS
--- NOTE | 2020-05-15 14:20 | PCM.PN.SRG ---
Subjective: Postop #2 Patient is resting comfortably. She is more steady on her feet with ambulation. She is tolerating po analgesia. - Physical Exam Vitals/I&O's: Vital Signs Temp Pulse Resp BP Pulse Ox 98.1 F 72 18 139/78 H 98 05/15/20 10:52 05/15/20 11:00 05/15/20 10:52 05/15/20 10:52 05/15/20 10:52 Oxygen Delivery Method Room Air Weight: 190 lb 7.67 oz Body Mass Index (BMI) 30.7 Intake and Output for Last 24 Hours 05/13/20 05/14/20 05/15/20 23:59 23:59 23:59 Intake Total 3040.00 / 4040.00 3234 / 3234 2511 / 2511 Output Total 1037 / 2387 3840 / 3840 215 / 215 Balance 2002.1652. -606 / -606 2296 / 2296 Drainage 165 ml yesterday, 215 ml today. General: Alert, Oriented x3 HEENT: PERRLA, EOMI Oral: Moist Mucosa Neck: Supple Abdomen: Soft, Non-Distended Skin: Incision - Bilateral breast incisions are dry and intact. Breasts are soft and symmetrical. No clinical evidence of hematoma. No vascular compromise on the breast skin flaps. Neurological: Cranial nerves II-XII grossly intact Psych/Mental Status: Normal Affect, Appropriate Microbiology Past 72 Hours 05/13/20 10:30 Tissue - Breast Gram Stain - Final 05/13/20 10:30 Tissue - Breast Wound Culture - Preliminary No growth-Final to follow 05/13/20 10:30 Tissue - Breast Anaerobic Culture - Preliminary No growth in 48 hours. 05/12/20 14:00 Interface Orders SARS-CoV-2 Antigen (Rapid) - Final Laboratory Results 05/15/20 06:40: Vancomycin Trough 8.5 05/15/20 06:40: WBC 7.3, RBC 3.01 L, Hgb 9.5 L, Hct 30.4 L, MCV 101.0 H, MCH 31.6, MCHC 31.3 L, RDW Std Deviation 52.1 H, RDW Coeff of Oumou 14.1, Plt Count 208, MPV 10.0 05/15/20 06:40: Sodium 138, Potassium 4.0, Chloride 105, Carbon Dioxide 29.0, Anion Gap 4 L, BUN 21 H, Creatinine 1.40 H, Estim Creat Clear Calc 36.00, Est GFR (MDRD) Af Amer 48 L, Est GFR (MDRD) Non-Af 40 L, BUN/Creatinine Ratio 15.0, Glucose 95, Calcium 8.7 Current Medications Acetaminophen (Acetaminophen 500 Mg Tablet) 1,000 mg PO Q6 [facility] Last Admin: 05/15/20 12:08 Dose: 1,000 mg Documented by: Al Hydroxide/Mg Hydroxide (Mag Hydrox/Al Hydrox/Simeth 30 Ml Udc) 30 ml PO Q6H PRN PRN PRN Reason: HEARTBURN OR INDIGESTION Last Admin: 05/14/20 22:15 Dose: 30 ml Documented by: Anastrozole (Anastrozole 1 Mg Tablet) 1 mg PO DAILY [facility] Last Admin: 05/15/20 10:50 Dose: 1 mg Documented by: Bupropion HCl (Bupropion (Xl) 300 Mg Tablet.Xl) 300 mg PO HS [facility] Last Admin: 05/14/20 22:15 Dose: 300 mg Documented by: Calcium Carbonate (Calcium Carbonate 500 Mg Tablet) 1,000 mg PO Q4H PRN PRN PRN Reason: INDIGESTION Last Admin: 05/15/20 00:19 Dose: 1,000 mg Documented by: Docusate Sodium (Docusate Sodium 100 Mg Capsule) 100 mg PO BID [facility] Last Admin: 05/15/20 10:50 Dose: 100 mg Documented by: Enoxaparin Sodium (Enoxaparin 40 Mg/0.4 Ml Syringe) 40 mg SC DAILY [facility] Last Admin: 05/15/20 10:50 Dose: 40 mg Documented by: Enteral Nutritional Formula (Ensure Surgery 237 Ml Liquid) 237 ml PO TIDCM [facility] Last Admin: 05/15/20 12:08 Dose: Not Given Documented by: Gabapentin (Gabapentin 100 Mg Capsule) 200 mg PO TIDCM [facility] Last Admin: 05/15/20 12:08 Dose: 200 mg Documented by: Hydromorphone HCl (Hydromorphone 1 Mg/Ml Syringe) 0.5 - 1 mg IV Q3H PRN PRN PRN Reason: Pain Score 6-10 Hydroxychloroquine Sulfate ([facility]ine 200 Mg Tablet) [facility] Last Admin: 05/15/20 08:27 Dose: 200 mg Documented by: Vancomycin IV Pharmacy to Dose (1 ea/ Sodium Chloride) 500 mls @ 250 mls/hr IV PRN PRN; Protocol PRN Reason: Rx to Dose Vancomycin HCl (Vancomycin) 1,000 mg in 200 mls @ 200 mls/hr IV Q24H [facility] Last Infusion: 05/15/20 07:52 Dose: Infused Documented by: Sodium Chloride () 250 mls @ 15 mls/hr IV .[id number] PRN PRN Reason: Saline Flush Sodium Chloride () 250 mls @ 15 mls/hr IV .[id number] PRN PRN Reason: Additional IVPB Infusion Lactated Ringer's () 1,000 mls @ 60 mls/hr IV .[id number] [facility] Last Admin: 05/15/20 08:29 Dose: 60 mls/hr Documented by: Levothyroxine Sodium (Levothyroxine 100 Mcg Tablet) 100 mcg PO DAILY@0600 [facility] Last Admin: 05/15/20 06:39 Dose: 100 mcg Documented by: Magnesium Chloride (Magnesium Chloride 64 Mg Delay Rel.Tablet) 128 mg PO DAILY PRN PRN PRN Reason: Constipation Ondansetron HCl (Ondansetron Odt 4 Mg Tablet) 4 mg PO Q6H PRN PRN PRN Reason: NAUSEA Oxycodone HCl (Oxycodone 5 Mg Tablet) 5 - 10 mg PO Q4H PRN PRN PRN Reason: Pain Score 4-10 Last Admin: 05/15/20 06:39 Dose: 5 mg Documented by: Pantoprazole Sodium (Pantoprazole Sodium 40 Mg Tablet) 40 mg PO DAILY [facility] Last Admin: 05/15/20 10:50 Dose: 40 mg Documented by: Sodium Chloride (0.9% Saline Lock 10 Ml Syringe) 10 - 40 ml IV UD PRN PRN Reason: SALINE FLUSH Medical Necessity - Tobacco Use Smoking Status: Former smoker Tobacco Use: Non-smoker Assessment/Plan All Active Problems (Last Reviewed 04/24/20 @ 14:[address] Isma Dillon MD) Methicillin resistant Staphylococcus epidermidis infection (Resolved) Postoperative hematoma of subcutaneous tissue following non-dermatologic procedure (Resolved) Acute blood loss anemia (Resolved) Nonhealing surgical wound (Resolved) Exposed breast implant (Resolved) Disproportion of reconstructed breast (Acute) Chemotherapy management, encounter for (Resolved) 1. Right breast cancer. 2. Cancer phobia left breast. 3. Positive test for genetic breast cancer susceptibility marker. 4. Acquired absence bilateral breasts. 5. Disproportion reconstructed breasts. 6. Estrogen receptor positive status. 7. Family history of breast cancer. 8. Neoadjuvant chemotherapy. 9. Smoker, quit after her breast cancer diagnosis. 10. Deformity reconstructed breasts. 11. Painful capsular contracture bilateral breast reconstruction expanders. 12. s/p left breast reconstruction with removal of saline tissue child nutrition assistant and capsulectomy with replacement cohesive gel implant (800 ml) and placement of MTF FlexHD acellular dermal matrix graft (21 x 24 cm) and revision left breast reconstruction with excision excess mastectomy scar contour deformity and right breast reconstruction with removal of saline tissue child nutrition assistant and capsulectomy with replacement cohesive gel implant (800 ml) and placement of MTF FlexHD acellular dermal matrix graft (21 x 24 cm) and revision right breast reconstruction with excision excess mastectomy scar contour deformity. Breast incisions are dry and intact. Breasts are soft and symmetrical. No clinical evidence of hematoma. No vascular compromise noted on the breast skin flaps. Prealbumin was 26.1. Encourage nutritional supplementation with protein to help the healing process. Operative culture left breast negative thus far. She is tolerating po analgesia. She is more steady on her feet with ambulation. Continue head elevation and breast compression and lifting restriction. Discharge home today. Followup office one week. Wrote script for Cefadroxil until the drains are removed. Wrote scripts for Percocet for pain (40 tabs) and for Valium for spasm (30 tabs).
--- NOTE | 2020-05-15 14:39 | DCINST_ITS ---
You will use the following diet at home:: No restrictions, Other - encourage nutritional supplementation with protein to help the healing process. Discharge Activity: May Not Drive, May Not Shower - until the drains are removed., - - keep head elevated. no heavy lifting. May shower in (days): 14 - after the drains are removed. May resume sexual activity in: 10-14 days Weight Bearing Status: Weight bearing as tolerated Lifting Restrictions: 20 lbs Keep extremity elevated above heart level: - - elevate head. Call your doctor if your incision/area has: Continuous Slow Oozing, Sudden Increased Bleeding, Increased Pain/ Swelling, Increased Redness, Foul Smelling Discharge, Swelling at the incision site Call your doctor if you observe: Fever of 101 or Higher, Coldness, Increased Pain, Shortness of breath, Chest pain, Calf discomfort, Uncontrolled pain Suture Line Care: - - dry dressings daily. Change Dressing in (Days):: 1 - dry dressings daily. Cleanse incision/area with: - - may take a shower after the drains are removed. Drain: Suction - levon drain x4 to bulb suction. empty and record output daily. Allergies/Adverse Reactions: Allergies No Known Allergies Allergy (Verified 05/13/20 06:05) Medications to take at Discharge buPROPion XL [Wellbutrin Xl] 300 mg PO DAILY 03/11/13 hydroxychloroquine 200 mg tablet 200 mg PO BID 12/16/18 Lidocaine/Prilocaine [Lidocaine-Prilocaine Cream] 1 applicatio TP DAILY PRN PRN 30 Days #1 tube 01/01/19 Docusate Sodium [Colace] 100 mg PO DAILY 06/17/19 Levothyroxine Sodium 100 mcg PO DAILY 06/17/19 Anastrozole [Arimidex] 1 mg PO DAILY 90 Days #90 tab NS 03/15/20 Gabapentin 300 mg PO BID 05/05/20 Omeprazole 40 mg PO DAILY 05/05/20 Calcium Carbonate [Tums] 1,000 mg PO Q4H PRN PRN tablet 05/15/20 Cefadroxil [Duricef] 500 mg PO BID #30 cap 05/15/20 Diazepam [Valium] 5 mg PO 4X/DAY PRN PRN #30 tablet 05/15/20 Mag Hydrox/Al Hydrox/Simeth [Mylanta II] 30 ml PO Q6H PRN PRN udc 05/15/20 Oxycodone HCl/Acetaminophen [Percocet 5/325] 1 tablet PO Q4H PRN PRN 7 Days #40 tablet 05/15/20 The following prescriptions were given: Cefadroxil [Duricef] 500 mg PO BID #30 cap Transmission Status: Pending to [id number] Oxycodone HCl/Acetaminophen [Percocet 5/325] 1 tablet PO Q4H PRN PRN 7 Days #40 tablet PRN Reason: Pain Score 6-10 Transmission Status: Received by [id number] Diazepam [Valium] 5 mg PO 4X/DAY PRN PRN #30 tablet PRN Reason: Spasms Transmission Status: Received by [id number] Primary Care Physician: Krunal Gee MD [Primary Care Provider] - Test Results: Test results from this visit will be discussed in further detail at your follow- up appointment, if applicable. Please Follow Up With: Isma Dillon MD When: one week. call [phone] for appt. Proposed Discharge Date: 05/15/20
[2020-05-15 15:06] VITALS: BP 161/77; PULSE 77; RESP 18; TEMP 36.8; O2SAT 99
[2020-05-15] MEDS: 0.9% Saline Lock 10 ML Syringe IV (15:08)
== END 2020-05-15 15:35 | disposition home or self-care (01) | DRG 582 ==
LOC: MS3 19:37 → SDC 05-17 14:08
PROVIDERS: Admitting Provider Surgery; PCP Family Medicine; Referring Provider Surgery; Visit Provider Surgery
PROC: (CPT 19357; principal; 2020-05-13 07:15)
DX: Z42.1 Encounter for breast reconstruction following mastectomy (principal); T85.44XA Capsular contracture of breast implant, initial encounter; C50.911 Malignant neoplasm of unspecified site of right female breast; Y83.1 Surgical operation with implant of artificial internal device as the cause of abnormal reaction of the patient, or of later complication, without mention of misadventure at the time of the procedure; Z17.0 Estrogen receptor positive status [ER+]; N65.0 Deformity of reconstructed breast; F45.29 Other hypochondriacal disorders; F32.9 Major depressive disorder, single episode, unspecified; K21.9 Gastro-esophageal reflux disease without esophagitis; E03.9 Hypothyroidism, unspecified; M19.90 Unspecified osteoarthritis, unspecified site; M85.80 Other specified disorders of bone density and structure, unspecified site; E66.9 Obesity, unspecified; Z68.30 Body mass index [BMI] 30.0-30.9, adult; Z90.13 Acquired absence of bilateral breasts and nipples; Z85.3 Personal history of malignant neoplasm of breast; Z15.01 Genetic susceptibility to malignant neoplasm of breast; Z79.899 Other long term (current) drug therapy; Z87.891 Personal history of nicotine dependence; Z80.3 Family history of malignant neoplasm of breast; Z45.2 Encounter for adjustment and management of vascular access device
CPT/HCPCS: 36415; 36591; 80048; 80076; 80202; 82962; 83735; 84134; 84443; 85027; 85610; 85730; 87070; 87075; 87102; 87176; 87205; 87206; 87426; 88305; 99251; C9803; J7050; J7120; A4216; G0463; J2405; Q9968

== ENCOUNTER → 2020-06-01 | Outpatient (CLI) | payer MEDICARE, OTHER, SELFPAY | END | disposition home or self-care (01) | LOC: LABSPEC 17:08 | PROVIDERS: PCP Family Medicine; Visit Provider Nurse Practitioner Family | DX: T85.49XA Other mechanical complication of breast prosthesis and implant, initial encounter (principal); N65.1 Disproportion of reconstructed breast; N95.0 Postmenopausal bleeding; F40.298 Other specified phobia; Z90.13 Acquired absence of bilateral breasts and nipples | CPT/HCPCS: 87070; 87075; 87205 ==

== ENCOUNTER 2020-06-28 13:07 | Inpatient (IN) | payer MEDICARE, OTHER, SELFPAY ==
[2020-06-28 13:09] VITALS: PULSE 80; BMI 28.5
--- NOTE | 2020-06-28 14:24 | CASEMGMT ---
Copies of LW/Healthcare POA both scanned into summary tab of [employer]. Jone Alvarado is listed as pt's healthcare POA. MERRILL Kim
[2020-06-28] MEDS: Lactated Ringers 1,000 ML 30 ML IV (16:08)
[2020-06-28 16:42] LABS: Hematocrit 33.2 % (37-47); Hemoglobin 10.4 g/dL (12.0-15.0); Mean Corp Hgb Conc 31.3 g/dL (32-36); Mean Corpuscular Hgb 30.9 pg (27.0-32.0); Mean Corpuscular Volume 98.5 fL (81-99); Mean Platelet Vol. 9.7 fl (6.2-12.0); Platelet Count 290 K/mm3 (150-450); RBC Distribution Width CV 13.2 % (11.6-14.6); RBC Distribution Width SD 47.3 fl (35.1-43.9); Red Blood Count 3.37 M/mm3 (4.2-5.4); White Blood Count 6.6 K/mm3 (4.4-11.0)
[2020-06-28 16:49] LABS: Erythrocyte Sedimentation Rate 26 mm/hr (0-30)
--- NOTE | 2020-06-28 17:07 | PCM.RX.CS ---
Consult Pharmacy has been consulted to manage selected antiobiotic: Vancomycin Type of Consult: New start Prior Doses of Antibiotics Received/Current Regimen: Medications Vancomycin HCl 1,250 mg/ (Sodium Chloride) 275 mls @ 167 mls/hr IV X1 ONE Stop: 06/28/20 18:23 Last Admin: 06/28/20 16:35 Dose: 167 mls/hr Documented by: Microbiology: Microbiology 06/28/20 12:30 Interface Orders SARS-CoV-2 Antigen (Rapid) - Final Goal Trough: 10-15 mcg/mL Pharmacy Plan for Drug Dosing: Patient's SCr near baseline. Has been on vanc multiple times before with similar renal function and same goal trough. Recommend to restart previous regimen of 1000mg IV q24h after initial 1250mg dose was given. Pharmacy Service will continue to monitor and adjust dosing as required. Follow-Up Labs: Trough Vancomycin - 06/30 @ 1630
[2020-06-28 17:18] LABS: ALB/GLOB Ratio 0.9 RATIO (0.9-2.4); AST(SGOT) 24 U/L (15-37); Alanine Aminotransfer ALT/SGPT 16 U/L (13-56); Albumin, Serum 3.4 g/dL (3.2-5.0); Alkaline Phosphatase 94 U/L (45-117); Anion Gap 5 (5-15); BUN 19 mg/dL (7-18); BUN/Creat Ratio 12.9 RATIO (10-20); CRP < 2.90 mg/L (0.0-3.0); Calcium,Total 9.6 mg/dL (8.5-10.1); Chloride 106 mmol/L (98-107); Creatinine, Serum 1.47 mg/dL (0.55-1.02); EST Glomerular Filtration Rate 38 mL/min (>60); Est Glom Filt Rate - Afr Amer 45 mL/min (>60); Estimated Creatinine Clearance 35.62 ml/min; Globulin 3.7 g/dL (2.2-4.2); Glucose 122 mg/dL (74-106); Potassium 3.7 mmol/L (3.5-5.1); Prealbumin 26.7 mg/dL (20.0-40.0); Protein, Total 7.1 g/dL (6.4-8.2); Sodium Level 138 mmol/L (136-145)
[2020-06-28] MEDS: Juven (unflavored) Packet 1 PACKET PO (17:53)
[2020-06-28] MEDS: levoFLOXacin IV 500 MG/100 ML BAG 100 MG IV (18:37)
[2020-06-28 21:01] VITALS: BP 134/66; PULSE 83; RESP 18; TEMP 36.6; O2SAT 98
[2020-06-28] MEDS: Acetaminophen 325 MG Tablet 650 MG PO (21:05)
[2020-06-28] MEDS: Gabapentin 300 MG Capsule PO (21:06)
[2020-06-28] MEDS: Hydroxychloroquine 200 MG Tablet PO (21:06)
--- NOTE | 2020-06-28 22:38 | HP.PCM_ITS ---
History and Physical Date of Admission: 06/28/20 HISTORY OF PRESENT ILLNESS 69 year old woman presents with diagnosis of right breast cancer after a breast biopsy on 12/16/18. Pathology showed invasive ductal carcinoma, nuclear grade 3. Estrogen receptors were positive. Progesterone receptors were positive. HER/2Neu was equivocal for overexpression. Her initial mammogram and ultrasound from 12/12/18 were suspicious for carcinoma which prompted the biopsy. A port was placed on 12/30/18. She then underwent neoadjuvant chemotherapy which was completed on 03/11/19. She had a Breast MRI on 04/01/19 which showed in the right breast, the breast tissue is fatty with minimal background enhancement. In the central portion of the breast at the 12:00 position there is an irregular enhancing mass measuring 17 mm x 11 mm x 23 mm. This mass corresponds to the mass seen on the mammogram and on the right breast ultrasound. There is minimal lucency in the central portion of this mass which may represent central necrosis. In the left breast, the breast tissue is fatty with minimal background enhancement. There are no abnormal enhancing masses or areas of non- mass enhancement in the left breast. There are no enlarged or abnormal lymph nodes. There is no abnormality in the visualized regions of the chest or liver. She also underwent gene testing and was positive for two markers. She is concerned about developing carcinoma in the left breast and has cancer phobia. She went to surgery on 04/21/19 where she underwent right simple mastectomy and right axillary sentinel lymph node biopsy by Dr. Siddiqui and prophylactic mastectomy left breast and first stage immediate bilateral breast reconstruction with placement of submuscular saline tissue expanders (650 ml for each side) and placement of Alloderm Select acellular dermal matrix grafts (132 cm2 for each side) by Dr. Dillon. Pathology on the right breast showed invasive ductal carcinoma with negative lymph nodes. Pathology on the left breast showed benign breast tissue with dense fibrosis and focal ductal ectasia and a hyalinized fibroadenoma. Estrogen receptors were positive. Progesterone receptors were positive. Her2/MISTY was negative for overexpression. There is no need for radiation therapy or IV chemotherapy at this time. She is getting adjuvant hormonal therapy with Arimidex. Postoperatively she developed some nonhealing and some scabbing on the left breast mastectomy incision. Wound culture was negative. She was started on Silver dressing changes. Healing was slow and there was no gross exposure of the manufacturing quality technician. She was taken back to surgery on 06/13/19 where she underwent revision left breast reconstruction with excisional debridement nonhealing wound with removal of Alloderm acellular dermal matrix graft and removal exposed saline tissue manufacturing quality technician and complex secon sherrill wound closure. A week after surgery she had bruising on her left chest wall and flank. She had some acute blood loss anemia that necessitated PRBC. Her Hgb stabilized at 10.8. Chest wall compression was continued. The bruising on her skin resolved and the residual hematoma slowly resolved as well through drainage from the drain tube. She was maintained on Doxycycline during this time. The initial goal was to wait 6 weeks to allow healing of the incision and allow inflammation to subside before proceeding with irrigating out any residual blood and placing another saline tissue manufacturing quality technician at the same time which was tentatively going to be scheduled for next week. However a few days ago, she developed a small opening on the inferior aspect of the incision with small amount of drainage. It was cultured on 07/14/19 and is negative thus far. Levaquin was added to her antibiotics. So the surgery was moved up to 07/16/19 where she underwent revision left breast reconstruction with drainage and evacuation and excisional debridement residual hematoma and delayed left breast reconstruction with placement of saline tissue manufacturing quality technician (535 ml) and placement Alloderm Select Restore acellular dermal matrix graft (327 cm2) and excisional debridement nonhealing wound left breast reconstruction and complex secondary wound closure with lateral breast advancement skin flap (20 cm2). She healed uneventfully and her saline tissue expansion was completed. She continued the breast reconstruction process on 05/13/20 where she underwent left breast reconstruction with removal of saline tissue manufacturing quality technician and capsulectomy with replacement cohesive gel implant (800 ml) and placement of MTF FlexHD acellular dermal matrix graft (21 x 24 cm) and revision left breast reconstruction with excision excess mastectomy scar contour deformity and right breast reconstruction with removal of saline tissue manufacturing quality technician and capsulectomy with replacement cohesive gel implant (800 ml) and placement of MTF FlexHD acellular dermal matrix graft (21 x 24 cm) and revision right breast reconstruction with excision excess mastectomy scar contour deformity. She did well initially after surgery. However, agustin was a small abrasion on her breast that was excised at the time of the implant placement. That small incision broke down which exposed the acellular dermal matrix graft. Wound culture was negative. She was started on Doxycycline. Wound care was started with Silver dressing changes daily. Another ulceration started in the medial incision area which concerned the patient that further openings will occur which would compromise putting another implant in at this time. So surgery was decided for 06/29/20. Over the weekend she noticed the ulcers were getting bigger. It was decided to admit the patient today ahead of her surgery and start IV antibiotics and keep a close eye on the worsening ulcerations left breast. PAST MEDICAL HISTORY Increased tearing Osteopenia Encounter for insertion of venous access port Primary cancer of right female breast Depression GERD (gastroesophageal reflux disease) Hypothyroidism Obesity Osteoarthritis Nonhealing surgical wound left breast reconstruction Acquired absence bilateral breasts Disproportion reconstructed breasts Cancer phobia left breast Acute blood loss anemia Postop hematoma left breast reconstruction PAST SURGICAL HISTORY appendectomy bilateral knee surgery right simple mastectomy and right axillary sentinel lymph node biopsy by Dr. Siddiqui - 04/21/19 prophylactic mastectomy left breast and first stage immediate bilateral breast reconstruction with placement of submuscular saline tissue expanders (650 ml for each side) and placement of Alloderm Select acellular dermal matrix grafts (132 cm2 for each side) by Dr. Dillon - 04/21/19 Revision left breast reconstruction with excisional debridement nonhealing wound with removal of Alloderm acellular dermal matrix graft and removal exposed saline tissue manufacturing quality technician and complex secondary wound closure - 06/13/19 Revision left breast reconstruction with drainage and evacuation and excisional debridement residual hematoma and delayed left breast reconstruction with placement of saline tissue manufacturing quality technician (535 ml) and placement Alloderm Select Restore acellular dermal matrix graft (327 cm2) and excisional debridement nonhealing wound left breast reconstruction and complex secondary wound closure with lateral breast advancement skin flap (20 cm2) - 07/16/19 Left breast reconstruction with removal of saline tissue manufacturing quality technician and capsulectomy with replacement cohesive gel implant (800 ml) and placement of MTF FlexHD acellular dermal matrix graft (21 x 24 cm) and revision left breast reconstruction with excision excess mastectomy scar contour deformity and right breast reconstruction with removal of saline tissue manufacturing quality technician and capsulectomy with replacement cohesive gel implant (800 ml) and placement of MTF FlexHD a cellular dermal matrix graft (21 x 24 cm) and revision right breast reconstruction with excision excess mastectomy scar contour deformity - 05/13/20 ALLERGIES No Known Allergies MEDICATIONS Esomeprazole Mag Trihydrate [Nexium] buPROPion XL [Wellbutrin Xl] hydroxychloroquine levothyroxine tramadol Anastrozole [Arimidex] Dexamethasone [Decadron] Lidocaine/Prilocaine [Lidocaine-Prilocaine Cream] Ondansetron [Ondansetron Odt] Prochlorperazine Maleate Neurontin FAMILY HISTORY Mother - Breast cancer Brother - Cancer Father - Cancer SOCIAL HISTORY Smoking Status: Light Smoker (<10/day) alcohol intake: current alcohol intake frequency: 0-2 drinks per day substance use type: does not use REVIEW OF SYSTEMS General - Denies fever and weight loss. Has fatigue. Eyes - Denies cataracts and glaucoma. ENT - Denies nasal congestion and sore throat. Endocrine - Denies excessive thirst and urination. Has recent diagnosis of right breast cancer. Had neoadjuvant chemotherapy. Skin - Denies skin cancer. Has nonhealing surgical wound left breast reconstruction with postop hematoma. Musculoskeletal - Has joint pain, joint stiffness, weakness of muscles and joints. Denies back pain, and arthritis. Neuro - Denies headaches. Cardiovascular - Denies chest pain, fatigue, and shortness of breath with exertion. Psych - Denies anxiety. Has depression. Respiratory - Denies chronic cough and shortness of breath. Gastrointestinal - Denies nausea, vomiting, diarrhea, and constipation. Hematologic - Denies abnormal bruising and bleeding. Genitourinary - Denies hematuria and urinary frequency. Has some incontinence. PHYSICAL EXAMINATION General - Alert and Oriented. Her bra size is 38 DD. HEENT - PERRL. EOMI. Throat is clear. Neck - Supple and nontender. No cervical adenopathy. Breasts - Breast incisions are dry and intact except for two ulcers on left breast where a small abrasion was excised at the time of surgery and medial to that ulcer is an ulceration in the vertical incision. The medial ulcer measures 1.5 x 1.7 cm. The lateral ulcer measures 2 x 2.3 cm. There is exposed acellular dermal matrix graft. No pus could be expressed. There is exposure of the implant. The wound edges are stable with less swelling present. No maceration noted. No redness noted on the breasts. Breasts are soft and symmetrical. No clinical evidence of hematoma or vascular compromise. Good breast contour noted. Breast width is 15 cm bilaterally. Lungs - Clear to auscultation. Heart - Regular rate and rhythm. Abdomen - Soft and nondistended. Has some redundant skin and subcutaneous tissue from the umbilicus to the pubic area. She has a RLQ appendectomy scar. Extremities - FROM. No axillary adenopathy. Radial pulses are palpable. Neuro - CN II-XII grossly intact. Psych - Normal mood and affect. ASSESSMENT 1. Right breast cancer. 2. Cancer phobia left breast. 3. Positive test for genetic breast cancer susceptibility marker. 4. Acquired absence bilateral breasts. 5. Nonhealing ulcers left breast with exposed breast implant. 6. Disproportion reconstructed breasts. 7. Deformity reconstructed breasts. 8. Estrogen receptor positive status. 9. Family history of breast cancer. 10. Neoadjuvant chemotherapy. 11. Smoker, quit after her breast cancer diagnosis. PLAN Patient continued her breast reconstruction process on 05/13/20 where she underwent left breast reconstruction with removal of saline tissue manufacturing quality technician and capsulectomy with replacement cohesive gel implant (800 ml) and placement of MTF FlexHD acellular dermal matrix graft (21 x 24 cm) and revision left breast reconstruction with excision excess mastectomy scar contour deformity and right breast reconstruction with removal of saline tissue manufacturing quality technician and capsulectomy with replacement cohesive gel implant (800 ml) and placement of MTF FlexHD acellular dermal matrix graft (21 x 24 cm) and revision right breast reconstruction with excision excess mastectomy scar contour deformity. She did well initially. There was a small abrasion on her breast that was excised at the time of the implant placement. That small incision broke down which exposed the acellular dermal matrix graft. Wound culture was negative. She was started on Doxycycline. Wound care was started with Silver dressing changes daily. A second ulceration developed medially. She was getting concerned because the ulcers were enlarging. It was recommended to her to be admitted today before her surgery so we can initiate IV antibiotic therapy. Will start Vancomycin and Levaquin. Her surgery is scheduled for tomorrow. Discussed options with the patient. The implant will need to be exchanged. If pus is noted at that time of surgery, then no implant exchange would be done at this time. At the time of surgery, if no pus is seen, will irrigate the wound and obtain additional cultures. Will debride the wound and proceed with complex secondary wound closure. Because this would shorten the breast pocket, a new implant that would be placed would be smaller. That would lead to temporary asymmetry. Drains will also be placed. If a smaller implant is not possible because of tightness of the skin envelope, then would just proceed with closure without an implant. Patient is aware of that possibility and states she would proceed with an external prosthesis at this time if necessary. Will let the breasts heal initially. This will give the patient time to decide if she likes the larger right breast and wants to make the left breast larger for symmetry. This would necessitate enlarging the left breast pocket with bringing in additional tissue such as the latissimus dorsi flap which would then be able to accommodate a larger implant for symmetry. If she doesn't want that extensive of a reconstruction, she can make the right breast smaller for better symmetry with the left breast. This would necessitate shortening the right breast pocket and placing a smaller implant. Surgery will be done under general anesthesia. Tissue that is excised will be sent to Pathology for analysis to rule out carcinoma. Because of the previous infection in the left breast, will also send tissue to Microbiology for culture. A positive culture will necessitate antibiotic therapy. She will have drains in for several days. She will be maintained on antibiotics until the drains are removed or if the operative culture is positive. Patient was informed of the risks and complications of the procedure including alternatives to surgery. These were discussed with the patient personally. Patient voices understanding and wishes to proceed. Some of the risks and complications were included in a form from the [place] [employer]. Encouraged patient to stop smoking as it may have deleterious effects on wound healing. She has stopped smoking since her breast cancer diagnosis. We discussed the current risks associated with COVID-19. While it is understood that there is a community spread of COVID-19, the risk of heike COVID-19 while at [facility] ([facility]) is very low; however, the risk cannot be completely mitigated because of the community spread of the disease. We discussed in detail the risk of exposure to and/or potential harm posed by the COVID-19 virus with having a surgery/procedure at this time versus the risk of delaying the surgery/procedure. It is not possible to know either the risk of delaying the surgery or procedure or chance of getting an infection with perfect accuracy, but a joint decision was made to proceed at this time with the scheduled surgery/procedure as indicated on the consent form. Patient was no tified that we will need to comply with any screening or testing [facility] wishes to perform or that surgery may be delayed for any positive results. Discussed with the patient that I was tested for COVID-19 on 11/13/19 which was negative and on 11/27/19 which was negative and on 12/11/19 which was negative and on 12/25/19 which was negative and on 01/08/20 which was negative and on 01/29/20 which was negative and on 02/19/20 which was negative and on 03/25/20 which was negative and on 04/15/20 which was negative and on 05/04/20 which was negative. My testing regimen at this time is to be COVID-19 tested every 2 weeks or so. I received the COVID-19 vaccine (Moderna) on 05/12/20 and the second vaccine dose was received on 06/09/20. Procedure Criteria Procedure Type: Elective COVID Risk Discussion: The surgeon/proceduralist and patient have discussed in detail the risk of exposure to and/or potential harm posed by the COVID-19 virus with having a surgery/procedure at this time versus the risk of delaying the surgery/procedure. It is not possible to know either the risk of delaying the surgery or procedure or chance of getting an infection with perfect accuracy, but a joint decision was made between the patient and the surgeon/proceduralist to proceed at this time with the scheduled surgery/procedure as indicated on the consent form.
[2020-06-29] VITALS (10 sets, daily range): BP systolic 116–145; BP diastolic 58–92; PULSE 69–80; RESP 16–18; TEMP 36.2–36.6; O2SAT 96–100; BMI 28.5
[2020-06-29] MEDS: diazePAM 5 MG Tablet PO (03:37)
--- NOTE | 2020-06-29 06:00 | EKG12_ITS ---
Test Reason : PRE-OP Blood Pressure : / mmHG Vent. Rate : 073 BPM Atrial Rate : 073 BPM P-R Int : 190 ms QRS Dur : 104 ms QT Int : 430 ms P-R-T Axes : 071 020 047 degrees QTc Int : 473 ms Normal sinus rhythm Normal ECG Confirmed by SHERLEY DONOHUE, PERLITA ([id number]), continuity editor MAGDALENA WALDROP ([id number]) on 07/01/2020 1:57:15 PM Referred By: Isma Dillon Confirmed By:PERLITA LEPE MD
[2020-06-29 06:06] LABS: Absolute Lymphocyte Count 0.85 X10^3/uL (0.83-4.51); Absolute Neutrophil Count 3.2 X10^3/uL (2.0-7.7); Basophil# 0.04 X10^3/uL; Basophil% 0.9 % (0-1); Eosinophil# 0.15 X10^3/uL; Eosinophils% 3.2 % (0-5); Hematocrit 32.4 % (37-47); Hemoglobin 10.2 g/dL (12.0-15.0); Lymphocyte # 0.85 X10^3/ul (4.0); Lymphocyte % 18.1 % (19-41); Mean Corp Hgb Conc 31.5 g/dL (32-36); Mean Corpuscular Hgb 31.2 pg (27.0-32.0); Mean Corpuscular Volume 99.1 fL (81-99); Mean Platelet Vol. 9.8 fl (6.2-12.0); Monocyte# 0.42 X10^3/uL; Monocyte% 8.9 % (0-10); NRBC Flagged by Analyzer 0 % (0-5); Neutrophil # 3.23 X10^3/uL (2.7-7.7); Neutrophil % 68.7 % (47-70); Platelet Count 261 K/mm3 (150-450); RBC Distribution Width CV 13.3 % (11.6-14.6); RBC Distribution Width SD 48.8 fl (35.1-43.9); Red Blood Count 3.27 M/mm3 (4.2-5.4); White Blood Count 4.7 K/mm3 (4.4-11.0)
[2020-06-29 06:14] LABS: International Normalized Ratio 1.1
[2020-06-29 06:15] LABS: Partial Thromboplast Time 31.3 Seconds (24.1-36.2)
[2020-06-29 06:36] LABS: Thyroid Stim Hormone (TSH) 3.02 uIU/mL (0.358-3.74)
[2020-06-29] MEDS: Levothyroxine 100 MCG Tablet PO (06:40)
[2020-06-29] MEDS: levoFLOXacin IV 250 MG/50 ML BAG 100 MG IV (09:56)
--- NOTE | 2020-06-29 10:00 | CASEMGMT ---
RN CM Face to Face with patient for initial transition planning/care coordination assessment. RN CM introduced self and role at [facility]. Patient lying in bed, alert and oriented. Patient willing to participate in assessment and is able to answer all questions appropriately. Care providers, pharmacy, and demographics verified. Patient wishes to discharge home, denies need for home health at this time. Patient states she has no further needs or concerns at this time. CM to follow for discharge planning needs that may arise. PCP: Gerard Specialists: Wilma, plastic; Francia, oncology; Glen nephrology Preferred Pharmacy: [facility] Insurance: [employer] [facility] Prescription Benefit: yes Living Will/HPOA: yes, Jone Alvarado LNOK: Living Arrangements: Patient lives with in a single story home with no steps to enter. Patient is independent at home. Transportation: self/ DME/HHC: Patient has raised toilet and walker at home. Patient has had previous HHC with [facility]. Disposition Plan: Patient to discharge home with family support and follow-up plans in place. Josselyn CALVO, RN, CM
--- NOTE | 2020-06-29 11:30 | BREAST_PTH ---
PATIENT: ANABEL LOCKE LOC: MS3 U#:[id number] AGE/SX: 69/F ROOM: PR311 RE06/28/[address]: Dr. Isma Dillon MD : [id number] BED: 1 DIS: 07/01/2020 SPEC #: [id number] RECD: 06/29/20 15:37 STATUS: HALEY RETello #: [id number] GASTON: 06/29/20 11:[address]: Isma Dillon DEPT: SURGICAL PATHOLOGY RECD BY: Maya Laurent ENTERED: 06/30/20 12:53 SP TYPE: BREAST OTHR DR: Dr. Krunal Gee MD Tissues: Breast, NOS Procedures: Surgery Specimen Level IV HEADER OPERATION: Revision left breast reconstruction with excisional debridement PRE-OP DIAGNOSIS: Nonhealing ulcers left breast with exposed breast implant TISSUE SUBMITTED: Left breast tissue and capsule MICROSCOPIC DIAGNOSIS Left breast tissue and capsule, excision: Fibrosis, acute and chronic inflammation, granulation and benign histiocytic reaction to suture material. Skin with no pathologic change. AM:vinayak 07/01/2020 MICROSCOPIC DESCRIPTION Slides are reviewed. GROSS DESCRIPTION Received in fixative is one container labeled with the patient's name and designated left breast tissue and capsule. The specimen consists of multiple pieces of soft tissue with a few of the pieces consistent with capsule that in aggregate measure 18 x 10 x 2.5 cm. A piece of skin with underlying tissue is also noted measuring 15 x 3.5 cm and up to 1 cm in thickness. This piece also shows a suture. Results Technician sections are submitted in six cassettes. Cassette 1 contains the skin piece. / ALEXY:vinayak 06/30/20 TC:2 CPT: 97254
[2020-06-29] MEDS: Lactated Ringers 1,000 ML 100 ML IV (11:45)
[2020-06-29] MEDS: Lidocaine 1% /Epi 1:100 (20ml) 20 ML Vial (12:27)
[2020-06-29] MEDS: Mupirocin Ointment 22gm Tube 1 APPLIC (15:00)
--- NOTE | 2020-06-29 15:14 | OP.PCM_ITS ---
Report of Operation Date of Procedure: 06/29/20 Pre-Operative Diagnosis: 1. Right breast cancer. 2. Cancer phobia left breast. 3. Positive test for genetic breast cancer susceptibility marker. 4. Acquired absence bilateral breasts. 5. Nonhealing ulcers left breast with exposed breast implant. 6. Disproportion reconstructed breasts. 7. Deformity reconstructed breasts. 8. Estrogen receptor positive status. 9. Family history of breast cancer. 10. Neoadjuvant chemotherapy. 11. Smoker, quit after her breast cancer diagnosis. Post-Operative Diagnosis: Same. Surgery/Procedure Performed:: Revision reconstructed left breast with excisional debridement nonhealing ulcers with removal of exposed cohesive gel implant and acellular dermal matrix graft and complex secondary wound closure. Description of Surgical Findings:: 69 year old woman presents with diagnosis of right breast cancer after a breast biopsy on 12/16/18. Pathology showed invasive ductal carcinoma, nuclear grade 3. Estrogen receptors were positive. Progesterone receptors were positive. HER/2Neu was equivocal for overexpression. Her initial mammogram and ultrasound from 12/12/18 were suspicious for carcinoma which prompted the biopsy. A port was placed on 12/30/18. She then underwent neoadjuvant chemotherapy which was completed on 03/11/19. She had a Breast MRI on 04/01/19 which showed in the right breast, the breast tissue is fatty with minimal background enhancement. In the central portion of the breast at the 12:00 position there is an irregular enhancing mass measuring 17 mm x 11 mm x 23 mm. This mass corresponds to the mass seen on the mammogram and on the right breast ultrasound. There is minimal lucency in the central portion of this mass which may represent central necrosis. In the left breast, the breast tissue is fatty with minimal background enhancement. There are no abnormal enhancing masses or areas of non- mass enhancement in the left breast. There are no enlarged or abnormal lymph nodes. There is no abnormality in the visualized regions of the chest or liver. She also underwent gene testing and was positive for two markers. She is concerned about developing carcinoma in the left breast and has cancer phobia. She went to surgery on 04/21/19 where she underwent right simple mastectomy and right axillary sentinel lymph node biopsy by Dr. Siddiqui and prophylactic mastectomy left breast and first stage immediate bilateral breast reconstruction with placement of submuscular saline tissue expanders (650 ml for each side) and placement of Alloderm Select acellular dermal matrix grafts (132 cm2 for each side) by Dr. Dillon. Pathology on the right breast showed invasive ductal carcinoma with negative lymph nodes. Pathology on the left breast showed benign breast tissue with dense fibrosis and focal ductal ectasia and a hyalinized fibroadenoma. Estrogen receptors were positive. Progesterone receptors were positive. Her2/MISTY was negative for overexpression. There is no need for radiation therapy or IV chemotherapy at this time. She is getting adjuvant hormonal therapy with Arimidex. Postoperatively she developed some nonhealing and some scabbing on the left breast mastectomy incision. Wound culture was negative. She was started on Silver dressing changes. Healing was slow and there was no gross exposure of the forensic engineer. She was taken back to surgery on 06/13/19 where she underwent revision left breast reconstruction with excisional debridement nonhealing wound with removal of Alloderm acellular dermal matrix graft and removal exposed saline tissue forensic engineer and complex secondary wound closure. A week after surgery she had bruising on her left chest wall and flank. She had some acute blood loss anemia that necessitated PRBC. Her Hgb stabilized at 10.8. Chest wall compression was continued. The bruising on her skin resolved and the residual hematoma slowly resolved as well through drainage from the drain tube. She was maintained on Doxycycline during this time. The initial goal was to wait 6 weeks to allow healing of the incision and allow inflammation to subside before proceeding with irrigating out any residual blood and placing another saline tissue forensic engineer at the same time which was tentatively going to be scheduled for next week. However a few days ago, she developed a small opening on the inferior aspect of the incision with small amount of drainage. It was cultured on 07/14/19 and is negative thus far. Levaquin was added to her antibiotics. So the surgery was moved up to 07/16/19 where she underwent revision left breast reconstruction with drainage and evacuation and excisional debridement residual hematoma and delayed left breast reconstruction with placement of saline tissue forensic engineer (535 ml) and placement Alloderm Select Restore acellular dermal matrix graft (327 cm2) and excisional debridement nonhealing wound left breast reconstruction and complex secondary wound closure with lateral breast advancement skin flap (20 cm2). She healed uneventfully and her saline tissue expansion was completed. She continued the breast reconstruction process on 05/13/20 where she underwent left breast rec onstruction with removal of saline tissue forensic engineer and capsulectomy with replacement cohesive gel implant (800 ml) and placement of MTF FlexHD acellular dermal matrix graft (21 x 24 cm) and revision left breast reconstruction with excision excess mastectomy scar contour deformity and right breast reconstruction with removal of saline tissue forensic engineer and capsulectomy with replacement cohesive gel implant (800 ml) and placement of MTF FlexHD acellular dermal matrix graft (21 x 24 cm) and revision right breast reconstruction with excision excess mastectomy scar contour deformity. She did well initially after surgery. However, agustin was a small abrasion on her breast that was excised at the time of the implant placement. That small incision broke down which exposed the acellular dermal matrix graft. Wound culture was negative. She was started on Doxycycline. Wound care was started with Silver dressing changes daily. Another ulceration started in the medial incision area which concerned the patient that further openings will occur which would compromise putting another implant in at this time. So surgery was decided for 06/29/20. Over the weekend she noticed the ulcers were getting bigger. It was decided to admit the patient today ahead of her surgery and start IV antibiotics and keep a close eye on the worsening ulcerations left breast. Patient was informed of the risks and complications of the procedure including alternatives to surgery. These were discussed with the patient personally. Patient voices understanding and wishes to proceed. Some of the risks and complications were included in a form from the [employer]. I used Trae absorbable hemostat, (I used 2 vials). Reference Number - [id number]. Lot Number - [id number]. Expiration - March 10, 2025. [employer] f[employer] teacher: Shanique Whiting. Type of Anesthesia:: General Specimen's removed: Left breast tissue and capsule to Pathology and Microbiology. Drains: Bllake. Estimated Blood Loss (mL): 50 ml. Description of Procedure: Patient was taken to OR in supine position and was placed under general anesthesia. The breasts were prepped and draped in the usual fashion. SCD's were placed for DVT prophylaxis. Perioperative antibiotics were given intravenously. A curiel catheter was placed. Using xylocaine with epinephrine, the horizontal scar and ulcers left breast were infiltrated. After waiting 5 minutes for the anesthetic to take effect, I made an incision through the horizontal scar down into the subcutaneous tissue until the acellular dermal matrix graft was seen. Incision was made in the graft and the cohesive gel implant was removed. No pus was seen. Small amount of serous fluid was noted. I then excised the ulcers in an elliptical fashion, the lateral one horizontally and the medial one vertically as the medial one was located in the vertical incision. I then excised the acellular dermal matrix graft which allowed some undermining of the breast skin flaps to aid in wound closure. The vertical and horizontal wounds were closed with 3-0 Monocryl interrupted sutures for the deep dermis and subcutaneous tissue. The skin was approximated with 3-0 Prolene vertical mattress interrupted sutures. This stabilized the breast pocket and allowed me to place a Newcomb sizer in the breast to see what would look good. I placed a 490 ml sizer Moderate Classic profile. I temporarily closed the horizontal incision with surgical clips. Patient was then placed in the sitting position. The problem that I saw was the inferior aspect of the breast was tight from the debridement and closure of the ulcers. The implant was pushed superiorly with no projection inferiorly. It did not look like a good breast. At this point, I felt that any sizer placed would give the same result. Also there was some concern regarding the skin flap between the horizontal scars. I felt there may be some healing compromise that would lead to wound breakdown and exposure of the implant again. I then temporarily closed the skin between the horizontal incisions without too much tension. I felt this was a safer maneuver with regard to healing of the skin flaps. Also the decision was made not to attempt an implant placement at this time. This way if some healing difficulties occur, it would be wound care that can be done in the office without worrying about exposure of a foreign body implant. We had talked about this possibility preoperatively. She was ok with that eventuality as she stated she would proceed with an external prosthesis at this time. She would then think about further breast reconstruction over the next year or two with the use of a flap to increase the durability of the breast skin envelope. Patient was then placed back in the supine position. The additional horizontal skin was excised. The breast tissue and capsule was sent to Pathology to rule out carcinoma and to Microbiology for culture. A positive culture will necessitate antibiotic therapy. The breast wound was irrigated with Irrisept 0.05% chlorhexidine solution followed by saline irrigation. I sprayed Trae absorbable hemostat into the breast wound to minimize seroma formation. I used 2 vials. I then placed a size 15 Jarret drain through a separate stab incision laterally and secured to the skin with 3-0 Nylon suture. I then closed the horizontal wound in a layered fashion with 3-0 Monocryl interrupted sutures for the deep dermis and subcutaneous tissue. The skin was approximated with 3-0 Prolene vertical mattress sutures and simple interrupted sutures. Antibiotic ointment was applied to the suture line followed by Kerlix gauze and a compression zain wrap. Patient tolerated the procedure well and was sent to PACU in satisfactory condition. Patient will be sent upstairs for continued postop care. Grafts/Implants Used: Trae. - Complications None. - Admit VTE Documentation VTE Present on Admission: No VTE Mechan Device Prophylaxis: SCD's VTE Pharm Prophylaxis ordered?: Yes Surgery Charges CPT - 60929 ICD-10 - C50.911, F40.298, Z15.01, Z90.13, N61.1, T85.49xA, N65.1, N65.0, Z17.0, Z80.3, Z87.891 92386 N61.1, T85.49xA, C50.911, F40.298, Z15.01, Z90.13, N65.1, N65.0, Z17.0, Z80.3, Z87.891
[2020-06-29] MEDS: Vancomycin IV 1,000 MG/200 ML BAG 200 MG IV (16:45)
[2020-06-29] MEDS: Pantoprazole Sodium 40 MG Tablet PO (21:45)
[2020-06-29] MEDS: Gabapentin 300 MG Capsule PO (21:45)
[2020-06-29] MEDS: Acetaminophen 325 MG Tablet 650 MG PO (21:45)
[2020-06-29] MEDS: Hydroxychloroquine 200 MG Tablet PO (21:45)
[2020-06-29] MEDS: Calcium Carbonate 500 MG Tablet 1000 MG PO (21:45)
[2020-06-29] MEDS: Lactated Ringers 1,000 ML 30 ML IV (21:47)
[2020-06-30 00:50] VITALS: BMI 28.5
[2020-06-30 00:55] VITALS: BP 104/65; PULSE 82; RESP 17; TEMP 36.6; O2SAT 98
[2020-06-30 05:10] VITALS: BP 119/63; PULSE 86; RESP 18; TEMP 36.9; O2SAT 97; BMI 28.5
[2020-06-30] MEDS: Levothyroxine 100 MCG Tablet PO (05:30)
[2020-06-30 06:14] LABS: Hematocrit 32.7 % (37-47); Hemoglobin 9.9 g/dL (12.0-15.0); Mean Corp Hgb Conc 30.3 g/dL (32-36); Mean Corpuscular Hgb 30.7 pg (27.0-32.0); Mean Corpuscular Volume 101.6 fL (81-99); Platelet Count 261 K/mm3 (150-450); RBC Distribution Width CV 13.6 % (11.6-14.6); RBC Distribution Width SD 50.6 fl (35.1-43.9); Red Blood Count 3.22 M/mm3 (4.2-5.4); White Blood Count 7.2 K/mm3 (4.4-11.0)
[2020-06-30 06:39] LABS: Anion Gap 6 (5-15); BUN 18 mg/dL (7-18); BUN/Creat Ratio 12.9 RATIO (10-20); Calcium,Total 8.9 mg/dL (8.5-10.1); Chloride 107 mmol/L (98-107); EST Glomerular Filtration Rate 40 mL/min (>60); Est Glom Filt Rate - Afr Amer 48 mL/min (>60); Glucose 95 mg/dL (74-106); Potassium 4.1 mmol/L (3.5-5.1); Prealbumin 23.5 mg/dL (20.0-40.0); Sodium Level 140 mmol/L (136-145)
[2020-06-30] MEDS: Calcium Carb/Vitamin D 1 TABLET Tablet PO ×2 (07:59→16:59)
[2020-06-30] MEDS: Pantoprazole Sodium 40 MG Tablet PO (08:00)
[2020-06-30] MEDS: oxyCODONE 5 MG Tablet 10 MG PO (08:02)
[2020-06-30 08:50] VITALS: BP 130/59; PULSE 85; RESP 18; TEMP 36.9; O2SAT 98
[2020-06-30] MEDS: levoFLOXacin IV 250 MG/50 ML BAG 100 MG IV (10:55)
[2020-06-30] MEDS: Acetaminophen 325 MG Tablet 650 MG PO ×2 (10:57→22:45)
[2020-06-30] MEDS: Anastrozole 1 MG TABLET PO (10:57)
[2020-06-30] MEDS: buPROPion (XL) 300 MG TABLET.XL PO (10:57)
[2020-06-30] MEDS: Docusate Sodium 100 MG Capsule PO (10:57)
[2020-06-30] MEDS: Hydroxychloroquine 200 MG Tablet PO ×2 (10:59→22:45)
[2020-06-30] MEDS: Gabapentin 300 MG Capsule PO ×2 (10:59→22:45)
[2020-06-30] MEDS: buPROPion (XL) 150 MG TABLET.XL PO (11:03)
--- NOTE | 2020-06-30 12:14 | PCM.PN.SRG ---
Subjective: Postop #1 Patient sitting up in bed, eating lunch. - Physical Exam Vitals/I&O's: Vital Signs Temp Pulse Resp BP Pulse Ox 98.7 F 82 17 132/66 H 98 06/30/20 19:46 06/30/20 19:46 06/30/20 19:46 06/30/20 19:46 06/30/20 19:46 Oxygen Delivery Method Room Air Weight: 181 lb 14.102 oz Body Mass Index (BMI) 28.5 Intake and Output for Last 24 Hours 06/28/20 06/29/20 06/30/20 23:59 23:59 23:59 Intake Total 1701.0 / 1701.0 2509.00 / 2509.00 2871.5 / 2871.5 Output Total 393 / 393 2510 / 2510 Balance 1701.0 / 1701.0 2116.00 / 2116.00 361.5 / 361.5 Jarret drain 83 ml yesterday General: Alert, Oriented x3, Cooperative HEENT: Atraumatic Oral: Moist Mucosa, - - Voice is hoarse sounding. Lungs: Normal air movement Cardiovascular: Regular rate Abdomen: Soft Extremities: Capillary Refill Less than 3 Seconds Skin: Incision - Operative dressing removed from left breast incision. Incision is dry and intact. No bruising. Musculoskeletal: No Tenderness to Palpation of Joints or Extremities Neurological: Cranial nerves II-XII grossly intact Psych/Mental Status: Normal Affect, Appropriate Microbiology Past 72 Hours 06/29/20 13:30 Tissue - Breast Gram Stain - Final 06/29/20 13:30 Tissue - Breast Wound Culture - Preliminary Gram Positive Cocci 06/28/20 12:30 Interface Orders SARS-CoV-2 Antigen (Rapid) - Final Laboratory Results 06/30/20 05:38: WBC 7.2, RBC 3.22 L, Hgb 9.9 L, Hct 32.7 L, MCV 101.6 H, MCH 30.7, MCHC 30.3 L, RDW Std Deviation 50.6 H, RDW Coeff of Oumou 13.6, Plt Count 261, MPV 10.0 06/30/20 05:38: Sodium 140, Potassium 4.1, Chloride 107, Carbon Dioxide 27.0, Anion Gap 6, BUN 18, Creatinine 1.40 H, Estim Creat Clear Calc 37.40, Est GFR (MDRD) Af Amer 48 L, Est GFR (MDRD) Non-Af 40 L, BUN/Creatinine Ratio 12.9, Glucose 95, Calcium 8.9, Prealbumin 23.5 06/30/20 16:21: Vancomycin Trough 10.4 Current Medications Acetaminophen (Acetaminophen 325 Mg Tablet) 650 mg PO BID [facility] Last Admin: 06/30/20 10:57 Dose: 650 mg Documented by: Anastrozole (Anastrozole 1 Mg Tablet) 1 mg PO DAILY [facility] Last Admin: 06/30/20 10:57 Dose: 1 mg Documented by: Bupropion HCl (Bupropion (Xl) 300 Mg Tablet.Xl) 300 mg PO DAILY [facility] Last Admin: 06/30/20 10:57 Dose: 300 mg Documented by: Bupropion HCl (Bupropion (Xl) 150 Mg Tablet.Xl) 150 mg PO DAILY [facility] Last Admin: 06/30/20 11:03 Dose: 150 mg Documented by: Calcium Carbonate (Calcium Carbonate 500 Mg Tablet) 1,000 mg PO Q4H PRN PRN PRN Reason: DYSPEPSIA/INDIGESTION Last Admin: 06/30/20 19:22 Dose: 1,000 mg Documented by: Calcium/Vitamin D (Calcium Carb/Vitamin D 1 Tablet Tablet) 1 tablet PO BIDCM [facility] Last Admin: 06/30/20 16:59 Dose: 1 tablet Documented by: Diazepam (Diazepam 5 Mg Tablet) 5 mg PO 4X/DAY PRN PRN PRN Reason: SPASMS Last Admin: 06/30/20 19:21 Dose: 5 mg Documented by: Docusate Sodium (Docusate Sodium 100 Mg Capsule) 100 mg PO DAILY [facility] Last Admin: 06/30/20 10:57 Dose: 100 mg Documented by: Gabapentin (Gabapentin 300 Mg Capsule) 300 mg PO BID [facility] Last Admin: 06/30/20 10:59 Dose: 300 mg Documented by: Heparin Sodium (Beef Lung) (Heparin Pf Lock 10 Units/Ml 50 Units/5 Ml Syringe) 50 units IV UD PRN PRN Reason: Port-a-Cath (VAD)Heparin Flush Hydromorphone HCl (Hydromorphone 1 Mg/Ml Syringe) 1 mg IV Q4H PRN PRN PRN Reason: Pain Score 6-10 Hydroxychloroquine Sulfate (Hydroxychloroquine 200 Mg Tablet) 200 mg PO BID [facility] Last Admin: 06/30/20 10:59 Dose: 200 mg Documented by: Lactated Ringer's () 1,000 mls @ 30 mls/hr IV .[id number] [facility] Last Infusion: 06/30/20 17:59 Dose: 30 mls/hr Documented by: Vancomycin IV Pharmacy to Dose (1 ea/ Sodium Chloride) 500 mls @ 250 mls/hr IV X1 PRN; Protocol PRN Reason: Rx to Dose Levofloxacin (Levaquin Iv) 250 mg in 50 mls @ 100 mls/hr IV Q24 [facility] Last Infusion: 06/30/20 11:25 Dose: Infused Documented by: Vancomycin HCl (Vancomycin) 1,000 mg in 200 mls @ 200 mls/hr IV Q24H [facility] Last Infusion: 06/30/20 17:59 Dose: Infused Documented by: L-Arginine/L-Glutamine/Calcium HMB (Inder (Unflavored) Packet) 1 packet PO BIDCM [facility] Last Admin: 06/30/20 16:59 Dose: Not Given Documented by: Lactobacillus Acidophilus (Lactobacillus Acidophilus) 1 tablet PO DAILY [facility] Last Admin: 06/30/20 10:59 Dose: 1 tablet Documented by: Levothyroxine Sodium (Levothyroxine 100 Mcg Tablet) 100 mcg PO DAILY@0600 [facility] Last Admin: 06/30/20 05:30 Dose: 100 mcg Documented by: Ondansetron HCl (Ondansetron 4 Mg/2 Ml Vial) 4 mg IV Q6H PRN PRN PRN Reason: NAUSEA Oxycodone HCl (Oxycodone 5 Mg Tablet) 10 mg PO Q4H PRN PRN PRN Reason: Pain Score 6-10 Last Admin: 06/30/20 08:02 Dose: 10 mg Documented by: Pantoprazole Sodium (Pantoprazole Sodium 40 Mg Tablet) 40 mg PO DAILY [facility] Last Admin: 06/30/20 08:00 Dose: 40 mg Documented by: Promethazine HCl (Promethazine 25 Mg Tablet) 25 mg PO Q4H PRN PRN PRN Reason: NAUSEA/VOMITING Sodium Chloride (0.9% Saline Lock 10 Ml Syringe) 10 - 40 ml IV UD PRN PRN Reason: Port-a-Cath (VAD) Flush Sodium Chloride (0.9 % Nacl (Sterile) Posiflush 10 Ml) 10 - 40 ml IV UD PRN PRN Reason: Port access or dressing change Medical Necessity - Tobacco Use Smoking Status: Former smoker Tobacco Use: Non-smoker Assessment/Plan All Active Problems (Last Reviewed 06/25/20 @ 21:[address] Isma Dillon MD) Ulcer of skin of breast (Acute) Methicillin resistant Staphylococcus epidermidis infection (Resolved) Postoperative hematoma of subcutaneous tissue following non-dermatologic procedure (Resolved) Acute blood loss anemia (Resolved) Nonhealing surgical wound (Resolved) Exposed breast implant (Acute) Disproportion of reconstructed breast (Acute) Chemotherapy management, encounter for (Resolved) 1. Right breast cancer. 2. Cancer phobia left breast. 3. Positive test for genetic breast cancer susceptibility marker. 4. Acquired absence bilateral breasts. 5. Nonhealing ulcers left breast with exposed breast implant. 6. Disproportion reconstructed breasts. 7. Deformity reconstructed breasts. 8. Estrogen receptor positive status. 9. Family history of breast cancer. 10. Neoadjuvant chemotherapy. 11. Smoker, quit after her breast cancer diagnosis. Pain is controlled with pain medication. Left breast incision is dry and intact. Continue to wear compression. Jarret drains in place and draining serosanguineous drainage. She had 83 ml drainage yesterday. Operative wound cultures are pending. She is currently on Vancomycin. Prealbumin is 23.5. Encouraged increase protein intake to help with wound healing. Plan on discharging her home tomorrow.
[2020-06-30 13:30] VITALS: BMI 28.5
[2020-06-30 14:50] VITALS: BP 126/57; PULSE 83; RESP 14; TEMP 36.8; O2SAT 99
[2020-06-30] MEDS: Vancomycin IV 1,000 MG/200 ML BAG 200 MG IV (16:59)
[2020-06-30 17:12] LABS: Vancomycin, Trough Level 10.4 ug/mL (5.0-15.0)
[2020-06-30 17:30] VITALS: BMI 28.5
[2020-06-30] MEDS: diazePAM 5 MG Tablet PO (19:21)
[2020-06-30] MEDS: Calcium Carbonate 500 MG Tablet 1000 MG PO (19:22)
[2020-06-30 19:46] VITALS: BP 132/66; PULSE 82; RESP 17; TEMP 37.1; O2SAT 98
--- NOTE | 2020-06-30 19:48 | PCM.RX.CS ---
Consult Pharmacy has been consulted to manage selected antiobiotic: Vancomycin Type of Consult: Follow-up Labs: Sodium 140 mmol/L (136-145) 06/30/20 05:38 Potassium 4.1 mmol/L (3.5-5.1) 06/30/20 05:38 Chloride 107 mmol/L (98-107) 06/30/20 05:38 Carbon Dioxide 27.0 mmol/L (21.0-32.0) 06/30/20 05:38 Anion Gap 6 (5-15) 06/30/20 05:38 BUN 18 mg/dL (7-18) 06/30/20 05:38 Creatinine 1.40 mg/dL (0.55-1.02) H 06/30/20 05:38 Est GFR (MDRD) Af Amer 48 mL/min (>60) L 06/30/20 05:38 Est GFR (MDRD) Non-Af 40 mL/min (>60) L 06/30/20 05:38 BUN/Creatinine Ratio 12.9 RATIO (10-20) 06/30/20 05:38 Glucose 95 mg/dL (74-106) 06/30/20 05:38 Vancomycin Trough 10.4 ug/mL (5.0-15.0) 06/30/20 16:21 Microbiology: Microbiology 06/29/20 13:30 Tissue - Breast Gram Stain - Final 06/29/20 13:30 Tissue - Breast Wound Culture - Preliminary Gram Positive Cocci 06/28/20 12:30 Interface Orders SARS-CoV-2 Antigen (Rapid) - Final Goal Trough: 10-15 mcg/mL Pharmacy Plan for Drug Dosing: VANCOMYCIN LEVEL RECEIVED Current Vancomycin Dose: 1000mg IV Q24hr Number of Doses Received: 3 Vancomycin Level: 10.4 Hours Since Last Dose: 23.25hr Renal Function: 1.4 Renal Function Trend: stable Vancomycin Plan/Comments: Trough within goal range of 10-15. Continue current dose and obtain a trough in 4 days to assess. Pending Level: 07/04/20 @1630 Pharmacy Service will continue to monitor and adjust dosing as required.
[2020-06-30 20:01] VITALS: BMI 28.5
[2020-07-01 02:48] VITALS: BP 127/58; PULSE 75; RESP 17; TEMP 36.8; O2SAT 94
[2020-07-01] MEDS: Levothyroxine 100 MCG Tablet PO (05:23)
[2020-07-01 08:31] VITALS: BP 136/69; PULSE 78; RESP 18; TEMP 36.8; O2SAT 98
[2020-07-01] MEDS: Calcium Carb/Vitamin D 1 TABLET Tablet PO (08:33)
[2020-07-01] MEDS: Docusate Sodium 100 MG Capsule PO (08:34)
[2020-07-01] MEDS: Hydroxychloroquine 200 MG Tablet PO (08:35)
[2020-07-01] MEDS: Acetaminophen 325 MG Tablet 650 MG PO (08:35)
[2020-07-01] MEDS: Gabapentin 300 MG Capsule PO (08:35)
[2020-07-01] MEDS: Pantoprazole Sodium 40 MG Tablet PO (08:35)
[2020-07-01] MEDS: buPROPion (XL) 150 MG TABLET.XL PO (08:37)
[2020-07-01] MEDS: buPROPion (XL) 300 MG TABLET.XL PO (08:37)
[2020-07-01] MEDS: Anastrozole 1 MG TABLET PO (08:38)
[2020-07-01] MEDS: levoFLOXacin IV 250 MG/50 ML BAG 100 MG IV (08:53)
--- NOTE | 2020-07-01 12:30 | PCM.PN.SRG ---
Subjective: Postop #2 Sitting up in bed. Denies any complaints. - Physical Exam Vitals/I&O's: Vital Signs Temp Pulse Resp BP Pulse Ox 98.2 F 78 18 136/69 H 98 07/01/20 08:31 07/01/20 08:31 07/01/20 08:31 07/01/20 08:31 07/01/20 08:31 Oxygen Delivery Method Room Air Weight: 181 lb 14.102 oz Body Mass Index (BMI) 28.5 Intake and Output for Last 24 Hours 06/29/20 06/30/20 07/01/20 23:59 23:59 23:59 Intake Total 2509.00 / 2509.00 2871.5 / 2871.5 1228.5 / 1228.5 Output Total 393 / 393 2510 / 2510 1780 / 1780 Balance 2116.00 / 2116.00 361.5 / 361.5 -551.5 / -551.5 General: Alert, Oriented x3, Cooperative HEENT: Atraumatic Oral: Moist Mucosa Lungs: Normal air movement Cardiovascular: Regular rate Abdomen: Soft Extremities: Capillary Refill Less than 3 Seconds Skin: Incision - Left breast incision is dry and intact. Sutures intact. Musculoskeletal: No Tenderness to Palpation of Joints or Extremities Neurological: Cranial nerves II-XII grossly intact Psych/Mental Status: Normal Affect, Appropriate Microbiology Past 72 Hours 06/29/20 13:30 Tissue - Breast Gram Stain - Final 06/29/20 13:30 Tissue - Breast Wound Culture - Preliminary Gram Positive Cocci 06/29/20 13:30 Tissue - Breast Anaerobic Culture - Preliminary No anaerobic bacteria isolated. 06/28/20 12:30 Interface Orders SARS-CoV-2 Antigen (Rapid) - Final Laboratory Results 06/30/20 16:21: Vancomycin Trough 10.4 Current Medications Acetaminophen (Acetaminophen 325 Mg Tablet) 650 mg PO BID [facility] Last Admin: 07/01/20 08:35 Dose: 650 mg Documented by: Anastrozole (Anastrozole 1 Mg Tablet) 1 mg PO DAILY [facility] Last Admin: 07/01/20 08:38 Dose: 1 mg Documented by: Bupropion HCl (Bupropion (Xl) 300 Mg Tablet.Xl) 300 mg PO DAILY [facility] Last Admin: 07/01/20 08:37 Dose: 300 mg Documented by: Bupropion HCl (Bupropion (Xl) 150 Mg Tablet.Xl) 150 mg PO DAILY [facility] Last Admin: 07/01/20 08:37 Dose: 150 mg Documented by: Calcium Carbonate (Calcium Carbonate 500 Mg Tablet) 1,000 mg PO Q4H PRN PRN PRN Reason: DYSPEPSIA/INDIGESTION Last Admin: 06/30/20 19:22 Dose: 1,000 mg Documented by: Calcium/Vitamin D (Calcium Carb/Vitamin D 1 Tablet Tablet) 1 tablet PO BIDCM [facility] Last Admin: 07/01/20 08:33 Dose: 1 tablet Documented by: Diazepam (Diazepam 5 Mg Tablet) 5 mg PO 4X/DAY PRN PRN PRN Reason: SPASMS Last Admin: 06/30/20 19:21 Dose: 5 mg Documented by: Docusate Sodium (Docusate Sodium 100 Mg Capsule) 100 mg PO DAILY [facility] Last Admin: 07/01/20 08:34 Dose: 100 mg Documented by: Gabapentin (Gabapentin 300 Mg Capsule) 300 mg PO BID [facility] Last Admin: 07/01/20 08:35 Dose: 300 mg Documented by: Heparin Sodium (Beef Lung) (Heparin Pf Lock 10 Units/Ml 50 Units/5 Ml Syringe) 50 units IV UD PRN PRN Reason: Port-a-Cath (VAD)Heparin Flush Hydromorphone HCl (Hydromorphone 1 Mg/Ml Syringe) 1 mg IV Q4H PRN PRN PRN Reason: Pain Score 6-10 Hydroxychloroquine Sulfate (Hydroxychloroquine 200 Mg Tablet) 200 mg PO BID [facility] Last Admin: 07/01/20 08:35 Dose: 200 mg Documented by: Lactated Ringer's () 1,000 mls @ 30 mls/hr IV .[id number] [facility] Last Admin: 07/01/20 14:52 Dose: Not Given Documented by: Vancomycin IV Pharmacy to Dose (1 ea/ Sodium Chloride) 500 mls @ 250 mls/hr IV X1 PRN; Protocol PRN Reason: Rx to Dose Vancomycin HCl (Vancomycin) 1,000 mg in 200 mls @ 200 mls/hr IV Q24H [facility] Last Infusion: 06/30/20 17:59 Dose: Infused Documented by: Levofloxacin (Levaquin Iv) 250 mg in 50 mls @ 50 mls/hr IV Q24 [facility] L-Arginine/L-Glutamine/Calcium HMB (Inder (Unflavored) Packet) 1 packet PO BIDCM [facility] Last Admin: 07/01/20 08:33 Dose: Not Given Documented by: Lactobacillus Acidophilus (Lactobacillus Acidophilus) 1 tablet PO DAILY [facility] Last Admin: 07/01/20 08:34 Dose: 1 tablet Documented by: Levothyroxine Sodium (Levothyroxine 100 Mcg Tablet) 100 mcg PO DAILY@0600 [facility] Last Admin: 07/01/20 05:23 Dose: 100 mcg Documented by: Ondansetron HCl (Ondansetron 4 Mg/2 Ml Vial) 4 mg IV Q6H PRN PRN PRN Reason: NAUSEA Oxycodone HCl (Oxycodone 5 Mg Tablet) 10 mg PO Q4H PRN PRN PRN Reason: Pain Score 6-10 Last Admin: 06/30/20 08:02 Dose: 10 mg Documented by: Pantoprazole Sodium (Pantoprazole Sodium 40 Mg Tablet) 40 mg PO DAILY [facility] Last Admin: 07/01/20 08:35 Dose: 40 mg Documented by: Promethazine HCl (Promethazine 25 Mg Tablet) 25 mg PO Q4H PRN PRN PRN Reason: NAUSEA/VOMITING Sodium Chloride (0.9% Saline Lock 10 Ml Syringe) 10 - 40 ml IV UD PRN PRN Reason: Port-a-Cath (VAD) Flush Sodium Chloride (0.9 % Nacl (Sterile) Posiflush 10 Ml) 10 - 40 ml IV UD PRN PRN Reason: Port access or dressing change Medical Necessity - Tobacco Use Smoking Status: Former smoker Tobacco Use: Non-smoker Assessment/Plan All Active Problems (Last Reviewed 06/25/20 @ 21:[address] Isma Dillon MD) Ulcer of skin of breast (Acute) Methicillin resistant Staphylococcus epidermidis infection (Resolved) Postoperative hematoma of subcutaneous tissue following non-dermatologic procedure (Resolved) Acute blood loss anemia (Resolved) Nonhealing surgical wound (Resolved) Exposed breast implant (Acute) Disproportion of reconstructed breast (Acute) Chemotherapy management, encounter for (Resolved) 1. Right breast cancer. 2. Cancer phobia left breast. 3. Positive test for genetic breast cancer susceptibility marker. 4. Acquired absence bilateral breasts. 5. Nonhealing ulcers left breast with exposed breast implant. 6. Disproportion reconstructed breasts. 7. Deformity reconstructed breasts. 8. Estrogen receptor positive status. 9. Family history of breast cancer. 10. Neoadjuvant chemotherapy. 11. Smoker, quit after her breast cancer diagnosis. Pain is well controlled. Left breast incision is dry and intact. Continue to wear compression. Jarret drains in place and draining serosanguineous drainage. Preliminary operative culture Gram positive cocci. She will be sent home on Levaquin daily. Prealbumin is 23.5. Encouraged increase protein intake to help with wound healing. Discharge today.
--- NOTE | 2020-07-01 14:32 | PCM.DC.BS ---
Discharge Diet: No Restrictions Discharge Activity: May not drive while taking narcotic pain medications., - - 20 lbs lifting restriction May shower in (days): 7 - after the drain comes out May resume sexual activity in: No Restrictions Lifting Restrictions: 20 lb weight lifting restriction Call your doctor if your incision/area has: Continuous Slow Oozing, Sudden Increased Bleeding, Increased Pain/ Swelling, Increased Redness, Foul Smelling Discharge, Swelling at the incision site Call your doctor if you observe: Fever of 101 or Higher, Change in Color, Inability to urinate, Inability to have a bowel movement, Shortness of breath, Chest pain, Calf discomfort, Uncontrolled pain Change Dressing in (Days):: 1 Cleanse incision/area with: Soap & Water Drain: Suction Additional Dressing/Incision Instructions:: Keep drain insertion site dry and covered with gauze. Allergies/Adverse Reactions: Allergies No Known Allergies Allergy (Verified 06/25/20 08:13) Medications to take at Discharge buPROPion XL [Wellbutrin Xl] 300 mg PO DAILY 03/11/13 Docusate Sodium [Colace] 100 mg PO DAILY 06/17/19 Levothyroxine Sodium 100 mcg PO DAILY 06/17/19 Anastrozole [Arimidex] 1 mg PO DAILY 90 Days #90 tab NS 03/15/20 Gabapentin 300 mg PO BID 05/05/20 Omeprazole 40 mg PO DAILY 05/05/20 bupropion HCl 150 mg tablet,12 hr sustained-release 150 mg PO QAM 06/16/20 Calcium Carbonate/Vitamin D3 [Calcium 600 mg-D3 20 Mcg Tab] 1 ea PO BID 06/25/20 Lactobacillus Acidophilus [Probiotic] 1 ea PO DAILY 06/25/20 Calcium Carbonate [Tums] 1,000 mg PO Q4H PRN PRN tab 07/01/20 Diazepam [Valium] 5 mg PO 4X/DAY PRN PRN 7 Days #28 tab 07/01/20 Hydroxychloroquine [Plaquenil] 200 mg PO BID tab 07/01/20 Levofloxacin [Levaquin] 500 mg PO DAILY 14 Days #14 tab 07/01/20 Oxycodone HCl/Acetaminophen [Percocet 5-325 mg Tablet] 1 each PO Q4H PRN PRN 7 Days #40 tablet 07/01/20 The following prescriptions were given: Levofloxacin [Levaquin] 500 mg PO DAILY 14 Days #14 tab Transmission Status: Pending to [facility] Oxycodone HCl/Acetaminophen [Percocet 5-325 mg Tablet] 1 each PO Q4H PRN PRN 7 Days #40 tablet PRN Reason: Pain Score 6-10 Transmission Status: Sent to [facility] Diazepam [Valium] 5 mg PO 4X/DAY PRN PRN 7 Days #28 tab PRN Reason: Spasms Transmission Status: Sent to [facility] Orders to be completed after discharge: CBC-Complete Blood Cnt No Diff Time Frame: 06/25/20, Facility: [facility], Location: Laboratory Primary Care Physician: Krunal Gee MD [Primary Care Provider] - Please Follow Up With: Dr. Dillon - [phone] When: one week Proposed Discharge Date: 07/01/20
[2020-07-01 16:30] VITALS: BP 128/82; PULSE 79; RESP 16; TEMP 36.8; O2SAT 99
--- NOTE | 2020-07-01 16:48 | PHA.DC.MC ---
Addendum entered and electronically signed by Aida Avitia 07/01/20 16:49: DC Counseled on the following medications: Levaquin, Percocet, Valium Original Note: Pharmacy Service has performed discharge medication reconciliation and counseling for this patient. The patient was counseled on the following discharge medications and changes in medications for homegoing were reviewed. The Reason for Use, instructions for use, and potential side effects were reviewed for all new medications. The patient's questions regarding all of their medications were answered. The patient was able to verbally demonstrate an understanding of their discharge medications. Home Medications buPROPion XL [Wellbutrin Xl] 300 mg PO DAILY 03/11/13 Docusate Sodium [Colace] 100 mg PO DAILY 06/17/19 Levothyroxine Sodium 100 mcg PO DAILY 06/17/19 Anastrozole [Arimidex] 1 mg PO DAILY 90 Days #90 tab NS 03/15/20 Gabapentin 300 mg PO BID 05/05/20 Omeprazole 40 mg PO DAILY 05/05/20 bupropion HCl 150 mg tablet,12 hr sustained-release 150 mg PO QAM 06/16/20 Calcium Carbonate/Vitamin D3 [Calcium 600 mg-D3 20 Mcg Tab] 1 ea PO BID 06/25/20 Lactobacillus Acidophilus [Probiotic] 1 ea PO DAILY 06/25/20 Calcium Carbonate [Tums] 1,000 mg PO Q4H PRN PRN tab 07/01/20 Diazepam [Valium] 5 mg PO 4X/DAY PRN PRN 7 Days #28 tab 07/01/20 Hydroxychloroquine [Plaquenil] 200 mg PO BID tab 07/01/20 Levofloxacin [Levaquin] 500 mg PO DAILY 14 Days #14 tab 07/01/20 Oxycodone HCl/Acetaminophen [Percocet 5-325 mg Tablet] 1 ea PO Q4H PRN PRN 7 Days #40 tab 07/01/20 The patient's discharge medication list was reviewed for discrepancies and discrepancies were resolved.
[2020-07-01] MEDS: 0.9 % NaCl (Sterile) Posiflush 10 mL IV (17:23)
--- NOTE | 2020-07-01 18:44 | PCM.DC.SUM ---
Discharge Date and Diagnosis Date of Admission: 06/28/20 Date of Discharge: 07/01/20 - Primary Discharge Diagnosis Acute Problems: Right breast cancer. Cancer phobia left breast. Acquired absence bilateral breasts. Nonhealing ulcers left breast with exposed breast implant. - Secondary Discharge Diagnosis Chronic Problems: Deformity of reconstructed breast Capsular contracture of breast implant Iron deficiency anemia Chronic renal failure, stage 3 Hypothyroidism Former smoker Positive test for genetic breast cancer susceptibility marker Family history of breast cancer Estrogen receptor positive status [ER+] Osteopenia Disproportion reconstructed breasts. Neoadjuvant chemotherapy. Hospital Course and Treatment Imaging Results: None. CONSULTATIONS None. Operations: - - 06/29/20 - Revision reconstructed left breast with excisional debridement nonhealing ulcers with removal of exposed cohesive gel implant and acellular dermal matrix graft and complex secondary wound closure. Procedures: None Summary of Care Provided: 69 year old woman presents with diagnosis of right breast cancer after a breast biopsy on 12/16/18. Pathology showed invasive ductal carcinoma, nuclear grade 3. Estrogen receptors were positive. Progesterone receptors were positive. HER/2Neu was equivocal for overexpression. Her initial mammogram and ultrasound from 12/12/18 were suspicious for carcinoma which prompted the biopsy. A port was placed on 12/30/18. She then underwent neoadjuvant chemotherapy which was completed on 03/11/19. She had a Breast MRI on 04/01/19 which showed in the right breast, the breast tissue is fatty with minimal background enhancement. In the central portion of the breast at the 12:00 position there is an irregular enhancing mass measuring 17 mm x 11 mm x 23 mm. This mass corresponds to the mass seen on the mammogram and on the right breast ultrasound. There is minimal lucency in the central portion of this mass which may represent central necrosis. In the left breast, the breast tissue is fatty with minimal background enhancement. There are no abnormal enhancing masses or areas of non-mass enhancement in the left breast. There are no enlarged or abnormal lymph nodes. There is no abnormality in the visualized regions of the chest or liver. She also underwent gene testing and was positive for two markers. She is concerned about developing carcinoma in the left breast and has cancer phobia. She went to surgery on 04/21/19 where she underwent right simple mastectomy and right axillary sentinel lymph node biopsy by Dr. Siddiqui and prophylactic mastectomy left breast and first stage immediate bilateral breast reconstruction with placement of submuscular saline tissue expanders (650 ml for each side) and placement of Alloderm Select acellular dermal matrix grafts (132 cm2 for each side) by Dr. Dillon. Pathology on the right breast showed invasive ductal carcinoma with negative lymph nodes. Pathology on the left breast showed benign breast tissue with dense fibrosis and focal ductal ectasia and a hyalinized fibroadenoma. Estrogen receptors were positive. Progesterone receptors were positive. Her2/MISTY was negative for overexpression. There is no need for radiation therapy or IV chemotherapy at this time. She is getting adjuvant hormonal therapy with Arimidex. Postoperatively she developed some nonhealing and some scabbing on the left breast mastectomy incision. Wound culture was negative. She was started on Silver dressing changes. Healing was slow and there was no gross exposure of the child care cook. She was taken back to surgery on 06/13/19 where she underwent revision left breast reconstruction with excisional debridement nonhealing wound with removal of Alloderm acellular dermal matrix graft and removal exposed saline tissue child care cook and complex secondary wound closure. A week after surgery she had bruising on her left chest wall and flank. She had some acute blood loss anemia that necessitated PRBC. Her Hgb stabilized at 10.8. Chest wall compression was continued. The bruising on her skin resolved and the residual hematoma slowly resolved as well through drainage from the drain tube. She was maintained on Doxycycline during this time. The initial goal was to wait 6 weeks to allow healing of the incision and allow inflammation to subside before proceeding with irrigating out any residual blood and placing another saline tissue child care cook at the same time which was tentatively going to be scheduled for next week. However a few days ago, she developed a small opening on the inferior aspect of the incision with small amount of drainage. It was cultured on 07/14/19 and is negative thus far. Levaquin was added to her antibiotics. So the surgery was moved up to 07/16/19 where she underwent revision left breast reconstruction with drainage and evacuation and excisional debridement residual hematoma and delayed left breast reconstruction with placement of saline tissue child care cook (535 ml) and placement Alloderm Select Restore acellular dermal matrix graft (327 cm2) and excisional debridement nonhealing wound left breast reconstruction and complex secondary wound closure with lateral breast advancement skin flap (20 cm2). She healed uneventfully and her saline tissue expansion was completed. She continued the breast reconstruction process on 05/13/20 where she underwent left breast reconstruction with removal of saline tissue child care cook and capsulectomy with replacement cohesive gel implant (800 ml) and placement of MTF FlexHD acellular dermal matrix graft (21 x 24 cm) and revision left breast reconstruction with excision excess mastectomy scar contour deformity and right breast reconstruction with removal of saline tissue child care cook and capsulectomy with replacement cohesive gel implant (800 ml) and placement of MTF FlexHD acellular dermal matrix graft (21 x 24 cm) and revision right breast reconstruction with excision excess mastectomy scar contour deformity. She did well initially after surgery. However, there was a small abrasion on her breast that was excised at the time of the implant placement. That small incision broke down which exposed the acellular dermal matrix graft. Wound culture was negative. She was started on Doxycycline. Wound care was started with Silver dressing changes daily. Another ulceration started in the medial incision area which concerned the patient that further openings will occur which would compromise putting another implant in at this time. So surgery was decided for 06/29/20. Over the weekend she noticed the ulcers were getting bigger. It was decided to admit the patient today, 06/28/20, ahead of her surgery and start IV antibiotics and keep a close eye on the worsening ulcerations left breast. She was started on Vancomycin and Levaquin. The next day on 06/29/20, she underwent revision reconstructed left breast with excisional debridement nonhealing ulcers with removal of exposed cohesive gel implant and acellular dermal matrix graft and complex secondary wound closure. She tolerated the procedure well. Postoperatively her incisions were dry and intact. Drainage ranged from 160 ml to 80 ml at discharge. Hgb was 10.4 upon admission and was 9.9 at discharge. She needed some IV analgesia postoperatively and was tolerating po analgesia at discharge. She was a little unsteady on her feet and it was decided to keep her one more day until she was more steady on her feet with ambulation. Operative wound culture showed Gram positive cocci. She was treated with Vancomycin and Levaquin. Will plan on po antibiotics at discharge. Prealbumin is 23.5. Encouraged increase protein intake to help with wound healing. On the second postoperative day, she was afebrile. She was more steady on her feet with ambulation and she was discharged home. Wrote script for Levaquin until the drain is removed. Wrote scripts for Percocet for pain (40 tabs) and for Valium for spasm (28 tabs). If the final culture shows something that is resistant to Levaquin, then antibiotic modification would be necessary. Continue chest wall zain compression. Followup office one week. The drain will be in 10-14 days. Condition upon discharge was good. - Physical Exam Vitals/I&O's: Vital Signs Temp Pulse Resp BP Pulse Ox 98.2 F 79 16 128/82 H 99 07/01/20 16:30 07/01/20 16:30 07/01/20 16:30 07/01/20 16:30 07/01/20 16:30 Oxygen Delivery Method Room Air Weight: 181 lb 14.102 oz Body Mass Index (BMI) 28.5 Discharge Diet: No Restrictions Discharge Activity: May not drive while taking narcotic pain medications., - - 20 lbs lifting restriction May shower in (days): 7 - after the drain comes out May resume sexual activity in: No Restrictions Lifting Restrict to (lbs):: 20 Call your doctor if your incision/area has: Continuous Slow Oozing, Sudden Increased Bleeding, Increased Pain/ Swelling, Increased Redness, Foul Smelling Discharge, Swelling at the incision site Call your doctor if you observe: Fever of 101 or Higher, Change in Color, Inability to urinate, Inability to have a bowel movement, Shortness of breath, Chest pain, Calf discomfort, Uncontrolled pain Change Dressing in (Days):: 1 Cleanse incision/area with: Soap & Water Drain: Suction Additional Dressing/Incision Instructions:: Keep drain insertion site dry and covered with gauze. Home Medications: Medications to take at Discharge buPROPion XL [Wellbutrin Xl] 300 mg PO DAILY 03/11/13 Docusate Sodium [Colace] 100 mg PO DAILY 06/17/19 Levothyroxine Sodium 100 mcg PO DAILY 06/17/19 Anastrozole [Arimidex] 1 mg PO DAILY 90 Days #90 tab NS 03/15/20 Gabapentin 300 mg PO BID 05/05/20 Omeprazole 40 mg PO DAILY 05/05/20 bupropion HCl 150 mg tablet,12 hr sustained-release 150 mg PO QAM 06/16/20 Calcium Carbonate/Vitamin D3 [Calcium 600 mg-D3 20 Mcg Tab] 1 ea PO BID 06/25/20 Lactobacillus Acidophilus [Probiotic] 1 ea PO DAILY 06/25/20 Calcium Carbonate [Tums] 1,000 mg PO Q4H PRN PRN tab 07/01/20 Diazepam [Valium] 5 mg PO 4X/DAY PRN PRN 7 Days #28 tab 07/01/20 Hydroxychloroquine [Plaquenil] 200 mg PO BID tab 07/01/20 Levofloxacin [Levaquin] 500 mg PO DAILY 14 Days #14 tab 07/01/20 Oxycodone HCl/Acetaminophen [Percocet 5-325 mg Tablet] 1 ea PO Q4H PRN PRN 7 Days #40 tab 07/01/20 Following Prescriptions Were Given to Patient: Levofloxacin [Levaquin] 500 mg PO DAILY 14 Days #14 tab Transmission Status: Received by [facility] Oxycodone HCl/Acetaminophen [Percocet 5-325 mg Tablet] 1 ea PO Q4H PRN PRN 7 Days #40 tab PRN Reason: Pain Score 6-10 Transmission Status: Received by [facility] Diazepam [Valium] 5 mg PO 4X/DAY PRN PRN 7 Days #28 tab PRN Reason: Spasms Transmission Status: Received by [facility] Other Amb Orders: CBC-Complete Blood Cnt No Diff Time Frame: 06/25/20, Facility: [facility], Location: Laboratory Primary Care Physician: Krunal Gee MD [Primary Care Provider] - Please Follow Up With: Dr. Dillon - [phone] When: one week Disposition: Home Minutes spent on discharge:: 35 Patient Condition:: Stable Medical Necessity - Tobacco Use Smoking Status: Former smoker Tobacco Use: Non-smoker Meaningful Use Info Meaningful Use Diagnoses (Choose all that apply): None applicable
== END 2020-07-01 16:00 | disposition home or self-care (01) | DRG 902 ==
PROVIDERS: Anesthesiology; Admitting Provider Surgery; PCP Family Medicine; Referring Provider Surgery; Visit Provider Surgery
PROC: 0JB60ZZ Excision of Chest Subcutaneous Tissue and Fascia, Open Approach (ICD-10-PCS; CPT 19371; principal; 2020-06-29 11:15)
DX: T85.898A Other specified complication of other internal prosthetic devices, implants and grafts, initial encounter (principal); T85.79XA Infection and inflammatory reaction due to other internal prosthetic devices, implants and grafts, initial encounter; Z16.23 Resistance to quinolones and fluoroquinolones; B95.62 Methicillin resistant Staphylococcus aureus infection as the cause of diseases classified elsewhere; F40.298 Other specified phobia; N61.1 Abscess of the breast and nipple; N65.0 Deformity of reconstructed breast; N65.1 Disproportion of reconstructed breast; N18.32 Chronic kidney disease, stage 3b; D50.9 Iron deficiency anemia, unspecified; E03.9 Hypothyroidism, unspecified; M85.80 Other specified disorders of bone density and structure, unspecified site; Z17.0 Estrogen receptor positive status [ER+]; Z15.01 Genetic susceptibility to malignant neoplasm of breast; Z90.13 Acquired absence of bilateral breasts and nipples; Z20.822 Contact with and (suspected) exposure to COVID-19; Z87.891 Personal history of nicotine dependence; Z80.3 Family history of malignant neoplasm of breast
CPT/HCPCS: 36415; 80048; 80053; 80202; 84134; 84443; 85025; 85027; 85610; 85652; 85730; 86140; 86850; 86900; 86901; 87070; 87075; 87077; 87102; 87186; 87205; 87206; 87426; 88305; 93005; 97802; C9803; J7050; J7120; A4216; Q9968

== ENCOUNTER → 2020-07-23 13:57 | Outpatient (CLI) | payer MEDICARE, OTHER, SELFPAY ==
[2020-07-19 13:31] VITALS: BMI 29.9
--- NOTE | 2020-07-23 | IMM_PTH ---
PATIENT: ANABEL LOCKE LOC: [facility]#:[id number] AGE/SX: 74/F ROOM: RE07/23/[address]: TL Barone : 1950 BED: DIS: SPEC #: [id number] RECD: 07/27/20 12:41 STATUS: HALEY REQ #: [id number] GASTON: 07/23/20 00:[address]: Kay Montenegro NP DEPT: IMMUNOHISTOCHEMISTRY RECD BY: Jodie Torres ENTERED: 07/27/20 12:42 SP TYPE: IMMUNO OTHR DR: Dr. Krunal Gee MD Tissues: Left breast, NOS Procedures: CD20 (add) CD3 (add) CD43 (add) CD45 (add) CD5 (add) CD79A (add) Pankeratin (initial) PHYSICIAN & INSTITUTION [place] [id number] SPECIMEN INFORMATION: Tissue Source: Left breast seroma Clinical Info: Left breast seroma Specimen Number: [id number] CPT code: 37053, 56255 x6 METHODOLOGY: Deparaffinized sections of prefer/formalin-fixed tissue or PAP/DQ stained slides are incubated with monoclonal/polyclonal antibodies/oligonucleotide probes. Localization is made via biotin free immunoperoxidase method. Appropriate controls are performed and reacted as expected. Results on target cell population are indicated in the following table: RESULTS: ANTIBODY / CLONE RESULT AE1-3 (AE1/AE3/PCK26) negative CD3 (PS1) positive CD5 (SP10) positive CD20 (L26) positive CD43 (L60) positive CD45 (RP2/18) positive CD79a (11E3) positive These tests were developed and their performance characteristics determined by [facility]. They may not have been cleared or approved by the U.S. Food and Drug Administration. The FDA has determined that such clearance or approval is not necessary. The above immunohistochemical/dualISH markers are ordered and reviewed by the Pathologist. INTERPRETATION: Left breast seroma, fine needle aspiration: Polytypic (benign) lymphoid cells. AM:vinayak 07/28/2020
--- NOTE | 2020-07-23 | FLU_PTH ---
PATIENT: ANABEL LOCKE LOC: [facility]#:[id number] AGE/SX: 74/F ROOM: RE07/23/[address]: TL Barone : 1950 BED: DIS: SPEC #: [id number] RECD: 07/23/20 15:42 STATUS: HALEY REENA #: [id number] GASTON: 07/23/20 00:[address]: Kay Montenegro NP DEPT: CYTOLOGY RECD BY: Juan Antonio Mckeon ENTERED: 07/26/20 08:00 SP TYPE: Fluid OTHR DR: Dr. Krunal Gee MD Tissues: Breast, NOS Procedures: Special Stain Group II Surgery Specimen Level IV Cytospin Fluid HEADER OPERATION: Left breast seroma drainage PRE-OP DIAGNOSIS: Left breast seroma TISSUE SUBMITTED: Left breast seroma drainage for cytology DIAGNOSIS CYTOLOGY Fine needle aspiration, left breast seroma (cytospin and cell block): Polytypical lymphocytes. See comment. AM:vinayak 07/27/2020 COMMENT Immunohistochemistry ([id number]) supports the above diagnosis. There is no evidence of malignancy. Clinical correlation is suggested. CYTOLOGY STUDY Slides are reviewed. CYTOLOGY GROSS Received is 20 ml of red cloudy fluid labeled with the patient's name and and designated per the requisition as left breast. Submitted for cytology preparation including cell block. / vinayak 07/26/2020 TC:5 CPT: 52614, 12167
--- NOTE | 2020-07-23 14:08 | US_ITS ---
PROCEDURE: Ultrasound Guided drainage of the left breast seroma. CLINICAL HISTORY: Female, 69 years old. Seroma left breast after mastectomy -- Left breast seroma after implant removal 06/29/20 CONSENT: Informed consent was obtained. Time-Out Called: Yes Consent form signed: YES PT-PTT Levels Checked: Yes TECHNIQUE: Under direct sonographic guidance, 20 mL of blood-tinged fluid was drained from the seroma status post mastectomy. US/Cyst Puncture IMPRESSION: Successful drainage of a seroma with aspiration of 20 mL of blood-tinged fluid. Electronically Signed: Bay Newell MD at 8:56 EDT , Service support ,
--- NOTE | 2020-07-23 15:29 | NURSING ---
OPSITES APPLIED TO DRAINAGE SITES ON LT SIDE OFCHEST. PT GIVEN VERBAL D/C INSTRUCTIONS FOR SHOWERING AND WATCHING FOR SIGNS OF INFECTION. F/U WITH DR COUGHLIN NEXT WEEK.
== END ==
PROVIDERS: PCP Family Medicine; Referring Provider Nurse Practitioner Family; Visit Provider Nurse Practitioner Family
DX: M96.843 Postprocedural seroma of a musculoskeletal structure following other procedure (principal); T85.49XA Other mechanical complication of breast prosthesis and implant, initial encounter; C50.911 Malignant neoplasm of unspecified site of right female breast; L76.34 Postprocedural seroma of skin and subcutaneous tissue following other procedure; N65.0 Deformity of reconstructed breast; N65.1 Disproportion of reconstructed breast; N61.1 Abscess of the breast and nipple; F40.298 Other specified phobia; Z15.01 Genetic susceptibility to malignant neoplasm of breast; Z17.0 Estrogen receptor positive status [ER+]; Z98.86 Personal history of breast implant removal; Z87.891 Personal history of nicotine dependence; Z90.13 Acquired absence of bilateral breasts and nipples; Z80.3 Family history of malignant neoplasm of breast
CPT/HCPCS: 10140; 76942; 87070; 87075; 87205; 88108; 88305; 88313; 88341; 88342

== ENCOUNTER → 2020-09-27 10:33 | Outpatient (CLI) | payer MEDICARE, OTHER, SELFPAY ==
[2020-09-23 15:05] VITALS: BMI 29.9
[2020-09-27 12:24] LABS: Absolute Lymphocyte Count 0.84 X10^3/uL (0.83-4.51); Absolute Neutrophil Count 7.1 X10^3/uL (2.0-7.7); Basophil# 0.05 X10^3/uL; Basophil% 0.6 % (0-1); Eosinophil# 0.05 X10^3/uL; Eosinophils% 0.6 % (0-5); Hematocrit 37.4 % (37-47); Hemoglobin 11.8 g/dL (12.0-15.0); Lymphocyte # 0.84 X10^3/ul (0.83-4.51); Lymphocyte % 9.8 % (19-41); Mean Corp Hgb Conc 31.6 g/dL (32-36); Mean Corpuscular Hgb 31.3 pg (27.0-32.0); Mean Corpuscular Volume 99.2 fL (81-99); Mean Platelet Vol. 10.1 fl (6.2-12.0); Monocyte# 0.45 X10^3/uL; Monocyte% 5.3 % (0-10); NRBC Flagged by Analyzer 0 % (0-5); Neutrophil # 7.12 X10^3/uL (2.7-7.7); Neutrophil % 83.3 % (47-70); Platelet Count 278 K/mm3 (150-450); RBC Distribution Width CV 14.4 % (11.6-14.6); Red Blood Count 3.77 M/mm3 (4.2-5.4); White Blood Count 8.5 K/mm3 (4.4-11.0)
[2020-09-27 12:43] LABS: ALB/GLOB Ratio 0.8 RATIO (0.9-2.4); AST(SGOT) 17 U/L (15-37); Alanine Aminotransfer ALT/SGPT 16 U/L (13-56); Albumin, Serum 3.6 g/dL (3.2-5.0); Alkaline Phosphatase 88 U/L (45-117); Anion Gap 4 (5-15); BUN 22 mg/dL (7-18); BUN/Creat Ratio 15.8 RATIO (10-20); Calcium,Total 9.8 mg/dL (8.5-10.1); Chloride 106 mmol/L (98-107); Creatinine, Serum 1.39 mg/dL (0.55-1.02); EST Glomerular Filtration Rate 40 mL/min (>60); Est Glom Filt Rate - Afr Amer 48 mL/min (>60); Globulin 4.3 g/dL (2.2-4.2); Glucose 100 mg/dL (74-106); Potassium 3.8 mmol/L (3.5-5.1); Protein, Total 7.9 g/dL (6.4-8.2); Sodium Level 137 mmol/L (136-145)
== END ==
PROVIDERS: PCP Family Medicine; Referring Provider Internal Medicine Rheumatology; Visit Provider Internal Medicine Rheumatology
DX: M06.4 Inflammatory polyarthropathy (principal); M35.1 Other overlap syndromes; M15.4 Erosive (osteo)arthritis; M25.561 Pain in right knee; M21.40 Flat foot [pes planus] (acquired), unspecified foot; K21.9 Gastro-esophageal reflux disease without esophagitis; E03.9 Hypothyroidism, unspecified; F32.89 Other specified depressive episodes; C50.911 Malignant neoplasm of unspecified site of right female breast
CPT/HCPCS: 36415; 80053; 85025

== ENCOUNTER → 2021-02-15 10:52 | Outpatient (CLI) | payer MEDICARE, OTHER, SELFPAY ==
--- NOTE | 2021-02-15 10:56 | BD_ITS ---
STUDY: DUAL ENERGY X-RAY ABSORPTIOMETRY / DXA REASON FOR EXAM: Female, 70 years old. OSTEOPENIA/AI THERAPY TECHNIQUE: Bone Mineral Density (BMD) measurements of lumbar spine and bilateral hips were obtained. COMPARISON: Comparison is made with prior study 01/09/2019. FINDINGS: Lumbar Spine (L1-L4): g/cm2 (1.264) / T-score (2.0) / Z-score (4.0) Findings are suggestive of normal bone density with a low fracture risk. Left Femur Total: g/cm2 (0.906) / T-score (-0.3) / Z-score (1.2) Left Femoral Neck: g/cm2 (0.723) / T-score (-1.1) / Z-score (0.6) Right Femur Total: g/cm2 (0.865) / T-score (-0.6) / Z-score (0.8) Right Femoral Neck: g/cm2 (0.677) / T-score (-1.5) / Z-score (0.2) The T-Scores on the most recent prior examination were: Lumbar Spine (L1-L4): There has been worsening of bone density since the previous examination. Left Femur Total: which represents an improvement of 6.3%. Right Femur Total: which represents an improvement of 7.4%. BD/Dexa Bone Density Study IMPRESSION: The patient is considered osteopenic as outlined below according to World Rei Organization (WHO) criteria with a low fracture risk. There has been improvement of bone density since the previous examination. Reference Information: The T-score is the number of standard deviations above or below the standard which is normal for young adults at their peak bone mineral density. The World Health Organization (WHO) interprets the T-scores as follows: Above -1 Normal bone density Between -1 and -2.5 Osteopenia Equal to / or below -2.5 Osteoporosis As a practical clinical guideline, osteopenia may be graded as follows: Mild -1 through -1.5 Moderate -1.6 through -2.0 Severe -2.1 through -2.4 The Z-score is the number of standard deviations above or below age-matched controls. A Z-score of less than -1.5 would be considered abnormal. References: 1. NIH Osteoporosis and Related Bone Diseases www osteo.org 2. International Society for Clinical Densitometry www iscd.org 3. National Osteoporosis Foundation www nof.org Electronically Signed: Bay Newell MD at 14:03 EDT , Service support ,
== END ==
PROVIDERS: PCP Family Medicine; Referring Provider Internal Medicine Hematology & Oncology; Visit Provider Internal Medicine Hematology & Oncology
DX: C50.919 Malignant neoplasm of unspecified site of unspecified female breast (principal); Z79.811 Long term (current) use of aromatase inhibitors
CPT/HCPCS: 77080

== ENCOUNTER → 2021-03-17 11:05 | Outpatient (CLI) | payer MEDICARE, OTHER, SELFPAY ==
[2021-03-17 15:17] LABS: Absolute Neutrophil Count 4.5 X10^3/uL (2.0-7.7); Basophil# 0.04 X10^3/uL; Basophil% 0.7 % (0-1); Eosinophils% 1.7 % (0-5); Hematocrit 36.5 % (37-47); Hemoglobin 11.5 g/dL (12.0-15.0); Lymphocyte % 16.6 % (19-41); Mean Corp Hgb Conc 31.5 g/dL (32-36); Mean Corpuscular Hgb 31.1 pg (27.0-32.0); Mean Corpuscular Volume 98.6 fL (81-99); Mean Platelet Vol. 10.4 fl (6.2-12.0); Monocyte# 0.35 X10^3/uL; Monocyte% 5.8 % (0-10); NRBC Flagged by Analyzer 0 % (0-5); Neutrophil # 4.52 X10^3/uL (2.7-7.7); Neutrophil % 74.9 % (47-70); Platelet Count 286 K/mm3 (150-450); RBC Distribution Width CV 12.6 % (11.6-14.6); RBC Distribution Width SD 45.6 fl (35.1-43.9)
[2021-03-17 16:11] LABS: ALB/GLOB Ratio 0.9 RATIO (0.9-2.4); AST(SGOT) 19 U/L (15-37); Alanine Aminotransfer ALT/SGPT 18 U/L (13-56); Albumin, Serum 3.5 g/dL (3.2-5.0); Alkaline Phosphatase 73 U/L (45-117); Anion Gap 6 (5-15); BUN 17 mg/dL (7-18); BUN/Creat Ratio 12.8 RATIO (10-20); Calcium,Total 9.3 mg/dL (8.5-10.1); Chloride 105 mmol/L (98-107); Creatinine, Serum 1.33 mg/dL (0.55-1.02); EST Glomerular Filtration Rate 42 mL/min (>60); Est Glom Filt Rate - Afr Amer 51 mL/min (>60); Globulin 4.1 g/dL (2.2-4.2); Glucose 104 mg/dL (74-106); Potassium 4.2 mmol/L (3.5-5.1); Protein, Total 7.6 g/dL (6.4-8.2); Sodium Level 140 mmol/L (136-145)
== END ==
PROVIDERS: PCP Family Medicine; Referring Provider Internal Medicine Rheumatology; Visit Provider Internal Medicine Rheumatology
DX: M06.4 Inflammatory polyarthropathy (principal); M35.1 Other overlap syndromes; M15.4 Erosive (osteo)arthritis; M25.561 Pain in right knee; M21.40 Flat foot [pes planus] (acquired), unspecified foot; K21.9 Gastro-esophageal reflux disease without esophagitis; E03.9 Hypothyroidism, unspecified; F32.89 Other specified depressive episodes; C50.911 Malignant neoplasm of unspecified site of right female breast
CPT/HCPCS: 36415; 80053; 85025

== ENCOUNTER 2021-07-04 13:17 | Outpatient (CLI) | payer MEDICARE, OTHER, SELFPAY ==
[2021-07-04 15:26] LABS: Absolute Lymphocyte Count 0.99 X10^3/uL (0.83-4.51); Absolute Neutrophil Count 4.3 X10^3/uL (2.0-7.7); Basophil# 0.05 X10^3/uL; Basophil% 0.8 % (0-1); Eosinophil# 0.09 X10^3/uL; Eosinophils% 1.5 % (0-5); Hematocrit 35.4 % (37-47); Hemoglobin 11.6 g/dL (12.0-15.0); Lymphocyte # 0.99 X10^3/ul (0.83-4.51); Lymphocyte % 16.8 % (19-41); Mean Corp Hgb Conc 32.8 g/dL (32-36); Mean Corpuscular Hgb 32.5 pg (27.0-32.0); Mean Corpuscular Volume 99.2 fL (81-99); Mean Platelet Vol. 10.3 fl (6.2-12.0); Monocyte# 0.41 X10^3/uL; NRBC Flagged by Analyzer 0 % (0-5); Neutrophil # 4.33 X10^3/uL (2.7-7.7); Neutrophil % 73.6 % (47-70); Platelet Count 324 K/mm3 (150-450); RBC Distribution Width SD 46.8 fl (35.1-43.9); Red Blood Count 3.57 M/mm3 (4.2-5.4); White Blood Count 5.9 K/mm3 (4.4-11.0)
[2021-07-04 15:47] LABS: Albumin, Serum 3.5 g/dL (3.2-5.0); BUN 22 mg/dL (7-18); BUN/Creat Ratio 16.9 RATIO (10-20); Chloride 107 mmol/L (98-107); EST Glomerular Filtration Rate 43 mL/min (>60); Est Glom Filt Rate - Afr Amer 52 mL/min (>60); Ferritin 109 ng/mL (8-252); Glucose 99 mg/dL (74-106); Iron 75 ug/dL (50-170); Iron Binding Capacity,Total 305 ug/dL (250-450); PERCENT IRON SATURATION 24.6 % (15.0-55.0); Phosphorus 2.1 mg/dL (2.5-4.9); Sodium Level 138 mmol/L (136-145)
[2021-07-05 08:35] LABS: PTHIN 83.3 pg/mL (18.4-80.1)
== END 2021-07-04 23:59 | disposition home or self-care (01) ==
LOC: MTLAB 13:23
PROVIDERS: Internal Medicine Hematology & Oncology; PCP Family Medicine; Referring Provider Internal Medicine Nephrology; Visit Provider Internal Medicine Nephrology
DX: N17.9 Acute kidney failure, unspecified (principal); N18.32 Chronic kidney disease, stage 3b; D50.9 Iron deficiency anemia, unspecified
CPT/HCPCS: 80069; 82728; 83540; 83550; 83970; 85025

== ENCOUNTER 2021-08-23 13:24 | Outpatient (CLI) | payer MEDICARE, OTHER, SELFPAY ==
--- NOTE | 2021-08-23 13:27 | CT_ITS ---
STUDY: LOW DOSE CT LUNG CANCER SCREENING REASON FOR EXAM: Female, 71 years old. Lung cancer screening -- 30 pk yr hx;former smoker; asymptomatic RADIATION DOSAGE (If Supplied By Facility): CTDIvol = ( 3.02 ) mGy, DLP = ( 104.20 ) mGycm TECHNIQUE: No contrast was administered. Low dose technique was utilized (average mAS-38 and kVp 120). 1.25 mm axial source images with a slice interval of 1.25-mm were reconstructed in lung windows. 2.5 mm axial source images with a slice interval of 2.5-mm were reconstructed in lung windows. 5.0 mm axial source images with a slice interval of 5.0-mm were reconstructed in soft tissue windows. Nodule measured using lung windows on PACS and/or independent workstation with automated measurement of minimum and maximum diameter. Nodule measurement reported as average diameter rounded to the nearest whole number. Growth is defined as an increase ins size of greater than 1.5 mm. COMPARISON: Comparison is made with prior study dated 02/10/2020. A left-sided portacatheter is seen with the tip in the superior vena cava. The patient is status post bilateral mastectomy and right breast prosthesis. NODULES: No suspicious nodules are seen. Emphysema: Stable bilateral apical scar. Endobronchial lesion: None Aorta: Atherosclerotic calcification of the aortic arch. Coronary arteries: Coronary artery calcification. Heart: Unremarkable Pulmonary artery: Unremarkable Mediastinal nodes: Unremarkable Other chest and abdominal findings: CT/Low Dose CT Lung Screening IMPRESSION: Lung-RADS category 2 - Continue annual screening with LDCT in 12 months. IMPORTANT NOTES FOR USE: ACR Lung-RADS Version 1.1 Assessment Categories Release Date: 2018 Category: Coded 0-4 bases on nodule(s) with highest degree of suspicion. Negative screen is defined as categories 1 and 2; a positive screen is defined as categories 3 and 4. Category 3 and 4A nodules that are unchanged on interval CT should be coded as category 2, and individuals returned to screening in 12 months. Category 4X: Category 3 or 4 nodules with additional imaging findings that increase the suspicion of lung cancer, such as spiculation, GGN that doubles in size in 1 year, enlarged lymph notes, etc. Category Modifiers: S (significant finding unrelated to lung cancer) Electronically Signed: Bay Newell MD at 14:00 EDT ,
== END 2021-08-23 23:59 | disposition home or self-care (01) ==
LOC: CT 13:26
PROVIDERS: PCP Family Medicine; Referring Provider Nurse Practitioner Family; Visit Provider Nurse Practitioner Family
DX: Z87.891 Personal history of nicotine dependence (principal); Z12.2 Encounter for screening for malignant neoplasm of respiratory organs
CPT/HCPCS: 71271

== ENCOUNTER → 2022-03-15 | Outpatient (CLI) | payer MEDICARE, OTHER, SELFPAY ==
[2022-03-15 15:26] LABS: Absolute Lymphocyte Count 1.01 X10^3/uL (0.83-4.51); Absolute Neutrophil Count 5.9 X10^3/uL (2.0-7.7); Basophil# 0.05 X10^3/uL; Basophil% 0.6 % (0-1); Eosinophils% 2.6 % (0-5); Hematocrit 36.9 % (37-47); Hemoglobin 11.7 g/dL (12.0-15.0); Lymphocyte # 1.01 X10^3/ul (0.83-4.51); Mean Corp Hgb Conc 31.7 g/dL (32-36); Mean Corpuscular Hgb 30.9 pg (27.0-32.0); Mean Corpuscular Volume 97.4 fL (81-99); Mean Platelet Vol. 10.3 fl (6.2-12.0); Monocyte# 0.53 X10^3/uL; Monocyte% 6.8 % (0-10); NRBC Flagged by Analyzer 0 % (0-5); Neutrophil # 5.92 X10^3/uL (2.7-7.7); Neutrophil % 76.6 % (47-70); Platelet Count 346 K/mm3 (150-450); RBC Distribution Width CV 13.2 % (11.6-14.6); RBC Distribution Width SD 47.8 fl (35.1-43.9); Red Blood Count 3.79 M/mm3 (4.2-5.4); White Blood Count 7.7 K/mm3 (4.4-11.0)
[2022-03-15 15:45] LABS: ALB/GLOB Ratio 0.9 RATIO (0.9-2.4); AST(SGOT) 20 U/L (15-37); Alanine Aminotransfer ALT/SGPT 20 U/L (13-56); Albumin, Serum 3.6 g/dL (3.2-5.0); Alkaline Phosphatase 79 U/L (45-117); Anion Gap 7 (5-15); BUN 24 mg/dL (7-18); BUN/Creat Ratio 16.3 RATIO (10-20); Calcium,Total 9.5 mg/dL (8.5-10.1); Chloride 103 mmol/L (98-107); Creatinine, Serum 1.47 mg/dL (0.55-1.02); EST Glomerular Filtration Rate 37 mL/min (>60); Est Glom Filt Rate - Afr Amer 45 mL/min (>60); Globulin 4.2 g/dL (2.2-4.2); Glucose 117 mg/dL (74-106); Potassium 4.3 mmol/L (3.5-5.1); Protein, Total 7.8 g/dL (6.4-8.2); Sodium Level 137 mmol/L (136-145)
== END | disposition home or self-care (01) ==
PROVIDERS: PCP Family Medicine; Visit Provider Internal Medicine Rheumatology
DX: M06.4 Inflammatory polyarthropathy (principal); M35.1 Other overlap syndromes; C50.911 Malignant neoplasm of unspecified site of right female breast; M15.4 Erosive (osteo)arthritis; M25.561 Pain in right knee; M21.40 Flat foot [pes planus] (acquired), unspecified foot; K21.9 Gastro-esophageal reflux disease without esophagitis; E03.9 Hypothyroidism, unspecified; F32.89 Other specified depressive episodes
CPT/HCPCS: 36415; 80053; 85025

== ENCOUNTER → 2022-09-06 | Outpatient (CLI) | payer MEDICARE, OTHER, SELFPAY ==
[2022-09-06 18:25] LABS: Absolute Neutrophil Count 3.6 X10^3/uL (2.0-7.7); Basophil# 0.03 X10^3/uL; Basophil% 0.6 % (0-1); Eosinophil# 0.11 X10^3/uL; Hematocrit 35.4 % (37-47); Hemoglobin 11.3 g/dL (12.0-15.0); Lymphocyte % 22.3 % (19-41); Mean Corp Hgb Conc 31.9 g/dL (32-36); Mean Corpuscular Hgb 30.7 pg (27.0-32.0); Mean Corpuscular Volume 96.2 fL (81-99); Mean Platelet Vol. 10.7 fl (6.2-12.0); Monocyte# 0.39 X10^3/uL; Monocyte% 7.2 % (0-10); NRBC Flagged by Analyzer 0 % (0-5); Neutrophil # 3.63 X10^3/uL (2.7-7.7); Neutrophil % 67.5 % (47-70); Platelet Count 311 K/mm3 (150-450); RBC Distribution Width CV 12.8 % (11.6-14.6); RBC Distribution Width SD 45.2 fl (35.1-43.9); Red Blood Count 3.68 M/mm3 (4.2-5.4); White Blood Count 5.4 K/mm3 (4.4-11.0)
[2022-09-06 18:38] LABS: ALB/GLOB Ratio 0.8 RATIO (0.9-2.4); AST(SGOT) 25 U/L (15-37); Alanine Aminotransfer ALT/SGPT 24 U/L (13-56); Albumin, Serum 3.6 g/dL (3.2-5.0); Alkaline Phosphatase 67 U/L (45-117); Anion Gap 3 (5-15); BUN 18 mg/dL (7-18); Calcium,Total 9.7 mg/dL (8.5-10.1); Chloride 106 mmol/L (98-107); Creatinine, Serum 1.38 mg/dL (0.55-1.02); EST Glomerular Filtration Rate 40 mL/min (>60); Est Glom Filt Rate - Afr Amer 49 mL/min (>60); Globulin 4.3 g/dL (2.2-4.2); Glucose 101 mg/dL (74-106); Potassium 4.6 mmol/L (3.5-5.1); Protein, Total 7.9 g/dL (6.4-8.2); Sodium Level 137 mmol/L (136-145)
== END | disposition home or self-care (01) ==
LOC: MTLAB 15:40
PROVIDERS: PCP Family Medicine; Referring Provider Internal Medicine Rheumatology; Visit Provider Internal Medicine Rheumatology
DX: M06.4 Inflammatory polyarthropathy (principal); M35.1 Other overlap syndromes; C50.911 Malignant neoplasm of unspecified site of right female breast; M15.4 Erosive (osteo)arthritis; M25.561 Pain in right knee; M21.40 Flat foot [pes planus] (acquired), unspecified foot; K21.9 Gastro-esophageal reflux disease without esophagitis; E03.9 Hypothyroidism, unspecified; F32.89 Other specified depressive episodes
CPT/HCPCS: 36415; 80053; 85025

== ENCOUNTER → 2022-09-12 | Outpatient (CLI) | payer MEDICARE, OTHER, SELFPAY ==
[2022-09-12 16:16] LABS: T4 Free Direct 1.17 ng/dL (0.76-1.46); Thyroid Stim Hormone (TSH) 2.49 uIU/mL (0.358-3.74)
== END | disposition home or self-care (01) ==
LOC: BFHLAB 13:39
PROVIDERS: PCP Family Medicine; Referring Provider Family Medicine; Visit Provider Family Medicine
DX: E03.9 Hypothyroidism, unspecified (principal)
CPT/HCPCS: 36415; 84439; 84443

== ENCOUNTER → 2022-10-24 | Outpatient (CLI) | payer MEDICARE, OTHER, SELFPAY ==
--- NOTE | 2022-10-24 12:32 | CT_ITS ---
STUDY: LOW DOSE CT LUNG CANCER SCREENING REASON FOR EXAM: Female, 72 years old. lung cancer screening -- and gt;20 pk yr hx;current smoker;asymptomatic RADIATION DOSAGE (If Supplied By Facility): CTDIvol = ( 2.39 ) mGy, DLP = ( 75.34 ) mGycm TECHNIQUE: No contrast was administered. Low dose technique was utilized (average mAS-38 and kVp 120). 1.25 mm axial source images with a slice interval of 1.25-mm were reconstructed in lung windows. 2.5 mm axial source images with a slice interval of 2.5-mm were reconstructed in lung windows. 5.0 mm axial source images with a slice interval of 5.0-mm were reconstructed in soft tissue windows. COMPARISON: None. A left-sided portacatheter is seen with the tip in the superior vena cava. The patient is status post bilateral mastectomy with right breast implant. This is unchanged. NODULES: No suspicious nodules are seen. Emphysema: Stable bilateral apical scarring. Mild degree of emphysematous changes more prominent in the upper lobes. Endobronchial lesion: Unremarkable. Aorta: Atherosclerotic calcification of the aortic arch. CORONARY ARTERIES: Coronary artery calcification is seen. Heart: Unremarkable Pulmonary artery: Unremarkable Mediastinal nodes: Unremarkable Other chest and abdominal findings: CT/Low Dose CT Lung Screening IMPRESSION: Lung-RADS category 2 - Continue annual screening with LDCT in 12 months. IMPORTANT NOTES FOR USE: ACR Lung-RADS Version 1.1 Assessment Categories Release Date: 2018 Category: Coded 0-4 bases on nodule(s) with highest degree of suspicion. Negative screen is defined as categories 1 and 2; a positive screen is defined as categories 3 and 4. Category 3 and 4A nodules that are unchanged on interval CT should be coded as category 2, and individuals returned to screening in 12 months. Category 4X: Category 3 or 4 nodules with additional imaging findings that increase the suspicion of lung cancer, such as spiculation, GGN that doubles in size in 1 year, enlarged lymph notes, etc. Category Modifiers: S (significant finding unrelated to lung cancer) Electronically Signed: Bay Newell MD at 13:12 EDT ,
== END | disposition home or self-care (01) ==
LOC: CT 12:31
PROVIDERS: PCP Family Medicine; Referring Provider Nurse Practitioner Family; Visit Provider Nurse Practitioner Family
DX: Z12.2 Encounter for screening for malignant neoplasm of respiratory organs (principal); Z87.891 Personal history of nicotine dependence
CPT/HCPCS: 71271

== ENCOUNTER → 2023-02-05 | Outpatient (CLI) | payer MEDICARE, OTHER, SELFPAY ==
--- NOTE | 2023-02-05 13:53 | CT_ITS ---
CT LEFT LOWER EXTREMITY WITH 3-D IMAGING CLINICAL INDICATION: Varus deformity, not elsewhere classified, left knee. [facility] Protocol. TECHNIQUE: Axial CT images of the left lower extremity was performed, as per [facility] Protocol. Coronal and sagittal reformats were provided. RADIATION DOSAGE (If Supplied By Facility): CTDIvol = ( 18.75 ) mGy, DLP = ( 1238.39 ) mGycm COMPARISON: No relevant prior comparison study available FINDINGS: Left hip: Mild left hip osteoarthritis. No acute fracture. No dislocation. No bone destruction. Mild pubic symphysis arthrosis. Mild sacroiliac joint arthrosis. Left knee: Severe medial compartment joint space narrowing. Mild lateral compartment joint space narrowing. Severe patellofemoral joint space narrowing. Multiple osteophytes. Moderate volume joint effusion. Mild soft tissue swelling. No acute fracture. No dislocation. No bone destruction. Left ankle: Mild tibiotalar joint arthrosis with small subchondral cyst in the lateral aspect of the joint. Mild subtalar joint arthrosis. Small Achilles tendon enthesophyte. Plantar calcaneal spur. Normal calcaneocuboid articulation. Normal talonavicular articulation. No acute fracture. No dislocation. No bone destruction. CT/Extremity Lower without Contra IMPRESSION: Severe tricompartment degenerative arthrosis, most severe in the patellofemoral and medial femorotibial compartments. Left moderate knee joint effusion. Additional degenerative changes, as above. Electronically Signed: Jose Carroll MD at 15:24 EDT Reading Location ID and State: [facility] / [place] , Service support ,
[2023-02-05 15:00] LABS: Absolute Lymphocyte Count 1.47 X10^3/uL (0.83-4.51); Absolute Neutrophil Count 4.6 X10^3/uL (2.0-7.7); Basophil# 0.06 X10^3/uL; Basophil% 0.9 % (0-1); Eosinophil# 0.04 X10^3/uL; Eosinophils% 0.6 % (0-5); Hematocrit 35.7 % (37-47); Hemoglobin 11.3 g/dL (12.0-15.0); Lymphocyte # 1.47 X10^3/ul (0.83-4.51); Lymphocyte % 21.6 % (19-41); Mean Corp Hgb Conc 31.7 g/dL (32-36); Mean Corpuscular Hgb 30.1 pg (27.0-32.0); Mean Corpuscular Volume 94.9 fL (81-99); Monocyte# 0.57 X10^3/uL; Monocyte% 8.4 % (0-10); NRBC Flagged by Analyzer 0 % (0-5); Neutrophil # 4.63 X10^3/uL (2.7-7.7); Neutrophil % 67.9 % (47-70); Platelet Count 315 K/mm3 (150-450); RBC Distribution Width CV 13.3 % (11.6-14.6); RBC Distribution Width SD 46.6 fl (35.1-43.9); Red Blood Count 3.76 M/mm3 (4.2-5.4); White Blood Count 6.8 K/mm3 (4.4-11.0)
[2023-02-05 15:22] LABS: Albumin, Serum 3.4 g/dL (3.2-5.0); Anion Gap 4 (5-15); BUN 23 mg/dL (7-18); Calcium,Total 8.8 mg/dL (8.5-10.1); Chloride 108 mmol/L (98-107); Creatinine, Serum 1.35 mg/dL (0.55-1.02); EST Glomerular Filtration Rate 41 mL/min (>60); Est Glom Filt Rate - Afr Amer 50 mL/min (>60); Glucose 93 mg/dL (74-106); Potassium 4.3 mmol/L (3.5-5.1); Sodium Level 140 mmol/L (136-145)
== END | disposition home or self-care (01) ==
LOC: CT 13:49
PROVIDERS: PCP Family Medicine; Referring Provider Specialist; Visit Provider Specialist
DX: Z01.818 Encounter for other preprocedural examination (principal); M21.162 Varus deformity, not elsewhere classified, left knee
CPT/HCPCS: 36415; 73700; 80048; 82040; 85025; 93005

== ENCOUNTER → 2023-03-27 | Outpatient (CLI) | payer MEDICARE, OTHER, SELFPAY ==
[2023-03-27 12:40] LABS: Absolute Lymphocyte Count 1.22 X10^3/uL (0.83-4.51); Absolute Neutrophil Count 4.4 X10^3/uL (2.0-7.7); Basophil# 0.06 X10^3/uL; Basophil% 0.9 % (0-1); Eosinophil# 0.14 X10^3/uL; Eosinophils% 2.2 % (0-5); Hematocrit 34.4 % (37-47); Lymphocyte # 1.22 X10^3/ul (0.83-4.51); Lymphocyte % 19.1 % (19-41); Mean Corp Hgb Conc 29.1 g/dL (32-36); Mean Corpuscular Hgb 29.2 pg (27.0-32.0); Mean Corpuscular Volume 100.6 fL (81-99); Mean Platelet Vol. 10.5 fl (6.2-12.0); Monocyte# 0.53 X10^3/uL; Monocyte% 8.3 % (0-10); NRBC Flagged by Analyzer 0 % (0-5); Neutrophil # 4.42 X10^3/uL (2.7-7.7); Neutrophil % 69.2 % (47-70); Platelet Count 357 K/mm3 (150-450); RBC Distribution Width CV 13.4 % (11.6-14.6); RBC Distribution Width SD 49.8 fl (35.1-43.9); Red Blood Count 3.42 M/mm3 (4.2-5.4); White Blood Count 6.4 K/mm3 (4.4-11.0)
[2023-03-27 13:11] LABS: ALB/GLOB Ratio 0.8 RATIO (0.9-2.4); AST(SGOT) 21 U/L (15-37); Alanine Aminotransfer ALT/SGPT 11 U/L (13-56); Albumin, Serum 3.3 g/dL (3.2-5.0); Alkaline Phosphatase 96 U/L (45-117); Anion Gap 6 (5-15); BUN 25 mg/dL (7-18); BUN/Creat Ratio 16.6 RATIO (10-20); Calcium,Total 9.2 mg/dL (8.5-10.1); Chloride 110 mmol/L (98-107); Creatinine, Serum 1.51 mg/dL (0.55-1.02); EST Glomerular Filtration Rate 36 mL/min (>60); Est Glom Filt Rate - Afr Amer 44 mL/min (>60); Globulin 4.2 g/dL (2.2-4.2); Glucose 92 mg/dL (74-106); Protein, Total 7.5 g/dL (6.4-8.2); Sodium Level 139 mmol/L (136-145)
== END | disposition home or self-care (01) ==
LOC: MTLAB 11:12
PROVIDERS: PCP Family Medicine; Referring Provider Internal Medicine Rheumatology; Visit Provider Internal Medicine Rheumatology
DX: M06.4 Inflammatory polyarthropathy (principal); M35.1 Other overlap syndromes
CPT/HCPCS: 36415; 80053; 85025

== ENCOUNTER → 2023-09-20 | Outpatient (CLI) | payer MEDICARE, OTHER, SELFPAY ==
[2023-09-20 17:46] LABS: Absolute Lymphocyte Count 1.67 X10^3/uL (0.83-4.51); Absolute Neutrophil Count 5.1 X10^3/uL (2.0-7.7); Basophil# 0.07 X10^3/uL; Basophil% 0.9 % (0-1); Eosinophil# 0.25 X10^3/uL; Eosinophils% 3.3 % (0-5); Hematocrit 34.6 % (37-47); Hemoglobin 10.8 g/dL (12.0-15.0); Lymphocyte # 1.67 X10^3/ul (0.83-4.51); Lymphocyte % 21.8 % (19-41); Mean Corp Hgb Conc 31.2 g/dL (32-36); Mean Corpuscular Hgb 29.3 pg (27.0-32.0); Mean Platelet Vol. 9.9 fl (6.2-12.0); Monocyte# 0.52 X10^3/uL; Monocyte% 6.8 % (0-10); NRBC Flagged by Analyzer 0 % (0-5); Neutrophil # 5.11 X10^3/uL (2.7-7.7); Neutrophil % 66.8 % (47-70); Platelet Count 348 K/mm3 (150-450); RBC Distribution Width CV 12.9 % (11.6-14.6); RBC Distribution Width SD 44.3 fl (35.1-43.9); Red Blood Count 3.68 M/mm3 (4.2-5.4); White Blood Count 7.7 K/mm3 (4.4-11.0)
[2023-09-20 18:16] LABS: ALB/GLOB Ratio 0.9 RATIO (0.9-2.4); AST(SGOT) 22 U/L (15-37); Alanine Aminotransfer ALT/SGPT 15 U/L (13-56); Albumin, Serum 3.5 g/dL (3.2-5.0); Alkaline Phosphatase 90 U/L (45-117); Anion Gap 7 (5-15); BUN 21 mg/dL (7-18); BUN/Creat Ratio 13.4 RATIO (10-20); Calcium,Total 9.6 mg/dL (8.5-10.1); Chloride 105 mmol/L (98-107); Creatinine, Serum 1.57 mg/dL (0.55-1.02); EST Glomerular Filtration Rate 34 mL/min (>60); Est Glom Filt Rate - Afr Amer 42 mL/min (>60); Globulin 3.7 g/dL (2.2-4.2); Glucose 71 mg/dL (74-106); Potassium 3.9 mmol/L (3.5-5.1); Protein, Total 7.2 g/dL (6.4-8.2); Sodium Level 139 mmol/L (136-145)
== END | disposition home or self-care (01) ==
LOC: MTLAB 14:49
PROVIDERS: PCP Family Medicine; Referring Provider Internal Medicine Rheumatology; Visit Provider Internal Medicine Rheumatology
DX: M06.4 Inflammatory polyarthropathy (principal); M35.1 Other overlap syndromes
CPT/HCPCS: 36415; 80053; 85025

== ENCOUNTER → 2023-10-23 | Outpatient (CLI) | payer MEDICARE, OTHER, SELFPAY ==
--- NOTE | 2023-10-23 11:02 | BD_ITS ---
STUDY: DUAL ENERGY X-RAY ABSORPTIOMETRY / DXA REASON FOR EXAM: Female, 73 years old. SCREENING TECHNIQUE: Bone Mineral Density (BMD) measurements of lumbar spine and bilateral hips were obtained. COMPARISON: Comparison is made with prior study dated February 15, 2021. FINDINGS: Lumbar Spine (L1-L4): g/cm2 (1.138) / T-score (0.3) / Z-score (2.7) Findings are suggestive of normal bone density with a low fracture risk. Left Femur Total: g/cm2 (0.939) / T-score (0.0) / Z-score (1.6) Left Femoral Neck: g/cm2 (0.776) / T-score (-0.7) / Z-score (1.3) Right Femur Total: g/cm2 (0.875) / T-score (-0.5) / Z-score (1.1) Right Femoral Neck: g/cm2 (0.696) / T-score (-1.4) / Z-score (0.5) The T-Scores on the most recent prior examination were: Lumbar Spine (L1-L4): There has been worsening of bone density since the previous examination. Left Femur Total: which represents an improvement of 3.6%. Right Femur Total: which represents an improvement of 1.2%. BD/Dexa Bone Density Study IMPRESSION: The patient is considered osteopenic as outlined below according to World Rei Organization (WHO) criteria with a low fracture risk. There has been improvement of bone density since the previous examination. Reference Information: The T-score is the number of standard deviations above or below the standard which is normal for young adults at their peak bone mineral density. The World Health Organization (WHO) interprets the T-scores as follows: Above -1 Normal bone density Between -1 and -2.5 Osteopenia Equal to / or below -2.5 Osteoporosis As a practical clinical guideline, osteopenia may be graded as follows: Mild -1 through -1.5 Moderate -1.6 through -2.0 Severe -2.1 through -2.4 The Z-score is the number of standard deviations above or below age-matched controls. A Z-score of less than -1.5 would be considered abnormal. References: 1. NIH Osteoporosis and Related Bone Diseases www osteo.org 2. International Society for Clinical Densitometry www iscd.org 3. National Osteoporosis Foundation www nof.org Electronically Signed: Bay Newell MD at 7:43 EDT ,
== END | disposition home or self-care (01) ==
LOC: OPBD 10:59
PROVIDERS: PCP Family Medicine; Referring Provider Internal Medicine Hematology & Oncology; Visit Provider Internal Medicine Hematology & Oncology
DX: Z78.0 Asymptomatic menopausal state (principal)
CPT/HCPCS: 77080

== ENCOUNTER → 2024-03-24 | Outpatient (CLI) | payer MEDICARE, OTHER, SELFPAY ==
[2024-03-24 12:17] LABS: Color, Urine Yellow (Yellow); Glucose, Dipstick Normal (Normal); Ketone-Dipstick Negative (Negative); Leukocyte Esterase-Dipstick 100 /ul (Negative); Nitrite-Dipstick Negative (Negative); Occult Blood-Urine Negative /ul (Negative); Protein-Dipstick Negative (Negative); Urine Bilirubin Dipstick Negative (Negative); Urine Clarity Clear (Clear); Urine Urobilinogen Normal (Normal)
[2024-03-24 12:24] LABS: Absolute Lymphocyte Count 0.95 X10^3/uL (0.83-4.51); Absolute Neutrophil Count 5.1 X10^3/uL (2.0-7.7); Basophil# 0.05 X10^3/uL; Basophil% 0.7 % (0-1); Eosinophils% 1.5 % (0-5); Hematocrit 33.8 % (37-47); Hemoglobin 10.8 g/dL (12.0-15.0); Lymphocyte # 0.95 X10^3/ul (0.83-4.51); Lymphocyte % 14.2 % (19-41); Mean Corpuscular Hgb 29.9 pg (27.0-32.0); Mean Corpuscular Volume 93.6 fL (81-99); Mean Platelet Vol. 10.4 fl (6.2-12.0); Monocyte# 0.42 X10^3/uL; Monocyte% 6.3 % (0-10); NRBC Flagged by Analyzer 0 % (0-5); Neutrophil # 5.12 X10^3/uL (2.7-7.7); Neutrophil % 76.9 % (47-70); Platelet Count 336 K/mm3 (150-450); RBC Distribution Width CV 12.8 % (11.6-14.6); Red Blood Count 3.61 M/mm3 (4.2-5.4); White Blood Count 6.7 K/mm3 (4.4-11.0)
[2024-03-24 12:41] LABS: Protein, Urine (Random) 13.9 mg/dL (<11.9); Protein:Creat Ratio 161 mg/g CRE (0-200)
[2024-03-24 13:11] LABS: ALB/GLOB Ratio 0.9 RATIO (0.9-2.4); AST(SGOT) 18 U/L (15-37); Alanine Aminotransfer ALT/SGPT 15 U/L (13-56); Albumin, Serum 3.5 g/dL (3.2-5.0); Alkaline Phosphatase 88 U/L (45-117); Anion Gap 8 (5-15); BUN 26 mg/dL (7-18); Calcium,Total 10.3 mg/dL (8.5-10.1); Chloride 104 mmol/L (98-107); Creatinine, Serum 1.63 mg/dL (0.55-1.02); EST Glomerular Filtration Rate 33 mL/min (>60); Est Glom Filt Rate - Afr Amer 40 mL/min (>60); Globulin 4.1 g/dL (2.2-4.2); Glucose 130 mg/dL (74-106); Phosphorus 3.5 mg/dL (2.5-4.9); Potassium 3.8 mmol/L (3.5-5.1); Protein, Total 7.6 g/dL (6.4-8.2); Sodium Level 137 mmol/L (136-145)
== END | disposition home or self-care (01) ==
PROVIDERS: PCP Nurse Practitioner Family; Referring Provider Internal Medicine Nephrology; Visit Provider Internal Medicine Nephrology
DX: N18.32 Chronic kidney disease, stage 3b (principal); M06.4 Inflammatory polyarthropathy; M35.1 Other overlap syndromes; Z79.899 Other long term (current) drug therapy
CPT/HCPCS: 36415; 80053; 81002; 82570; 84100; 84156; 85025

== ENCOUNTER → 2024-09-15 | Outpatient (CLI) | payer MEDICARE, OTHER, SELFPAY ==
[2024-09-15 12:32] LABS: Absolute Lymphocyte Count 1.22 X10^3/uL (0.83-4.51); Absolute Neutrophil Count 5.3 X10^3/uL (2.0-7.7); Basophil# 0.07 X10^3/uL; Eosinophil# 0.16 X10^3/uL; Eosinophils% 2.2 % (0-5); Hematocrit 35.4 % (37-47); Hemoglobin 11.4 g/dL (12.0-15.0); Lymphocyte # 1.22 X10^3/ul (0.83-4.51); Lymphocyte % 16.6 % (19-41); Mean Corp Hgb Conc 32.2 g/dL (32-36); Mean Corpuscular Hgb 29.5 pg (27.0-32.0); Mean Corpuscular Volume 91.5 fL (81-99); Monocyte# 0.54 X10^3/uL; Monocyte% 7.4 % (0-10); NRBC Flagged by Analyzer 0 % (0-5); Neutrophil # 5.32 X10^3/uL (2.7-7.7); Neutrophil % 72.5 % (47-70); Platelet Count 285 K/mm3 (150-450); RBC Distribution Width CV 13.3 % (11.6-14.6); RBC Distribution Width SD 44.5 fl (35.1-43.9); Red Blood Count 3.87 M/mm3 (4.2-5.4); White Blood Count 7.3 K/mm3 (4.4-11.0)
[2024-09-15 12:50] LABS: ALB/GLOB Ratio 1.1 RATIO (0.9-2.4); AST(SGOT) 25 U/L (<=31); Alanine Aminotransfer ALT/SGPT 11 U/L (<=34); Albumin, Serum 3.8 g/dL (3.4-4.8); Alkaline Phosphatase 88 U/L (35-104); Anion Gap 12 (5-15); BUN 21 mg/dL (4-19); Calcium,Total 9.7 mg/dL (7.6-11.0); Carbon Dioxide 23.4 mmol/L (21.0-32.0); Chloride 106 mmol/L (98-108); Creatinine, Serum 1.51 mg/dL (0.70-1.20); EST Glomerular Filtration Rate 36 (>60); Globulin 3.6 g/dL (2.2-4.2); Glucose 107 mg/dL (70-99); Potassium 4.5 mmol/L (3.3-5.1); Protein, Total 7.4 g/dL (5.9-8.4); Sodium Level 141 mmol/L (133-145)
== END | disposition home or self-care (01) ==
LOC: MTLAB 10:59
PROVIDERS: PCP Nurse Practitioner Family; Referring Provider Internal Medicine Rheumatology; Visit Provider Internal Medicine Rheumatology
DX: M06.4 Inflammatory polyarthropathy (principal); M35.1 Other overlap syndromes; Z79.899 Other long term (current) drug therapy
CPT/HCPCS: 36415; 80053; 85025

== ENCOUNTER → 2025-03-02 | Outpatient (CLI) | payer MEDICARE, OTHER, SELFPAY ==
[2025-03-02 18:14] LABS: Hematocrit 33.8 % (37-47); Hemoglobin 11.1 g/dL (12.0-15.0); Immature Granulocytes Count 0.040 X10^3/uL (0.0-0.0); Mean Corp Hgb Conc 32.8 g/dL (32-36); Mean Corpuscular Volume 90.4 fL (81-99); Mean Platelet Vol. 11.4 fl (6.2-12.0); NRBC Flagged by Analyzer 0 % (0-5); Platelet Count 360 K/mm3 (150-450); RBC Distribution Width CV 13.2 % (11.6-14.6); RBC Distribution Width SD 43.8 fl (35.1-43.9); Red Blood Count 3.74 M/mm3 (4.2-5.4); White Blood Count 11.0 K/mm3 (4.4-11.0)
[2025-03-02 18:32] LABS: AST(SGOT) 21 U/L (<=31); Alanine Aminotransfer ALT/SGPT 9 U/L (<=34); Albumin, Serum 4.2 g/dL (3.4-4.8); Alkaline Phosphatase 102 U/L (35-104); Anion Gap 13 (5-15); BUN 22 mg/dL (4-19); BUN/Creat Ratio 15.9 RATIO (10-20); Calcium,Total 10.3 mg/dL (7.6-11.0); Carbon Dioxide 22.9 mmol/L (21.0-32.0); Chloride 103 mmol/L (98-108); Globulin 3.5 g/dL (2.2-4.2); Glucose 89 mg/dL (70-99); Potassium 4.5 mmol/L (3.3-5.1)
[2025-03-02 20:48] LABS: Creatinine, Urine (random) 130.00 mg/dL (28.00-217.00); Protein, Urine (Random) 19.5 mg/dL (0.0-12.0); Protein:Creat Ratio 150 mg/g CRE (0-200)
[2025-03-02 22:15] LABS: Color, Urine Yellow (Yellow); Glucose, Dipstick Normal (Normal); Ketone-Dipstick Negative (Negative); Leukocyte Esterase-Dipstick 25 /ul (Negative); Nitrite-Dipstick Negative (Negative); Occult Blood-Urine Negative /ul (Negative); Protein-Dipstick 30 mg/dl (Negative); Specific Gravity, Urine 1.015 (1.002-1.030); Urine Bilirubin Dipstick Negative (Negative)
== END | disposition home or self-care (01) ==
PROVIDERS: PCP Nurse Practitioner Family; Referring Provider Internal Medicine Rheumatology; Visit Provider Internal Medicine Rheumatology
DX: M06.4 Inflammatory polyarthropathy (principal); M35.1 Other overlap syndromes; Z79.899 Other long term (current) drug therapy
CPT/HCPCS: 36415; 80053; 81002; 82570; 84156; 85025

== ENCOUNTER → 2025-05-13 | Outpatient (CLI) | payer MEDICARE, OTHER, SELFPAY ==
--- NOTE | 2025-05-13 10:45 | CT_ITS ---
PROCEDURE: LOW DOSE CT LUNG SCREENING 05/13/2025 REASON FOR EXAM: LUNG CANCER SCREENING TECHNIQUE: Procedure Code: [id number] Modality: CT Procedure: LOW DOSE CT LUNG SCREENING Coronal and Sagittal reconstruction series were provided. One or more dose reduction techniques were used (e.g., Automated exposure control, adjustment of the mA and/or kV according to patient size, use of iterative reconstruction technique). REFERENCE LINK: NI Lung-RADS RADIATION DOSE SUMMARY: CTDlvol: 3.02 mGy DLP: 99 mGycm COMPARISON: 10/24/2022. FINDINGS: PULMONARY NODULES: (Only nodules >3mm are reported) Nodules described below are on series 2 unless otherwise specified. Pulmonary Nodules: None. Unchanged bilateral apical chronic parenchymal scarring. Unchanged mild emphysema. Mild bilateral basilar atelectatic pulmonary changes. Mild cardiomegaly. Small sliding hiatal hernia. Moderate coronary artery calcifications. Osteopenia. Moderate diffuse spondylosis. Normal unenhanced main pulmonary artery and right and left pulmonary arteries. Normal bilateral peripheral pulmonary arteries. Normal thoracic aorta and visualized great vessels. There is no demonstrated aortic aneurysm. Normal heart and pericardium. Normal mediastinum. Normal hilar regions. Normal visualized trachea and thickened bronchi. The remaining lungs are well expanded. Normal remaining pulmonary parenchyma. Normal pleura. Normal visualized upper abdomen. Right breast implant is noted. CT/Low Dose CT Lung Screening IMPRESSION: Unchanged bilateral apical chronic parenchymal scarring. Unchanged mild emphysema. Mild bilateral basilar atelectatic pulmonary changes. Mild cardiomegaly. Small sliding hiatal hernia. Moderate coronary artery calcifications. Osteopenia. Moderate diffuse spondylosis. Lung-RADS Category: 2 BENIGN (BASED ON IMAGING FEATURES OR INDOLENT BEHAVIOR). RECOMMEND 12-MONTH SCREENING LDCT. Reading [facility] [id number]
== END | disposition home or self-care (01) ==
LOC: CT 10:44
PROVIDERS: PCP Nurse Practitioner Family; Referring Provider Nurse Practitioner Family; Visit Provider Nurse Practitioner Family
DX: Z12.2 Encounter for screening for malignant neoplasm of respiratory organs (principal); Z87.891 Personal history of nicotine dependence
CPT/HCPCS: 71271